=== PATIENT | female | born 1935 | race Caucasian/White ===

== ENCOUNTER 2016-10-23 17:34 | Inpatient (IN) | payer MEDICARE, OTHER ==
[~2016-10-23] VITALS: Ht 162.6 cm; Wt 89.0 kg
[2016-10-23] MEDS ORDERED: ALBUTEROL 0.5% (NEB) 2.5 MG/0.5 ML AMP HHN STA (18:12)
[2016-10-23] MEDS ORDERED: IPRATROPIUM (NEB) 0.5 MG/2.5 ML AMP HHN ONE (18:30)
[2016-10-23 18:46] LABS: EOSINOPHILS % 0.1 % (0.0-7.0); HEMOGLOBIN 10.4 g/dl (12.0-16.0); LYMPHOCYTES # 0.8 10^3/ul (0.8-2.9); LYMPHOCYTES % 6.9 % (15.0-51.0); MEAN CORPUSCULAR HEMOGLOBIN 28.9 pg (29.0-33.0); MEAN CORPUSCULAR HGB CONC 33.4 g/dl (32.0-37.0); MEAN CORPUSCULAR VOLUME 86.7 fl (82.0-101.0); MEAN PLATELET VOLUME 6.4 fl (7.4-10.4); MONOCYTE # 0.8 10^3/ul (0.3-0.9); MONOCYTES % 7.2 % (0.0-11.0); NEUTROPHIL # 9.4 10^3/ul (1.6-7.5); NEUTROPHILS % 85.8 % (39.0-77.0); PLATELET COUNT 284 10^3/UL (140-440); RED BLOOD COUNT 3.58 10^6/ul (4.20-5.40); RED CELL DISTRIBUTION WIDTH 15.8 % (11.5-14.5); UNCORRECTED WBC 10.9 10^3/ul (4.8-10.8); WHITE BLOOD COUNT 10.9 10^3/ul (4.8-10.8)
[2016-10-23 18:50] LABS: ALBUMIN 3.4 g/dl (3.3-4.9)
[2016-10-23 18:51] LABS: POTASSIUM 3.8 mmol/L (3.5-5.1)
[2016-10-23 18:52] LABS: CONDITION 1; LH ANALYZER COMMENTS 1
[2016-10-23 18:53] LABS: ALBUMIN/GLOBULIN RATIO 0.85; BILIRUBIN,INDIRECT 0.2 mg/dl (0-1.1); BILIRUBIN,TOTAL 0.2 mg/dl (0.2-1.3); CREATININE 1.72 mg/dl (0.44-1.00); TOTAL PROTEIN 7.4 g/dl (6.1-8.1)
[2016-10-23 18:54] LABS: CALCIUM 10.3 mg/dl (8.4-10.2)
--- NOTE | 2016-10-23 19:00 | RADRPT ---
PROCEDURE: XR Chest. CLINICAL INDICATION: Abdominal pain. TECHNIQUE: Single frontal view of the chest was obtained COMPARISON: None FINDINGS: Right central venous double-lumen right central venous dialysis catheter in place with tip at superi or vena cava right atrial junction. Degree of cardiomegaly and atherosclerotic calcifications in the thoracic aorta. The lungs demonstrate likely is centrolobular emphysema and are otherwise clear. There is no pleural effusion or pneumothorax. IMPRESSION: 1. Double-lumen dialysis catheter in place. 2. Cardiomegaly with atherosclerotic calcifications in the thoracic aorta. 3. Otherwise, no evident acute cardiopulmonary disease. RPTAT: [facility] Physician Susan Date Time Electronically viewed and signed by Physician Susan on 10/23/2016 19:00 RS/
[2016-10-23 19:08] LABS: TROPONIN-I 0.136 ng/ml (0.00-0.12)
[2016-10-23] MEDS ORDERED: CEFEPIME 2GM/50 ML (PMX) 50 ML IVPB STA (19:58)
[2016-10-23] MEDS ORDERED: SODIUM CHLORIDE 0.9% 1L BAG IV* STA (19:58)
[2016-10-23 20:29] VITALS: TEMP 99.6
[2016-10-23] MEDS ORDERED: ASPIRIN 81 MG TAB PO ONE (20:30)
--- NOTE | 2016-10-23 20:53 | ERA ---
ER Documentation Chief Complaint Date/Time DATE: 10/23/16 TIME: 20:42 Chief Complaint fatigue started yesterday after dialysis HPI This 81-year-old female came in for feeling very tired since dialysis yesterday. She feels like she is getting sick. She denies chest pain. She admits to shortness of breath when he does mention that she looks like she is breathing hard. States that she has had chills but denies fevers. Denies pain. ROS All systems reviewed and are negative except as per history of present illness. Medications Home Meds No Active Prescriptions or Reported Meds Allergies Allergies: Coded Allergies: Opioids - Morphine Analogues (Unverified Allergy, Unknown, 10/24/16) codeine (Unverified Allergy, Unknown, 10/24/16) PMhx/Soc History of Surgery: Yes (AV-Fistula) Anesthesia Reaction: No Hx Neurological Disorder: No Hx Respiratory Disorders: Yes (asthma) Hx Cardiac Disorders: No Hx Psychiatric Problems: No Hx Miscellaneous Medical Probl: Yes (ESRD-HD-HTN, Lymphedema.) Hx Alcohol Use: No Hx Substance Use: No Hx Tobacco Use: No Smoking Status: Never smoker Physical Exam Vitals Vital Signs Date Time Temp Pulse Resp B/P Pulse Ox O2 Delivery O2 Flow Rate FiO2 10/23/16 20:29 99.6 114 22 186/88 98 Room Air 2.0 10/23/16 18:22 105 28 93 Nasal Cannula 2.0 28 10/23/16 17:45 99.3 99 23 197/106 90 Physical Exam Const: [] Mild distress, tachypneic, speaking in 4-5 word sentences Head: Atraumatic Eyes: Normal Conjunctiva, EOMI, PERRLA ENT: Normal External Ears, Nose and Mouth. Neck: Full range of motion..~ No meningismus. Resp: Bilateral expiratory wheezes, good air movement, tachypnea Cardio: Very mild regular tachycardia, no murmurs Abd: Soft, non tender, non distended. Normal bowel sounds Skin: No petechiae or rashes Back: No midline or flank tenderness Ext: No cyanosis, or edema Neur: Awake and alert and oriented 3, cranial nerves II through XII intact, no focal deficits Psych: Normal Mood and Affect Result Diagram: 10/23/16 1800 10/23/16 1800 Results 24 hrs Laboratory Tests Test 10/23/16 18:00 1/27/17 19:45 Alanine Aminotransferase (ALT/SGPT) 31IU/L Albumin 3.4g/dl Albumin/Globulin Ratio 0.85 Alkaline Phosphatase 150IU/L Anion Gap 15 Aspartate Amino Transf (AST/SGOT) 52IU/L Basophils # 0.010^3/ul Basophils % 0.0% Blood Morphology Comment Blood Urea Nitrogen 21mg/dl Calcium Level 10.3mg/dl Carbon Dioxide Level 32mmol/L Chloride Level 92mmol/L Creatinine 1.72mg/dl Direct Bilirubin 0.00mg/dl Eosinophils # 0.010^3/ul Eosinophils % 0.1% Globulin 4.00g/dl Glucose Level 144mg/dl Hematocrit 31.0% Hemoglobin 10.4g/dl Indirect Bilirubin 0.2mg/dl Lipase 42U/L Lymphocytes # 0.810^3/ul Lymphocytes % 6.9% Mean Corpuscular Hemoglobin 28.9pg Mean Corpuscular Hemoglobin Concent 33.4g/dl Mean Corpuscular Volume 86.7fl Mean Platelet Volume 6.4fl Monocytes # 0.810^3/ul Monocytes % 7.2% Neutrophils # 9.410^3/ul Neutrophils % 85.8% Nucleated Red Blood Cells # 0.010^3/ul Nucleated Red Blood Cells % 0.0/100WBC Platelet Count 74001^3/UL Potassium Level 3.8mmol/L Red Blood Count 3.5810^6/ul Red Cell Distribution Width 15.8% Sodium Level 135mmol/L Total Bilirubin 0.2mg/dl Total Protein 7.4g/dl Troponin I 0.136ng/ml White Blood Count 10.910^3/ul Lactic Acid Level 3.0mmol/L Current Medications Medications (Trade) Dose Ordered Sig/Uday Route PRN Reason Start Time Stop Time Status Last Admin Dose Admin Albuterol (Proventil 0.5% (Neb)) 10 mg ONCE STAT [facility] 10/23/16 18:12 10/23/16 18:14 DC 10/23/16 18:20 Ipratropium [place] (Atrovent 0.02% (Neb)) 1 mg ONCE ONCE N 10/23/16 18:30 10/23/16 18:31 DC 10/23/16 18:21 Sodium Chloride 2480 ml 2,480 ml BOLUS OVER 2 HOURS STAT IV* 10/23/16 19:58 10/23/16 20:00 DC 10/23/16 20:03 Cefepime HCl (Maxipime 2gm/50 ml (Pmx)) 50 ml @ 100 mls/hr ONCE STAT IVPB 10/23/16 19:58 10/23/16 20:27 DC 10/23/16 20:02 Aspirin (Aspirin) 324 mg ONCE ONCE PO 10/23/16 20:30 10/23/16 20:39 DC 10/23/16 21:20 Procedures/MDM 81-year-old female with shortness of breath and meet sepsis criteria for mildly elevated white count, tachycardia and tachypnea. Diagnosis of sepsis was not made until 1843 labs reviewed and the patient became tachycardic as she was not initially tachycardic and has no apparent source of infection. She was given sepsis dose IV fluids at 30 cc/kg as well as cefepime for empiric coverage of bacterial infection. He was given albuterol and Atrovent breathing treatment of 10 and 1 which completely resolved her wheezing and shortness of breath. She still remained mildly tachypneic. She also has a troponin elevation which may be secondary to sepsis or renal insufficiency. She was given aspirin 324 mg. She has no signs of acute ischemia on EKG currently. Serial troponins and cardiac enzymes should be trended and patient will be admitted to telemetry for this. Currently feeling better in the emergency room mother does have tachycardia. She initially refused straight catheterization could not urinate although she does make urine more than once a day. Finally talked her into a straight catheterization we obtain some urine which is pending. Dr. Willis is admitting. EKG interpretation: NSR rate of 99, normal axis, low voltage may be obscuring T wave flattening, no ST elevations or derpressions concerning for acute ischemia network support specialist interpretation: sinus tachycardia without arrhythmia CXR interpretation: I see no infiltrates, no pulmonary edema, no widenened mediastinum, no pneumothorax, no fractures. Critical Care Time 35 minutes: This includes management of sepsis with respiratory distress, careful fluid administration to a dialysis patient, early antibiotics, multiple visits to the bedside to assess cardiopulmonary status, discussion with patient and admitting doctor, chart review. No billable procedures. Departure Diagnosis: Primary Impression: Sepsis Additional Impressions: COPD exacerbation Troponin level elevated Lactic acidosis Condition: Serious DOLORES RAGSDALE DO Oct 23, 2016 20:53
[2016-10-23] MEDS ORDERED: ACETAMINOPHEN 325 MG TAB PO PRN (21:30)
[2016-10-23] MEDS ORDERED: ONDANSETRON 4 MG INJ IV PRN (21:30)
[2016-10-23 23:30] VITALS: Ht 162.6 cm; Wt 89.0 kg
[2016-10-24] VITALS (13 sets, daily range): BP systolic 114–165; BP diastolic 57–77; PULSE 86–105; RESP 15–18
[2016-10-24] MEDS ORDERED: LEVOFLOXACIN 500MG/D5W (PMX) 100 ML IVPB ONE
[2016-10-24] MEDS: GUAIFENESIN/DM 5ML CUP PO PRN (00:29)
[2016-10-24 00:53] LABS: CREATINE KINASE 47 IU/L (23-200)
[2016-10-24 01:07] LABS: CK-MB < 0.22 ng/ml (0.0-2.4); TROPONIN-I 0.167 ng/ml (0.00-0.12)
--- NOTE | 2016-10-24 06:43 | HP ---
DATE OF ADMISSION: 10/23/2016 TIME SEEN: 2300 hours. CHIEF COMPLAINT: Fatigue and shortness of breath. HISTORY OF PRESENT ILLNESS: The patient is a 81-year-old female with a history of asthma/COPD, hyper tension, end-stage renal disease on dialysis on Wednesday, and Wednesday, who presented to the emergency department with the above stated chief complaints. Since dialysis yesterday, the patient has been feeling very tired/fatigued. He denied any chest pain, but admitted to shortness of breat h, wheezing and productive cough. Denies fever, chills, nausea or vomiting. When the patient presented to the ER, blood pressure was elevated at 197/106, heart rate 99, respira tory rate 23, temperature 99.3, oxygen saturation 90% on room air. Laboratory value shows a WBC was 11,000, hemoglobin 10.4, bicarbonate 32, BUN 21, creatinine 1.72. Alkaline phosphatase 150, AST 52 and lactic acid 3. Initial troponin of 0.136. A chest x-ray shows cardiomegaly with atherosclerotic calcification of the thoracic aorta, otherwise no evidence of acute cardiopulmonary disease. The patient was given breathing treatment with albut corrine and Atrovent and was started on cefepime and also given aspirin as well as weight-based IV flui ds. X-ray of the left frontal brain was performed, negative except as mentioned in HPI. PAST MEDICAL HISTORY: As per HPI. PAST SURGICAL HISTORY: 1. AV fistula. 2. Right chest Perm-A-Cath. REVIEW OF SYSTEMS: A review of systems was performed and negative except as mentioned in the HPI. _ ___. SOCIAL HISTORY: Denied a history of tobacco, alcohol or illicit drug use. ALLERGIES: 1. MORPHINE. 2. CODEINE. HOME MEDICATIONS: None listed. PHYSICAL EXAMINATION: VITAL SIGNS: Blood pressure earlier was 186/88, heart rate 114, respiratory rate 22, temperature 99 .6, oxygen saturation 99% on 2 liters. GENERAL: No acute distress, sleepy, but arousable. HEENT: No obvious head deformity. Pupils are reactive to light. Extraocular muscles intact. CARDIOVASCULAR: Tachycardic with regular rhythm. LUNGS: Clear. ABDOMEN: Soft, obese, nontender, nondistended. Positive bowel sounds. EXTREMITIES: Trace pitting edema. LABORATORY DATA: Pertinent positives as mentioned in the HPI. IMAGING: Chest x-ray with results as mentioned in the HPI. IMPRESSION: 1. Generalized weakness/fatigue. 2. Chronic obstructive pulmonary disease/asthma exacerbation. 3. Sepsis, as evidenced by tachycardia and tachypnea, as well as lactic acidosis, likely secondary to upper respiratory infection versus early developing pneumonia. 4. Positive troponin, likely demand ischemia from above 5. End-stage renal disease on dialysis. 6. Normocytic anemia, most likely secondary to chronic kidney disease stage. 7. Hypertensive urgency. PLAN: 1. We ill place on oxygen, antibiotics and as needed bronchodilators and steroid for chronic obstru ctive pulmonary disease exacerbation, with possible underlying upper respiratory infection versus ev en a possible early developing pneumonia. 2. Elevated troponin in the setting of end-stage renal disease, also most likely from demand ischem ia. The patient without any chest pain and EKG with no ST-T wave abnormalities. We will trend the troponin and we will obtain a 2D echo. We will adjust antihypertensives as needed for better blood pressure control. We will also obtain a 2D echo. The patient will have physical therapy prior to d ischarge. Further workup and management per clinical course. Dictated By: LINDA LEOS/RUTH Conf#: [id number] DID#: [id number]
[2016-10-24 08:02] LABS: CK-MB 0.45 ng/ml (0.0-2.4)
[2016-10-24 08:12] LABS: TROPONIN-I 0.154 ng/ml (0.00-0.12)
--- NOTE | 2016-10-24 11:32 | CONS ---
DATE OF ADMISSION: 10/23/2016 DATE OF CONSULTATION: 10/24/2016 TYPE OF CONSULTATION: Nephrology. REASON FOR CONSULTATION: End-stage renal disease. PHYSICIAN REQUESTING CONSULT: Dr. Cooley HISTORY OF PRESENT ILLNESS: This is a 81-year-old female with a past medical history of end-stage r enal disease on Wednesday, , Wednesday with access of a Perm-A-Cath. The patient's primary nep hrologist is ____. The patient also has a history of lymphedema, history of asthma, COPD, hyper tension who presents to [facility] [place] with fatigue and shortness of breath. The patie nt is not aware of when her last hemodialysis was. She states she thinks it was . The tylor ent states that over the last couple days, she has been feeling sick with worsening respiratory dist ress as stated above. As a result, she came into the emergency room. Upon arrival to the emergency room, the patient had a chest x-ray which showed no acute cardiopulmonary disease. The patient in the emergency room had laboratory data drawn, which showed a white count 10.9, hemoglobin 10.4. Marion floyd was diagnosed with COPD exacerbation and possible sepsis and started on broad spectrum antibiot ics, given nebulizer therapy, admitted to telemetry. Overnight, the patient is complaining of gener al body pain, back pain and continues to complain of some wheezing, shortness of breath. PAST MEDICAL HISTORY: As stated above, history of end-stage renal disease, history of hypertension, history of anemia, history of asthma, history of lymphedema. PAST SURGICAL HISTORY: The patient had a Perm-A-Cath placement, AV fistula placement. MEDICATIONS: Patient medications reviewed. ALLERGIES: PATIENT IS ALLERGIC TO: 1. MORPHINE. 2. CODEINE. SOCIAL HISTORY: Does not smoke, drink or do drugs. REVIEW OF SYSTEMS: A 14-point review of systems was conducted. Pertinent positives in HPI, otherwi se negative. PHYSICAL EXAMINATION: VITAL SIGNS: Blood pressure is currently 187/75, heart rate is 110, respiration 18, temperature 98. 6. HEENT: Head is normocephalic. Pupils are reactive to light. NECK: Supple. HEART: Regular rate. LUNGS: Show diminished breath sounds at the base. Positive rhonchi, positive wheezing. ABDOMEN: Soft, nontender to palpation. EXTREMITIES: Negative for clubbing, cyanosis. Positive edema noted. ____ erythema bilateral lower extremities. DERMATOLOGIC: No petechial rashes. NEUROLOGIC: No obvious focal deficits. MUSCULOSKELETAL: No joint effusions. LABORATORY DATA: Patient's laboratory data shows a sodium 137, potassium 3.8, BUN 21, creatinine 1. 72, calcium 10.3. White count 10.9, hemoglobin 10.4, hematocrit 31.0, platelet count 284. IMAGING STUDIES: As stated in HPI. ASSESSMENT AND PLAN: This is a 81-year-old female who presents with: 1. End-stage renal disease. The patient is on dialysis Wednesday, , Wednesday, access Perm-A- Cath. Plan for hemodialysis today for 3 hours, 3 K bath, calcium 2.5, will ultrafiltrate as tolerat ed. 2. Anemia of end-stage renal disease. Hemoglobin levels are stable. Continue Epogen. 3. Metabolic disorder. The patient is hypercalcemic with calcium of 10.3. Will repeat if calcium levels remain elevated. The patient will be dialyzed n a low calcium bath. We will follow up with phosphorus level. Defer phosphate binders at this time. 4. Hypertension. The plan is for ultrafiltration dialysis. Consider blood pressure medication. 5. Acute asthma, COPD exacerbation. Continue medical management. Continue nebulizers. Consider s teroids. Continue antibiotic therapy. 6. History of lymphedema. Continue local care, compression stockings. 7. Elevated troponin. Etiology may be demand ischemia, non-STEMI type 2. Continue to check serial troponins. No active chest pain at this time. 8. Possible sepsis secondary to evolving pneumonia. Continue broad spectrum antibiotics stated abo ve. Follow up cultures. We will monitor closely. Thank you, Dr. Cooley, for this interesting consult. It will be a pleasure to follow patient with you throughout the hospital course. Dictated By: DERECK LANGLEY DO NR/NTS Conf#: [id number] DID#: [id number] CC: RAMANDEEP COOLEY MD;*EndCC*
--- NOTE | 2016-10-24 11:39 | PN ---
Date/Time of Note Date/Time of Note DATE: 10/24/16 TIME: 11:37 Assessment/Plan VTE Prophylaxis VTE Prophylaxis Intervention: other Lines/Catheters [facility] Saline Lock Urinary Cath still in place: No Assessment/Plan Problems: (1) End stage renal disease on dialysis Status: Chronic Comment: She will be seen in consultation by Dr. Paredes. Dialysis will be as per appropriate timeframes and schedules. Please note that her regular environmental field office manager is Dr. Keyur Nguyen (2) COPD exacerbation Status: Chronic Comment: Patient talked around the subject extensively. I will get her back on to her medications and under treatment. Assessment/Plan Regarding possibility sepsis she is on broad-spectrum antibiotics will observe Subjective 24 Hr Interval Summary Free Text/Dictation Older female sitting up in a chair with oxygen on. She reports that she had weakness. Her ability to stay focused for the question is somewhat limited Respiratory: no complaints Cardiovascular: no complaints Exam/Review of Systems Vital Signs Vitals Vital Signs Date Time Temp Pulse Resp B/P Pulse Ox O2 Delivery O2 Flow Rate FiO2 10/24/16 10:00 Nasal Cannula 2.0 10/24/16 08:09 98.1 92 18 137/67 92 10/23/16 18:22 28 Exam Constitutional: alert, oriented Respiratory: crackles/rales, diminished breath sounds, wheezing Cardiovascular: nl pulses, regular rate and rhythm Results Result Diagram: 10/23/16 1800 10/23/16 1800 Results 24 hrs Laboratory Tests Test 10/23/16 18:00 10/23/16 19:45 10/23/16 22:00 10/24/16 00:30 Alanine Aminotransferase (ALT/SGPT) 31 Albumin 3.4 Albumin/Globulin Ratio 0.85 Alkaline Phosphatase 150 H Anion Gap 15 Aspartate Amino Transf (AST/SGOT) 52 H Basophils # 0.0 Basophils % 0.0 Blood Morphology Comment Blood Urea Nitrogen 21 H Calcium Level 10.3 H Carbon Dioxide Level 32 H Chloride Level 92 L Creatinine 1.72 H Direct Bilirubin 0.00 Eosinophils # 0.0 Eosinophils % 0.1 Globulin 4.00 H Glucose Level 144 Hematocrit 31.0 L Hemoglobin 10.4 L Indirect Bilirubin 0.2 Lipase 42 Lymphocytes # 0.8 Lymphocytes % 6.9 L Mean Corpuscular Hemoglobin 28.9 L Mean Corpuscular Hemoglobin Concent 33.4 Mean Corpuscular Volume 86.7 Mean Platelet Volume 6.4 L Monocytes # 0.8 Monocytes % 7.2 Neutrophils # 9.4 H Neutrophils % 85.8 H Nucleated Red Blood Cells # 0.0 Nucleated Red Blood Cells % 0.0 Platelet Count 284 Potassium Level 3.8 Red Blood Count 3.58 L Red Cell Distribution Width 15.8 H Sodium Level 135 Total Bilirubin 0.2 Total Protein 7.4 Troponin I 0.136 *H 0.167 *H White Blood Count 10.9 H Lactic Acid Level 3.0 H 2.3 H 2.4 H Creatine Kinase 47 Creatine Kinase Index 0.5 Creatinine Kinase MB (Mass) < 0.22 Test 10/24/16 07:20 Creatine Kinase 43 Creatine Kinase Index 1.0 Creatinine Kinase MB (Mass) 0.45 Troponin I 0.154 *H Medications Medications Current Medications Guaifenesin/ Dextromethorphan 10 ml 10 ml Q6H PRN PO COUGH Last administered on 10/24/16t 00:29; Admin Dose 10 ML; Start 10/24/16 at 00:00 Levofloxacin/ Dextrose 50 ml @ 50 mls/hr Q24H IVPB ; Start 10/25/16 at 00:00 Piperacillin Sod/ Tazobactam Sod (Zosyn 2.25gm/ 50ml (Pmx)) 50 ml @ 100 mls/hr Q6 IVPB ; Start 10/24/16 at 12:00 DOLORES ELLIS MD Oct 24, 2016 11:39
[2016-10-24] MEDS ORDERED: PIPER-TAZO 2.25 GM (PMX) 50 ML IVPB SCH (12:00)
[2016-10-24] MEDS ORDERED: MONTELUKAST 10 MG TAB PO ONE (12:00)
[2016-10-24] MEDS: PIPER-TAZO 2.25 GM (PMX) 50 ML IVPB SCH ×3 (12:26→23:57)
--- NOTE | 2016-10-24 14:12 | CONS ---
Date/Time of Note Date/Time of Note DATE: 10/24/16 TIME: 14:05 Assessment/Plan Assessment/Plan Chief Complaint/Hosp Course Assessment: NSTEMI - likely type 2 Accelerated hypertension Sepsis and bacteremia - blood cultures growing gram positive cocci End-stage renal disease - on hemodialysis Asthma Recommendations: -telemetry monitoring -transthoracic echocardiogram -continue aspirin 81mg daily -carvedilol 6.25mg BID, up titrate as tolerated/needed -check lipid panel Problems: Consultation Date/Type/Reason Admit Date/Time Oct 23, 2016 at 21:05 Type of Consultation: Cardiology Reason for Consultation elevated troponin Referring Provider: RAMANDEEP COOLEY of Present Illness The patient is a 81 year-old female who presented with fatigue and shortness of breath. She is a poor historian. She has been found to have sepsis and bacteremia. Her troponin is mildly elevated up to 0.167. She denies chest pain. 14 point review of systems negative other than per HPI. Past Medical History Hypertension End-stage renal disease - on hemodialysis Asthma Past Surgical History AV fistula Right chest Perm-A-Cath Nasal surgery Family History Significant Family History: other (noncontributory given advanced age) Social History Alcohol Use: none Smoking Status: Never smoker Drug Use: none Exam/Review of Systems Vital Signs Vitals Vital Signs Date Time Temp Pulse Resp B/P Pulse Ox O2 Delivery O2 Flow Rate FiO2 10/24/16 12:20 87 10/24/16 11:55 98.1 17 150/71 95 10/24/16 10:00 Nasal Cannula 2.0 10/23/16 18:22 28 Exam Constitutional: alert, obese Psych: no complaints Head: atraumatic, normocephalic Eyes: nl conjunctiva, nl lids ENMT: nl external ears & nose, nl nasal mucosa & septum Neck: non-tender, supple Respiratory: clear to auscultation, normal air movement Cardiovascular: regular rate and rhythm Gastrointestinal: non-tender, soft Musculoskeletal: swelling Extremities: edema Results Result Diagram: 10/23/16 1800 10/23/16 1800 Results 24 hrs Laboratory Tests Test 10/23/16 18:00 10/23/16 19:45 10/23/16 22:00 10/24/16 00:30 Alanine Aminotransferase (ALT/SGPT) 31 Albumin 3.4 Albumin/Globulin Ratio 0.85 Alkaline Phosphatase 150 H Anion Gap 15 Aspartate Amino Transf (AST/SGOT) 52 H Basophils # 0.0 Basophils % 0.0 Blood Morphology Comment Blood Urea Nitrogen 21 H Calcium Level 10.3 H Carbon Dioxide Level 32 H Chloride Level 92 L Creatinine 1.72 H Direct Bilirubin 0.00 Eosinophils # 0.0 Eosinophils % 0.1 Globulin 4.00 H Glucose Level 144 Hematocrit 31.0 L Hemoglobin 10.4 L Indirect Bilirubin 0.2 Lipase 42 Lymphocytes # 0.8 Lymphocytes % 6.9 L Mean Corpuscular Hemoglobin 28.9 L Mean Corpuscular Hemoglobin Concent 33.4 Mean Corpuscular Volume 86.7 Mean Platelet Volume 6.4 L Monocytes # 0.8 Monocytes % 7.2 Neutrophils # 9.4 H Neutrophils % 85.8 H Nucleated Red Blood Cells # 0.0 Nucleated Red Blood Cells % 0.0 Platelet Count 284 Potassium Level 3.8 Red Blood Count 3.58 L Red Cell Distribution Width 15.8 H Sodium Level 135 Total Bilirubin 0.2 Total Protein 7.4 Troponin I 0.136 *H 0.167 *H White Blood Count 10.9 H Lactic Acid Level 3.0 H 2.3 H 2.4 H Creatine Kinase 47 Creatine Kinase Index 0.5 Creatinine Kinase MB (Mass) < 0.22 Test 10/24/16 07:20 Creatine Kinase 43 Creatine Kinase Index 1.0 Creatinine Kinase MB (Mass) 0.45 Troponin I 0.154 *H Medications Medications Current Medications Guaifenesin/ Dextromethorphan 10 ml 10 ml Q6H PRN PO COUGH Last administered on 10/24/16 00:29; Admin Dose 10 ML; Start 10/24/16 at 00:00 Levofloxacin/ Dextrose 50 ml @ 50 mls/hr Q24H IVPB ; Start 10/25/16 at 00:00 Piperacillin Sod/ Tazobactam Sod (Zosyn 2.25gm/ 50ml (Pmx)) 50 ml @ 100 mls/hr Q6 IVPB Last administered on 10/24/16 12:26; Admin Dose 100 MLS/HR; Start at 12:00 Montelukast Sodium (Singulair) 10 mg HS PO ; Start 10/24/16 at 21:00 Salmeterol Xinafoate/ Fluticasone (Advair 250/50 Diskus) 1 inh BID INH ; Start 10/24/16 at 21:00 ALLIE QUINTEROS MD Oct 24, 2016 14:12
[2016-10-24] MEDS: MONTELUKAST 10 MG TAB PO SCH (21:00)
[2016-10-24] MEDS: SALMETEROL/FLUTICASONE 250/50 INHA INH SCH (21:03)
[2016-10-24] MEDS: LEVOFLOXACIN 250MG/D5W (PMX) 50 ML IVPB SCH (23:57)
[2016-10-25] VITALS (21 sets, daily range): BP systolic 83–210; BP diastolic 72–106; PULSE 72–120; RESP 18–20
[2016-10-25] MEDS: PIPER-TAZO 2.25 GM (PMX) 50 ML IVPB SCH ×3 (05:46→17:08)
[2016-10-25 07:47] LABS: POTASSIUM 4.9 mmol/L (3.5-5.1)
[2016-10-25 07:50] LABS: CREATININE 1.72 mg/dl (0.44-1.00)
[2016-10-25 07:51] LABS: CALCIUM 10.6 mg/dl (8.4-10.2); MAGNESIUM 1.9 mg/dl (1.7-2.5); PHOSPHORUS 3.6 mg/dl (2.5-4.9)
[2016-10-25 07:52] LABS: CHOL/HDL RATIO 7.2 RATIO
[2016-10-25 08:24] LABS: EOSINOPHILS # 0.1 10^3/ul (0.0-0.5); EOSINOPHILS % 1.1 % (0.0-7.0); HEMATOCRIT 30.5 % (37.0-47.0); HEMOGLOBIN 10.3 g/dl (12.0-16.0); LYMPHOCYTES # 0.6 10^3/ul (0.8-2.9); LYMPHOCYTES % 6.6 % (15.0-51.0); MEAN CORPUSCULAR HGB CONC 33.8 g/dl (32.0-37.0); MEAN CORPUSCULAR VOLUME 85.8 fl (82.0-101.0); MEAN PLATELET VOLUME 6.8 fl (7.4-10.4); MONOCYTE # 0.9 10^3/ul (0.3-0.9); MONOCYTES % 10.6 % (0.0-11.0); NEUTROPHIL # 7.2 10^3/ul (1.6-7.5); NEUTROPHILS % 81.7 % (39.0-77.0); PLATELET COUNT 269 10^3/UL (140-440); RED BLOOD COUNT 3.55 10^6/ul (4.20-5.40); RED CELL DISTRIBUTION WIDTH 15.7 % (11.5-14.5); UNCORRECTED WBC 8.9 10^3/ul (4.8-10.8); WHITE BLOOD COUNT 8.9 10^3/ul (4.8-10.8)
[2016-10-25 08:58] LABS: CONDITION 1; LH ANALYZER COMMENTS 1
[2016-10-25] MEDS: ASPIRIN 81 MG TAB PO SCH (09:58)
[2016-10-25] MEDS: SALMETEROL/FLUTICASONE 250/50 INHA INH SCH ×2 (09:58→22:38)
--- NOTE | 2016-10-25 11:13 | PN ---
Date/Time of Note Date/Time of Note DATE: 10/25/16 TIME: 11:10 Assessment/Plan VTE Prophylaxis VTE Prophylaxis Intervention: LMWH Lines/Catheters IV Catheter Type (from [facility]): Saline Lock Urinary Cath still in place: No Assessment/Plan Problems: (1) End stage renal disease on dialysis Status: Chronic Comment: For HD today which patient claims she was not offered last night, see notes (2) COPD exacerbation Status: Chronic Comment: Poos control. Add medicines and avoid non cardioselective BB, Assessment/Plan Hypertension, add a2rb as already on HD Subjective 24 Hr Interval Summary Free Text/Dictation Patient sitting in chair asking for dialysis. Does not answer questions directly Respiratory: no complaints Cardiovascular: no complaints Gastrointestinal: no complaints Exam/Review of Systems Vital Signs Vitals Vital Signs Date Time Temp Pulse Resp B/P Pulse Ox O2 Delivery O2 Flow Rate FiO2 10/25/16 08:06 97.8 114 20 183/83 95 10/24/16 21:28 21 10/24/16 10:00 Nasal Cannula 2.0 Intake and Output 10/24/16 10/24/16 10/25/16 15:00 23:00 07:00 Intake Total 100 ml 700 ml 300 ml Balance 100 ml 700 ml 300 ml Exam Constitutional: alert, oriented Respiratory: diminished breath sounds, wheezing Cardiovascular: nl pulses, regular rate and rhythm Results Result Diagram: 10/25/16 0645 10/25/16 0645 Results 24 hrs Laboratory Tests Test 10/25/16 06:45 Anion Gap 19 H Basophils # 0.0 Basophils % 0.0 Blood Morphology Comment Blood Urea Nitrogen 27 H Calcium Level 10.6 H Carbon Dioxide Level 25 Chloride Level 97 Cholesterol Level 204 H Cholesterol/HDL Ratio 7.2 Creatinine 1.72 H Eosinophils # 0.1 Eosinophils % 1.1 Glucose Level 94 # HDL Cholesterol 28 L Hematocrit 30.5 L Hemoglobin 10.3 L LDL Cholesterol, Calculated 140 Lymphocytes # 0.6 L Lymphocytes % 6.6 L Magnesium Level 1.9 Mean Corpuscular Hemoglobin 29.0 Mean Corpuscular Hemoglobin Concent 33.8 Mean Corpuscular Volume 85.8 Mean Platelet Volume 6.8 L Monocytes # 0.9 Monocytes % 10.6 Neutrophils # 7.2 Neutrophils % 81.7 H Nucleated Red Blood Cells # 0.0 Nucleated Red Blood Cells % 0.0 Phosphorus Level 3.6 Platelet Count 269 Potassium Level 4.9 Red Blood Count 3.55 L Red Cell Distribution Width 15.7 H Sodium Level 136 Triglycerides Level 182 H White Blood Count 8.9 Medications Medications Current Medications Guaifenesin/ Dextromethorphan 10 ml 10 ml Q6H PRN PO COUGH Last administered on 10/24/16 00:29; Admin Dose 10 ML; Start 10/24/16 at 00:00 Levofloxacin/ Dextrose 50 ml @ 50 mls/hr Q24H IVPB ; Start 10/25/16 at 00:00 Piperacillin Sod/ Tazobactam Sod (Zosyn 2.25gm/ 50ml (Pmx)) 50 ml @ 100 mls/hr Q6 IVPB Last administered on 10/24/16 17:08; Admin Dose 100 MLS/HR; Start at 12:00 Montelukast Sodium (Singulair) 10 mg HS PO ; Start 10/24/16 at 21:00 Salmeterol Xinafoate/ Fluticasone (Advair 250/50 Diskus) 1 inh BID INH Last administered on 10/25/16 09:58; Admin Dose 1 INH; Start 10/24/16 at 21:00 Aspirin (Aspirin) 81 mg DAILY PO Last administered on 10/25/16 09:58; Admin Dose 81 MG; Start 10/25/16 at 09:00 Carvedilol (Coreg) 6.25 mg BID PO Last administered on 10/25/16 09:58; Admin Dose 6.25 MG; Start 10/24/16 at 21:00 Hydralazine HCl (Apresoline) 10 mg Q4H PRN IV SBP>160; Start 10/24/16 at 14:00 DOLORES ELLIS MD Oct 25, 2016 11:13
[2016-10-25] MEDS ORDERED: TIOTROPIUM 18 MCG CAPSULE INHA DEV INH ONE (11:30)
[2016-10-25] MEDS: LOSARTAN 50 MG TAB PO SCH (13:03)
--- NOTE | 2016-10-25 15:37 | PN ---
DATE: 10/25/2016 SUBJECTIVE: The patient is stable, no acute events overnight. No fevers, chills, nausea, vomiting. OBJECTIVE: VITAL SIGNS: Blood pressure 180/83, respiratory rate 20, pulse is 114, temperature 97.8. HEENT: Head is normocephalic. NECK: Supple. HEART: Regular rate. LUNGS: Show diminished breath sounds at base. ABDOMEN: Soft, nontender to palpation. No rebound or guarding. EXTREMITIES: Negative for clubbing, cyanosis. Trace edema. DERMATOLOGIC: No rashes. MUSCULOSKELETAL: No joint effusions. NEUROLOGIC: No change in exam. MEDICATIONS: Reviewed. LABORATORY DATA: Shows sodium 136, potassium 4.9, chloride 97, BUN 27, creatinine 1.72, calcium 10. 6, white count 10.9, hemoglobin 10.4, hematocrit 31.0, platelet count is 284. Laboratory data was r hilarywed. ASSESSMENT AND PLAN: 1. End-stage renal disease. The patient is on dialysis Wednesday, , Wednesday with access of Perm-A-Cath. The patient refused dialysis yesterday. Will plan for dialysis today for 3 hours on 3 K bath, calcium 2.5. Of note, the patient's renal function creatinine remained stable around 1.7 m g/dL, which gives an estimated EGFR of 28 mL per minute. It is possible that the patient has shown renal recovery. Will continue to monitor closely. 2. Anemia of end-stage renal disease, chronic kidney disease. Hemoglobin levels are stable. Libby nue Epogen. 3. Mineral bone disorder. The patient remains hypercalcemic with a calcium of 10.5. Will follow u p a PTH level. Dialysis will be performed on a low calcium bath. 4. Hypertension. Continue ultrafiltration dialysis. Continue current blood pressure regimen. 5. Acute asthma, COPD exacerbation. Continue medical management. 6. History of dyslipidemia. Continue local care . 7. Elevated troponin, possible non-ST myocardial infarction type 2. Continue to monitor. 8. General debility. Continue physical therapy. Dictated By: DERECK KENNEDY/RUTH Conf#: [id number] DID#: [id number]
--- NOTE | 2016-10-25 16:58 | CONS ---
Date/Time of Note Date/Time of Note DATE: 10/25/16 TIME: 16:55 Assessment/Plan Assessment/Plan Chief Complaint/Hosp Course Assessment: NSTEMI - likely type 2 Accelerated hypertension Dyslipidemia Sepsis and possible bacteremia - preliminary blood culture gram stain shows gram positive cocci End-stage renal disease - on hemodialysis Asthma Recommendations: -follow up transthoracic echocardiogram -continue aspirin 81mg daily -continue metoprolol succinate and losartan, up titrate as needed -start atorvastatin 40mg daily Problems: Consultation Date/Type/Reason Admit Date/Time Oct 23, 2016 at 21:05 Initial Consult Date Type of Consultation: Cardiology 24 HR Interval Summary Free Text/Dictation No acute events. No chest pain. Detailed Summary Additional Comments 14 point review of systems without changes. Exam/Review of Systems Vital Signs Vitals Vital Signs Date Time Temp Pulse Resp B/P Pulse Ox O2 Delivery O2 Flow Rate FiO2 10/25/16 16:20 79 10/25/16 15:43 97.8 18 163/82 94 10/24/16 21:28 21 10/24/16 10:00 Nasal Cannula 2.0 Intake and Output 10/24/16 10/24/16 10/25/16 15:00 23:00 07:00 Intake Total 100 ml 700 ml 300 ml Balance 100 ml 700 ml 300 ml Exam Constitutional: alert, obese Psych: no complaints Head: atraumatic, normocephalic Eyes: nl conjunctiva, nl lids ENMT: nl external ears & nose, nl nasal mucosa & septum Neck: non-tender, supple Respiratory: clear to auscultation, normal air movement Cardiovascular: regular rate and rhythm Gastrointestinal: non-tender, soft Musculoskeletal: swelling Extremities: edema Results Result Diagram: 10/25/16 0645 10/25/16 0645 Results 24 hrs Laboratory Tests Test 10/25/16 06:45 Anion Gap 19 H Basophils # 0.0 Basophils % 0.0 Blood Morphology Comment Blood Urea Nitrogen 27 H Calcium Level 10.6 H Carbon Dioxide Level 25 Chloride Level 97 Cholesterol Level 204 H Cholesterol/HDL Ratio 7.2 Creatinine 1.72 H Eosinophils # 0.1 Eosinophils % 1.1 Glucose Level 94 # HDL Cholesterol 28 L Hematocrit 30.5 L Hemoglobin 10.3 L LDL Cholesterol, Calculated 140 Lymphocytes # 0.6 L Lymphocytes % 6.6 L Magnesium Level 1.9 Mean Corpuscular Hemoglobin 29.0 Mean Corpuscular Hemoglobin Concent 33.8 Mean Corpuscular Volume 85.8 Mean Platelet Volume 6.8 L Monocytes # 0.9 Monocytes % 10.6 Neutrophils # 7.2 Neutrophils % 81.7 H Nucleated Red Blood Cells # 0.0 Nucleated Red Blood Cells % 0.0 Phosphorus Level 3.6 Platelet Count 269 Potassium Level 4.9 Red Blood Count 3.55 L Red Cell Distribution Width 15.7 H Sodium Level 136 Triglycerides Level 182 H White Blood Count 8.9 Medications Medications Current Medications Guaifenesin/ Dextromethorphan 10 ml 10 ml Q6H PRN PO COUGH Last administered on 10/24/16 00:29; Admin Dose 10 ML; Start 10/24/16 at 00:00 Levofloxacin/ Dextrose 50 ml @ 50 mls/hr Q24H IVPB ; Start 10/25/16 at 00:00 Piperacillin Sod/ Tazobactam Sod (Zosyn 2.25gm/ 50ml (Pmx)) 50 ml @ 100 mls/hr Q6 IVPB Last administered on 10/25/16 13:03; Admin Dose 100 MLS/HR; Start at 12:00 Montelukast Sodium (Singulair) 10 mg HS PO ; Start 10/24/16 at 21:00 Salmeterol Xinafoate/ Fluticasone (Advair 250/50 Diskus) 1 inh BID INH Last administered on 10/25/16 09:58; Admin Dose 1 INH; Start 10/24/16 at 21:00 Aspirin (Aspirin) 81 mg DAILY PO Last administered on 10/25/16 09:58; Admin Dose 81 MG; Start 10/25/16 at 09:00 Hydralazine HCl (Apresoline) 10 mg Q4H PRN IV SBP>160; Start 10/24/16 at 14:00 Metoprolol Succinate (Toprol Xl) 25 mg BID PO ; Start 10/25/16 at 21:00 Losartan Potassium (Cozaar) 50 mg DAILY PO Last administered on 10/25/16 13:03 ; Admin Dose 50 MG; Start 10/25/16 at 11:30 Tiotropium [place] (Spiriva) 1 inh DAILY INH ; Start 10/26/16 at 09:00 ALLIE QUINTEROS MD Oct 25, 2016 16:58
[2016-10-25] MEDS: ATORVASTATIN 40 MG TAB PO SCH (21:00)
[2016-10-25] MEDS: METOPROLOL (XL) 25 MG TAB PO SCH (21:00)
[2016-10-25] MEDS: MONTELUKAST 10 MG TAB PO SCH (21:00)
[2016-10-25] MEDS: hydrALAzine 20 MG INJ IV PRN (22:53)
[2016-10-25] MEDS: EPOETIN 4000 UNITS/1 ML INJ (ESRD) SC SCH (23:22)
[2016-10-25] MEDS: ALBUTEROL/IPRATROPIUM (NEB) 3 ML AMP HHN PRN (23:47)
[2016-10-26] VITALS (11 sets, daily range): BP systolic 122–160; BP diastolic 71–82; PULSE 84–115; RESP 18–22
[2016-10-26] MEDS: ALBUTEROL/IPRATROPIUM (NEB) 3 ML AMP HHN PRN ×2 (03:57→23:06)
[2016-10-26] MEDS: GUAIFENESIN/DM 5ML CUP PO PRN (04:01)
[2016-10-26] MEDS: PIPER-TAZO 2.25 GM (PMX) 50 ML IVPB SCH ×4 (07:12→17:15)
[2016-10-26] MEDS: SALMETEROL/FLUTICASONE 250/50 INHA INH SCH ×2 (08:38→21:58)
[2016-10-26] MEDS: ASPIRIN 81 MG TAB PO SCH (08:41)
[2016-10-26] MEDS: TIOTROPIUM 18 MCG CAPSULE INHA DEV INH SCH (08:42)
[2016-10-26] MEDS: METOPROLOL (XL) 25 MG TAB PO SCH ×2 (08:42→22:00)
[2016-10-26] MEDS: LOSARTAN 50 MG TAB PO SCH (08:42)
[2016-10-26 10:14] LABS: BASOPHILS % 0.1 % (0.0-2.0); EOSINOPHILS % 0.1 % (0.0-7.0); HEMATOCRIT 30.2 % (37.0-47.0); HEMOGLOBIN 10.1 g/dl (12.0-16.0); LYMPHOCYTES # 0.7 10^3/ul (0.8-2.9); LYMPHOCYTES % 10.4 % (15.0-51.0); MEAN CORPUSCULAR HEMOGLOBIN 28.6 pg (29.0-33.0); MEAN CORPUSCULAR HGB CONC 33.6 g/dl (32.0-37.0); MEAN CORPUSCULAR VOLUME 85.1 fl (82.0-101.0); MEAN PLATELET VOLUME 6.5 fl (7.4-10.4); MONOCYTE # 0.8 10^3/ul (0.3-0.9); MONOCYTES % 11.6 % (0.0-11.0); NEUTROPHIL # 5.6 10^3/ul (1.6-7.5); NEUTROPHILS % 77.8 % (39.0-77.0); PLATELET COUNT 271 10^3/UL (140-440); RED BLOOD COUNT 3.55 10^6/ul (4.20-5.40); RED CELL DISTRIBUTION WIDTH 15.9 % (11.5-14.5); UNCORRECTED WBC 7.2 10^3/ul (4.8-10.8); WHITE BLOOD COUNT 7.2 10^3/ul (4.8-10.8)
[2016-10-26 10:15] LABS: CONDITION 1; LH ANALYZER COMMENTS 1
[2016-10-26 10:30] LABS: POTASSIUM 4.6 mmol/L (3.5-5.1)
[2016-10-26 10:33] LABS: CREATININE 1.69 mg/dl (0.44-1.00); PHOSPHORUS 3.1 mg/dl (2.5-4.9)
[2016-10-26 10:34] LABS: CALCIUM 10.1 mg/dl (8.4-10.2); MAGNESIUM 1.9 mg/dl (1.7-2.5)
--- NOTE | 2016-10-26 10:47 | PN ---
DATE: 10/26/2016 SUBJECTIVE: The patient is stable, no acute events overnight. OBJECTIVE: VITAL SIGNS: Blood pressure is 126/71, respiration 18, pulse 71, temperature 97.9. HEENT: Head is normocephalic. NECK: Supple. HEART: Regular rate. LUNGS: Show diminished breath sounds at base. ABDOMEN: Soft, nontender to palpation without rebound or guarding. EXTREMITIES: Negative for clubbing. No cyanosis. Positive edema, positive venous insufficiency ch anges. DERMATOLOGIC: No rashes. MUSCULOSKELETAL: No joint effusions. NEUROLOGIC: No focal deficits. MEDICATIONS: Have been reviewed. LABORATORY DATA: Have been reviewed. No new labs. ASSESSMENT AND PLAN: 1. End-stage renal disease. The patient had dialysis on Wednesday, , Wednesday with access Pe rm-A-Cath. 2. Hemodialysis will be tomorrow. Will dialyze for 3 hours 2K bath, calcium 2.5. Of note, the pat ient's renal function appears to have improved. The patient's creatinine was stable for 48 hour per iod, around 1.7 mg/dL. Will continue to monitor closely. If there is evidence of recovery, the pat ient may possibly be taken off hemodialysis. 3. Anemia of end-stage renal disease. Continue to monitor hemoglobin and hematocrit levels. Libby Harrington. 4. Mineral bone disorder. The patient's calcium levels have been elevated at 10.5. Will follow up PTH level. Continue dialysis on a low potassium bath. 5. Hypertension. Continue current blood pressure regimen. Continue ultrafiltration dialysis. 6. Acute asthma/chronic obstructive pulmonary disease exacerbation. Continue current medical manag ement. 7. Non-ST elevation myocardial infarction type 2. Continue medical management. 8. General debility. Continue physical therapy. Dictated By: DERECK KENNEDY/RUTH Conf#: [id number] DID#: [id number]
--- NOTE | 2016-10-26 14:05 | PN ---
Date/Time of Note Date/Time of Note DATE: 10/26/16 TIME: 14:01 Assessment/Plan VTE Prophylaxis VTE Prophylaxis Intervention: heparin Lines/Catheters IV Catheter Type (from [facility]): Saline Lock Urinary Cath still in place: No Assessment/Plan Chief Complaint/Hosp Course 1. ESRD -cont HD per Renal, plan is for tomorrow 2. COPD exacerbation -cont Abx 3. Debility -cont PT, does want to be placed in a SNF 4. HTN -cont Rx PPx- Heparin Problems: Subjective 24 Hr Interval Summary Constitutional: other (weak) Exam/Review of Systems Vital Signs Vitals Vital Signs Date Time Temp Pulse Resp B/P Pulse Ox O2 Delivery O2 Flow Rate FiO2 10/26/16 12:02 98 10/26/16 12:00 98.4 135/76 96 Nasal Cannula 3.0 10/26/16 08:23 18 10/24/16 21:28 21 Intake and Output 10/25/16 10/25/16 10/26/16 15:00 23:00 07:00 Intake Total 1300 ml 220 ml Output Total 2300 ml Balance -1000 ml 220 ml Exam Constitutional: alert, oriented Respiratory: clear to auscultation Cardiovascular: regular rate and rhythm Gastrointestinal: soft, No distended Musculoskeletal: nl extremities to inspection Results Result Diagram: 10/26/16 0950 10/26/16 0950 Results 24 hrs Laboratory Tests Test 10/26/16 09:50 Anion Gap 18 H Basophils # 0.0 Basophils % 0.1 Blood Morphology Comment Blood Urea Nitrogen 23 H Calcium Level 10.1 Carbon Dioxide Level 28 Chloride Level 94 L Creatinine 1.69 H Eosinophils # 0.0 Eosinophils % 0.1 Glucose Level 131 Hematocrit 30.2 L Hemoglobin 10.1 L Lymphocytes # 0.7 L Lymphocytes % 10.4 L Magnesium Level 1.9 Mean Corpuscular Hemoglobin 28.6 L Mean Corpuscular Hemoglobin Concent 33.6 Mean Corpuscular Volume 85.1 Mean Platelet Volume 6.5 L Monocytes # 0.8 Monocytes % 11.6 H Neutrophils # 5.6 Neutrophils % 77.8 H Nucleated Red Blood Cells # 0.0 Nucleated Red Blood Cells % 0.0 Phosphorus Level 3.1 Platelet Count 271 Potassium Level 4.6 Red Blood Count 3.55 L Red Cell Distribution Width 15.9 H Sodium Level 135 White Blood Count 7.2 Medications Medications Current Medications Guaifenesin/ Dextromethorphan 10 ml 10 ml Q6H PRN PO COUGH Last administered on 10/26/16 04:01; Admin Dose 10 ML; Start 10/24/16 at 00:00 Levofloxacin/ Dextrose 50 ml @ 50 mls/hr Q24H IVPB ; Start 10/25/16 at 00:00 Piperacillin Sod/ Tazobactam Sod (Zosyn 2.25gm/ 50ml (Pmx)) 50 ml @ 100 mls/hr Q6 IVPB Last administered on 10/26/16 11:37; Admin Dose 100 MLS/HR; Start at 12:00 Montelukast Sodium (Singulair) 10 mg HS PO ; Start 10/24/16 at 21:00 Salmeterol Xinafoate/ Fluticasone (Advair 250/50 Diskus) 1 inh BID INH Last administered on 10/26/16 08:38; Admin Dose 1 INH; Start 10/24/16 at 21:00 Aspirin (Aspirin) 81 mg DAILY PO Last administered on 10/26/16 08:41; Admin Dose 81 MG; Start 10/25/16 at 09:00 Hydralazine HCl (Apresoline) 10 mg Q4H PRN IV SBP>160 Last administered on 10/25 22:53; Admin Dose 10 MG; Start 10/24/16 at 14:00 Metoprolol Succinate (Toprol Xl) 25 mg BID PO Last administered on 10/26/16 08 :42; Admin Dose 25 MG; Start 10/25/16 at 21:00 Losartan Potassium (Cozaar) 50 mg DAILY PO Last administered on 10/26/16 08:42 ; Admin Dose 50 MG; Start 10/25/16 at 11:30 Tiotropium [place] (Spiriva) 1 inh DAILY INH Last administered on 10/26/16 08: 42; Admin Dose 1 INH; Start 10/26/16 at 09:00 Atorvastatin Calcium (Lipitor) 40 mg HS PO ; Start 10/25/16 at 21:00 ROXANE LY Oct 26, 2016 14:05
[2016-10-26] MEDS: HEPARIN 5,000 UNIT/0.5 ML SYG SC SCH (21:00)
[2016-10-26] MEDS: ATORVASTATIN 40 MG TAB PO SCH (21:58)
[2016-10-26] MEDS: MONTELUKAST 10 MG TAB PO SCH (22:01)
--- NOTE | 2016-10-26 22:43 | RADRPT ---
Echocardiogram Report Patient Name: CORDELL CAIN Gender: Female Date: 1935 Study Date: 26-Oct-2016 Youth Minister: Gail Ojeda [facility] Location: [id number] Ref. Physician: ALLIE QUINTEROS Quality: Good Procedures: Transthoracic echocardiogram with complete 2D, M-Mode, and doppler examination. Indications: Elevated Troponin. 2D/M Mode Doppler Measurement Value Normal Ranges Measurement Value Normal Ranges LVIDd 2D 5.2 3.5 - 5.6 cm AV Peak Issac 1.5 m/sec LVIDs 2D 3.0 2.1 - 4.1 cm AV Peak PG 8.0 mmHg FS 2D 43.2 % LVOT Peak Issac 1.3 m/sec LVPWd 2D 0.8 0.6 - 1.1 cm LVOT Peak PG 7.0 mmHg IVSd 2D 0.8 0.6 - 1.1 cm MV E Peak Issac 0.8 m/sec IVS/LVPW 2D 1.0 MV A Peak Issac 1.3 m/sec AoR Diam 2D 3.2 2.0 - 3.7 cm MV E/A 0.6 LA/Ao 2D 1 0 - 1 MV Decel Time 232 msec EDV 2D 140.0 cm3 MV E/A 0.6 ESV 2D 25.7 cm3 LA Dimen 2D 4.4 2.3 - 4.0 cm Findings Left Ventricle: Normal left ventricular systolic function. Normal left ventricular cavity size. Normal left ventricular wall thickness. Ejection fraction is visually estimated at 6065 %. Tissue Doppler/Mitral Doppler indices are consistent with impaired relaxation (Stage I diastolic dysfunction). Right Ventricle: Normal right ventricular size. Normal right ventricular systolic function. Left Atrium: There is mild enlargement of left atrium. Right Atrium: The right atrium is normal in size. Mitral Valve: Mild mitral leaflet calcification. Moderate mitral annular calcification. Mild mitral valve regurgitation. Aortic Valve: No significant aortic stenosis or insufficiency. Aortic cusps appear mildly calcified. Tricuspid Valve: Normal appearance of the tricuspid valve. Unable to obtain RVSP due to minimal presence of tricuspid regurgitation. Pulmonic Valve: Normal pulmonic valve appearance. There is trace pulmonic regurgitation. Pericardium: Trivial pericardial effusion. Aorta: Normal aortic root. IVC: Dilated IVC with respiratory collapse consistent with elevated right atrial pressure. Conclusions 1.The left ventricle is normal in size and systolic function. 2.Estimated left ventricular ejection fraction of 60-65%. 3.Mild left ventricular diastolic dysfunction. 4.Mild left atrial enlargement. Electronically Signed By: Allie Quinteros 26-Oct-2016 22:42:21 -0800 Patient Name: CORDELL CAIN Study Date: 26-Oct-2016 [id number]
--- NOTE | 2016-10-26 23:04 | CONS ---
Date/Time of Note Date/Time of Note DATE: 10/26/16 TIME: 23:03 Assessment/Plan Assessment/Plan Chief Complaint/Hosp Course Assessment: NSTEMI - likely type 2 Accelerated hypertension - blood pressures improved Dyslipidemia Sepsis and possible bacteremia - preliminary blood culture gram stain shows gram positive cocci End-stage renal disease - on hemodialysis Asthma Recommendations: -echocardiogram showed LVEF 60-65%, mild diastolic dysfunction -continue aspirin 81mg daily -continue metoprolol succinate and losartan, up titrate as needed -continue atorvastatin 40mg daily Problems: Consultation Date/Type/Reason Admit Date/Time Oct 23, 2016 at 21:05 Type of Consultation: Cardiology 24 HR Interval Summary Free Text/Dictation No acute events. Detailed Summary Additional Comments 14 point review of systems without changes. Exam/Review of Systems Vital Signs Vitals Vital Signs Date Time Temp Pulse Resp B/P Pulse Ox O2 Delivery O2 Flow Rate FiO2 10/26/16 20:43 97.9 85 22 160/77 95 10/26/16 17:51 3.0 10/26/16 12:00 Nasal Cannula 10/24/16 21:28 21 Intake and Output 10/25/16 10/25/16 10/26/16 15:00 23:00 07:00 Intake Total 1300 ml 220 ml Output Total 2300 ml Balance -1000 ml 220 ml Exam Constitutional: alert, obese Psych: no complaints Head: atraumatic, normocephalic Eyes: nl conjunctiva, nl lids ENMT: nl external ears & nose, nl nasal mucosa & septum Neck: non-tender, supple Respiratory: clear to auscultation, normal air movement Cardiovascular: regular rate and rhythm Gastrointestinal: non-tender, soft Musculoskeletal: swelling Extremities: edema Results Result Diagram: 10/26/16 0950 10/26/16 0950 Results 24 hrs Laboratory Tests Test 10/26/16 09:50 Anion Gap 18 H Basophils # 0.0 Basophils % 0.1 Blood Morphology Comment Blood Urea Nitrogen 23 H Calcium Level 10.1 Carbon Dioxide Level 28 Chloride Level 94 L Creatinine 1.69 H Eosinophils # 0.0 Eosinophils % 0.1 Glucose Level 131 Hematocrit 30.2 L Hemoglobin 10.1 L Lymphocytes # 0.7 L Lymphocytes % 10.4 L Magnesium Level 1.9 Mean Corpuscular Hemoglobin 28.6 L Mean Corpuscular Hemoglobin Concent 33.6 Mean Corpuscular Volume 85.1 Mean Platelet Volume 6.5 L Monocytes # 0.8 Monocytes % 11.6 H Neutrophils # 5.6 Neutrophils % 77.8 H Nucleated Red Blood Cells # 0.0 Nucleated Red Blood Cells % 0.0 Phosphorus Level 3.1 Platelet Count 271 Potassium Level 4.6 Red Blood Count 3.55 L Red Cell Distribution Width 15.9 H Sodium Level 135 White Blood Count 7.2 Medications Medications Current Medications Guaifenesin/ Dextromethorphan 10 ml 10 ml Q6H PRN PO COUGH Last administered on 10/26/16 04:01; Admin Dose 10 ML; Start 10/24/16 at 00:00 Levofloxacin/ Dextrose 50 ml @ 50 mls/hr Q24H IVPB ; Start 10/25/16 at 00:00 Piperacillin Sod/ Tazobactam Sod (Zosyn 2.25gm/ 50ml (Pmx)) 50 ml @ 100 mls/hr Q6 IVPB Last administered on 10/26/16 17:15; Admin Dose 100 MLS/HR; Start at 12:00 Montelukast Sodium (Singulair) 10 mg HS PO Last administered on 10/26/16 22:01 ; Admin Dose 10 MG; Start 10/24/16 at 21:00 Salmeterol Xinafoate/ Fluticasone (Advair 250/50 Diskus) 1 inh BID INH Last administered on 10/26/16 21:58; Admin Dose 1 INH; Start 10/24/16 at 21:00 Aspirin (Aspirin) 81 mg DAILY PO Last administered on 10/26/16 08:41; Admin Dose 81 MG; Start 10/25/16 at 09:00 Hydralazine HCl (Apresoline) 10 mg Q4H PRN IV SBP>160 Last administered on 10/25 22:53; Admin Dose 10 MG; Start 10/24/16 at 14:00 Metoprolol Succinate (Toprol Xl) 25 mg BID PO Last administered on 10/26/16 22 :00; Admin Dose 25 MG; Start 10/25/16 at 21:00 Losartan Potassium (Cozaar) 50 mg DAILY PO Last administered on 10/26/16 08:42 ; Admin Dose 50 MG; Start 10/25/16 at 11:30 Tiotropium [place] (Spiriva) 1 inh DAILY INH Last administered on 10/26/16 08: 42; Admin Dose 1 INH; Start 10/26/16 at 09:00 Atorvastatin Calcium (Lipitor) 40 mg HS PO Last administered on 10/26/16 21:58 ; Admin Dose 40 MG; Start 10/25/16 at 21:00 Heparin Sodium (Porcine) (Heparin (5000 Units/0.5 ml)) 5,000 unit BID SC ; Start 10/26/16 at 21:00 ALLIE QUINTEROS MD Oct 26, 2016 23:04
[2016-10-26] MEDS: LEVOFLOXACIN 250MG/D5W (PMX) 50 ML IVPB SCH ×2 (23:53)
[2016-10-27] VITALS (15 sets, daily range): BP systolic 116–175; BP diastolic 56–80; PULSE 75–98; RESP 18–22
[2016-10-27] MEDS: PIPER-TAZO 2.25 GM (PMX) 50 ML IVPB SCH ×4 (00:01→18:02)
[2016-10-27] MEDS: GUAIFENESIN/DM 5ML CUP PO PRN ×2 (03:16→21:18)
[2016-10-27] MEDS: ALBUTEROL/IPRATROPIUM (NEB) 3 ML AMP HHN PRN ×4 (04:20→20:48)
[2016-10-27 06:54] LABS: EOSINOPHILS # 0.1 10^3/ul (0.0-0.5); EOSINOPHILS % 0.6 % (0.0-7.0); HEMATOCRIT 28.4 % (37.0-47.0); HEMOGLOBIN 9.4 g/dl (12.0-16.0); LYMPHOCYTES # 0.8 10^3/ul (0.8-2.9); LYMPHOCYTES % 8.6 % (15.0-51.0); MEAN CORPUSCULAR HEMOGLOBIN 29.2 pg (29.0-33.0); MEAN CORPUSCULAR HGB CONC 33.2 g/dl (32.0-37.0); MEAN PLATELET VOLUME 6.9 fl (7.4-10.4); MONOCYTE # 0.6 10^3/ul (0.3-0.9); MONOCYTES % 6.6 % (0.0-11.0); NEUTROPHIL # 7.8 10^3/ul (1.6-7.5); NEUTROPHILS % 84.2 % (39.0-77.0); PLATELET COUNT 263 10^3/UL (140-440); RED BLOOD COUNT 3.22 10^6/ul (4.20-5.40); RED CELL DISTRIBUTION WIDTH 15.7 % (11.5-14.5); UNCORRECTED WBC 9.3 10^3/ul (4.8-10.8); WHITE BLOOD COUNT 9.3 10^3/ul (4.8-10.8)
[2016-10-27 07:08] LABS: CONDITION 1; LH ANALYZER COMMENTS 1
[2016-10-27 07:26] LABS: POTASSIUM 3.8 mmol/L (3.5-5.1)
[2016-10-27 07:28] LABS: CREATININE 1.74 mg/dl (0.44-1.00)
[2016-10-27 07:29] LABS: CALCIUM 9.5 mg/dl (8.4-10.2)
[2016-10-27] MEDS: METOPROLOL (XL) 25 MG TAB PO SCH ×3 (09:00→21:18)
[2016-10-27] MEDS: ASPIRIN 81 MG TAB PO SCH ×2 (09:00→09:17)
[2016-10-27] MEDS: LOSARTAN 50 MG TAB PO SCH ×2 (09:00→09:18)
[2016-10-27] MEDS: HEPARIN 5,000 UNIT/0.5 ML SYG SC SCH ×2 (09:17→21:00)
[2016-10-27] MEDS: TIOTROPIUM 18 MCG CAPSULE INHA DEV INH SCH (09:18)
[2016-10-27] MEDS: SALMETEROL/FLUTICASONE 250/50 INHA INH SCH ×2 (09:18→21:16)
--- NOTE | 2016-10-27 11:45 | PN ---
DATE: 10/27/2016 SUBJECTIVE: The patient is stable, no acute events overnight. The patient is complaining of some g eneralized body pain. No other events noted. OBJECTIVE: VITAL SIGNS: Blood pressure is ____/70, respirations 22, pulse____, temperature ____.9. HEENT: Head is normocephalic. NECK: Supple. HEART: Regular rate. LUNGS: Show diminished breath sounds at base. ABDOMEN: Soft, nontender to palpation. No rebound or guarding. EXTREMITIES: Negative for clubbing, cyanosis, positive edema, DERMATOLOGIC: Noted erythema of lower extremity with positive venous changes. NEUROLOGIC: No focal exam. LABORATORY DATA: Shows sodium 131, potassium 3.8, chloride 92, BUN 27, creatinine 1.74. White coun t 9.3, hemoglobin 9.4, hematocrit 28.4, platelet count is 263. ASSESSMENT AND PLAN: 1. End-stage renal disease. The patient appears to have shown signs of recovery. Creatinine appea rs to be stabilizing around 2 g/dL, which gives an estimated GFR of around 30 mL per minute. The melquiades sanabria may be taken off hemodialysis by her primary rubber mill operator. At this point, the patient still s hows evidence of volume overload. We will dialyze the patient for ultrafiltration, and will dialyze 3 hours 2K bath and a calcium 2.5. 2. Hyponatremia. Etiology is multifactorial secondary to renal failure conjunction, with excessive hypotonic fluid intake. The patient was advised to minimize free water intake. We will dialyze th e patient with ____ sodium bath. 3. Anemia of chronic kidney disease/end-stage renal disease. Continue to monitor hemoglobin and he matocrit levels. Continue Epogen. 4. Metabolic disorder. Continue to monitor calcium and phosphorus levels. 5. Hypertension. Continue current blood pressure regimen. 6. Acute asthma/chronic obstructive pulmonary disease exacerbation. Continue medical management. 7. Non-STEMI. Continue current treatment plan. 7. General debility. Continue physical therapy. Dictated By: DERECK KENNEDY/RUTH Conf#: [id number] DID#: [id number]
[2016-10-27] MEDS: EPOETIN 4000 UNITS/1 ML INJ (ESRD) SC SCH (14:31)
--- NOTE | 2016-10-27 14:53 | PN ---
Date/Time of Note Date/Time of Note DATE: 10/27/16 TIME: 14:52 Assessment/Plan VTE Prophylaxis VTE Prophylaxis Intervention: heparin Lines/Catheters IV Catheter Type (from [facility]): Saline Lock Urinary Cath still in place: No Assessment/Plan Chief Complaint/Hosp Course 1. ESRD -cont HD per Renal 2. COPD exacerbation -cont Abx 3. Debility -cont PT, does want to be placed in a SNF, Rehab consult 4. HTN -cont Rx PPx- Heparin Problems: Subjective 24 Hr Interval Summary Constitutional: no complaints Exam/Review of Systems Vital Signs Vitals Vital Signs Date Time Temp Pulse Resp B/P Pulse Ox O2 Delivery O2 Flow Rate FiO2 10/27/16 13:15 78 18 10/27/16 11:54 168/79 10/27/16 10:50 3.0 10/27/16 08:59 97.7 98 10/27/16 07:50 Nasal Cannula 10/24/16 21:28 21 Intake and Output 10/26/16 10/26/16 10/27/16 15:00 23:00 07:00 Intake Total 50 ml 970 ml 100 ml Balance 50 ml 970 ml 100 ml Exam Constitutional: alert Respiratory: clear to auscultation Cardiovascular: regular rate and rhythm Gastrointestinal: soft, No distended Extremities: edema Results Result Diagram: 10/27/16 0601 10/27/16 0601 Results 24 hrs Laboratory Tests Test 10/27/16 06:01 Anion Gap 15 Basophils # 0.0 Basophils % 0.0 Blood Morphology Comment Blood Urea Nitrogen 27 H Calcium Level 9.5 Carbon Dioxide Level 27 Chloride Level 93 L Creatinine 1.74 H Eosinophils # 0.1 Eosinophils % 0.6 Glucose Level 107 Hematocrit 28.4 L Hemoglobin 9.4 L Lymphocytes # 0.8 Lymphocytes % 8.6 L Mean Corpuscular Hemoglobin 29.2 Mean Corpuscular Hemoglobin Concent 33.2 Mean Corpuscular Volume 88.0 Mean Platelet Volume 6.9 L Monocytes # 0.6 Monocytes % 6.6 Neutrophils # 7.8 H Neutrophils % 84.2 H Nucleated Red Blood Cells # 0.0 Nucleated Red Blood Cells % 0.0 Parathyroid Hormone (Intact) Platelet Count 263 Potassium Level 3.8 Red Blood Count 3.22 L Red Cell Distribution Width 15.7 H Sodium Level 131 L White Blood Count 9.3 # Medications Medications Current Medications Guaifenesin/ Dextromethorphan 10 ml 10 ml Q6H PRN PO COUGH Last administered on 10/27/16 03:16; Admin Dose 10 ML; Start 10/24/16 at 00:00 Levofloxacin/ Dextrose 50 ml @ 50 mls/hr Q24H IVPB Last administered on 23:53; Admin Dose 50 MLS/HR; Start 10/25/16 at 00:00 Piperacillin Sod/ Tazobactam Sod (Zosyn 2.25gm/ 50ml (Pmx)) 50 ml @ 100 mls/hr Q6 IVPB Last administered on 10/27/16 13:39; Admin Dose 100 MLS/HR; Start at 12:00 Montelukast Sodium (Singulair) 10 mg HS PO Last administered on 10/26/16 22:01 ; Admin Dose 10 MG; Start 10/24/16 at 21:00 Salmeterol Xinafoate/ Fluticasone (Advair 250/50 Diskus) 1 inh BID INH Last administered on 10/27/16 09:18; Admin Dose 1 INH; Start 10/24/16 at 21:00 Aspirin (Aspirin) 81 mg DAILY PO Last administered on 10/26/16 08:41; Admin Dose 81 MG; Start 10/25/16 at 09:00 Hydralazine HCl (Apresoline) 10 mg Q4H PRN IV SBP>160 Last administered on 10/25 22:53; Admin Dose 10 MG; Start 10/24/16 at 14:00 Metoprolol Succinate (Toprol Xl) 25 mg BID PO Last administered on 10/26/16 22 :00; Admin Dose 25 MG; Start 10/25/16 at 21:00 Losartan Potassium (Cozaar) 50 mg DAILY PO Last administered on 10/26/16 08:42 ; Admin Dose 50 MG; Start 10/25/16 at 11:30 Tiotropium [place] (Spiriva) 1 inh DAILY INH Last administered on 10/27/16 09: 18; Admin Dose 1 INH; Start 10/26/16 at 09:00 Atorvastatin Calcium (Lipitor) 40 mg HS PO Last administered on 10/26/16 21:58 ; Admin Dose 40 MG; Start 10/25/16 at 21:00 Heparin Sodium (Porcine) (Heparin (5000 Units/0.5 ml)) 5,000 unit BID SC Last administered on 10/27/16t 09:17; Admin Dose 5,000 UNIT; Start 10/26/16 at 21:00 ROXANE YL Oct 27, 2016 14:53
[2016-10-27] MEDS: ATORVASTATIN 40 MG TAB PO SCH (21:17)
[2016-10-27] MEDS: MONTELUKAST 10 MG TAB PO SCH (21:17)
[2016-10-28] MEDS: PIPER-TAZO 2.25 GM (PMX) 50 ML IVPB SCH ×3 (00:14→12:24)
[2016-10-28] MEDS: LEVOFLOXACIN 250MG/D5W (PMX) 50 ML IVPB SCH (01:04)
[2016-10-28] MEDS: ALBUTEROL/IPRATROPIUM (NEB) 3 ML AMP HHN PRN ×3 (02:02→15:42)
[2016-10-28 06:49] LABS: POTASSIUM 3.3 mmol/L (3.5-5.1)
[2016-10-28 06:51] LABS: CREATININE 1.26 mg/dl (0.44-1.00)
[2016-10-28 06:52] LABS: PHOSPHORUS 2.4 mg/dl (2.5-4.9)
[2016-10-28 06:53] LABS: CALCIUM 9.3 mg/dl (8.4-10.2); MAGNESIUM 1.9 mg/dl (1.7-2.5)
[2016-10-28 07:27] VITALS: BP 166/76; RESP 18
[2016-10-28] MEDS: SALMETEROL/FLUTICASONE 250/50 INHA INH SCH ×2 (08:53→22:05)
[2016-10-28] MEDS: ASPIRIN 81 MG TAB PO SCH (08:54)
[2016-10-28] MEDS: TIOTROPIUM 18 MCG CAPSULE INHA DEV INH SCH (08:54)
[2016-10-28] MEDS: LOSARTAN 50 MG TAB PO SCH (09:00)
[2016-10-28] MEDS: METOPROLOL (XL) 25 MG TAB PO SCH ×2 (09:00→20:22)
[2016-10-28] MEDS: HEPARIN 5,000 UNIT/0.5 ML SYG SC SCH ×2 (09:04→20:19)
[2016-10-28] MEDS ORDERED: POTASSIUM CHLORIDE (SR) 20 MEQ TAB PO STA (09:29)
--- NOTE | 2016-10-28 13:18 | PN ---
DATE: 10/28/2016 SUBJECTIVE: The patient had hemodialysis yesterday, tolerated well with 3.6 liters removed. No oth er acute events noted. No hemoptysis, hematemesis or hematochezia. OBJECTIVE: VITAL SIGNS: Blood pressure is 166/76, respiration 18, pulse 88, temperature 98.2. HEENT: Head is normocephalic. NECK: Supple. HEART: Regular rate. LUNGS: Show diminished breath sounds at base. ABDOMEN: Soft, nontender to palpation without rebound or guarding. EXTREMITIES: Negative for clubbing, cyanosis. Positive edema. DERMATOLOGIC: No rashes. MUSCULOSKELETAL: No joint effusions. NEUROLOGIC: No change in exam. MEDICATIONS: Reviewed. LABORATORY DATA: Sodium 135, potassium 3.2, chloride 96, BUN 14, creatinine 1.26, phosphorus 2.4. ASSESSMENT AND PLAN: 1. End-stage renal disease. The patient appears to have shown signs of recovery as renal function has stabilized and creatinine 2 mg/dL. with estimated GFR of 30 mL per minute. The patient may be taken off hemodialysis by her outpatient primary medical csr. At this point, the patient remains v olume overloaded and continued to ultrafiltrate with dialysis. Will anticipate next dialysis tomorr ow for 3 hours on 2 K bath, calcium 2.5. 3. Hyponatremia, etiology is multifactorial. The patient's sodium levels improved. Continue to li rick free water intake. Continue to dialyze in 140 sodium bath. 4. Anemia of chronic disease. Continue to monitor hemoglobin and hematocrit levels. Continue Epog en. 5. Mineral bone disorder. Continue to monitor calcium and phosphorus levels. 6. Hypertension. Blood pressure controlled. 6. Acute asthma, COPD exacerbation. Continue medical management. 7. Non-STEMI. Continue current treatment plan. 8. General debility. Continue physical therapy. 9. Hypokalemia. Will replete potassium chloride 20 mEq p.o. x1. Dictated By: DERECK KENNEDY/RUTH Conf#: [id number] DID#: [id number]
--- NOTE | 2016-10-28 13:43 | PN ---
Date/Time of Note Date/Time of Note DATE: 10/28/16 TIME: 13:42 Assessment/Plan VTE Prophylaxis VTE Prophylaxis Intervention: heparin Lines/Catheters IV C[facility]ter Type (from [facility]): Saline Lock Urinary Cath still in place: No Assessment/Plan Chief Complaint/Hosp Course 1. ESRD -cont HD per Renal 2. COPD exacerbation -cont Abx 3. Debility -cont PT, does want to be placed in a SNF, Rehab consult 4. HTN -cont Rx PPx- Heparin Problems: Subjective 24 Hr Interval Summary Constitutional: no complaints Exam/Review of Systems Vital Signs Vitals Vital Signs Date Time Temp Pulse Resp B/P Pulse Ox O2 Delivery O2 Flow Rate FiO2 10/28/16 11:52 85 20 92 21 10/28/16 08:00 Nasal Cannula 2.0 10/28/16 07:27 98.2 166/76 Intake and Output 10/27/16 10/27/16 10/28/16 15:00 23:00 07:00 Intake Total 2170 ml 620 ml 390 ml Output Total 3621 ml Balance -1451 ml 620 ml 390 ml Exam Constitutional: alert Respiratory: clear to auscultation Cardiovascular: regular rate and rhythm Gastrointestinal: soft, No distended Extremities: edema Results Result Diagram: 10/27/16 0601 10/28/16 0520 Results 24 hrs Laboratory Tests Test 10/28/16 05:20 Anion Gap 14 Blood Urea Nitrogen 14 # Calcium Level 9.3 Carbon Dioxide Level 28 Chloride Level 96 L Creatinine 1.26 H Glucose Level 100 Magnesium Level 1.9 Phosphorus Level 2.4 L Potassium Level 3.3 L Sodium Level 135 Medications Medications Current Medications Guaifenesin/ Dextromethorphan 10 ml 10 ml Q6H PRN PO COUGH Last administered on 10/27/16 21:18; Admin Dose 10 ML; Start 10/24/16 at 00:00 Levofloxacin/ Dextrose 50 ml @ 50 mls/hr Q24H IVPB Last administered on 01:04; Admin Dose 50 MLS/HR; Start 10/25/16 at 00:00 Piperacillin Sod/ Tazobactam Sod (Zosyn 2.25gm/ 50ml (Pmx)) 50 ml @ 100 mls/hr Q6 IVPB Last administered on 10/28/16 12:24; Admin Dose 100 MLS/HR; Start 10/24 at 12:00 Montelukast Sodium (Singulair) 10 mg HS PO Last administered on 10/27/16 21:17 ; Admin Dose 10 MG; Start 10/24/16 at 21:00 Salmeterol Xinafoate/ Fluticasone (Advair 250/50 Diskus) 1 inh BID INH Last administered on 10/28/16 08:53; Admin Dose 1 INH; Start 10/24/16 at 21:00 Aspirin (Aspirin) 81 mg DAILY PO Last administered on 10/28/16 08:54; Admin Dose 81 MG; Start 10/25/16 at 09:00 Hydralazine HCl (Apresoline) 10 mg Q4H PRN IV SBP>160 Last administered on 10/25 22:53; Admin Dose 10 MG; Start 10/24/16 at 14:00 Metoprolol Succinate (Toprol Xl) 25 mg BID PO Last administered on 10/27/16 21 :18; Admin Dose 25 MG; Start 10/25/16 at 21:00 Losartan Potassium (Cozaar) 50 mg DAILY PO Last administered on 10/26/16 08:42 ; Admin Dose 50 MG; Start 10/25/16 at 11:30 Tiotropium [place] (Spiriva) 1 inh DAILY INH Last administered on 10/28/16 08: 54; Admin Dose 1 INH; Start 10/26/16 at 09:00 Atorvastatin Calcium (Lipitor) 40 mg HS PO Last administered on 10/27/16 21:17 ; Admin Dose 40 MG; Start 10/25/16 at 21:00 Heparin Sodium (Porcine) (Heparin (5000 Units/0.5 ml)) 5,000 unit BID SC Last administered on 10/28/16 09:04; Admin Dose 5,000 UNIT; Start 10/26/16 at 21:00 ROXANE LY Oct 28, 2016 13:43
--- NOTE | 2016-10-28 16:34 | CONS ---
Date/Time of Note Date/Time of Note DATE: 10/28/16 TIME: 16:33 Assessment/Plan Assessment/Plan Chief Complaint/Hosp Course Assessment: NSTEMI - likely type 2 Accelerated hypertension - blood pressures improved Dyslipidemia Sepsis and possible bacteremia - preliminary blood culture gram stain shows gram positive cocci End-stage renal disease - on hemodialysis Asthma Recommendations: -echocardiogram showed LVEF 60-65%, mild diastolic dysfunction -continue aspirin 81mg daily -continue metoprolol succinate and losartan, up titrate as needed -continue atorvastatin 40mg daily Problems: Consultation Date/Type/Reason Admit Date/Time Oct 23, 2016 at 21:05 Type of Consultation: Cardiology 24 HR Interval Summary Free Text/Dictation No acute events. Off telemetry. Detailed Summary Additional Comments 14 point review of systems without changes. Exam/Review of Systems Vital Signs Vitals Vital Signs Date Time Temp Pulse Resp B/P Pulse Ox O2 Delivery O2 Flow Rate FiO2 10/28/16 15:42 82 18 93 21 10/28/16 08:00 Nasal Cannula 2.0 10/28/16 07:27 98.2 166/76 Intake and Output 10/27/16 10/27/16 10/28/16 15:00 23:00 07:00 Intake Total 2170 ml 620 ml 390 ml Output Total 3621 ml Balance -1451 ml 620 ml 390 ml Exam Constitutional: alert, obese Psych: no complaints Head: atraumatic, normocephalic Eyes: nl conjunctiva, nl lids ENMT: nl external ears & nose, nl nasal mucosa & septum Neck: non-tender, supple Respiratory: clear to auscultation, normal air movement Cardiovascular: regular rate and rhythm Gastrointestinal: non-tender, soft Musculoskeletal: swelling Extremities: edema Results Result Diagram: 10/27/16 0601 10/28/16 0520 Results 24 hrs Laboratory Tests Test 10/28/16 05:20 Anion Gap 14 Blood Urea Nitrogen 14 # Calcium Level 9.3 Carbon Dioxide Level 28 Chloride Level 96 L Creatinine 1.26 H Glucose Level 100 Magnesium Level 1.9 Phosphorus Level 2.4 L Potassium Level 3.3 L Sodium Level 135 Medications Medications Current Medications Guaifenesin/ Dextromethorphan (Robitussin Dm Liquid Cup) 10 ml Q6H PRN PO COUGH Last administered on 10/27/16t 21:18; Admin Dose 10 ML; Start 10/24/16 at 00:00 Montelukast Sodium (Singulair) 10 mg HS PO Last administered on 10/27/16 21:17 ; Admin Dose 10 MG; Start 10/24/16 at 21:00 Salmeterol Xinafoate/ Fluticasone (Advair 250/50 Diskus) 1 inh BID INH Last administered on 10/28/16 08:53; Admin Dose 1 INH; Start 10/24/16 at 21:00 Aspirin (Aspirin) 81 mg DAILY PO Last administered on 10/28/16 08:54; Admin Dose 81 MG; Start 10/25/16 at 09:00 Hydralazine HCl (Apresoline) 10 mg Q4H PRN IV SBP>160 Last administered on 10/25 22:53; Admin Dose 10 MG; Start 10/24/16 at 14:00 Metoprolol Succinate (Toprol Xl) 25 mg BID PO Last administered on 10/27/16 21 :18; Admin Dose 25 MG; Start 10/25/16 at 21:00 Losartan Potassium (Cozaar) 50 mg DAILY PO Last administered on 10/26/16 08:42 ; Admin Dose 50 MG; Start 10/25/16 at 11:30 Tiotropium [place] (Spiriva) 1 inh DAILY INH Last administered on 10/28/16 08: 54; Admin Dose 1 INH; Start 10/26/16 at 09:00 Atorvastatin Calcium (Lipitor) 40 mg HS PO Last administered on 10/27/16 21:17 ; Admin Dose 40 MG; Start 10/25/16 at 21:00 Heparin Sodium (Porcine) (Heparin (5000 Units/0.5 ml)) 5,000 unit BID SC Last administered on 10/28/16 09:04; Admin Dose 5,000 UNIT; Start 10/26/16 at 21:00 ALLIE QUINTEROS MD Oct 28, 2016 16:34
[2016-10-28 20:20] VITALS: BP 139/69; RESP 18
[2016-10-28] MEDS: MONTELUKAST 10 MG TAB PO SCH (20:22)
[2016-10-28] MEDS: ATORVASTATIN 40 MG TAB PO SCH (20:22)
[2016-10-28] MEDS: GUAIFENESIN/DM 5ML CUP PO PRN (23:26)
[2016-10-29] MEDS: GUAIFENESIN/DM 5ML CUP PO PRN (05:33)
[2016-10-29] MEDS: ALBUTEROL/IPRATROPIUM (NEB) 3 ML AMP HHN PRN ×3 (06:17→20:12)
[2016-10-29 06:24] LABS: CREATININE 1.49 mg/dl (0.44-1.00)
[2016-10-29 06:25] LABS: CALCIUM 9.9 mg/dl (8.4-10.2); PHOSPHORUS 2.6 mg/dl (2.5-4.9)
[2016-10-29 07:19] VITALS: BP 157/74; RESP 18
[2016-10-29] MEDS: LOSARTAN 50 MG TAB PO SCH (09:00)
[2016-10-29] MEDS: METOPROLOL (XL) 25 MG TAB PO SCH ×2 (09:00→20:41)
[2016-10-29] MEDS: HEPARIN 5,000 UNIT/0.5 ML SYG SC SCH ×2 (09:00→20:51)
[2016-10-29] MEDS: TIOTROPIUM 18 MCG CAPSULE INHA DEV INH SCH (10:02)
[2016-10-29] MEDS: SALMETEROL/FLUTICASONE 250/50 INHA INH SCH ×2 (10:02→20:41)
[2016-10-29] MEDS: ASPIRIN 81 MG TAB PO SCH (10:03)
--- NOTE | 2016-10-29 13:07 | PN ---
DATE: SUBJECTIVE: The patient is stable, no acute events overnight. No fevers, chills, nausea, vomiting. OBJECTIVE: VITAL SIGNS: Blood pressure is 157/74, respirations 18, pulse 74, temperature 98.6. I'S AND O'S: The patient had 1300 in, multiple voids. HEENT: Head is normocephalic. NECK: Supple. HEART: Regular rate. LUNGS: Show diminished breath sounds at the base. ABDOMEN: Soft, nontender to palpation. No rebound or guarding. EXTREMITIES: Negative for clubbing, cyanosis. Positive lymphedema. DERMATOLOGIC: No rashes. MUSCULOSKELETAL: No joint effusions. NEUROLOGIC: No change in exam. MEDICATIONS: The patient's medications have been reviewed. LABORATORY DATA: Shows sodium 138, potassium 4.0, chloride 100, BUN 14, creatinine 1.49. ASSESSMENT AND PLAN: 1. Chronic kidney disease. The patient appears to have shown renal recovery as her creatinine cont inues to improve. At this point, will hold hemodialysis and monitor renal function off dialysis. 2. Hypernatremia, improved. Continue to limit free water intake. 3. Anemia of chronic disease. Continue to monitor H and H levels. Continue Epogen. 4. Mineral bone disorder. Continue to monitor calcium and phosphorus levels. 5. Hypertension. Continue current blood pressure regimen. 6. Acute asthma, chronic obstructive pulmonary disease exacerbation. Continue medical management. 7. [id number] myocardial infarction. Continue current treatment plan. 8. Hypokalemia, resolved. Dictated By: DERECK BARGER Conf#: [id number] DID#: [id number]
--- NOTE | 2016-10-29 15:28 | PN ---
Date/Time of Note Date/Time of Note DATE: 10/29/16 TIME: 15:22 Assessment/Plan VTE Prophylaxis VTE Prophylaxis Intervention: heparin Lines/Catheters IV Catheter Type (from [facility]): Saline Lock Urinary Cath still in place: No Assessment/Plan Chief Complaint/Hosp Course 1. ESRD -Renal following, pt is not requiring HD at this time and will monitor another day off HD and if not needing by tomorrow will DC HD 2. COPD exacerbation -s/p Abx 3. Debility 10/29 Obesity -cont PT, CM consult for SNF placement 4. HTN -cont Rx PPx- Heparin Problems: Subjective 24 Hr Interval Summary Constitutional: no complaints Exam/Review of Systems Vital Signs Vitals Vital Signs Date Time Temp Pulse Resp B/P Pulse Ox O2 Delivery O2 Flow Rate FiO2 10/29/16 10:09 Nasal Cannula 2.0 10/29/16 08:46 83 18 93 21 10/29/16 07:19 98.6 157/74 Intake and Output 10/28/16 10/28/16 10/29/16 15:00 23:00 07:00 Intake Total 50 ml 1080 ml 240 ml Balance 50 ml 1080 ml 240 ml Exam Constitutional: alert Respiratory: clear to auscultation Cardiovascular: regular rate and rhythm Gastrointestinal: soft, No distended Extremities: edema Results Result Diagram: 10/27/16 0601 10/29/16 0525 Results 24 hrs Laboratory Tests Test 10/29/16 05:25 10/29/16 08:41 Anion Gap 14 Blood Urea Nitrogen 14 Calcium Level 9.9 Carbon Dioxide Level 28 Chloride Level 100 Creatinine 1.49 H Glucose Level 98 Magnesium Level 2.0 Phosphorus Level 2.6 Potassium Level 4.0 Sodium Level 138 Lab Scanned Report REFERENCE LAB Medications Medications Current Medications Guaifenesin/ Dextromethorphan (Robitussin Dm Liquid Cup) 10 ml Q6H PRN PO COUGH Last administered on 10/29/16 05:33; Admin Dose 10 ML; Start 10/24/16 at 00:00 Montelukast Sodium (Singulair) 10 mg HS PO Last administered on 10/28/16 20:22 ; Admin Dose 10 MG; Start 10/24/16 at 21:00 Salmeterol Xinafoate/ Fluticasone (Advair 250/50 Diskus) 1 inh BID INH Last administered on 10/29/16 10:02; Admin Dose 1 INH; Start 10/24/16 at 21:00 Aspirin (Aspirin) 81 mg DAILY PO Last administered on 10/29/16 10:03; Admin Dose 81 MG; Start 10/25/16 at 09:00 Hydralazine HCl (Apresoline) 10 mg Q4H PRN IV SBP>160 Last administered on 10/25 22:53; Admin Dose 10 MG; Start 10/24/16 at 14:00 Metoprolol Succinate (Toprol Xl) 25 mg BID PO Last administered on 10/28/16 20: 22; Admin Dose 25 MG; Start 10/25/16 at 21:00 Losartan Potassium (Cozaar) 50 mg DAILY PO Last administered on 10/26/16 08:42 ; Admin Dose 50 MG; Start 10/25/16 at 11:30 Tiotropium [place] (Spiriva) 1 inh DAILY INH Last administered on 10/29/16 10: 02; Admin Dose 1 INH; Start 10/26/16 at 09:00 Atorvastatin Calcium (Lipitor) 40 mg HS PO Last administered on 10/28/16 20:22 ; Admin Dose 40 MG; Start 10/25/16 at 21:00 Heparin Sodium (Porcine) (Heparin (5000 Units/0.5 ml)) 5,000 unit BID SC Last administered on 10/28/16 09:04; Admin Dose 5,000 UNIT; Start 10/26/16 at 21:00 ROXANE LY Oct 29, 2016 15:28
[2016-10-29 19:29] VITALS: BP 178/81; RESP 16
[2016-10-29 20:00] VITALS: BP 160/77; PULSE 88
[2016-10-29] MEDS: MONTELUKAST 10 MG TAB PO SCH (20:41)
[2016-10-29] MEDS: ATORVASTATIN 40 MG TAB PO SCH (20:41)
[2016-10-29] MEDS: hydrALAzine 20 MG INJ IV PRN (21:39)
[2016-10-29 21:40] VITALS: BP 162/76; PULSE 84
[2016-10-29 22:06] VITALS: BP 147/74; PULSE 96
[2016-10-30] MEDS: ALBUTEROL/IPRATROPIUM (NEB) 3 ML AMP HHN PRN ×2 (00:43→05:28)
[2016-10-30 05:38] LABS: POTASSIUM 3.5 mmol/L (3.5-5.1)
[2016-10-30 05:41] LABS: CREATININE 1.37 mg/dl (0.44-1.00)
[2016-10-30 05:42] LABS: CALCIUM 9.7 mg/dl (8.4-10.2); MAGNESIUM 1.8 mg/dl (1.7-2.5); PHOSPHORUS 2.6 mg/dl (2.5-4.9)
[2016-10-30 07:55] VITALS: BP 139/65; RESP 16
[2016-10-30 07:57] VITALS: BP 164/79; RESP 20
[2016-10-30] MEDS: HEPARIN 5,000 UNIT/0.5 ML SYG SC SCH ×2 (09:00→21:56)
[2016-10-30] MEDS: LOSARTAN 50 MG TAB PO SCH (09:00)
[2016-10-30] MEDS: METOPROLOL (XL) 25 MG TAB PO SCH ×2 (09:00→21:51)
[2016-10-30] MEDS: SALMETEROL/FLUTICASONE 250/50 INHA INH SCH ×2 (09:26→21:50)
[2016-10-30] MEDS: TIOTROPIUM 18 MCG CAPSULE INHA DEV INH SCH (09:26)
[2016-10-30] MEDS: ASPIRIN 81 MG TAB PO SCH (09:27)
[2016-10-30 11:37] VITALS: BP 158/78; PULSE 88
--- NOTE | 2016-10-30 11:56 | PN ---
Date/Time of Note Date/Time of Note DATE: 10/30/16 TIME: 11:54 Assessment/Plan VTE Prophylaxis VTE Prophylaxis Intervention: heparin Lines/Catheters IV Catheter Type (from [facility]rs): Saline Lock Urinary Cath still in place: No Assessment/Plan Chief Complaint/Hosp Course 1. ESRD -Renal following, pt is not requiring HD at this time and will monitor another day off HD and if not needing by tomorrow will DC HD 2. COPD exacerbation -s/p Abx 3. Debility 2/2 Obesity -cont PT, CM aware of need for SNF placement 4. HTN -cont Rx 5. LE swelling 2/2 Lymphedema with likely Fungal infection -start Nystatin cream PPx- Heparin Problems: Subjective 24 Hr Interval Summary Constitutional: no complaints Exam/Review of Systems Vital Signs Vitals Vital Signs Date Time Temp Pulse Resp B/P Pulse Ox O2 Delivery O2 Flow Rate FiO2 10/30/16 11:37 88 158/78 10/30/16 08:30 Nasal Cannula 2.0 10/30/16 07:57 98.3 20 94 10/30/16 05:28 21 Intake and Output 10/29/16 10/29/16 10/30/16 15:00 23:00 07:00 Intake Total 1440 ml 580 ml Balance 1440 ml 580 ml Exam Constitutional: alert Respiratory: clear to auscultation Cardiovascular: regular rate and rhythm Gastrointestinal: soft, No distended Musculoskeletal: No nl extremities to inspection Results Result Diagram: 10/27/16 0601 10/30/16 0450 Results 24 hrs Laboratory Tests Test 10/30/16 04:50 Anion Gap 14 Blood Urea Nitrogen 13 Calcium Level 9.7 Carbon Dioxide Level 26 Chloride Level 100 Creatinine 1.37 H Glucose Level 106 Magnesium Level 1.8 Phosphorus Level 2.6 Potassium Level 3.5 Sodium Level 136 Medications Medications Current Medications Guaifenesin/ Dextromethorphan (Robitussin Dm Liquid Cup) 10 ml Q6H PRN PO COUGH Last administered on 10/29/16 05:33; Admin Dose 10 ML; Start 10/24/16 at 00:00 Montelukast Sodium (Singulair) 10 mg HS PO Last administered on 10/29/16 20:41 ; Admin Dose 10 MG; Start 10/24/16 at 21:00 Salmeterol Xinafoate/ Fluticasone (Advair 250/50 Diskus) 1 inh BID INH Last administered on 10/30/16 09:26; Admin Dose 1 INH; Start 10/24/16 at 21:00 Aspirin (Aspirin) 81 mg DAILY PO Last administered on 10/30/16 09:27; Admin Dose 81 MG; Start 10/25/16 at 09:00 Hydralazine HCl (Apresoline) 10 mg Q4H PRN IV SBP>160 Last administered on 21:39; Admin Dose 10 MG; Start 10/24/16 at 14:00 Metoprolol Succinate (Toprol Xl) 25 mg BID PO Last administered on 10/29/16 20: 41; Admin Dose 25 MG; Start 10/25/16 at 21:00 Losartan Potassium (Cozaar) 50 mg DAILY PO Last administered on 10/26/16 08:42 ; Admin Dose 50 MG; Start 10/25/16 at 11:30 Tiotropium [place] (Spiriva) 1 inh DAILY INH Last administered on 10/30/16 09: 26; Admin Dose 1 INH; Start 10/26/16 at 09:00 Atorvastatin Calcium (Lipitor) 40 mg HS PO Last administered on 10/29/16 20:41 ; Admin Dose 40 MG; Start 10/25/16 at 21:00 Heparin Sodium (Porcine) (Heparin (5000 Units/0.5 ml)) 5,000 unit BID SC Last administered on 10/28/16 09:04; Admin Dose 5,000 UNIT; Start 10/26/16 at 21:00 ROXANE LY Oct 30, 2016 11:56
--- NOTE | 2016-10-30 14:07 | PN ---
DATE: 10/30/2016 SUBJECTIVE: The patient is stable, no acute events overnight. The patient's hemodialysis has been held as she has shown evidence of renal recovery. No other events noted. OBJECTIVE: VITAL SIGNS: Blood pressure is 164/79, respiratory rate 20, pulse 96, temperature 98.3. HEENT: Head is normocephalic. NECK: Supple. HEART: Regular rate. LUNGS: Show diminished breath sounds at base. ABDOMEN: Soft, nontender to palpation without rebound or guarding. EXTREMITIES: Negative for clubbing, cyanosis. Positive lymphedema. DERMATOLOGIC: No rashes. MUSCULOSKELETAL: No joint effusions. NEUROLOGIC: No change in exam. MEDICATIONS: The patient's medications are reviewed. LABORATORY DATA: Shows sodium 136, potassium 3.5, BUN 13, creatinine 1.37. ASSESSMENT AND PLAN: 1. Chronic kidney disease stage III. The patient has shown renal recovery. At this point, will co ntinue to hold hemodialysis. We will continue to monitor renal function off dialysis. Patient quynh nues to have a Perm-A-Cath; however, will defer to the patient's primary fingerprint expert to remove unde rlying Perm-A-Cath. 2. Hyponatremia, improved. Continue to limit free water intake. 3. Anemia. Continue to monitor hemoglobin and hematocrit levels. 4. Mineral bone disorder. Continue to monitor calcium and phosphorus councils levels. 5. Hypertension. Continue current blood pressure regimen. 6. Acute asthma, chronic obstructive pulmonary disease exacerbation. Continue to monitor. 7. Nonstemi coronary artery disease. Continue current treatment plan. 8. Hyperkalemia, resolved. Dictated By: DERECK KENNEDY/RUTH Conf#: [id number] DID#: [id number]
[2016-10-30] MEDS: NYSTATIN 30 GM POWDER BTL TOP SCH ×2 (15:00→21:58)
[2016-10-30 20:09] VITALS: BP 183/78; RESP 16
--- NOTE | 2016-10-30 20:22 | CONS ---
Date/Time of Note Date/Time of Note DATE: 10/30/16 TIME: 20:21 Assessment/Plan Assessment/Plan Chief Complaint/Hosp Course Assessment: NSTEMI - likely type 2 Accelerated hypertension - blood pressures improved Dyslipidemia Sepsis and possible bacteremia - preliminary blood culture gram stain shows gram positive cocci End-stage renal disease - on hemodialysis Asthma Recommendations: -echocardiogram showed LVEF 60-65%, mild diastolic dysfunction -continue aspirin 81mg daily -continue metoprolol succinate and losartan, up titrate as needed -continue atorvastatin 40mg daily -will follow up as needed Problems: Consultation Date/Type/Reason Admit Date/Time Oct 23, 2016 at 21:05 Type of Consultation: Cardiology 24 HR Interval Summary Free Text/Dictation No acute events. Detailed Summary Additional Comments 14 point review of systems without changes. Exam/Review of Systems Vital Signs Vitals Vital Signs Date Time Temp Pulse Resp B/P Pulse Ox O2 Delivery O2 Flow Rate FiO2 10/30/16 20:09 98.9 86 16 183/78 93 10/30/16 08:30 Nasal Cannula 2.0 10/30/16 05:28 21 Intake and Output 10/29/16 10/29/16 10/30/16 15:00 23:00 07:00 Intake Total 1440 ml 580 ml Balance 1440 ml 580 ml Exam Constitutional: alert, obese Psych: no complaints Head: atraumatic, normocephalic Eyes: nl conjunctiva, nl lids ENMT: nl external ears & nose, nl nasal mucosa & septum Neck: non-tender, supple Respiratory: clear to auscultation, normal air movement Cardiovascular: regular rate and rhythm Gastrointestinal: non-tender, soft Musculoskeletal: swelling Extremities: edema Results Result Diagram: 10/27/16 0601 10/30/16 0450 Results 24 hrs Laboratory Tests Test 10/30/16 04:50 Anion Gap 14 Blood Urea Nitrogen 13 Calcium Level 9.7 Carbon Dioxide Level 26 Chloride Level 100 Creatinine 1.37 H Glucose Level 106 Magnesium Level 1.8 Phosphorus Level 2.6 Potassium Level 3.5 Sodium Level 136 Medications Medications Current Medications Guaifenesin/ Dextromethorphan (Robitussin Dm Liquid Cup) 10 ml Q6H PRN PO COUGH Last administered on 10/29/16t 05:33; Admin Dose 10 ML; Start 10/24/16 at 00:00 Montelukast Sodium (Singulair) 10 mg HS PO Last administered on 10/29/16 20:41 ; Admin Dose 10 MG; Start 10/24/16 at 21:00 Salmeterol Xinafoate/ Fluticasone (Advair 250/50 Diskus) 1 inh BID INH Last administered on 10/30/16 09:26; Admin Dose 1 INH; Start 10/24/16 at 21:00 Aspirin (Aspirin) 81 mg DAILY PO Last administered on 10/30/16 09:27; Admin Dose 81 MG; Start 10/25/16 at 09:00 Hydralazine HCl (Apresoline) 10 mg Q4H PRN IV SBP>160 Last administered on 21:39; Admin Dose 10 MG; Start 10/24/16 at 14:00 Metoprolol Succinate (Toprol Xl) 25 mg BID PO Last administered on 10/29/16 20: 41; Admin Dose 25 MG; Start 10/25/16 at 21:00 Losartan Potassium (Cozaar) 50 mg DAILY PO Last administered on 10/26/16 08:42 ; Admin Dose 50 MG; Start 10/25/16 at 11:30 Tiotropium [place] (Spiriva) 1 inh DAILY INH Last administered on 10/30/16 09: 26; Admin Dose 1 INH; Start 10/26/16 at 09:00 Atorvastatin Calcium (Lipitor) 40 mg HS PO Last administered on 10/29/16 20:41 ; Admin Dose 40 MG; Start 10/25/16 at 21:00 Heparin Sodium (Porcine) (Heparin (5000 Units/0.5 ml)) 5,000 unit BID SC Last administered on 10/28/16 09:04; Admin Dose 5,000 UNIT; Start 10/26/16 at 21:00 Nystatin (Nystatin Powder) 1 applic BID TOP ; Start 10/30/16 at 15:00 ALLIE QUINTEROS MD Oct 30, 2016 20:21
[2016-10-30 21:30] VITALS: BP 178/78
[2016-10-30] MEDS: ATORVASTATIN 40 MG TAB PO SCH (21:51)
[2016-10-30] MEDS: MONTELUKAST 10 MG TAB PO SCH (21:51)
[2016-10-30 22:00] VITALS: BP 159/77
[2016-10-31] MEDS: ALBUTEROL/IPRATROPIUM (NEB) 3 ML AMP HHN PRN ×3 (06:14→22:17)
[2016-10-31 07:01] LABS: POTASSIUM 3.7 mmol/L (3.5-5.1)
[2016-10-31 07:03] LABS: CREATININE 1.31 mg/dl (0.44-1.00)
[2016-10-31 07:04] LABS: CALCIUM 9.6 mg/dl (8.4-10.2)
[2016-10-31 07:47] VITALS: BP 151/73; RESP 18
[2016-10-31] MEDS: LOSARTAN 50 MG TAB PO SCH (08:43)
[2016-10-31] MEDS: SALMETEROL/FLUTICASONE 250/50 INHA INH SCH ×2 (08:43→20:46)
[2016-10-31] MEDS: METOPROLOL (XL) 25 MG TAB PO SCH ×2 (08:43→20:46)
[2016-10-31] MEDS: TIOTROPIUM 18 MCG CAPSULE INHA DEV INH SCH (08:43)
[2016-10-31] MEDS: HEPARIN 5,000 UNIT/0.5 ML SYG SC SCH ×2 (08:43→20:46)
[2016-10-31] MEDS: ASPIRIN 81 MG TAB PO SCH (08:43)
[2016-10-31] MEDS: NYSTATIN 30 GM POWDER BTL TOP SCH ×2 (08:44→20:47)
--- NOTE | 2016-10-31 08:47 | CONS ---
Date/Time of Note Date/Time of Note DATE: 10/31/16 TIME: 08:46 Consult Date/Type/Reason Admit Date/Time Oct 23, 2016 at 21:05 Initial Consult Date Type of Consultation: nephrology Subjective Pt seen and examined. good uop. off HD, creat stable. Objective Vital Signs Date Time Temp Pulse Resp B/P Pulse Ox O2 Delivery O2 Flow Rate FiO2 10/31/16 07:47 98.4 95 18 151/73 91 10/31/16 06:14 21 10/30/16 08:30 Nasal Cannula 2.0 Intake and Output 10/30/16 10/30/16 10/31/16 15:00 23:00 07:00 Intake Total 690 ml 400 ml Balance 690 ml 400 ml Results/Medications Result Diagram: 10/27/16 0601 10/31/16 0548 Results 24 hrs Laboratory Tests Test 10/31/16 05:48 Anion Gap 13 Blood Urea Nitrogen 15 Calcium Level 9.6 Carbon Dioxide Level 25 Chloride Level 103 Creatinine 1.31 H Glucose Level 104 Potassium Level 3.7 Sodium Level 137 Medications Current Medications Guaifenesin/ Dextromethorphan (Robitussin Dm Liquid Cup) 10 ml Q6H PRN PO COUGH Last administered on 10/29/16 05:33; Admin Dose 10 ML; Start 10/24/16 at 00:00 Montelukast Sodium (Singulair) 10 mg HS PO Last administered on 10/30/16 21:51 ; Admin Dose 10 MG; Start 10/24/16 at 21:00 Salmeterol Xinafoate/ Fluticasone (Advair 250/50 Diskus) 1 inh BID INH Last administered on 10/31/16 08:43; Admin Dose 1 INH; Start 10/24/16 at 21:00 Aspirin (Aspirin) 81 mg DAILY PO Last administered on 10/30/16 09:27; Admin Dose 81 MG; Start 10/25/16 at 09:00 Hydralazine HCl (Apresoline) 10 mg Q4H PRN IV SBP>160 Last administered on 21:39; Admin Dose 10 MG; Start 10/24/16 at 14:00 Metoprolol Succinate (Toprol Xl) 25 mg BID PO Last administered on 10/30/16 21: 51; Admin Dose 25 MG; Start 10/25/16 at 21:00 Losartan Potassium (Cozaar) 50 mg DAILY PO Last administered on 10/26/16 08:42 ; Admin Dose 50 MG; Start 10/25/16 at 11:30 Tiotropium [place] (Spiriva) 1 inh DAILY INH Last administered on 10/31/16 08: 43; Admin Dose 1 INH; Start 10/26/16 at 09:00 Atorvastatin Calcium (Lipitor) 40 mg HS PO Last administered on 10/30/16 21:51 ; Admin Dose 40 MG; Start 10/25/16 at 21:00 Heparin Sodium (Porcine) (Heparin (5000 Units/0.5 ml)) 5,000 unit BID SC Last administered on 10/30/16 21:56; Admin Dose 5,000 UNIT; Start 10/26/16 at 21:00 Nystatin (Nystatin Powder) 1 applic BID TOP Last administered on 10/30/16 21:58 ; Admin Dose 1 APPLIC; Start 10/30/16 at 15:00 Assessment/Plan Chief Complaint/Hosp Course 1. Chronic kidney disease stage III. The patient has shown renal recovery. At this point, will continue to hold hemodialysis. We will continue to monitor renal function off dialysis. Patient continues to have a Perm-A-Cath; however, will defer to the patient's primary screen vent binder to remove underlying Perm-A- Cath. 2. Hyponatremia, improved. Continue to limit free water intake. 3. Anemia. Continue to monitor hemoglobin and hematocrit levels. 4. Mineral bone disorder. Continue to monitor calcium and phosphorus councils levels. 5. Hypertension. Continue current blood pressure regimen. 6. Acute asthma, chronic obstructive pulmonary disease exacerbation. Continue to monitor. 7. Nonstemi coronary artery disease. Continue current treatment plan. 8. Hyperkalemia, resolved. Problems: ROSA GOMES MD Oct 31, 2016 08:47
--- NOTE | 2016-10-31 11:51 | PN ---
Date/Time of Note Date/Time of Note DATE: 10/31/16 TIME: 11:46 Assessment/Plan VTE Prophylaxis VTE Prophylaxis Intervention: heparin Lines/Catheters IV [facility] Saline Lock Urinary Cath still in place: No Assessment/Plan Assessment/Plan PROBLEMS: CKD stage 3 COPD exacerbation: improved Chronic Debility 2/2 Obesity HTN: controlled LE swelling 2/2 Lymphedema with likely Fungal infection : improved on Nystatin cream PLAN: Continue to hold hemodialysis / monitor renal function off dialysis. Patient continues to have a Perm-A-Cath / defer to the patient's primary insulation installer to remove underlying Perm-A-Cath. Continue in-house supportive care and PT Placement Pending PPx- Heparin Subjective 24 Hr Interval Summary Free Text/Dictation Patient seen and examined. remains stable Exam/Review of Systems Vital Signs Vitals Vital Signs Date Time Temp Pulse Resp B/P Pulse Ox O2 Delivery O2 Flow Rate FiO2 10/31/16 07:47 98.4 95 18 151/73 91 10/31/16 06:14 21 10/30/16 08:30 Nasal Cannula 2.0 Intake and Output 10/30/16 10/30/16 10/31/16 15:00 23:00 07:00 Intake Total 690 ml 400 ml Balance 690 ml 400 ml Exam Constitutional: alert Respiratory: clear to auscultation Cardiovascular: regular rate and rhythm Gastrointestinal: soft, No distended Musculoskeletal: No nl extremities to inspection Results Result Diagram: 10/27/16 0601 10/31/16 0548 Results 24 hrs Laboratory Tests Test 10/31/16 05:48 Anion Gap 13 Blood Urea Nitrogen 15 Calcium Level 9.6 Carbon Dioxide Level 25 Chloride Level 103 Creatinine 1.31 H Glucose Level 104 Potassium Level 3.7 Sodium Level 137 Medications Medications Current Medications Guaifenesin/ Dextromethorphan (Robitussin Dm Liquid Cup) 10 ml Q6H PRN PO COUGH Last administered on 10/29/16 05:33; Admin Dose 10 ML; Start 10/24/16 at 00:00 Montelukast Sodium (Singulair) 10 mg HS PO Last administered on 10/30/16 21:51 ; Admin Dose 10 MG; Start 10/24/16 at 21:00 Salmeterol Xinafoate/ Fluticasone (Advair 250/50 Diskus) 1 inh BID INH Last administered on 10/31/16 08:43; Admin Dose 1 INH; Start 10/24/16 at 21:00 Aspirin (Aspirin) 81 mg DAILY PO Last administered on 10/30/16 09:27; Admin Dose 81 MG; Start 10/25/16 at 09:00 Hydralazine HCl (Apresoline) 10 mg Q4H PRN IV SBP>160 Last administered on 21:39; Admin Dose 10 MG; Start 10/24/16 at 14:00 Metoprolol Succinate (Toprol Xl) 25 mg BID PO Last administered on 10/30/16 21: 51; Admin Dose 25 MG; Start 10/25/16 at 21:00 Losartan Potassium (Cozaar) 50 mg DAILY PO Last administered on 10/26/16 08:42 ; Admin Dose 50 MG; Start 10/25/16 at 11:30 Tiotropium [place] (Spiriva) 1 inh DAILY INH Last administered on 10/31/16 08: 43; Admin Dose 1 INH; Start 10/26/16 at 09:00 Atorvastatin Calcium (Lipitor) 40 mg HS PO Last administered on 10/30/16 21:51 ; Admin Dose 40 MG; Start 10/25/16 at 21:00 Heparin Sodium (Porcine) (Heparin (5000 Units/0.5 ml)) 5,000 unit BID SC Last administered on 10/30/16 21:56; Admin Dose 5,000 UNIT; Start 10/26/16 at 21:00 Nystatin (Nystatin Powder) 1 applic BID TOP Last administered on 10/30/16 21:58 ; Admin Dose 1 APPLIC; Start 10/30/16 at 15:00 RAMANDEEP COOLEY Oct 31, 2016 11:51
[2016-10-31 19:59] VITALS: BP 166/75; RESP 18
[2016-10-31] MEDS: ATORVASTATIN 40 MG TAB PO SCH (20:46)
[2016-10-31] MEDS: MONTELUKAST 10 MG TAB PO SCH (20:46)
[2016-11-01 00:39] VITALS: BP 145/67
[2016-11-01] MEDS: ALBUTEROL/IPRATROPIUM (NEB) 3 ML AMP HHN PRN ×4 (00:56→20:55)
[2016-11-01 07:55] VITALS: BP 167/77; RESP 18
[2016-11-01] MEDS: ASPIRIN 81 MG TAB PO SCH (08:38)
[2016-11-01] MEDS: TIOTROPIUM 18 MCG CAPSULE INHA DEV INH SCH (08:38)
[2016-11-01] MEDS: LOSARTAN 50 MG TAB PO SCH (08:38)
[2016-11-01] MEDS: SALMETEROL/FLUTICASONE 250/50 INHA INH SCH ×2 (08:38→21:05)
[2016-11-01] MEDS: NYSTATIN 30 GM POWDER BTL TOP SCH ×2 (08:39→21:06)
[2016-11-01] MEDS: HEPARIN 5,000 UNIT/0.5 ML SYG SC SCH ×2 (08:39→21:00)
[2016-11-01] MEDS: METOPROLOL (XL) 25 MG TAB PO SCH ×2 (09:00→21:05)
--- NOTE | 2016-11-01 10:28 | CONS ---
Date/Time of Note Date/Time of Note DATE: 11/01/16 TIME: 10:28 Consult Date/Type/Reason Admit Date/Time Oct 23, 2016 at 21:05 Type of Consultation: nephrology Subjective no new c/o. good uop. Objective Vital Signs Date Time Temp Pulse Resp B/P Pulse Ox O2 Delivery O2 Flow Rate FiO2 11/01/16 07:55 97.9 102 18 167/77 92 11/01/16 00:59 2.0 11/01/16 00:59 Nasal Cannula 10/31/16 22:17 21 Intake and Output 10/31/16 10/31/16 11/01/16 15:00 23:00 07:00 Intake Total 840 ml 100 ml Balance 840 ml 100 ml Respiratory: clear to auscultation Cardiovascular: regular rate and rhythm Gastrointestinal: soft, No distended Musculoskeletal: No nl extremities to inspection Results/Medications Result Diagram: 10/31/16 0548 Medications Current Medications Guaifenesin/ Dextromethorphan (Robitussin Dm Liquid Cup) 10 ml Q6H PRN PO COUGH Last administered on 10/29/16 05:33; Admin Dose 10 ML; Start 10/24/16 at 00:00 Montelukast Sodium (Singulair) 10 mg HS PO Last administered on 10/30/16 21:51 ; Admin Dose 10 MG; Start 10/24/16 at 21:00 Salmeterol Xinafoate/ Fluticasone (Advair 250/50 Diskus) 1 inh BID INH Last administered on 10/31/16 08:43; Admin Dose 1 INH; Start 10/24/16 at 21:00 Aspirin (Aspirin) 81 mg DAILY PO Last administered on 10/30/16 09:27; Admin Dose 81 MG; Start 10/25/16 at 09:00 Hydralazine HCl (Apresoline) 10 mg Q4H PRN IV SBP>160 Last administered on 21:39; Admin Dose 10 MG; Start 10/24/16 at 14:00 Metoprolol Succinate (Toprol Xl) 25 mg BID PO Last administered on 10/30/16 21: 51; Admin Dose 25 MG; Start 10/25/16 at 21:00 Losartan Potassium (Cozaar) 50 mg DAILY PO Last administered on 10/26/16 08:42 ; Admin Dose 50 MG; Start 10/25/16 at 11:30 Tiotropium [place] (Spiriva) 1 inh DAILY INH Last administered on 10/31/16 08: 43; Admin Dose 1 INH; Start 10/26/16 at 09:00 Atorvastatin Calcium (Lipitor) 40 mg HS PO Last administered on 10/30/16 21:51 ; Admin Dose 40 MG; Start 10/25/16 at 21:00 Heparin Sodium (Porcine) (Heparin (5000 Units/0.5 ml)) 5,000 unit BID SC Last administered on 10/30/16 21:56; Admin Dose 5,000 UNIT; Start 10/26/16 at 21:00 Nystatin (Nystatin Powder) 1 applic BID TOP Last administered on 10/30/16 21:58 ; Admin Dose 1 APPLIC; Start 10/30/16 at 15:00 Assessment/Plan Chief Complaint/Hosp Course 1. Chronic kidney disease stage III. The patient has shown renal recovery. At this point, will continue to hold hemodialysis. We will continue to monitor renal function off dialysis. Patient continues to have a Perm-A-Cath; however, will defer to the patient's primary facilities maintenance worker to remove underlying Perm-A- Cath. 2. Hyponatremia, improved. Continue to limit free water intake. 3. Anemia. Continue to monitor hemoglobin and hematocrit levels. 4. Mineral bone disorder. Continue to monitor calcium and phosphorus councils levels. 5. Hypertension. Continue current blood pressure regimen. 6. Acute asthma, chronic obstructive pulmonary disease exacerbation. Continue to monitor. 7. Nonstemi coronary artery disease. Continue current treatment plan. 8. Hyperkalemia, resolved. Problems: ROSA GOMES MD Nov 01, 2016 10:28
[2016-11-01 12:00] VITALS: BP 153/77
--- NOTE | 2016-11-01 16:46 | PN ---
Date/Time of Note Date/Time of Note DATE: 11/01/16 TIME: 16:46 Assessment/Plan Lines/Catheters IV [facility] Saline Lock Urinary Cath still in place: No Assessment/Plan Assessment/Plan PROBLEMS: CKD stage 3 COPD exacerbation: improved Chronic Debility 2/2 Obesity HTN: controlled LE swelling 2/2 Lymphedema with likely Fungal infection : improved on Nystatin cream PLAN: Continue to hold hemodialysis / monitor renal function off dialysis. Patient continues to have a Perm-A-Cath / defer to the patient's primary cash register servicer to remove underlying Perm-A-Cath. Continue in-house supportive care and PT Placement Pending PPx- Heparin Exam/Review of Systems Vital Signs Vitals Vital Signs Date Time Temp Pulse Resp B/P Pulse Ox O2 Delivery O2 Flow Rate FiO2 11/01/16 14:21 82 18 92 21 11/01/16 12:26 2.0 11/01/16 12:00 153/77 Room Air 11/01/16 07:55 97.9 Intake and Output 10/31/16 10/31/16 11/01/16 15:00 23:00 07:00 Intake Total 840 ml 100 ml Balance 840 ml 100 ml Results Result Diagram: 10/31/16 0548 Medications Medications Current Medications Guaifenesin/ Dextromethorphan (Robitussin Dm Liquid Cup) 10 ml Q6H PRN PO COUGH Last administered on 10/29/16 05:33; Admin Dose 10 ML; Start 10/24/16 at 00:00 Montelukast Sodium (Singulair) 10 mg HS PO Last administered on 10/30/16 21:51 ; Admin Dose 10 MG; Start 10/24/16 at 21:00 Salmeterol Xinafoate/ Fluticasone (Advair 250/50 Diskus) 1 inh BID INH Last administered on 10/31/16 08:43; Admin Dose 1 INH; Start 10/24/16 at 21:00 Aspirin (Aspirin) 81 mg DAILY PO Last administered on 10/30/16 09:27; Admin Dose 81 MG; Start 10/25/16 at 09:00 Hydralazine HCl (Apresoline) 10 mg Q4H PRN IV SBP>160 Last administered on 21:39; Admin Dose 10 MG; Start 10/24/16 at 14:00 Metoprolol Succinate (Toprol Xl) 25 mg BID PO Last administered on 10/30/16 21: 51; Admin Dose 25 MG; Start 10/25/16 at 21:00 Losartan Potassium (Cozaar) 50 mg DAILY PO Last administered on 10/26/16 08:42 ; Admin Dose 50 MG; Start 10/25/16 at 11:30 Tiotropium [place] (Spiriva) 1 inh DAILY INH Last administered on 10/31/16 08: 43; Admin Dose 1 INH; Start 10/26/16 at 09:00 Atorvastatin Calcium (Lipitor) 40 mg HS PO Last administered on 10/30/16 21:51 ; Admin Dose 40 MG; Start 10/25/16 at 21:00 Heparin Sodium (Porcine) (Heparin (5000 Units/0.5 ml)) 5,000 unit BID SC Last administered on 10/30/16 21:56; Admin Dose 5,000 UNIT; Start 10/26/16 at 21:00 Nystatin (Nystatin Powder) 1 applic BID TOP Last administered on 10/30/16 21:58 ; Admin Dose 1 APPLIC; Start 10/30/16 at 15:00 RAMANDEEP COOLEY Nov 01, 2016 16:46
--- NOTE | 2016-11-01 16:48 | PN ---
Date/Time of Note Date/Time of Note DATE: 11/01/16 TIME: 16:47 Assessment/Plan VTE Prophylaxis VTE Prophylaxis Intervention: heparin Lines/Catheters IV C[facility]ter Type (from [facility]): Saline Lock Urinary Cath still in place: No Assessment/Plan Assessment/Plan PROBLEMS: CKD stage 3 COPD exacerbation: improved Chronic Debility 2/2 Obesity HTN: controlled LE swelling 2/2 Lymphedema with likely Fungal infection : improved on Nystatin cream PLAN: Continue to hold hemodialysis / monitor renal function off dialysis. Patient continues to have a Perm-A-Cath / defer to the patient's primary compression molding machine tender to remove underlying Perm-A-Cath. Continue in-house supportive care and PT Placement Pending PPx- Heparin Subjective 24 Hr Interval Summary Free Text/Dictation Patient seen and examined. no new complaints Exam/Review of Systems Vital Signs Vitals Vital Signs Date Time Temp Pulse Resp B/P Pulse Ox O2 Delivery O2 Flow Rate FiO2 11/01/16 14:21 82 18 92 21 11/01/16 12:26 2.0 11/01/16 12:00 153/77 Room Air 11/01/16 07:55 97.9 Intake and Output 10/31/16 10/31/16 11/01/16 15:00 23:00 07:00 Intake Total 840 ml 100 ml Balance 840 ml 100 ml Exam Constitutional: alert Respiratory: clear to auscultation Cardiovascular: regular rate and rhythm Gastrointestinal: soft, No distended Musculoskeletal: No nl extremities to inspection Results Result Diagram: 10/31/16 0548 Medications Medications Current Medications Guaifenesin/ Dextromethorphan (Robitussin Dm Liquid Cup) 10 ml Q6H PRN PO COUGH Last administered on 10/29/16 05:33; Admin Dose 10 ML; Start 10/24/16 at 00:00 Montelukast Sodium (Singulair) 10 mg HS PO Last administered on 10/30/16 21:51 ; Admin Dose 10 MG; Start 10/24/16 at 21:00 Salmeterol Xinafoate/ Fluticasone (Advair 250/50 Diskus) 1 inh BID INH Last administered on 10/31/16 08:43; Admin Dose 1 INH; Start 10/24/16 at 21:00 Aspirin (Aspirin) 81 mg DAILY PO Last administered on 10/30/16 09:27; Admin Dose 81 MG; Start 10/25/16 at 09:00 Hydralazine HCl (Apresoline) 10 mg Q4H PRN IV SBP>160 Last administered on 21:39; Admin Dose 10 MG; Start 10/24/16 at 14:00 Metoprolol Succinate (Toprol Xl) 25 mg BID PO Last administered on 10/30/16 21: 51; Admin Dose 25 MG; Start 10/25/16 at 21:00 Losartan Potassium (Cozaar) 50 mg DAILY PO Last administered on 10/26/16 08:42 ; Admin Dose 50 MG; Start 10/25/16 at 11:30 Tiotropium [place] (Spiriva) 1 inh DAILY INH Last administered on 10/31/16 08: 43; Admin Dose 1 INH; Start 10/26/16 at 09:00 Atorvastatin Calcium (Lipitor) 40 mg HS PO Last administered on 10/30/16 21:51 ; Admin Dose 40 MG; Start 10/25/16 at 21:00 Heparin Sodium (Porcine) (Heparin (5000 Units/0.5 ml)) 5,000 unit BID SC Last administered on 10/30/16 21:56; Admin Dose 5,000 UNIT; Start 10/26/16 at 21:00 Nystatin (Nystatin Powder) 1 applic BID TOP Last administered on 10/30/16 21:58 ; Admin Dose 1 APPLIC; Start 10/30/16 at 15:00 RAMANDEEP COOLEY Nov 01, 2016 16:48
[2016-11-01 20:15] VITALS: BP 160/73; RESP 20
[2016-11-01] MEDS: MONTELUKAST 10 MG TAB PO SCH (21:05)
[2016-11-01] MEDS: ATORVASTATIN 40 MG TAB PO SCH (21:05)
[2016-11-02] VITALS (7 sets, daily range): BP systolic 148–170; BP diastolic 75–83; PULSE 80–90; RESP 16
[2016-11-02] MEDS: TIOTROPIUM 18 MCG CAPSULE INHA DEV INH SCH (09:00)
[2016-11-02] MEDS: LOSARTAN 50 MG TAB PO SCH ×2 (09:00→20:50)
[2016-11-02] MEDS: METOPROLOL (XL) 25 MG TAB PO SCH ×2 (09:00→20:50)
[2016-11-02] MEDS: HEPARIN 5,000 UNIT/0.5 ML SYG SC SCH ×2 (09:00→20:51)
[2016-11-02] MEDS: ALBUTEROL/IPRATROPIUM (NEB) 3 ML AMP HHN PRN ×2 (09:04→17:02)
[2016-11-02] MEDS: ASPIRIN 81 MG TAB PO SCH (09:25)
[2016-11-02] MEDS: SALMETEROL/FLUTICASONE 250/50 INHA INH SCH ×2 (09:25→20:58)
[2016-11-02] MEDS: NYSTATIN 30 GM POWDER BTL TOP SCH ×2 (09:27→20:58)
--- NOTE | 2016-11-02 11:41 | PN ---
DATE: SUBJECTIVE: The patient is stable, no acute events overnight. No fevers, chills, nausea, no shortn ess of breath. OBJECTIVE: VITAL SIGNS: Blood pressure is 158/77, respirations 16, pulse 85, temperature 98.3. HEENT: Head is normocephalic. NECK: Supple. HEART: Regular rate. LUNGS: Show diminished breath sounds at the base. ABDOMEN: Soft, nontender to palpation without rebound or guarding. EXTREMITIES: Negative for clubbing, cyanosis. Positive edema. DERMATOLOGIC: No rashes. MUSCULOSKELETAL: No joint effusions. NEUROLOGIC: No change in exam. MEDICATIONS: The patient's medications have been reviewed. LABORATORY DATA: From October 31 was reviewed. ASSESSMENT AND PLAN: 1. Chronic kidney disease, stage IIIB. The patient has shown excellent renal recovery. At this po int, we will hold hemodialysis. We will continue to monitor renal function off dialysis. The patie nt continues to have Perm-A-Cath; however, will defer to the patient's primary insulation nozzleman to remov e underlying Perm-A-Cath. Will otherwise continue to monitor renal function closely. 2. Hyponatremia, improved. Continue to limit free water intake. 3. Anemia. Continue to monitor hemoglobin and hematocrit levels. 4. Mineral bone disorder. Continue to monitor calcium and phosphorus levels. 5. Hypertension. Continue current blood pressure regimen. 6. Acute asthma, chronic obstructive pulmonary disease. Continue current medical management. 7. Non-ST elevation myocardial infarction/coronary artery disease. Continue current treatment plan . 8. Hyperkalemia, resolved. 9. Lower extremity swelling secondary to lymphedema. Continue to monitor. Continue medical manage ment. Dictated By: DERECK KENNEDY/RUTH Conf#: [id number] DID#: [id number]
[2016-11-02 14:36] LABS: BASOPHILS % 0.4 % (0.0-2.0); EOSINOPHILS # 0.2 10^3/ul (0.0-0.5); EOSINOPHILS % 2.1 % (0.0-7.0); HEMOGLOBIN 9.2 g/dl (12.0-16.0); LYMPHOCYTES % 12.5 % (15.0-51.0); MEAN CORPUSCULAR HEMOGLOBIN 28.2 pg (29.0-33.0); MEAN CORPUSCULAR HGB CONC 32.7 g/dl (32.0-37.0); MEAN CORPUSCULAR VOLUME 86.3 fl (82.0-101.0); MEAN PLATELET VOLUME 6.9 fl (7.4-10.4); MONOCYTE # 0.5 10^3/ul (0.3-0.9); MONOCYTES % 6.9 % (0.0-11.0); NEUTROPHILS % 78.1 % (39.0-77.0); PLATELET COUNT 270 10^3/UL (140-440); RED BLOOD COUNT 3.25 10^6/ul (4.20-5.40); UNCORRECTED WBC 7.7 10^3/ul (4.8-10.8); WHITE BLOOD COUNT 7.7 10^3/ul (4.8-10.8)
[2016-11-02 14:43] LABS: POTASSIUM 3.9 mmol/L (3.5-5.1)
[2016-11-02 14:45] LABS: CREATININE 1.2 mg/dl (0.44-1.00)
[2016-11-02 14:46] LABS: CALCIUM 9.6 mg/dl (8.4-10.2); CONDITION 1; LH ANALYZER COMMENTS 1; MAGNESIUM 1.7 mg/dl (1.7-2.5); PHOSPHORUS 2.9 mg/dl (2.5-4.9)
--- NOTE | 2016-11-02 14:50 | PN ---
DATE: 11/02/2016 TIME OF EVALUATION: 2:15 p.m. SUBJECTIVE DATA: Denies any chest pain. Denies any dyspnea. The patient has been refusing certain medications and lab draw. OBJECTIVE DATA: VITAL SIGNS: Temperature 98.3, pulse rate 88, respiratory rate 22, blood pressure 148/76, oxygen saturation 96% on room air. GENERAL: This is an obese female patient lying in bed in no apparent distress. HEENT: Head normocephalic and atraumatic. Eyes: Anicteric sclerae. Conjunctivae clear. ENT: Nasal septum is midline. Oral mucosa is dry. NECK: Supple. No JVD noticed. RESPIRATORY: Bilaterally clear to auscultation. No adventitious breath sounds. No use of accessory muscles of respiration. CARDIAC: Regular rate and rhythm. No obvious murmurs heard. ABDOMEN: Soft, nontender and nondistended. Bowel sounds positive in all 4 quadrants. GENITOURINARY: Deferred. EXTREMITIES: No cyanosis, no clubbing. Bilateral lower extremity lymphedema. Peripheral pulses are diminished. NEUROLOGIC: The patient is awake, alert and oriented. Cranial nerves are grossly intact. LABORATORY AND DIAGNOSTIC DATA: None available for today. ASSESSMENT AND PLAN: 1. Chronic kidney disease stage III. The patient currently has a right-sided dialysis access in place. The patient currently off hemodialysis. Monitor renal function closely. The patient being followed by nephrology. 2. Chronic obstructive pulmonary disease with no evidence of exacerbation. Continue maintenance inhalers. However, the patient was noticed to be refusing some of her inhalers. 3. Essential hypertension. Continue antihypertensives. 4. Bilateral lower extremity lymphedema with possible underlying fungal infection. Continue nystatin cream. 5. Obesity. BMI of 33.7 kilograms per meter squared. 6. Debility. Physical therapy following. 7. Normocytic normochromic anemia, most probably anemia of chronic kidney disease. We will monitor the H and H closely. 8. Fluid, electrolytes and nutrition. Low cholesterol diet. 9. DVT prophylaxis. Subcutaneous heparin. 10. Gastrointestinal prophylaxis. Not indicated. PLAN: Continue physical therapy. Continue to monitor the renal function closely. Case discussed with Dr. Malik. FABY MALIK MD, AM/RUTH Conf#: [id number] DID#: [id number] [facility]
[2016-11-02] MEDS: ATORVASTATIN 40 MG TAB PO SCH (20:49)
[2016-11-02] MEDS: MONTELUKAST 10 MG TAB PO SCH (20:58)
[2016-11-03] MEDS: SALMETEROL/FLUTICASONE 250/50 INHA INH SCH ×3 (01:12→20:01)
[2016-11-03] MEDS: MONTELUKAST 10 MG TAB PO SCH ×2 (01:12→20:01)
[2016-11-03 08:00] VITALS: BP 173/81; PULSE 85; RESP 16
[2016-11-03 08:36] VITALS: BP 188/88; RESP 19
[2016-11-03] MEDS: ALBUTEROL/IPRATROPIUM (NEB) 3 ML AMP HHN PRN ×3 (08:41→22:30)
[2016-11-03] MEDS: ASPIRIN 81 MG TAB PO SCH (08:42)
[2016-11-03] MEDS: TIOTROPIUM 18 MCG CAPSULE INHA DEV INH SCH (08:42)
[2016-11-03] MEDS: NYSTATIN 30 GM POWDER BTL TOP SCH ×2 (08:43→20:14)
[2016-11-03] MEDS: HEPARIN 5,000 UNIT/0.5 ML SYG SC SCH ×2 (08:44→20:14)
[2016-11-03] MEDS: METOPROLOL (XL) 25 MG TAB PO SCH ×2 (09:00→20:00)
[2016-11-03 09:37] VITALS: BP 165/81; PULSE 83
[2016-11-03 10:14] VITALS: BP 152/82; PULSE 79
--- NOTE | 2016-11-03 11:55 | PN ---
Date/Time of Note Date/Time of Note DATE: 11/03/16 TIME: 11:55 Assessment/Plan VTE Prophylaxis VTE Prophylaxis Intervention: heparin Lines/Catheters IV Catheter Type (from [facility]): Saline Lock Urinary Cath still in place: No Assessment/Plan Chief Complaint/Hosp Course 1. Chronic kidney disease stage III. The patient currently has a right-sided dialysis access in place. The patient currently off hemodialysis. Monitor renal function closely. The patient being followed by nephrology. 2. Chronic obstructive pulmonary disease with no evidence of exacerbation. Continue maintenance inhalers. However, the patient was noticed to be refusing some of her inhalers. 3. Essential hypertension. Continue antihypertensives. 4. Bilateral lower extremity lymphedema with possible underlying fungal infection. Continue nystatin cream. 5. Obesity. BMI of 33.7 kilograms per meter squared. 6. Debility. Physical therapy following. 7. Normocytic normochromic anemia, most probably anemia of chronic kidney disease. Will monitor the H and H closely. 8. Fluid, electrolytes and nutrition. Low cholesterol diet. 9. DVT prophylaxis. Subcutaneous heparin. 10. Gastrointestinal prophylaxis. Not indicated. PLAN: Continue physical therapy. Continue to monitor the renal function closely. Await placement. The patient is medically stable to be discharged. Case discussed with Dr. Malik. Problems: Subjective 24 Hr Interval Summary Free Text/Dictation No dyspnea. No chest pain. Exam/Review of Systems Vital Signs Vitals Vital Signs Date Time Temp Pulse Resp B/P Pulse Ox O2 Delivery O2 Flow Rate FiO2 11/03/16 10:14 79 152/82 92 Nasal Cannula 2.0 11/03/16 08:43 20 21 11/03/16 08:36 98.1 Intake and Output 11/02/16 11/02/16 11/03/16 15:00 23:00 07:00 Intake Total 960 ml 480 ml Balance 960 ml 480 ml Exam GENERAL: This is an obese female patient lying in bed in no apparent distress. HEENT: Head normocephalic and atraumatic. Eyes: Anicteric sclerae. Conjunctivae clear. ENT: Nasal septum is midline. Oral mucosa is dry. NECK: Supple. No JVD noticed. RESPIRATORY: Bilaterally clear to auscultation. No adventitious breath sounds. No use of accessory muscles of respiration. CARDIAC: Regular rate and rhythm. No obvious murmurs heard. ABDOMEN: Soft, nontender and nondistended. Bowel sounds positive in all 4 quadrants. GENITOURINARY: Deferred. EXTREMITIES: No cyanosis, no clubbing. Bilateral lower extremity lymphedema. Peripheral pulses are diminished. NEUROLOGIC: The patient is awake, alert and oriented. Cranial nerves are grossly intact. Results Result Diagram: 11/02/16 1359 11/02/16 1359 Results 24 hrs Laboratory Tests Test 11/02/16 12:00 11/02/16 13:59 Stool Occult Blood NEGATIVE Anion Gap 13 Basophils # 0.0 Basophils % 0.4 Blood Morphology Comment Blood Urea Nitrogen 16 Calcium Level 9.6 Carbon Dioxide Level 24 Chloride Level 105 Creatinine 1.20 H Eosinophils # 0.2 Eosinophils % 2.1 Glucose Level 94 Hematocrit 28.0 L Hemoglobin 9.2 L Lymphocytes # 1.0 Lymphocytes % 12.5 L Magnesium Level 1.7 Mean Corpuscular Hemoglobin 28.2 L Mean Corpuscular Hemoglobin Concent 32.7 Mean Corpuscular Volume 86.3 Mean Platelet Volume 6.9 L Monocytes # 0.5 Monocytes % 6.9 Neutrophils # 6.0 Neutrophils % 78.1 H Nucleated Red Blood Cells # 0.0 Nucleated Red Blood Cells % 0.0 Phosphorus Level 2.9 Platelet Count 270 Potassium Level 3.9 Red Blood Count 3.25 L Red Cell Distribution Width 17.0 H Sodium Level 138 White Blood Count 7.7 Medications Medications Current Medications Guaifenesin/ Dextromethorphan (Robitussin Dm Liquid Cup) 10 ml Q6H PRN PO COUGH Last administered on 10/29/16 05:33; Admin Dose 10 ML; Start 10/24/16 at 00:00 Montelukast Sodium (Singulair) 10 mg HS PO Last administered on 11/03/16 01:12 ; Admin Dose 10 MG; Start 10/24/16 at 21:00 Salmeterol Xinafoate/ Fluticasone (Advair 250/50 Diskus) 1 inh BID INH Last administered on 11/03/16 08:42; Admin Dose 1 INH; Start 10/24/16 at 21:00 Aspirin (Aspirin) 81 mg DAILY PO Last administered on 11/03/16 08:42; Admin Dose 81 MG; Start 10/25/16 at 09:00 Hydralazine HCl (Apresoline) 10 mg Q4H PRN IV SBP>160 Last administered on 21:39; Admin Dose 10 MG; Start 10/24/16 at 14:00 Metoprolol Succinate (Toprol Xl) 25 mg BID PO Last administered on 11/02/16 20: 50; Admin Dose 25 MG; Start 10/25/16 at 21:00 Tiotropium [place] (Spiriva) 1 inh DAILY INH Last administered on 11/03/16 08: 42; Admin Dose 1 INH; Start 10/26/16 at 09:00 Atorvastatin Calcium (Lipitor) 40 mg HS PO Last administered on 11/02/16 20:49 ; Admin Dose 40 MG; Start 10/25/16 at 21:00 Heparin Sodium (Porcine) (Heparin (5000 Units/0.5 ml)) 5,000 unit BID SC Last administered on 10/30/16 21:56; Admin Dose 5,000 UNIT; Start 10/26/16 at 21:00 Nystatin (Nystatin Powder) 1 applic BID TOP Last administered on 11/03/16 08:43 ; Admin Dose 1 APPLIC; Start 10/30/16 at 15:00 Losartan Potassium (Cozaar) 50 mg HS PO Last administered on 11/02/16 20:50; Admin Dose 50 MG; Start 11/02/16 at 21:00 FABY TANNER NP Nov 03, 2016 11:55
--- NOTE | 2016-11-03 13:01 | PN ---
DATE: 11/03/2016 SUBJECTIVE: The patient is stable, no acute events were noted. No fevers, chills, nausea, vomiting . OBJECTIVE: VITAL SIGNS: Blood pressure 165/81, respiration is 20, pulse 88, temperature 98.1. HEENT: Head is normocephalic. NECK: Supple. HEART: Regular rate. LUNGS: Show diminished breath sounds at the base. ABDOMEN: Soft, nontender to palpation. No rebound or guarding. EXTREMITIES: Negative for clubbing, cyanosis. Positive lymphedema. DERMATOLOGIC: No rashes. MUSCULOSKELETAL: No joint effusions. NEUROLOGIC: No change in exam. MEDICATIONS: Reviewed. LABORATORY DATA: Have been reviewed. No new labs. ASSESSMENT AND PLAN: 1. Chronic kidney disease, stage IIIB. The patient has shown excellent renal recovery. The patien t has been off hemodialysis for approximately 1 week. We will continue to monitor off dialysis. Th e patient continues to have Perm-A-Cath. Will, however, defer to the patient's primary costume design teacher to remove underlying Perm-A-Cath. Will continue to monitor closely. 2. Hypernatremia, improved. Continue to limit free water intake. 3. Anemia. Continue to monitor hemoglobin and hematocrit levels. 4. Mineral bone disorder. Continue to monitor calcium and phosphorus levels. 5. Hypertension. Continue current blood pressure regimen, adjust medications. 6. Acute asthma, COPD exacerbation. Continue current treatment plan. 7. Cdo-PO-wxephudxw myocardial infarction. Continue current treatment plan. 8. Lymphedema. Continue to monitor. Continue current medical management. Dictated By: DERECK KENNEDY/RUTH Conf#: [id number] DID#: [id number]
[2016-11-03 15:21] LABS: BASOPHILS % 0.4 % (0.0-2.0); EOSINOPHILS # 0.2 10^3/ul (0.0-0.5); EOSINOPHILS % 2.6 % (0.0-7.0); HEMATOCRIT 27.9 % (37.0-47.0); HEMOGLOBIN 9.1 g/dl (12.0-16.0); LYMPHOCYTES # 1.1 10^3/ul (0.8-2.9); LYMPHOCYTES % 14.4 % (15.0-51.0); MEAN CORPUSCULAR HEMOGLOBIN 28.2 pg (29.0-33.0); MEAN CORPUSCULAR HGB CONC 32.4 g/dl (32.0-37.0); MEAN CORPUSCULAR VOLUME 86.9 fl (82.0-101.0); MEAN PLATELET VOLUME 6.4 fl (7.4-10.4); MONOCYTE # 0.5 10^3/ul (0.3-0.9); MONOCYTES % 7.2 % (0.0-11.0); NEUTROPHIL # 5.5 10^3/ul (1.6-7.5); NEUTROPHILS % 75.4 % (39.0-77.0); PLATELET COUNT 286 10^3/UL (140-440); RED BLOOD COUNT 3.22 10^6/ul (4.20-5.40); RED CELL DISTRIBUTION WIDTH 16.5 % (11.5-14.5); UNCORRECTED WBC 7.4 10^3/ul (4.8-10.8); WHITE BLOOD COUNT 7.4 10^3/ul (4.8-10.8)
[2016-11-03 15:32] LABS: CONDITION 1; LH ANALYZER COMMENTS 1
[2016-11-03 15:39] LABS: POTASSIUM 4.1 mmol/L (3.5-5.1)
[2016-11-03 15:41] LABS: CREATININE 1.22 mg/dl (0.44-1.00)
[2016-11-03 15:42] LABS: CALCIUM 9.9 mg/dl (8.4-10.2); MAGNESIUM 1.8 mg/dl (1.7-2.5)
[2016-11-03 19:46] VITALS: BP 181/86; RESP 18
[2016-11-03] MEDS: LOSARTAN 50 MG TAB PO SCH (20:01)
[2016-11-03] MEDS: ATORVASTATIN 40 MG TAB PO SCH (20:01)
[2016-11-04 02:22] VITALS: BP 172/84; PULSE 83
[2016-11-04] MEDS: hydrALAzine 20 MG INJ IV PRN (02:27)
[2016-11-04 07:59] VITALS: BP 157/74; RESP 18
[2016-11-04] MEDS: ALBUTEROL/IPRATROPIUM (NEB) 3 ML AMP HHN PRN ×2 (07:59→13:06)
[2016-11-04] MEDS: HEPARIN 5,000 UNIT/0.5 ML SYG SC SCH (09:00)
[2016-11-04] MEDS: METOPROLOL (XL) 25 MG TAB PO SCH ×2 (09:00→09:22)
[2016-11-04] MEDS: TIOTROPIUM 18 MCG CAPSULE INHA DEV INH SCH (09:21)
[2016-11-04] MEDS: ASPIRIN 81 MG TAB PO SCH (09:22)
[2016-11-04] MEDS: SALMETEROL/FLUTICASONE 250/50 INHA INH SCH (09:22)
[2016-11-04] MEDS: NYSTATIN 30 GM POWDER BTL TOP SCH (09:22)
--- NOTE | 2016-11-04 09:57 | PN ---
Date/Time of Note Date/Time of Note DATE: 11/04/16 TIME: 09:56 Assessment/Plan VTE Prophylaxis VTE Prophylaxis Intervention: heparin Lines/Catheters IV Catheter Type (from [facility]): Saline Lock Urinary Cath still in place: No Assessment/Plan Chief Complaint/Hosp Course 1. Chronic kidney disease stage III. The patient currently has a right-sided dialysis access in place. The patient currently off hemodialysis. Monitor renal function closely. The patient being followed by nephrology. 2. Chronic obstructive pulmonary disease with no evidence of exacerbation. Continue maintenance inhalers. However, the patient was noticed to be refusing some of her inhalers. 3. Essential hypertension. Continue antihypertensives. 4. Bilateral lower extremity lymphedema with possible underlying fungal infection. Continue nystatin cream. 5. Obesity. BMI of 33.7 kilograms per meter squared. 6. Debility. Physical therapy following. 7. Normocytic normochromic anemia, most probably anemia of chronic kidney disease. Will monitor the H and H closely. 8. Fluid, electrolytes and nutrition. Low cholesterol diet. 9. DVT prophylaxis. Subcutaneous heparin. 10. Gastrointestinal prophylaxis. Not indicated. PLAN: Continue physical therapy. Continue to monitor the renal function closely. Await placement. The patient is medically stable to be discharged. Case discussed with Dr. Malik. Problems: Subjective 24 Hr Interval Summary Free Text/Dictation The patient refused morning antihypertensives. Exam/Review of Systems Vital Signs Vitals Vital Signs Date Time Temp Pulse Resp B/P Pulse Ox O2 Delivery O2 Flow Rate FiO2 11/04/16 08:00 88 18 93 21 11/04/16 07:59 98.0 157/74 11/03/16 17:03 2.0 11/03/16 10:14 Nasal Cannula Intake and Output 11/03/16 11/03/16 11/04/16 15:00 23:00 07:00 Intake Total 970 ml 520 ml Balance 970 ml 520 ml Exam GENERAL: This is an obese female patient lying in bed in no apparent distress. HEENT: Head normocephalic and atraumatic. Eyes: Anicteric sclerae. Conjunctivae clear. ENT: Nasal septum is midline. Oral mucosa is dry. NECK: Supple. No JVD noticed. RESPIRATORY: Bilaterally clear to auscultation. No adventitious breath sounds. No use of accessory muscles of respiration. CARDIAC: Regular rate and rhythm. No obvious murmurs heard. ABDOMEN: Soft, nontender and nondistended. Bowel sounds positive in all 4 quadrants. GENITOURINARY: Deferred. EXTREMITIES: No cyanosis, no clubbing. Bilateral lower extremity lymphedema. Peripheral pulses are diminished. NEUROLOGIC: The patient is awake, alert and oriented. Cranial nerves are grossly intact. Results Result Diagram: 11/03/16 1450 11/03/16 1450 Results 24 hrs Laboratory Tests Test 11/03/16 14:50 Anion Gap 13 Basophils # 0.0 Basophils % 0.4 Blood Morphology Comment Blood Urea Nitrogen 15 Calcium Level 9.9 Carbon Dioxide Level 24 Chloride Level 106 Creatinine 1.22 H Eosinophils # 0.2 Eosinophils % 2.6 Glucose Level 132 Hematocrit 27.9 L Hemoglobin 9.1 L Lymphocytes # 1.1 Lymphocytes % 14.4 L Magnesium Level 1.8 Mean Corpuscular Hemoglobin 28.2 L Mean Corpuscular Hemoglobin Concent 32.4 Mean Corpuscular Volume 86.9 Mean Platelet Volume 6.4 L Monocytes # 0.5 Monocytes % 7.2 Neutrophils # 5.5 Neutrophils % 75.4 Nucleated Red Blood Cells # 0.0 Nucleated Red Blood Cells % 0.0 Phosphorus Level 3.0 Platelet Count 286 Potassium Level 4.1 Red Blood Count 3.22 L Red Cell Distribution Width 16.5 H Sodium Level 139 White Blood Count 7.4 Medications Medications Current Medications Guaifenesin/ Dextromethorphan (Robitussin Dm Liquid Cup) 10 ml Q6H PRN PO COUGH Last administered on 10/29/16 05:33; Admin Dose 10 ML; Start 10/24/16 at 00:00 Montelukast Sodium (Singulair) 10 mg HS PO Last administered on 11/03/16 20:01 ; Admin Dose 10 MG; Start 10/24/16 at 21:00 Salmeterol Xinafoate/ Fluticasone (Advair 250/50 Diskus) 1 inh BID INH Last administered on 11/04/16 09:22; Admin Dose 1 INH; Start 10/24/16 at 21:00 Aspirin (Aspirin) 81 mg DAILY PO Last administered on 11/04/16 09:22; Admin Dose 81 MG; Start 10/25/16 at 09:00 Hydralazine HCl (Apresoline) 10 mg Q4H PRN IV SBP>160 Last administered on 02:27; Admin Dose 10 MG; Start 10/24/16 at 14:00 Metoprolol Succinate (Toprol Xl) 25 mg BID PO Last administered on 11/03/16 20: 00; Admin Dose 25 MG; Start 10/25/16 at 21:00 Tiotropium [place] (Spiriva) 1 inh DAILY INH Last administered on 11/04/16 09: 21; Admin Dose 1 INH; Start 10/26/16 at 09:00 Atorvastatin Calcium (Lipitor) 40 mg HS PO Last administered on 11/03/16 20:01 ; Admin Dose 40 MG; Start 10/25/16 at 21:00 Heparin Sodium (Porcine) (Heparin (5000 Units/0.5 ml)) 5,000 unit BID SC Last administered on 10/30/16 21:56; Admin Dose 5,000 UNIT; Start 10/26/16 at 21:00 Nystatin (Nystatin Powder) 1 applic BID TOP Last administered on 11/04/16 09:22 ; Admin Dose 1 APPLIC; Start 10/30/16 at 15:00 Losartan Potassium (Cozaar) 50 mg HS PO Last administered on 11/03/16 20:01; Admin Dose 50 MG; Start 11/02/16 at 21:00 Clonidine (Catapres) 0.1 mg Q6H PRN PO ELEVATED SYSTOLIC BP Last administered on 11/04/16 02:40; Admin Dose 0.1 MG; Start 11/04/16 at 03:00 FABY TANNER NP Nov 04, 2016 09:57
--- NOTE | 2016-11-04 12:01 | PN ---
DATE: 11/04/2016 SUBJECTIVE: The patient is stable, no acute events overnight. No fevers, chills, nausea, vomiting. No shortness of breath. OBJECTIVE: VITAL SIGNS: Blood pressure is 157/74, respiration 18, pulse 85, temperature 98.0. HEENT: Head is normocephalic. NECK: Supple. HEART: Regular rate. LUNGS: Show diminished breath sounds at the base. ABDOMEN: Soft, nontender to palpation. No rebound or guarding. EXTREMITIES: Negative for clubbing, cyanosis, or edema. DERMATOLOGIC: No rashes. MUSCULOSKELETAL: No joint effusions. NEUROLOGIC: No change in exam. MEDICATIONS: The patient's medications have been reviewed. LABORATORY DATA: Shows sodium 139, potassium 4.1, BUN 15, creatinine 1.22. White count 7.4, hemogl obin 9.1, hematocrit 27.9, platelet count is 286. ASSESSMENT AND PLAN: 1. Chronic kidney disease, stage IIIB. The patient was previously on hemodialysis. Currently, the patient has shown excellent renal recovery. He has been off hemodialysis for approximately 9 days. The patient continues to have Perm-A-Cath; however, will defer to the patient's primary nephrologis t to remove Perm-A-Cath as the patient previously had to be reintroduced to hemodialysis due to acut e kidney injury. Otherwise, continue supportive care, renally dose all meds, avoid nephrotoxins. 2. Hypernatremia, resolved. 3. Anemia. Continue to monitor hemoglobin and hematocrit levels. 4. Mineral bone disorder. Continue to monitor calcium and phosphorus level. 5. Hypertension. Continue current blood pressure regimen. 6. Acute asthma, COPD exacerbation. Continue current treatment plan. 7. Non-ST elevation myocardial infarction. Continue medical management. 8. Dyslipidemia. Continue to monitor. Dictated By: DERECK KENNEDY/RUTH Conf#: [id number] DID#: [id number]
--- NOTE | 2016-11-04 18:14 | PDOCDIS ---
Discharge Instructions DIAGNOSIS Discharge Diagnosis: CKD, COPD CONDITION Patient Condition: Stable HOME CARE INSTRUCTIONS: Special Diet: LOW FAT LOW CHOLES OTHER ORDERS: Other Orders: 1. Low cholesterol, low sodium diet. 2. Medications as per medication list. 3. Activities with assist. 4. Follow-up with your website programmer in 2 weeks. FABY TANNER NP Nov 04, 2016 18:14
--- NOTE | 2016-11-05 10:37 | DS ---
DATE OF ADMISSION: 10/23/2016 DATE OF DISCHARGE: 11/04/2016 FINAL DIAGNOSES: 1. Acute on chronic kidney disease. 2. Chronic obstructive pulmonary disease with no evidence of exacerbation. 3. Essential hypertension. 4. Bilateral lower extremity lymphedema with possible underlying fungal infection. 5. Obesity. 6. Debility. 7. Normocytic normochromic anemia. 8. Dyslipidemia. 9. NSTEMI (type 2) CONSULTATIONS: 1. Dr. Nicolas Jeter, nephrology. 2. Dr. Tex Montaño, cardiology. HOSPITAL COURSE: This is a 81-year-old female with history of COPD, essential hypertension and end-stage renal disease on hemodialysis, who presented to the emergency department with complaints of fatigue and shortness of breath. The patient denied any chest pain. However, she was complaining of dyspnea, wheezing and productive cough. The patient denied any fevers, chills, nausea or vomiting. The patient was noticed to have an initial troponin of 0.136. The chest x-ray showed cardiomegaly with atherosclerotic calcification of the thoracic aorta with no evidence of acute cardiopulmonary disease. Provided the patient's history of present illness and the diagnostic findings, a clinical decision was made to admit the patient to inpatient setting to have her further evaluated. The patient was admitted to inpatient telemetry floor. Cardiology and nephrology consults were called on this patient. The patient was ruled out for any acute coronary syndrome. The patient's elevation in troponins were concluded to be secondary to a type 2 event (demand ischemia). The patient underwent a 2D echocardiogram that showed ejection fraction of 60% to 65% with mild left ventricular diastolic dysfunction. As mentioned earlier, the patient was on hemodialysis previously. However, the patient's creatinine improved dramatically and the patient had no evidence of any uremia or significant electrolyte imbalances that necessitated hemodialysis. Hence, a clinical decision was made to take the patient off hemodialysis. However, the patient's dialysis access was kept in place as per nephrology. The patient has history of COPD. The patient had no evidence of any exacerbation. She has underlying essential hypertension. She was maintained on antihypertensives. Of note, the patient was refusing some of her antihypertensives and scheduled inhaled bronchodilators. The patient has underlying bilateral lower extremity lymphedema. It was suspected that the patient probably has underlying fungal infection. The patient was maintained on nystatin cream for the same. The patient was also noticed to have normocytic , normochromic anemia. The patient's H and H remained stable. The patient was also noticed to be debilitated. Hence, physical therapy evaluation was ordered for her. Physical therapy recommended jail facility placement. Initially, the patient refused to go to a jail facility. This caused a delay in the patient's discharge. Later, the patient was agreeable to go to a jail facility for further rehabilitation before the patient can return back home. Today (11/04/2016), the patient will be discharged to [facility]. The patient is medically stable to be discharged. DISPOSITION/PLAN: The patient will be discharged to [facility]. The patient will follow a low-cholesterol, low-sodium diet. Medications will be as per medication list. Activities will be with assist. The patient was instructed to follow up with her own trencher driver in 2 weeks to make a decision regarding whether she needs further hemodialysis and to make sure if the patient still needs the dialysis access. The patient verbalized understanding of her discharge instructions. CONDITION AT DISCHARGE: Stable. DISCHARGE MEDICATIONS: 1. Clonidine 0.1 mg p.o. q.6h. p.r.n. SBP greater than 160. 2. Cozaar 50 mg p.o. at bedtime. 3. Nystatin powder topical application to bilateral lower extremities b.i.d. 4. Heparin 5000 units subcutaneously b.i.d. 5. Spiriva 1 inhalation daily. 6. Toprol-XL 25 mg p.o. b.i.d. 7. Lipitor 40 mg p.o. at bedtime. 8. Aspirin 81 mg p.o. daily. 9. Singulair 10 mg p.o. at bedtime. 10. Advair Diskus 250/50 one inhalation b.i.d. 11. DuoNeb inhalation q.4h. p.r.n. shortness of breath. PERTINENT LABORATORY AND DIAGNOSTICS AND PROCEDURES: 1. 2D echocardiogram. The left ventricle is normal in size and systolic function. Estimated left ventricular ejection fraction of 60% to 65%. Mild left ventricular diastolic dysfunction. Mild left atrial enlargement. 2. Chest x-ray on . Double lumen dialysis catheter in place. Cardiomegaly with atherosclerotic calcifications of thoracic aorta. 3. Latest CBC: WBC 7.4, hemoglobin 9.1, hematocrit 27.9, platelet count 286. 4. Latest BMP: Sodium 139, potassium 4.1, chloride 106, carbon dioxide 25, anion gap 13, BUN 15, creatinine 1.2, glucose 132, calcium 9.1, phosphorus 3.0, magnesium 1.8. 5. Stool for OB x4 negative. 6. Fasting lipid panel: Triglycerides 180, total cholesterol 204, LDL 140, HDL 28. At this time, I would like to thank all the consultants for seeing the patient and providing clinical recommendations. The case and management of this patient was fully discussed with Dr. Malik. Approximately 40 minutes was spent on coordinating the discharge on this patient. FABY MALIK MD, AM/RUTH Conf#: [id number] DID#: [id number] MTDD
== END 2016-11-04 21:15 | DRG 871 ==
LOC: E/R 17:34 → MS4 21:05 → PP2 10-27 22:08
PROVIDERS: ADMIT Internal Medicine; ATTEND Internal Medicine
PROC: 5A1D60Z (ICD-10-PCS; principal; 2016-10-25)
DX: A41.9 Sepsis, unspecified organism (principal); I21.4 Non-ST elevation (NSTEMI) myocardial infarction; N17.9 Acute kidney failure, unspecified; E87.0 Hyperosmolality and hypernatremia; J44.1 Chronic obstructive pulmonary disease with (acute) exacerbation; J45.901 Unspecified asthma with (acute) exacerbation; E83.52 Hypercalcemia; N18.6 End stage renal disease; B48.8 Other specified mycoses; I13.11 Hypertensive heart and chronic kidney disease without heart failure, with stage 5 chronic kidney disease, or end stage renal disease; I16.0 Hypertensive urgency; Z99.2 Dependence on renal dialysis; D63.1 Anemia in chronic kidney disease; E78.5 Hyperlipidemia, unspecified; E83.89 Other disorders of mineral metabolism; E66.9 Obesity, unspecified; Z68.33 Body mass index [BMI] 33.0-33.9, adult; I70.0 Atherosclerosis of aorta; E87.6 Hypokalemia
CPT/HCPCS: 36415; 71010; 80048; 80053; 80061; 82270; 82550; 82553; 83605; 83690; 83735; 83970; 84100; 84484; 85025; 87040; 87081; 90935; 93005; 93306; 94640; 94664; 96374; 97110; 97116; 97162; 97530; J0360; J0886; J1956; J2543; J7030

== ENCOUNTER 2016-11-17 11:45 | Inpatient (IN) | payer MEDICARE, OTHER ==
[~2016-11-17] VITALS: Ht 170.2 cm; Wt 77.3 kg
[2016-11-17 12:21] VITALS: Ht 170.2 cm; Wt 77.3 kg
--- NOTE | 2016-11-17 12:53 | RADRPT ---
PROCEDURE: XR Chest. CLINICAL INDICATION: Chest pain TECHNIQUE: Chest AP portable. COMPARISON: 10/23/2016 FINDINGS: Right internal jugular tunnel dialysis catheter. The mediastinal structures are unremarkable. There is calcification of the thoracic aorta (consiste nt with atherosclerosis). The heart is normal in size and configuration. The pulmonary vascularity is normal. There are RUL, RLL and LLL retrocardiac interstitial and alveolar densities. The pleur al spaces are unremarkable. There are senescent changes of the axial skeleton. IMPRESSION: Calcification of the thoracic aorta (consistent with atherosclerosis) RUL, RLL and LLL retrocardiac interstitial and alveolar densities (edema/pneumonia) RPTAT: [facility] Case discussed with .Hoang Griffith MD, MD Date Time Electronically viewed and signed by .Hoang Griffith MD, on 11/17/2016 12:52 .B/
[2016-11-17 13:38] LABS: BASOPHILS % 0.4 % (0.0-2.0); EOSINOPHILS # 0.2 10^3/ul (0.0-0.5); EOSINOPHILS % 2.2 % (0.0-7.0); HEMATOCRIT 31.3 % (37.0-47.0); HEMOGLOBIN 10.3 g/dl (12.0-16.0); LYMPHOCYTES # 0.8 10^3/ul (0.8-2.9); LYMPHOCYTES % 10.1 % (15.0-51.0); MEAN CORPUSCULAR HEMOGLOBIN 27.5 pg (29.0-33.0); MEAN CORPUSCULAR HGB CONC 32.8 g/dl (32.0-37.0); MEAN CORPUSCULAR VOLUME 83.8 fl (82.0-101.0); MEAN PLATELET VOLUME 6.4 fl (7.4-10.4); MONOCYTE # 0.6 10^3/ul (0.3-0.9); MONOCYTES % 7.5 % (0.0-11.0); NEUTROPHIL # 6.1 10^3/ul (1.6-7.5); NEUTROPHILS % 79.8 % (39.0-77.0); PLATELET COUNT 299 10^3/UL (140-440); RED BLOOD COUNT 3.74 10^6/ul (4.20-5.40); RED CELL DISTRIBUTION WIDTH 16.6 % (11.5-14.5); UNCORRECTED WBC 7.7 10^3/ul (4.8-10.8); WHITE BLOOD COUNT 7.7 10^3/ul (4.8-10.8)
[2016-11-17 13:42] LABS: CONDITION 1; LH ANALYZER COMMENTS 1; POTASSIUM 4.4 mmol/L (3.5-5.1)
[2016-11-17 13:44] LABS: INR 1.11; PROTIME 14.3 Sec (12.2-14.2); PT RATIO 1.1
[2016-11-17 13:45] LABS: CREATININE 1.13 mg/dl (0.44-1.00); PARTIAL THROMBOPLASTIN TIME 26.1 Sec (25.0-35.0)
[2016-11-17 13:46] LABS: CALCIUM 11.4 mg/dl (8.4-10.2)
[2016-11-17 13:58] LABS: TROPONIN-I 0.086 ng/ml (0.00-0.12)
[2016-11-17] MEDS ORDERED: ACETAMINOPHEN 325 MG TAB PO PRN (14:00)
[2016-11-17] MEDS ORDERED: ONDANSETRON 4 MG INJ IV PRN (14:00)
[2016-11-17] MEDS ORDERED: CIPROFLOXACIN 400MG/D5W 200 ML IVPB STA (14:04)
[2016-11-17] MEDS ORDERED: CEFEPIME 1GM/50 ML (PMX) 50 ML IVPB STA (14:04)
--- NOTE | 2016-11-17 14:04 | ERA ---
ER Documentation Chief Complaint Date/Time DATE: 11/17/16 TIME: 14:01 Chief Complaint BROUGHT IN VIA PRIVATE AMBULANCE FOR WEAKNESS FROM SNF HPI This is a 81-year-old female who presents to the emergency room after being brought in by private ambulance from weakness from her long-term facility. According to [facility] notes this patient has been mildly short of breath and weak. This patient does go to dialysis Wednesday, and Wednesday however she has not had dialysis today or las Wednesday. This patient is unable to give a detailed history secondary to her dementia. This patient was brought in for further evaluation ROS All systems reviewed and are negative except as per history of present illness. Medications Home Meds No Active Prescriptions or Reported Meds Allergies Allergies: Coded Allergies: Opioids - Morphine Analogues (Unverified Allergy, Unknown, 11/17/16) codeine (Unverified Allergy, Unknown, 11/17/16) PMhx/Soc History of Surgery: Yes (PLACEMENT AND REMOVAL AV FISTULA;RIGHT CHEST PERM-A- CATH PLACEMENT;) Anesthesia Reaction: No Hx Neurological Disorder: No Hx Respiratory Disorders: Yes (ASTHMA;COPD;) Hx Cardiac Disorders: Yes (HTN;) Hx Psychiatric Problems: No Hx Miscellaneous Medical Probl: Yes (see notes) Hx Alcohol Use: No Hx Substance Use: No Hx Tobacco Use: No Smoking Status: Never smoker Physical Exam Vitals Vital Signs Date Time Temp Pulse Resp B/P Pulse Ox O2 Delivery O2 Flow Rate FiO2 11/17/16 12:21 97.9 77 16 167/77 97 Physical Exam INITIAL VITAL SIGNS: Reviewed by me GENERAL: The patient is well developed and appropriate for usual state of health in no apparent distress HEENT: Pupils equal, round, and reactive to light. EOMI. There is no scleral icterus. NECK: C-spine is soft and supple, there is no meningismus. There is no cervical lymphadenopathy. LUNGS: Coarse breath sounds bilaterally with rhonchi auscultated in the bilateral lobes HEART: Regular rate and rhythm, no murmurs, clicks, rubs or gallops. ABDOMEN: Soft, non-tender, non-distended. There are bowel sounds in all four quadrants. No rebound or guarding. EXTREMITIES: There is no peripheral cyanosis or edema. No focal swelling or erythema. NEUROLOGICAL: The patient moves all four extremities with 5/5 strength. Cranial nerves II - XII are intact. Normal gait. Alert and oriented SKIN: There is no apparent rash or petechiae. HEME/LYMPHATIC: There is no evidence of excessive bruising or lymphedema. PSYCHIATRIC: The patient does not appear anxious or depressed. Result Diagram: 11/17/16 1310 11/17/16 1310 Results 24 hrs Laboratory Tests Test 11/17/16 13:10 Activated Partial Thromboplast Time 26.1Sec Anion Gap 15 Basophils # 0.010^3/ul Basophils % 0.4% Blood Morphology Comment Blood Urea Nitrogen 20mg/dl Calcium Level 11.4mg/dl Carbon Dioxide Level 27mmol/L Chloride Level 106mmol/L Creatinine 1.13mg/dl Eosinophils # 0.210^3/ul Eosinophils % 2.2% Glucose Level 103mg/dl Hematocrit 31.3% Hemoglobin 10.3g/dl INR International Normalized Ratio 1.11 Lymphocytes # 0.810^3/ul Lymphocytes % 10.1% Mean Corpuscular Hemoglobin 27.5pg Mean Corpuscular Hemoglobin Concent 32.8g/dl Mean Corpuscular Volume 83.8fl Mean Platelet Volume 6.4fl Monocytes # 0.610^3/ul Monocytes % 7.5% Neutrophils # 6.110^3/ul Neutrophils % 79.8% Nucleated Red Blood Cells # 0.010^3/ul Nucleated Red Blood Cells % 0.0/100WBC Platelet Count 82689^3/UL Potassium Level 4.4mmol/L Prothrombin Time 14.3Sec Prothrombin Time Ratio 1.1 Red Blood Count 3.7410^6/ul Red Cell Distribution Width 16.6% Sodium Level 144mmol/L Troponin I Pending White Blood Count 7.710^3/ul Procedures/MDM EKG: Rate/Rhythm: [Normal Sinus Rhythm] QRS, ST, T-waves: [No changes consistent w/ acute ischemia] Impression: [No evidence of ischemia or arrhythmia] EKG: Rate/Rhythm: [Normal Sinus Rhythm] QRS, ST, T-waves: [No changes consistent w/ acute ischemia] Impression: [Age-indeterminate anterior infarct] Chest X-ray 1V Interpreted by me: Soft Tissue: Right upper lobe right middle lobe and right lower lobe pneumonia, edema Bones: No acute abnormalities Mediastinum/Cardiac Silhouette/Lungs: [No acute abnormalities] This 81-year-old female presents to the ER for evaluation of weakness and shortness of breath. She is dialysis patient was missed her past 2 dialysis appointments. The patient did have crackles on my examination. Lab work was obtained including an x-ray which shows multifocal pneumonia versus edema. This patient will be placed in for admission at this time. She is afebrile, no leukocytosis, and no hypoxia. Patient was started on cefepime and ciprofloxacin here in the emergency room for hospital acquired pneumonia. The patient will be seen by nephrology as an inpatient for possible dialysis, and will be admitted to the [facility] floor under the care of our panel physician Dr. Kelly Departure Diagnosis: Primary Impression: Multifocal pneumonia Additional Impression: Normocytic anemia Condition: Stable DANIEL CALDERON DO Nov 17, 2016 14:04
[2016-11-17 16:23] VITALS: TEMP 97.9
[2016-11-17] MEDS ORDERED: hydrALAzine 20 MG INJ ONE (16:35)
[2016-11-17] MEDS ORDERED: hydrALAzine 20 MG INJ IV ONE (17:00)
[2016-11-17] MEDS ORDERED: VANCOMYCIN IV PER PHARMACY XX SCH (17:30)
[2016-11-17] MEDS ORDERED: morphine 2 MG INJ IV PRN (17:30)
[2016-11-17] MEDS ORDERED: FUROSEMIDE 40 MG INJ IV ONE (17:30)
[2016-11-17] MEDS ORDERED: ONDANSETRON 4 MG TAB PO PRN (17:30)
[2016-11-17] MEDS ORDERED: NACL 0.9% 3 ML SYG IV SCH (17:30)
[2016-11-17] MEDS ORDERED: BISACODYL (EC) 5 MG TAB PO PRN (17:30)
[2016-11-17] MEDS ORDERED: NITROGLYCERIN (SL) 0.4 MG TAB SL PRN (17:30)
[2016-11-17] MEDS ORDERED: DOCUSATE SODIUM 100 MG CAP PO PRN (17:30)
[2016-11-17] MEDS ORDERED: ACETAMINOPHEN 650 MG SUPP PR PRN (17:30)
[2016-11-17] MEDS: LORAZEPAM 0.5 MG TAB PO PRN (18:01)
[2016-11-17] MEDS ORDERED: VANCOMYCIN 1.5 GM in SOD CHLORIDE 0.9% 250 ML IVPB SCH (18:30)
--- NOTE | 2016-11-17 18:30 | HP ---
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 2. Nephrology. CHIEF COMPLAINT: Generalized weakness, shortness of breath. HISTORY OF PRESENT ILLNESS: This is a 81-year-old female with past medical history of chronic renal failure, end-stage renal disease on hemodialysis, COPD, hypertension, bilateral lower extremity lym phedema, obesity, debility, anemia, dyslipidemia, history of diabetes mellitus type 2, history of my ocardial infarction, who was recently admitted to [facility] and was discharged on 11/04/2016 to [facility] for rehabilitation and physical therapy. Th e patient was found to have shortness of breath and generalized weakness for the past several days a nd was brought into the emergency room of [facility] where her WBC was found to be 7.7. Chest x-ray showed calcification of the thoracic aorta consistent with atherosclerosis, right upper, right lower, left lower retrocardiac interstitial and alveolar density pneumonia. The patie nt was found to have a temperature of 97.9, pulse 100, respirations 17, blood pressure of 221/100, o xygen 95% on 3 liters via nasal cannula. Patient complains of having some cough and congestion. De nies any chest pain, abdominal pain, nausea, vomiting, diarrhea. No hematochezia. No dysuria, dick turia, urgency. Positive for incontinence which is chronic. The patient also has debility and has been bedbound and has been having difficulty with ambulation. PAST MEDICAL AND SURGICAL HISTORY: As above per HPI. MEDICATIONS: 1. DuoNeb. 2. Aspirin. 3. Lipitor. 4. Clonidine. 5. Famotidine. 6. Advair. 7. Lasix. 8. Hydralazine. 9. Losartan 10. Singulair. 11. Spiriva. ALLERGIES: OPIATES, MORPHINE AND CODEINE. SOCIAL HISTORY: Never smoked. Negative for alcohol or illicit drugs. FAMILY HISTORY: Noncontributory secondary to advanced age. REVIEW OF SYSTEMS: As above per HPI, otherwise 12 review of systems has been found to be negative. PHYSICAL EXAMINATION: VITAL SIGNS: Temperature 97.9, pulse 100, respiration rate 16, blood pressure 177/87, oxygen 95% on 3 liters via nasal cannula. GENERAL APPEARANCE: The patient is lying in bed comfortably without any distress. She is awake, al ert, oriented. Body habitus morbidly obese. EYES AND ENT: Conjunctivae and lids are normal. Pupils are normal. Extraocular normal. Hearing g rossly normal. Lips and gums are normal. Oral mucosa mildly dry. NECK: Supple. Trachea is midline. No lymphadenopathy. RESPIRATORY: Effort is normal. Clear to auscultation bilaterally. CARDIOVASCULAR: Normal S1, S2. Regular rhythm and rate. No murmur, no bruits, no edema. Peripher al pulses, radial pulses palpable. Cap refill is normal. CHEST: Normal expansion of thorax during inspiration. Effort is normal. Decreased breath sounds b ilateral lower lung field is likely secondary to body habitus. No crackles, rales or rhonchi. CARDIOVASCULAR: Normal S1, S2. Regular rhythm and rate. Positive murmur 2/6 at the apex. Normal expansion of thorax during inspiration. GASTROINTESTINAL: Abdomen is soft, nontender, not distended. Bowel sounds present. No guarding, n o rebound. GENITOURINARY: Deferred. MUSCULOSKELETAL: Upper and lower extremities within normal limits. ABDOMEN: Soft, nontender, not distended. Bowel sounds present. No guarding, rebound. GENITOURINARY: Deferred. MUSCULOSKELETAL: Upper extremities within normal limits. Lower extremities positive for lymphedema , bilateral lower extremity decreased range of motion and generalized weakness, bilateral lower extr emities with evidence of stasis dermatitis. NEUROLOGIC: Cranial nerves II through XII are grossly intact. PSYCHIATRIC: She is awake, alert. LABORATORY WORK AND IMAGING: WBC 7.7, hemoglobin 10.2, hematocrit 31.3, platelets 299. Sodium 144, potassium 4.4, chloride 106, bicarbonate 27, BUN 20, creatinine 1.13, glucose 103, calcium was 11.4 . Troponin 0.086. Chest x-ray as above per HPI. ASSESSMENT AND PLAN: 1. Left-sided pneumonia. The patient has been started on broad spectrum IV antibiotic. Pulmonolog y has been consulted, cefepime and vancomycin. 2. End-stage renal disease on hemodialysis. Nephrology has been consulted. 3. Essential hypertension, moderately uncontrolled. Will restart patient's home medication. 4. Chronic obstructive pulmonary disease. Continue breathing treatment, Advair and Spiriva and Sin gular. 6. Gastroesophageal reflux disease. Continue Pepcid 7. We will continue to monitor patient closely. Further recommendations, management and treatment as per clinical course. 8. Deep venous thrombosis prophylaxis. The patient has been placed on heparin. Dictated By: NAVA HARMON/RUTH Conf#: [id number] DID#: [id number]
[2016-11-17 19:20] VITALS: BP 191/97; RESP 18
[2016-11-17] MEDS ORDERED: ENALAPRILAT 1.25 MG INJ IV ONE (20:30)
[2016-11-17 20:42] LABS: CK-MB 1.32 ng/ml (0.0-2.4)
[2016-11-17 20:46] LABS: TROPONIN-I 0.115 ng/ml (0.00-0.12)
[2016-11-17] MEDS ORDERED: CEFEPIME 1GM/50 ML (PMX) 50 ML IVPB SCH (21:00)
[2016-11-17] MEDS: ATORVASTATIN 40 MG TAB PO SCH (21:00)
[2016-11-17] MEDS: LOSARTAN 50 MG TAB PO SCH (21:00)
[2016-11-17] MEDS ORDERED: HEPARIN 5,000 UNIT/0.5 ML SYG SC SCH (21:00)
[2016-11-17] MEDS: MONTELUKAST 10 MG TAB PO SCH (21:00)
[2016-11-17] MEDS: FAMOTIDINE 20 MG TAB PO SCH (21:00)
[2016-11-17] MEDS: SALMETEROL/FLUTICASONE 250/50 INHA INH SCH (21:00)
[2016-11-17 21:22] VITALS: BP 175/81; PULSE 112
[2016-11-18] VITALS (9 sets, daily range): BP systolic 143–196; BP diastolic 67–93; PULSE 91–113; RESP 16–20
[2016-11-18 00:48] LABS: CK-MB 1.15 ng/ml (0.0-2.4)
[2016-11-18 01:05] LABS: TROPONIN-I 0.163 ng/ml (0.00-0.12)
[2016-11-18] MEDS: CEFEPIME 1GM/50 ML (PMX) 50 ML IVPB SCH ×2 (01:51→09:30)
[2016-11-18] MEDS: hydrALAzine 20 MG INJ IV PRN ×2 (01:54→13:04)
[2016-11-18] MEDS ORDERED: METOPROLOL 5 MG INJ ONE (07:00)
[2016-11-18] MEDS: ASPIRIN 81 MG TAB PO SCH (08:41)
[2016-11-18] MEDS: FAMOTIDINE 20 MG TAB PO SCH ×2 (08:41→21:00)
[2016-11-18] MEDS: LOSARTAN 50 MG TAB PO SCH ×2 (08:41→21:00)
[2016-11-18] MEDS: TIOTROPIUM 18 MCG CAPSULE INHA DEV INH SCH (09:00)
[2016-11-18] MEDS: SALMETEROL/FLUTICASONE 250/50 INHA INH SCH ×2 (09:00→21:00)
[2016-11-18] MEDS ORDERED: HEPARIN 1000 UNITS/ML 10 ML INJ IV ONE ×2 (09:00→09:30)
[2016-11-18] MEDS ORDERED: HEPARIN 25000 UNITS/250 ML 250 ML IV SCH ×2 (09:00→09:30)
[2016-11-18] MEDS ORDERED: METOPROLOL 5 MG INJ IV ONE (09:00)
[2016-11-18] MEDS ORDERED: ASPIRIN 81 MG TAB PO SCH (09:00)
[2016-11-18] MEDS ORDERED: ASPIRIN 325 MG TAB PO ONE (09:00)
[2016-11-18] MEDS ORDERED: HEPARIN 1000 UNITS/ML 10 ML INJ IV PRN ×2 (09:00→09:30)
[2016-11-18] MEDS ORDERED: DEXTROSE 5%-0.45% NACL 1,000 ML IV SCH (09:30)
[2016-11-18 10:11] LABS: BASOPHILS % 0.1 % (0.0-2.0); EOSINOPHILS # 0.2 10^3/ul (0.0-0.5); EOSINOPHILS % 2.3 % (0.0-7.0); HEMATOCRIT 30.6 % (37.0-47.0); HEMOGLOBIN 9.9 g/dl (12.0-16.0); LYMPHOCYTES # 0.8 10^3/ul (0.8-2.9); LYMPHOCYTES % 9.5 % (15.0-51.0); MEAN CORPUSCULAR HEMOGLOBIN 27.4 pg (29.0-33.0); MEAN CORPUSCULAR HGB CONC 32.5 g/dl (32.0-37.0); MEAN CORPUSCULAR VOLUME 84.3 fl (82.0-101.0); MEAN PLATELET VOLUME 6.4 fl (7.4-10.4); MONOCYTE # 0.6 10^3/ul (0.3-0.9); NEUTROPHIL # 7.1 10^3/ul (1.6-7.5); NEUTROPHILS % 81.1 % (39.0-77.0); PLATELET COUNT 300 10^3/UL (140-440); RED BLOOD COUNT 3.63 10^6/ul (4.20-5.40); RED CELL DISTRIBUTION WIDTH 17.3 % (11.5-14.5); UNCORRECTED WBC 8.8 10^3/ul (4.8-10.8); WHITE BLOOD COUNT 8.8 10^3/ul (4.8-10.8)
[2016-11-18 10:16] LABS: CONDITION 1; LH ANALYZER COMMENTS 1
[2016-11-18 10:21] LABS: POTASSIUM 4.2 mmol/L (3.5-5.1)
[2016-11-18 10:22] LABS: INR 1.28; PROTIME 16.1 Sec (12.2-14.2); PT RATIO 1.3
[2016-11-18 10:23] LABS: CREATININE 1.33 mg/dl (0.44-1.00)
[2016-11-18 10:24] LABS: CALCIUM 11.3 mg/dl (8.4-10.2); MAGNESIUM 1.5 mg/dl (1.7-2.5)
--- NOTE | 2016-11-18 10:50 | CONS ---
Date/Time of Note Date/Time of Note DATE: 11/18/16 TIME: 10:43 Assessment/Plan Assessment/Plan Additional Assessment/Plan X-ray was reviewed from today which is showing infiltrative changes involving the right lung. Mild pulmonary edema cannot be excluded. Echocardiogram is not showing any D compensated CHF. Assessment and recommendations; 1. Patient admitted with shortness of breath which is combination of possibly pneumonia with superimposed pulmonary edema. 2. Severe hypertension. Causing diastolic dysfunction and contributing to pulmonary edema in conjunction with end-stage renal disease. 3. Patient did have a run of tachycardia but has been in sinus rhythm Pass an NG tube. Start the patient on beta-rohith.. She will be dialyzed today. Continue cefepime for now. Consultation Date/Type/Reason Admit Date/Time Nov 17, 2016 at 14:00 Date of Consultation: Nov 18, 2016 Type of Consultation: Pulmonary Reason for Consultation Pulmonary consultation obtained for evaluation of shortness of breath. Patient is a 81-year-old white lady who was transferred to [facility] from snf with complaints of hypoxemia. Patient is a poor historian history was obtained from medical records. Next History of presenting illness; patient transferred to [facility] from snf with shortness of breath. In the emergency room patient had a chest x-ray was done which is showing infiltrative changes in the right lung which however could be from mild fluid overload. Patient also been quite hypertensive with a systolic readings above 180. Patient denies any chest pain. Most of any vomiting. Any fever. Past medical history; 1. History of end-stage renal disease on hemodialysis 2. History of hypertension. 3. History of hyperlipidemia. 4. No known history of coronary artery disease. Medications were reviewed. Allergies; opioids. Social history; never smoked. No history of alcohol or drug abuse. Family history; currently not available. Occupational history; not available. Review of systems; limited review of systems could be obtained. Patient does complain of shortness of breath. Denies any chest pain. Social History Smoking Status: Never smoker Exam/Review of Systems Vital Signs Vitals Vital Signs Date Time Temp Pulse Resp B/P Pulse Ox O2 Delivery O2 Flow Rate FiO2 11/18/16 09:45 91 16 183/93 96 Nasal Cannula 11/18/16 08:55 98.4 11/17/16 22:15 2.0 Intake and Output 11/17/16 11/17/1611/18/17 15:00 23:00 07:00 Intake Total 300 ml Balance 300 ml Exam H EENT examination; supple neck, no JVD. Patient has thick crusting of mucus in the mouth. Coating her tongue and teeth. Pupils are small bilaterally. No neck masses. No thyromegaly. Chest examination; upper lobes are clear to auscultation with minimal crackles in lower lobes bilaterally. S1-S2 audible, regular rhythm. Abdomen examination; soft, nondistended. Bowel sounds audible. Nontender. Extremity examination; trace lower extremity edema bilaterally. 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; no obvious focal motor deficit Results Result Diagram: 11/18/16 1000 11/18/16 1000 Results 24 hrs Laboratory Tests Test 11/17/16 13:10 11/17/16 18:30 11/17/16 20:10 11/17/16 22:07 Activated Partial Thromboplast Time 26.1 Anion Gap 15 Basophils # 0.0 Basophils % 0.4 Blood Morphology Comment Blood Urea Nitrogen 20 Calcium Level 11.4 H Carbon Dioxide Level 27 Chloride Level 106 Creatinine 1.13 H Eosinophils # 0.2 Eosinophils % 2.2 Glucose Level 103 Hematocrit 31.3 L Hemoglobin 10.3 L INR International Normalized Ratio 1.11 Lymphocytes # 0.8 Lymphocytes % 10.1 L Mean Corpuscular Hemoglobin 27.5 L Mean Corpuscular Hemoglobin Concent 32.8 Mean Corpuscular Volume 83.8 Mean Platelet Volume 6.4 L Monocytes # 0.6 Monocytes % 7.5 Neutrophils # 6.1 Neutrophils % 79.8 H Nucleated Red Blood Cells # 0.0 Nucleated Red Blood Cells % 0.0 Platelet Count 299 Potassium Level 4.4 Prothrombin Time 14.3 H Prothrombin Time Ratio 1.1 Red Blood Count 3.74 L Red Cell Distribution Width 16.6 H Sodium Level 144 Troponin I 0.086 0.115 White Blood Count 7.7 Lactic Acid Level 2.3 H 1.1 1.2 Creatine Kinase 90 Creatine Kinase Index 1.5 Creatinine Kinase MB (Mass) 1.32 Test 11/17/16 23:54 11/18/16 08:58 11/18/16 10:00 Creatine Kinase 41 Creatine Kinase Index 2.8 Creatinine Kinase MB (Mass) 1.15 Troponin I 0.163 *H Bedside Glucose 99 Activated Partial Thromboplast Time Pending Anion Gap 16 Basophils # 0.0 Basophils % 0.1 Blood Morphology Comment Blood Urea Nitrogen 22 H Calcium Level 11.3 H Carbon Dioxide Level 24 Chloride Level 106 Creatinine 1.33 H Eosinophils # 0.2 Eosinophils % 2.3 Glucose Level 105 Hematocrit 30.6 L Hemoglobin 9.9 L INR International Normalized Ratio 1.28 Lymphocytes # 0.8 Lymphocytes % 9.5 L Magnesium Level 1.5 L Mean Corpuscular Hemoglobin 27.4 L Mean Corpuscular Hemoglobin Concent 32.5 Mean Corpuscular Volume 84.3 Mean Platelet Volume 6.4 L Monocytes # 0.6 Monocytes % 7.0 Neutrophils # 7.1 Neutrophils % 81.1 H Nucleated Red Blood Cells # 0.0 Nucleated Red Blood Cells % 0.0 Platelet Count 300 Potassium Level 4.2 Prothrombin Time 16.1 H Prothrombin Time Ratio 1.3 Red Blood Count 3.63 L Red Cell Distribution Width 17.3 H Sodium Level 142 Thyroid Stimulating Hormone (TSH) Pending White Blood Count 8.8 Medications Medications Current Medications Hydralazine HCl (Apresoline) 10 mg Q6H PRN IV ELEVATED BLOOD PRESSURE Last administered on 11/18/16 01:54; Admin Dose 10 MG; Start 11/17/16 at 17:30 Lorazepam (Ativan) 0.5 mg Q8H PRN PO ANXIETY Last administered on 11/17/16 18: 01; Admin Dose 0.5 MG; Start 11/17/16 at 17:30 Ondansetron HCl (Zofran Tab) 4 mg Q6H PRN PO NAUSEA AND/OR VOMITING; Start at 17:30 Nitroglycerin (Nitroglycerin (Sl Tab) 0.4 Mg) 1 tab Q5M PRN SL CHEST PAIN; Start 11/17/16 at 17:30 Acetaminophen (Tylenol Tab) 650 mg Q6H PRN PO PAIN LEVEL 1-3 OR FEVER; Start at 17:30 Acetaminophen (Tylenol Supp) 650 mg Q6H PRN [place] PAIN LEVEL 1-3 OR FEVER; Start 11/17/16 at 17:30 Morphine Sulfate (morphine) 2 mg Q4H PRN IV PAIN LEVEL 7-10; Start 11/17/16 at 17:30 Docusate Sodium (Colace) 100 mg Q12H PRN PO CONSTIPATION; Start 11/17/16 at 17: 30 Bisacodyl (Dulcolax) 5 mg DAILY PRN PO CONSTIPATION; Start 11/17/16 at 17:30 Famotidine (Pepcid) 20 mg Q12 PO ; Start 11/17/16 at 21:00 Clonidine (Catapres) 0.1 mg Q6H PRN PO ELEVATED BLOOD PRESSURE; Start 11/17/16 at 17:30 Losartan Potassium (Cozaar) 50 mg BID PO ; Start 11/17/16 at 21:00 Tiotropium [place] (Spiriva) 1 inh DAILY INH ; Start 11/18/16 at 09:00 Atorvastatin Calcium (Lipitor) 40 mg HS PO ; Start 11/17/16 at 21:00 Aspirin (Aspirin) 81 mg DAILY PO ; Start 11/18/16 at 09:00 Montelukast Sodium (Singulair) 10 mg HS PO ; Start 11/17/16 at 21:00 Salmeterol Xinafoate/ Fluticasone 1 inh 1 inh BID INH ; Start 11/17/16 at 21:00 Cefepime HCl 50 ml @ 100 mls/hr Q12 IVPB Last administered on 11/18/16 09:30 ; Admin Dose 100 MLS/HR; Start 11/18/16 at 01:00; Stop 11/18/16 at 12:00 Dextrose/Sodium Chloride 1,000 ml @ 50 mls/hr Q20H IV Last administered on 09:37; Admin Dose 50 MLS/HR; Start 11/18/16 at 09:30 Cefepime HCl (Maxipime 1gm/50 ml (Pmx)) 50 ml @ 100 mls/hr Q24H IVPB ; Start at 09:00 Miscellaneous Information (*Rx Drug Level Order Reminder*) RANDOM VANCOMYCIN LEVEL 2... ONCE ONCE XX ; Start 11/19/16 at 05:00; Stop 11/19/16 at 05:01 FRACISCO MCKENZIE Nov 18, 2016 10:50
[2016-11-18 10:54] LABS: THYROID STIMULATING HORMONE 1.3 MIU/L (0.465-4.680)
--- NOTE | 2016-11-18 10:59 | CONS ---
Date/Time of Note Date/Time of Note DATE: 11/18/16 TIME: 10:49 Assessment/Plan Assessment/Plan Chief Complaint/Hosp Course SOB: ?combination of PNA +/- mild CHF. Accelerated HTN: BP elevated NSTEMI: type II in setting of above. Treat medically. EF preserved. CKD: was previously on HD, now off DM COPD -ASA, statin -d/c heparin -hold IVF -will not diurese yet -continue cozaar -add metoprolol 25mg BID -add amlodipine 5mg -antibiotics per primary team -check cultures as had bacteremia last admission Problems: Consultation Date/Type/Reason Admit Date/Time Nov 17, 2016 at 14:00 Date of Consultation: Nov 18, 2016 Type of Consultation: Cardiology Reason for Consultation NSTEMI Referring Provider: NAVA GOMEZ MD Hx of Present Illness 81 yo F with a h/o CKD (was ESRD on HD but most recent admission 09/2016 had recovery of renal function), DM, HTN, COPD, who presented with SOB from her SNF. The pt was recently hospitalized and treated for sepsis/PNA with group A strep bacteremia. She was discharged to a SNF but presents again with SOB. She is unable to provide much history but denies CP. This am a rapid response was called for sinus tachycardia to 130 and BP 180 only because IV metoprolol could not be pushed on the med surg floor. unable to obtain Social History Smoking Status: Never smoker Exam/Review of Systems Vital Signs Vitals Vital Signs Date Time Temp Pulse Resp B/P Pulse Ox O2 Delivery O2 Flow Rate FiO2 11/18/16 09:45 91 16 183/93 96 Nasal Cannula 11/18/16 08:55 98.4 11/17/16 22:15 2.0 Intake and Output 11/17/16 11/17/16 11/18/16 15:00 23:00 07:00 Intake Total 300 ml Balance 300 ml Exam Constitutional: alert Head: atraumatic, normocephalic Neck: jvd (7cm) Respiratory: crackles/rales, diminished breath sounds, No clear to auscultation Cardiovascular: edema (trace), regular rate and rhythm, systolic murmur (2/6) Gastrointestinal: non-tender, soft Musculoskeletal: nl extremities to inspection Skin: No rash or lesions Results Result Diagram: 11/18/16 1000 11/18/16 1000 Results 24 hrs Laboratory Tests Test 11/17/16 13:10 11/17/16 18:30 11/17/16 20:10 11/17/16 22:07 Activated Partial Thromboplast Time 26.1 Anion Gap 15 Basophils # 0.0 Basophils % 0.4 Blood Morphology Comment Blood Urea Nitrogen 20 Calcium Level 11.4 H Carbon Dioxide Level 27 Chloride Level 106 Creatinine 1.13 H Eosinophils # 0.2 Eosinophils % 2.2 Glucose Level 103 Hematocrit 31.3 L Hemoglobin 10.3 L INR International Normalized Ratio 1.11 Lymphocytes # 0.8 Lymphocytes % 10.1 L Mean Corpuscular Hemoglobin 27.5 L Mean Corpuscular Hemoglobin Concent 32.8 Mean Corpuscular Volume 83.8 Mean Platelet Volume 6.4 L Monocytes # 0.6 Monocytes % 7.5 Neutrophils # 6.1 Neutrophils % 79.8 H Nucleated Red Blood Cells # 0.0 Nucleated Red Blood Cells % 0.0 Platelet Count 299 Potassium Level 4.4 Prothrombin Time 14.3 H Prothrombin Time Ratio 1.1 Red Blood Count 3.74 L Red Cell Distribution Width 16.6 H Sodium Level 144 Troponin I 0.086 0.115 White Blood Count 7.7 Lactic Acid Level 2.3 H 1.1 1.2 Creatine Kinase 90 Creatine Kinase Index 1.5 Creatinine Kinase MB (Mass) 1.32 Test 11/17/16 23:54 11/18/16 08:58 11/18/16 10:00 Creatine Kinase 41 Creatine Kinase Index 2.8 Creatinine Kinase MB (Mass) 1.15 Troponin I 0.163 *H Bedside Glucose 99 Activated Partial Thromboplast Time Pending Anion Gap 16 Basophils # 0.0 Basophils % 0.1 Blood Morphology Comment Blood Urea Nitrogen 22 H Calcium Level 11.3 H Carbon Dioxide Level 24 Chloride Level 106 Creatinine 1.33 H Eosinophils # 0.2 Eosinophils % 2.3 Glucose Level 105 Hematocrit 30.6 L Hemoglobin 9.9 L INR International Normalized Ratio 1.28 Lymphocytes # 0.8 Lymphocytes % 9.5 L Magnesium Level 1.5 L Mean Corpuscular Hemoglobin 27.4 L Mean Corpuscular Hemoglobin Concent 32.5 Mean Corpuscular Volume 84.3 Mean Platelet Volume 6.4 L Monocytes # 0.6 Monocytes % 7.0 Neutrophils # 7.1 Neutrophils % 81.1 H Nucleated Red Blood Cells # 0.0 Nucleated Red Blood Cells % 0.0 Platelet Count 300 Potassium Level 4.2 Prothrombin Time 16.1 H Prothrombin Time Ratio 1.3 Red Blood Count 3.63 L Red Cell Distribution Width 17.3 H Sodium Level 142 Thyroid Stimulating Hormone (TSH) Pending White Blood Count 8.8 Medications Medications Current Medications Hydralazine HCl (Apresoline) 10 mg Q6H PRN IV ELEVATED BLOOD PRESSURE Last administered on 11/18/16 01:54; Admin Dose 10 MG; Start 11/17/16 at 17:30 Lorazepam (Ativan) 0.5 mg Q8H PRN PO ANXIETY Last administered on 11/17/16 18: 01; Admin Dose 0.5 MG; Start 11/17/16 at 17:30 Ondansetron HCl (Zofran Tab) 4 mg Q6H PRN PO NAUSEA AND/OR VOMITING; Start at 17:30 Nitroglycerin (Nitroglycerin (Sl Tab) 0.4 Mg) 1 tab Q5M PRN SL CHEST PAIN; Start 11/17/16 at 17:30 Acetaminophen (Tylenol Tab) 650 mg Q6H PRN PO PAIN LEVEL 1-3 OR FEVER; Start at 17:30 Acetaminophen (Tylenol Supp) 650 mg Q6H PRN [place] PAIN LEVEL 1-3 OR FEVER; Start 11/17/16 at 17:30 Morphine Sulfate (morphine) 2 mg Q4H PRN IV PAIN LEVEL 7-10; Start 11/17/16 at 17:30 Docusate Sodium (Colace) 100 mg Q12H PRN PO CONSTIPATION; Start 11/17/16 at 17: 30 Bisacodyl (Dulcolax) 5 mg DAILY PRN PO CONSTIPATION; Start 11/17/16 at 17:30 Famotidine (Pepcid) 20 mg Q12 PO ; Start 11/17/16 at 21:00 Clonidine (Catapres) 0.1 mg Q6H PRN PO ELEVATED BLOOD PRESSURE; Start 11/17/16 at 17:30 Losartan Potassium (Cozaar) 50 mg BID PO ; Start 11/17/16 at 21:00 Tiotropium [place] (Spiriva) 1 inh DAILY INH ; Start 11/18/16 at 09:00 Atorvastatin Calcium (Lipitor) 40 mg HS PO ; Start 11/17/16 at 21:00 Aspirin (Aspirin) 81 mg DAILY PO ; Start 11/18/16 at 09:00 Montelukast Sodium (Singulair) 10 mg HS PO ; Start 11/17/16 at 21:00 Salmeterol Xinafoate/ Fluticasone 1 inh 1 inh BID INH ; Start 11/17/16 at 21:00 Cefepime HCl 50 ml @ 100 mls/hr Q12 IVPB Last administered on 11/18/16 09:30 ; Admin Dose 100 MLS/HR; Start 11/18/16 at 01:00; Stop 11/18/16 at 12:00 Dextrose/Sodium Chloride 1,000 ml @ 50 mls/hr Q20H IV Last administered on 09:37; Admin Dose 50 MLS/HR; Start 11/18/16 at 09:30 Cefepime HCl (Maxipime 1gm/50 ml (Pmx)) 50 ml @ 100 mls/hr Q24H IVPB ; Start at 09:00 Miscellaneous Information (*Rx Drug Level Order Reminder*) RANDOM VANCOMYCIN LEVEL 2... ONCE ONCE XX ; Start 11/19/16 at 05:00; Stop 11/19/16 at 05:01 LUIS F XAVIER Nov 18, 2016 10:59
--- NOTE | 2016-11-18 11:00 | CONS ---
DATE OF ADMISSION: 11/17/2016 DATE OF CONSULTATION: 11/17/2016 REASON FOR CONSULTATION: History of CKD, previous history of end-stage renal disease. HISTORY OF PRESENT ILLNESS: This is a 81-year-old female with a past medical history of chronic kid arthur disease, a history of dialysis dependence, most recently stopped approximately 3 weeks ago, hist ory of asthma, COPD, history of hypertension, who presents to [facility] for weakn ess and altered mental status. Patient was recently admitted to [facility] in september. At that time the patient was on hemodialysis, but successfully taken off dialysis as she had shown significant renal recovery. The patient was subsequently discharged back [facility]. Patient now presents back to [facility] with worsening mental status , confusion, and some intermittent episodes of shortness of breath. The patient's chest x-ray in emergency room showed right upper/ lower lobe and retrocardiac interstitial alveolar densities, po ssible edema versus pneumonia. The patient in the emergency room was noted to be hypertensive with systolic pressures in the 180s. She was given IV antibiotics, Lasix, and diuretics. In terms of the patient's renal history, as previously stated the patient was on hemodialysis, but s he showed significant recovery. Dialysis was subsequently held. The patient on admission here was noted to have a creatinine of 1.13 mg/dL. There have been no reports of hemoptysis, hematemesis, or hematochezia. PAST MEDICAL HISTORY: As stated above, history of hypertension, anemia, asthma, history of lymphede ma. PAST SURGICAL HISTORY: Status post Perm-A-Cath placement, status post AV fistula placement. MEDICATIONS: The patient's medications have been reviewed. ALLERGIES: PATIENT IS ALLERGIC TO: 1. MORPHINE. 2. CODEINE. SOCIAL HISTORY: Does not drink, smoke, or do drugs. REVIEW OF SYSTEMS: A 14-point review of systems was conducted. Pertinent positives in HPI, otherwi se negative. PHYSICAL EXAMINATION: VITAL SIGNS: Blood pressure is currently 175/81, respirations 18, pulse 114, temperature 97.6. HEENT: Head is normocephalic. Pupils are reactive to light. NECK: Supple. HEART: Irregularly irregular. LUNGS: Show diminished breath sounds at base. ABDOMEN: Soft, nontender to palpation without rebound or guarding. EXTREMITIES: Negative for clubbing, cyanosis, no edema. DERMATOLOGIC: No rashes. MUSCULOSKELETAL: No joint effusions. NEUROLOGIC: No change in exam. MEDICATIONS: The patient's medications have been reviewed. LABORATORY DATA: Shows a sodium 144, potassium 4.4, chloride 106, BUN is 20, creatinine 1.3, calciu m 11.4. White count 7.7, hemoglobin 10.3, hematocrit 31.3, platelet count is 299,000. ASSESSMENT AND PLAN: 1. Chronic kidney disease stage III. The patient was previously on hemodialysis, but has shown exc ellent renal recovery. The patient's creatinine is currently 1.13 mg/dL. At this point would defer hemodialysis. We will continue to monitor renal function closely. We will check a urinalysis with microanalysis. Would consider removing Perm-A-Cath. 2. Anemia. We will continue to monitor hemoglobin and hematocrit levels. 3. Mineral bone disorder. The patient is hypocalcemic, etiology is unclear, may be secondary to im mobilization. However, we will check a PTH level. We will check vitamin D25 and 125 level. 4. Hypertension. We will continue current blood pressure regimen. 5. Pneumonia. We will continue current antibiotic regimen. Cultures have been sent. 6. Acute encephalopathy. Underlying etiology unclear, possibly toxic metabolic. We will continue to monitor. Consider CT scan of the brain. 7. History of chronic obstructive pulmonary disease. Continue current medical management. Thank you, Dr. Kelly, for this interesting consultation. It will be a pleasure to follow arcadio randle with you throughout the hospital course. Dictated By: DERECK KENNEDY/RUTH Conf#: [id number] DID#: [id number]
[2016-11-18 11:26] LABS: PARTIAL THROMBOPLASTIN TIME > 180.0 Sec (25.0-35.0)
--- NOTE | 2016-11-18 11:44 | RADRPT ---
Echocardiogram Report Patient Name: CORDELL CAIN Gender: Female Date: 1935 Study Date: 18-Nov-2016 Swing Grinder: Andrew Phillips [facility] Location: [address] Ref. Physician: NAVA GOMEZ Quality: Technically Difficult Study Procedures: Transthoracic echocardiogram with complete 2D, M-Mode, and doppler examination. Indications: Rapid response. 2D/M Mode Doppler Measurement Value Normal Ranges Measurement Value Normal Ranges AV Peak Issac 1.1 m/sec AV Peak PG 4.7 mmHg LVOT Peak Issac 0.7 m/sec Findings Left Ventricle: Normal left ventricular systolic function. Normal left ventricular cavity size. Normal left ventricular wall thickness. Ejection fraction is visually estimated at 65 %. Tissue Doppler/Mitral Doppler indices are consistent with impaired relaxation (Stage I diastolic dysfunction). Right Ventricle: Normal right ventricular size. Normal right ventricular systolic function. Left Atrium: There is moderate enlargement of left atrium. Right Atrium: The right atrium is normal in size. Mitral Valve: Mild mitral leaflet calcification. Severe mitral annular calcification. Mild to moderate mitral valve regurgitation. Aortic Valve: No significant aortic stenosis or insufficiency. Aortic sclerosis without stenosis. Aortic cusps appear mildly calcified. Tricuspid Valve: Normal appearance of the tricuspid valve. Unable to obtain RVSP due to minimal presence of tricuspid regurgitation. Pulmonic Valve: There is trace pulmonic regurgitation. Pericardium: Small pericardial effusion. Aorta: Normal aortic root. IVC: Normal size and no respiratory collapse consistent with elevated right atrial pressure. Conclusions 1.Normal left ventricular systolic function. Normal left ventricular cavity size. Normal left ventricular wall thickness. Ejection fraction is visually estimated at 65 %. 2.Severe mitral annular calcification. Mild to moderate mitral valve regurgitation. 3.Unable to obtain RVSP due to minimal presence of tricuspid regurgitation. RA pressure is \R\8 mmHg. Electronically Signed By: Kareem Rincon 18-Nov-2016 11:42:52 -0800 Patient Name: CORDELL CAIN Study Date: 18-Nov-2016 [id number]
[2016-11-18] MEDS: AMLODIPINE 5 MG TAB PO SCH (12:25)
[2016-11-18] MEDS: METOPROLOL 25 MG TAB PO SCH ×2 (12:25→21:00)
[2016-11-18] MEDS ORDERED: MAGNESIUM SULFATE 2 GM/50 ML 50 ML IVPB ONE (12:30)
--- NOTE | 2016-11-18 12:35 | PN ---
DATE: 11/18/2016 SUBJECTIVE: The patient this morning was noted to have a rapid response, was noted to be in atrial fibrillation with rapid rate. The patient was placed on diltiazem drip. The patient continues to r emain confused with minimal improvement in mental status. No other acute events noted. No hemoptys is, hematemesis or hematochezia. OBJECTIVE: VITAL SIGNS: Blood pressure is 193/92, respiration 16, pulse 91, temperature 98.4. HEENT: Head is normocephalic. NECK: Supple. HEART: Regular rate. LUNGS: Show diminished breath sounds at the base. ABDOMEN: Soft, nontender to palpation. No rebound or guarding. EXTREMITIES: Negative for clubbing, cyanosis, no edema. DERMATOLOGIC: No rashes. MUSCULOSKELETAL: No joint effusions. NEUROLOGIC: Limited exam due to lack of patient cooperation. LABORATORY DATA: Shows a sodium 142, potassium 4.2, chloride 106, BUN 22, creatinine 1.133, calcium 11.3, magnesium is 1.5. White count 8.8, hemoglobin 9.9, hematocrit 30.6, platelet count 300. ASSESSMENT AND PLAN: 1. Chronic kidney disease stage III. The patient was previously on hemodialysis and showed excelle nt recovery. The patient has been off the hemodialysis for the last 3 weeks. Renal function has de clined in the last 24 hours, likely due to hemodynamics. At this point, will continue supportive ca re, renally dose meds, avoid nephrotoxins. No need for renal replacement therapy at this time. Wou ld consider removing Perm-A-Cath. 2. Hypomagnesemia. Will treat with magnesium sulfate 2 grams IV x1. 3. Anemia. Continue to monitor hemoglobin and hematocrit levels. 4. Hypercalcemia, etiology is unclear. Workup is ongoing. The patient's PTH, vitamin D25, and 12 5 levels are pending. 5. Hypertension. Continue current blood pressure regimen. Medications were adjusted by Cardiology . 6. Atrial fibrillation with rapid rate. The patient was on heparin drip, since discontinued. Cont inue metoprolol. Will monitor closely. 7. Non-ST elevation myocardial infarction type 2. Continue medical management and follow up with c ardiology. 8. Shortness of breath. Etiology may be secondary to pneumonia, questionable edema and pulmonary edema. The patient is currently on antibiotic therapy, was seen by bottom saw operator. The patient is s tatus post Lasix. We will continue to observe closely. 9. Acute encephalopathy. Etiology is unclear, possibly toxic metabolic. At this point, would chec k a CT scan of the brain. We will check blood cultures. There is low suspicion for uremia at this time, given the patient's improved renal function. We will monitor closely. 10. Chronic obstructive pulmonary disease. Continue medical management. 11. Access. The patient has a Perm-A-Cath. If renal function remains stable during this hospital course would consider discontinuing. Dictated By: DERECK LANGLEY DO NR/RUTH Conf#: [id number] DID#: [id number]
--- NOTE | 2016-11-18 15:47 | RADRPT ---
Vent Rate: 130 bpm RR Interval: 0 msec ND Interval: 148 msec QRS Duration: 68 msec QT Interval: 298 msec QTC Interval: 438 msec P-R-T Queen: 71 - 39 - 63 degrees Undetermined rhythm Electronically Signed By: Ashu Forrest [id number]
--- NOTE | 2016-11-18 15:48 | PN ---
Date/Time of Note Date/Time of Note DATE: 11/18/16 TIME: 15:42 Assessment/Plan VTE Prophylaxis VTE Prophylaxis Intervention: heparin Lines/Catheters IV C[facility]ter [facility] (from [facility] Peripheral IV Urinary Cath still in place: No Assessment/Plan Chief Complaint/Hosp Course ASSESSMENT AND PLAN: 1. Left-sided pneumonia. The patient has been started on broad spectrum IV antibiotic. Pulmonology has been consulted, cefepime and vancomycin. 2. End-stage renal disease on hemodialysis. Nephrology has been consulted. 3. Essential hypertension, continue medical management 4. Chronic obstructive pulmonary disease. Continue breathing treatment, Advair and Spiriva and Singular. 5. NSTEMI, cardiology has been consulted, continue aspirin statin beta rohith. Patient has been started on heparin drip 6. Gastroesophageal reflux disease. Continue Pepcid 7. Deep venous thrombosis prophylaxis. The patient has been placed on heparin. We will continue to monitor patient closely. Further recommendations, management and treatment as per clinical course. Problems: Subjective 24 Hr Interval Summary Free Text/Dictation Patient was found to have shortness of breath and chest discomfort this morning Rapid response was announced and patient was transferred to telemetry floor secondary to shortness of breath Exam/Review of Systems Vital Signs Vitals Vital Signs Date Time Temp Pulse Resp B/P Pulse Ox O2 Delivery O2 Flow Rate FiO2 11/18/16 13:33 99 11/18/16 12:24 98.1 19 196/91 98 11/18/16 10:53 Nasal Cannula 3.0 Intake and Output 11/17/16 11/17/16 11/18/16 14:59 22:59 06:59 Intake Total 300 ml Balance 300 ml Exam General: The patient is morbidly obese, Not in acute distress. HEENT: Atraumatic, normocephalic. The pupils are equal and round . Cord and patient Neck: Supple with full range of motion. Chest: Normal expansion of the thorax during inspiration Lungs: Decreased breath sounds bilaterally Heart: Normal S1-S2, Regular rhythm and rate. Abdomen: Soft , nontender, nondistended , bowel sounds are present. Extremities: Status dermatitis, nonpitting edema no cyanosis Neurologic: ,The patient is awake, alert Results Result Diagram: 11/18/16 1000 11/18/16 1000 Results 24 hrs Laboratory Tests Test 11/17/16 18:30 11/17/16 20:10 11/17/16 22:07 11/17/16 23:54 Lactic Acid Level 2.3 H 1.1 1.2 Creatine Kinase 90 41 Creatine Kinase Index 1.5 2.8 Creatinine Kinase MB (Mass) 1.32 1.15 Troponin I 0.115 0.163 *H Vitamin D 1,25-Dihydroxy 39.0 Test 11/18/16 08:58 11/18/16 10:00 11/18/16 14:23 Bedside Glucose 99 Activated Partial Thromboplast Time > 180.0 *H 32.7 Anion Gap 16 Basophils # 0.0 Basophils % 0.1 Blood Morphology Comment Blood Urea Nitrogen 22 H Calcium Level 11.3 H Carbon Dioxide Level 24 Chloride Level 106 Creatinine 1.33 H Eosinophils # 0.2 Eosinophils % 2.3 Glucose Level 105 Hematocrit 30.6 L Hemoglobin 9.9 L INR International Normalized Ratio 1.28 Lactic Acid Level 1.3 Lymphocytes # 0.8 Lymphocytes % 9.5 L Magnesium Level 1.5 L Mean Corpuscular Hemoglobin 27.4 L Mean Corpuscular Hemoglobin Concent 32.5 Mean Corpuscular Volume 84.3 Mean Platelet Volume 6.4 L Monocytes # 0.6 Monocytes % 7.0 Neutrophils # 7.1 Neutrophils % 81.1 H Nucleated Red Blood Cells # 0.0 Nucleated Red Blood Cells % 0.0 Parathyroid Hormone (Intact) Platelet Count 300 Potassium Level 4.2 Prothrombin Time 16.1 H Prothrombin Time Ratio 1.3 Red Blood Count 3.63 L Red Cell Distribution Width 17.3 H Sodium Level 142 Thyroid Stimulating Hormone (TSH) 1.300 White Blood Count 8.8 Medications Medications Current Medications Hydralazine HCl (Apresoline) 10 mg Q6H PRN IV ELEVATED BLOOD PRESSURE Last administered on 11/18/16 13:04; Admin Dose 10 MG; Start 11/17/16 at 17:30 Lorazepam (Ativan) 0.5 mg Q8H PRN PO ANXIETY Last administered on 11/17/16 18: 01; Admin Dose 0.5 MG; Start 11/17/16 at 17:30 Ondansetron HCl (Zofran Tab) 4 mg Q6H PRN PO NAUSEA AND/OR VOMITING; Start at 17:30 Nitroglycerin (Nitroglycerin (Sl Tab) 0.4 Mg) 1 tab Q5M PRN SL CHEST PAIN; Start 11/17/16 at 17:30 Acetaminophen (Tylenol Tab) 650 mg Q6H PRN PO PAIN LEVEL 1-3 OR FEVER; Start at 17:30 Acetaminophen (Tylenol Supp) 650 mg Q6H PRN AR PAIN LEVEL 1-3 OR FEVER; Start 11/17/16 at 17:30 Morphine Sulfate (morphine) 2 mg Q4H PRN IV PAIN LEVEL 7-10; Start 11/17/16 at 17:30 Docusate Sodium (Colace) 100 mg Q12H PRN PO CONSTIPATION; Start 11/17/16 at 17: 30 Bisacodyl (Dulcolax) 5 mg DAILY PRN PO CONSTIPATION; Start 11/17/16 at 17:30 Famotidine (Pepcid) 20 mg Q12 PO ; Start 11/17/16 at 21:00 Clonidine (Catapres) 0.1 mg Q6H PRN PO ELEVATED BLOOD PRESSURE; Start 11/17/16 at 17:30 Losartan Potassium (Cozaar) 50 mg BID PO ; Start 11/17/16 at 21:00 Tiotropium [place] (Spiriva) 1 inh DAILY INH ; Start 11/18/16 at 09:00 Atorvastatin Calcium (Lipitor) 40 mg HS PO ; Start 11/17/16 at 21:00 Aspirin (Aspirin) 81 mg DAILY PO ; Start 11/18/16 at 09:00 Montelukast Sodium (Singulair) 10 mg HS PO ; Start 11/17/16 at 21:00 Salmeterol Xinafoate/ Fluticasone 1 inh 1 inh BID INH ; Start 11/17/16 at 21:00 Cefepime HCl (Maxipime 1gm/50 ml (Pmx)) 50 ml @ 100 mls/hr Q24H IVPB ; Start at 09:00 Miscellaneous Information (*Rx Drug Level Order Reminder*) RANDOM VANCOMYCIN LEVEL 2... ONCE ONCE XX ; Start 11/19/16 at 05:00; Stop 11/19/16 at 05:01 Metoprolol Tartrate (Lopressor) 25 mg BID PO ; Start 11/18/16 at 11:00 Amlodipine Besylate (Norvasc) 5 mg DAILY PO ; Start 11/18/16 at 11:00 NAVA GOMEZ MD Nov 18, 2016 15:48
[2016-11-18] MEDS: ATORVASTATIN 40 MG TAB PO SCH (21:00)
[2016-11-18] MEDS: MONTELUKAST 10 MG TAB PO SCH (21:00)
[2016-11-19] VITALS (12 sets, daily range): BP systolic 115–167; BP diastolic 65–88; PULSE 100–110; RESP 20–22
[2016-11-19 07:06] LABS: BASOPHIL # 0.1 10^3/ul (0.0-0.1); EOSINOPHILS # 0.2 10^3/ul (0.0-0.5); HEMATOCRIT 31.8 % (37.0-47.0); HEMOGLOBIN 9.6 g/dl (12.0-16.0); LYMPHOCYTES # 1.6 10^3/ul (0.8-2.9); LYMPHOCYTES % 17.7 % (15.0-51.0); MEAN CORPUSCULAR HEMOGLOBIN 26.4 pg (29.0-33.0); MEAN CORPUSCULAR HGB CONC 30.2 g/dl (32.0-37.0); MEAN CORPUSCULAR VOLUME 87.6 fl (82.0-101.0); MEAN PLATELET VOLUME 9.1 fl (7.4-10.4); MONOCYTE # 0.8 10^3/ul (0.3-0.9); MONOCYTES % 8.8 % (0.0-11.0); NEUTROPHIL # 6.4 10^3/ul (1.6-7.5); NEUTROPHILS % 69.4 % (39.0-77.0); PLATELET COUNT 311 10^3/UL (140-440); POTASSIUM 4.5 mmol/L (3.5-5.1); RED BLOOD COUNT 3.63 10^6/ul (4.20-5.40); RED CELL DISTRIBUTION WIDTH 16.3 % (11.5-14.5); WHITE BLOOD COUNT 9.2 10^3/ul (4.8-10.8)
[2016-11-19 07:09] LABS: CALCIUM 11.9 mg/dl (8.4-10.2); CREATININE 1.46 mg/dl (0.44-1.00)
[2016-11-19 07:10] LABS: MAGNESIUM 2.1 mg/dl (1.7-2.5)
[2016-11-19] MEDS: hydrALAzine 20 MG INJ IV PRN (08:13)
[2016-11-19] MEDS: ASPIRIN 81 MG TAB PO SCH (09:00)
[2016-11-19] MEDS: CEFEPIME 1GM/50 ML (PMX) 50 ML IVPB SCH ×3 (09:00→13:02)
[2016-11-19] MEDS: LOSARTAN 50 MG TAB PO SCH ×2 (09:00→21:00)
[2016-11-19] MEDS: METOPROLOL 25 MG TAB PO SCH ×2 (09:00→21:00)
[2016-11-19] MEDS: TIOTROPIUM 18 MCG CAPSULE INHA DEV INH SCH (09:00)
[2016-11-19] MEDS: AMLODIPINE 5 MG TAB PO SCH (09:00)
[2016-11-19] MEDS: SALMETEROL/FLUTICASONE 250/50 INHA INH SCH ×2 (09:00→21:00)
[2016-11-19] MEDS: FAMOTIDINE 20 MG TAB PO SCH (09:00)
[2016-11-19] MEDS: ALBUTEROL/IPRATROPIUM (NEB) 3 ML AMP HHN PRN ×2 (09:20→14:00)
[2016-11-19] MEDS ORDERED: DEXTROSE 5% 1,000 ML IV SCH (10:30)
[2016-11-19] MEDS ORDERED: LABETALOL HCL 20MG INJ IV PRN (10:30)
--- NOTE | 2016-11-19 10:51 | CONS ---
Date/Time of Note Date/Time of Note DATE: 11/19/16 TIME: 10:48 Assessment/Plan Assessment/Plan Chief Complaint/Hosp Course SOB: ?combination of PNA +/- mild CHF. Accelerated HTN: BP elevated. Cant tolerate PO as did not pass swallow eval NSTEMI: type II in setting of above. Treat medically. EF preserved. CKD: was previously on HD, now off DM COPD -when can tolerate PO, should be on ASA, statin, cozaar, MTP -in the meantime, PRN hydralazine and labetolol -f/u cultures as had bacteremia last admission Problems: Consultation Date/Type/Reason Admit Date/Time Nov 17, 2016 at 14:00 Initial Consult Date 11/18/16 Type of Consultation: Cardiology Referring Provider: NAVA GOMEZ MD 24 HR Interval Summary Free Text/Dictation Sinus tachycardia up to the 130s. BP elevated to the 160s. When not agitated, HR is low 100s-110s. Exam/Review of Systems Vital Signs Vitals Vital Signs Date Time Temp Pulse Resp B/P Pulse Ox O2 Delivery O2 Flow Rate FiO2 11/19/16 09:24 130 30 Nasal Cannula 2.0 11/19/16 07:20 98.0 167/78 94 Intake and Output 11/18/16 11/18/16 11/19/16 15:00 23:00 07:00 Intake Total 150 ml 50 ml Balance 150 ml 50 ml Exam Constitutional: alert, No oriented Head: atraumatic, normocephalic Neck: No jvd Respiratory: crackles/rales, No clear to auscultation Cardiovascular: edema (1+), No regular rate and rhythm (tachy, regular) Gastrointestinal: soft Neurological: No nl mental status Results Result Diagram: 11/19/16 0540 11/19/16 0540 Results 24 hrs Laboratory Tests Test 11/18/16 14:23 11/19/16 05:40 Activated Partial Thromboplast Time 32.7 Anion Gap 18 H Basophils # 0.1 Basophils % 1.0 Blood Urea Nitrogen 29 H Calcium Level 11.9 H Carbon Dioxide Level 24 Chloride Level 108 Creatinine 1.46 H Eosinophils # 0.2 Eosinophils % 2.0 Glucose Level 109 Hematocrit 31.8 L Hemoglobin 9.6 L Lymphocytes # 1.6 Lymphocytes % 17.7 Magnesium Level 2.1 Mean Corpuscular Hemoglobin 26.4 L Mean Corpuscular Hemoglobin Concent 30.2 L Mean Corpuscular Volume 87.6 Mean Platelet Volume 9.1 # Monocytes # 0.8 Monocytes % 8.8 Neutrophils # 6.4 Neutrophils % 69.4 Nucleated Red Blood Cells # 0.0 Nucleated Red Blood Cells % 0.0 Phosphorus Level 3.8 Platelet Count 311 Potassium Level 4.5 Random Vancomycin Level 12.4 Red Blood Count 3.63 L Red Cell Distribution Width 16.3 H Sodium Level 145 H White Blood Count 9.2 Medications Medications Current Medications Hydralazine HCl (Apresoline) 10 mg Q6H PRN IV ELEVATED BLOOD PRESSURE Last administered on 11/19/16 08:13; Admin Dose 10 MG; Start 11/17/16 at 17:30 Lorazepam (Ativan) 0.5 mg Q8H PRN PO ANXIETY Last administered on 11/17/16 18: 01; Admin Dose 0.5 MG; Start 11/17/16 at 17:30 Ondansetron HCl (Zofran Tab) 4 mg Q6H PRN PO NAUSEA AND/OR VOMITING; Start at 17:30 Nitroglycerin (Nitroglycerin (Sl Tab) 0.4 Mg) 1 tab Q5M PRN SL CHEST PAIN; Start 11/17/16 at 17:30 Acetaminophen (Tylenol Tab) 650 mg Q6H PRN PO PAIN LEVEL 1-3 OR FEVER; Start at 17:30 Acetaminophen (Tylenol Supp) 650 mg Q6H PRN OR PAIN LEVEL 1-3 OR FEVER; Start 11/17/16 at 17:30 Morphine Sulfate (morphine) 2 mg Q4H PRN IV PAIN LEVEL 7-10; Start 11/17/16 at 17:30 Docusate Sodium (Colace) 100 mg Q12H PRN PO CONSTIPATION; Start 11/17/16 at 17: 30 Bisacodyl (Dulcolax) 5 mg DAILY PRN PO CONSTIPATION; Start 11/17/16 at 17:30 Famotidine (Pepcid) 20 mg Q12 PO ; Start 11/17/16 at 21:00 Clonidine (Catapres) 0.1 mg Q6H PRN PO ELEVATED BLOOD PRESSURE; Start 11/17/16 at 17:30 Losartan Potassium (Cozaar) 50 mg BID PO ; Start 11/17/16 at 21:00 Tiotropium [place] (Spiriva) 1 inh DAILY INH ; Start 11/18/16 at 09:00 Atorvastatin Calcium (Lipitor) 40 mg HS PO ; Start 11/17/16 at 21:00 Aspirin (Aspirin) 81 mg DAILY PO ; Start 11/18/16 at 09:00 Montelukast Sodium (Singulair) 10 mg HS PO ; Start 11/17/16 at 21:00 Salmeterol Xinafoate/ Fluticasone 1 inh 1 inh BID INH ; Start 11/17/16 at 21:00 Cefepime HCl (Maxipime 1gm/50 ml (Pmx)) 50 ml @ 100 mls/hr Q24H IVPB ; Start at 09:00 Metoprolol Tartrate (Lopressor) 25 mg BID PO ; Start 11/18/16 at 11:00 Amlodipine Besylate 5 mg 5 mg DAILY PO ; Start 11/18/16 at 11:00 Dextrose (D5W) 1,000 ml @ 40 mls/hr Q24H IV ; Start 11/19/16 at 10:30 Labetalol HCl (Labetalol) 10 mg Q4 PRN IV SBP >160; Start 11/19/16 at 10:30 LUIS F XAVIER Nov 19, 2016 10:51
--- NOTE | 2016-11-19 10:58 | PN ---
DATE: 11/19/2016 SUBJECTIVE: The patient remains confused, alert and oriented x0. The patient failed her swallow ev aluation. The patient remains tachycardic. No other events noted. OBJECTIVE: VITAL SIGNS: Blood pressure is 167/78, respirations 21, pulse 106, temperature 98.0. HEENT: Head is normocephalic. NECK: Supple. HEART: Tachycardic. LUNGS: Showed diminished breath sounds at the base. ABDOMEN: Nontender to palpation. No rebound or guarding. EXTREMITIES: Negative for clubbing or cyanosis. Positive edema. Positive chronic venous insuffici ency changes. DERMATOLOGIC: No rashes. MUSCULOSKELETAL: Have no joint effusion. NEUROLOGIC: No change in exam. MEDICATIONS: The patient's medications have been reviewed. LABORATORY DATA: Shows sodium 145, potassium 4.5, chloride 108, BUN 29, creatinine 1.46, calcium 11 .9. White count 9.2, hemoglobin 9.6, hematocrit of 31.8, platelet count is 211. ASSESSMENT AND PLAN: 1. Chronic kidney disease stage III. The patient was previously on hemodialysis and showed excelle nt recovery. At this point will continue to monitor renal function closely. There have been fluctu ations of creatinine, likely due to hemodynamics. Continue supportive care, renally dose all meds, avoid nephrotoxins. 2. Hypernatremia. The patient has a free water deficit of approximately 1.5 liters. Will start th e patient on D5W at 40 mL an hour and monitor. 3. Hypomagnesemia. Improved. 4. Anemia. Continue to monitor hemoglobin and hematocrit levels. 5. Hypercalcemia. Etiology is unclear. Workup is ongoing. PTH, vitamin level are pending. 6. Hypertension. Continue the current blood pressure regimen. 7. Tachyarrhythmia. Will continue to monitor. Follow up with cardiology. 8. Non-ST elevation myocardial infarction type 2. Continue the current medical management. 9. Pneumonia, possible sepsis. Continue the current antibiotic regimen. Will repeat blood culture s. 10. Acute encephalopathy. Etiology may be toxic metabolic. Will order a CT scan of the brain to r ule out acute CVA 11. chronic obstructive pulmonary disease. Continue the current medical management. 12. Access. The patient has a Perm-A-Cath. If renal function remains stable, will consider discont inuing. Dictated By: DERECK KENNEDY/RUTH Conf#: [id number] DID#: [id number]
[2016-11-19] MEDS ORDERED: VANCOMYCIN 1.25 GM in SOD CHLORIDE 0.9% 250 ML IVPB SCH (12:30)
--- NOTE | 2016-11-19 13:30 | RADRPT ---
PROCEDURE: CT brain without contrast CLINICAL INDICATION: Altered mental status TECHNIQUE: CT of the brain without contrast performed on a multidetector CT scanner, with multiplan ar reformats. One or more of the following dose reduction techniques were used: Automated exposure control, adjustment in mA and / or kV according to patient size, use of iterative reconstructive terri hnique. CTDIvol = 50 mGy; DLP = 818 mGy-cm. COMPARISON: None available FINDINGS: No acute intracranial hemorrhage is identified. No extra-axial fluid collection is seen. There is no mass effect. No midline shift is identified. Ventricles and sulci are mild to moderately enlarged compatible with a volume loss. There are moderate to severe areas of hypodensity in the periventricular - deep white matter which a re nonspecific but suggestive of chronic small vessel ischemic changes. Mcleod-white differentiation is preserved. Atherosclerotic calcifications of the proximal intracranial arteries are noted. Osseous structures are unremarkable. Partial posterior ethmoid air cell opacification and partial b ilateral sphenoid sinus desiccation with levels are noted. IMPRESSION: 1. No evidence of acute intracranial pathology. 2. Mild to moderate volume loss, with with moderate to severe chronic small vessel ischemic change s. RPTAT: VV .Good Fernando MD, Date Time Electronically viewed and signed by .Good Fernando MD, MD on 11/19/2016 13:30 .O/
--- NOTE | 2016-11-19 14:52 | CONS ---
Date/Time of Note Date/Time of Note DATE: 11/19/16 TIME: 14:49 Assessment/Plan Assessment/Plan Additional Assessment/Plan CT scan of head was done today without contrast which is negative for any acute pathology. Assessment and recommendations; 1. Patient admitted for shortness of breath due to pulmonary edema. 2. History of severe hypertension. Patient was quite hypertensive yesterday as well. 3. History of end-stage renal disease on intermittent hemodialysis. 4. Altered mental status. Etiology is unclear at this point. Continue current supportive care for now, obtain a blood gas. Patient has been given intravenous Lasix. Consultation Date/Type/Reason Admit Date/Time Nov 17, 2016 at 14:00 Initial Consult Date 11/18/16 Type of Consultation: Pulmonary Referring Provider: NAVA GOMEZ MD 24 HR Interval Summary Free Text/Dictation Patient condition is tenuous at best. Is having waxing and waning mental status. Patient also been complaining of shortness of breath but denies any chest pain. General examination; elderly woman, awake. Exam/Review of Systems Vital Signs Vitals Vital Signs Date Time Temp Pulse Resp B/P Pulse Ox O2 Delivery O2 Flow Rate FiO2 11/19/16 14:02 2.0 11/19/16 14:01 113 26 96 Nasal Cannula 28 11/19/16 11:30 98.0 115/88 Intake and Output 11/18/16 11/18/16 11/19/16 15:00 23:00 07:00 Intake Total 150 ml 50 ml Balance 150 ml 50 ml Exam H EENT examination; supple neck, positive JVD no lymphadenopathy. No thyromegaly. No neck masses. Small pupils bilaterally. Chest examination; upper lobes are clear to auscultation with diminished breath sounds in lower lobes bilaterally. S1-S2 audible. No murmurs. Regular rhythm. There is a hemodialysis catheter in the right subclavian area. Abdomen examination; soft, protuberant. Nontender. Bowel sounds audible. Extremity examination; no peripheral edema. ESTIMATOR examination; patient does have waxing and waning mental status able to move all 4 extremities. Results Result Diagram: 11/19/16 0540 11/19/16 0540 Results 24 hrs Laboratory Tests Test 11/19/16 05:40 Anion Gap 18 H Basophils # 0.1 Basophils % 1.0 Blood Urea Nitrogen 29 H Calcium Level 11.9 H Carbon Dioxide Level 24 Chloride Level 108 Creatinine 1.46 H Eosinophils # 0.2 Eosinophils % 2.0 Glucose Level 109 Hematocrit 31.8 L Hemoglobin 9.6 L Lymphocytes # 1.6 Lymphocytes % 17.7 Magnesium Level 2.1 Mean Corpuscular Hemoglobin 26.4 L Mean Corpuscular Hemoglobin Concent 30.2 L Mean Corpuscular Volume 87.6 Mean Platelet Volume 9.1 # Monocytes # 0.8 Monocytes % 8.8 Neutrophils # 6.4 Neutrophils % 69.4 Nucleated Red Blood Cells # 0.0 Nucleated Red Blood Cells % 0.0 Phosphorus Level 3.8 Platelet Count 311 Potassium Level 4.5 Random Vancomycin Level 12.4 Red Blood Count 3.63 L Red Cell Distribution Width 16.3 H Sodium Level 145 H White Blood Count 9.2 Medications Medications Current Medications Hydralazine HCl (Apresoline) 10 mg Q6H PRN IV ELEVATED BLOOD PRESSURE Last administered on 11/19/16 08:13; Admin Dose 10 MG; Start 11/17/16 at 17:30 Lorazepam (Ativan) 0.5 mg Q8H PRN PO ANXIETY Last administered on 11/17/16 18: 01; Admin Dose 0.5 MG; Start 11/17/16 at 17:30 Ondansetron HCl (Zofran Tab) 4 mg Q6H PRN PO NAUSEA AND/OR VOMITING; Start at 17:30 Nitroglycerin (Nitroglycerin (Sl Tab) 0.4 Mg) 1 tab Q5M PRN SL CHEST PAIN; Start 11/17/16 at 17:30 Acetaminophen (Tylenol Tab) 650 mg Q6H PRN PO PAIN LEVEL 1-3 OR FEVER; Start at 17:30 Acetaminophen (Tylenol Supp) 650 mg Q6H PRN [place] PAIN LEVEL 1-3 OR FEVER; Start 11/17/16 at 17:30 Morphine Sulfate (morphine) 2 mg Q4H PRN IV PAIN LEVEL 7-10; Start 11/17/16 at 17:30 Docusate Sodium (Colace) 100 mg Q12H PRN PO CONSTIPATION; Start 11/17/16 at 17: 30 Bisacodyl (Dulcolax) 5 mg DAILY PRN PO CONSTIPATION; Start 11/17/16 at 17:30 Famotidine (Pepcid) 20 mg Q12 PO ; Start 11/17/16 at 21:00 Clonidine (Catapres) 0.1 mg Q6H PRN PO ELEVATED BLOOD PRESSURE; Start 11/17/16 at 17:30 Losartan Potassium (Cozaar) 50 mg BID PO ; Start 11/17/16 at 21:00 Tiotropium [place] (Spiriva) 1 inh DAILY INH ; Start 11/18/16 at 09:00 Atorvastatin Calcium (Lipitor) 40 mg HS PO ; Start 11/17/16 at 21:00 Aspirin (Aspirin) 81 mg DAILY PO ; Start 11/18/16 at 09:00 Montelukast Sodium (Singulair) 10 mg HS PO ; Start 11/17/16 at 21:00 Salmeterol Xinafoate/ Fluticasone 1 inh 1 inh BID INH ; Start 11/17/16 at 21:00 Cefepime HCl (Maxipime 1gm/50 ml (Pmx)) 50 ml @ 100 mls/hr Q24H IVPB Last administered on 11/19/16 13:02; Admin Dose 100 MLS/HR; Start 11/19/16 at 09:00 Metoprolol Tartrate (Lopressor) 25 mg BID PO ; Start 11/18/16 at 11:00 Amlodipine Besylate 5 mg 5 mg DAILY PO ; Start 11/18/16 at 11:00 Dextrose (D5W) 1,000 ml @ 40 mls/hr Q24H IV Last administered on 11/19/16 12: 07; Admin Dose 40 MLS/HR; Start 11/19/16 at 10:30 Labetalol HCl 10 mg 10 mg Q4 PRN IV SBP >160; Start 11/19/16 at 10:30 Vancomycin HCl/ Sodium Chloride (Vancocin/NS) 250 ml @ 83.333 mls/ hr ONCE IVPB Last administered on 11/19/16 14:46; Admin Dose 83.333 MLS/HR; Start at 12:30; Stop 11/19/16 at 18:00 FRACISCO MCKENZIE Nov 19, 2016 14:52
--- NOTE | 2016-11-19 15:31 | PN ---
Date/Time of Note Date/Time of Note DATE: 11/19/16 TIME: 15:29 Assessment/Plan VTE Prophylaxis VTE Prophylaxis Intervention: heparin Lines/Catheters IV [facility] Sal[facility] Urinary Cath still in place: No Assessment/Plan Chief Complaint/Hosp Course ASSESSMENT AND PLAN: 1. Left-sided pneumonia. The patient has been started on broad spectrum IV antibiotic. Pulmonology has been consulted, cefepime and vancomycin. 2. Chronic kidney failure. Nephrology has been consulted. Avoid nephrotoxic medication 3. Essential hypertension, continue medical management 4. Chronic obstructive pulmonary disease. Continue breathing treatment, Advair and Spiriva and Singular. 5. NSTEMI, cardiology has been consulted, continue aspirin statin beta rohith. Patient has been started on heparin drip 6. Altered mental status, no evidence of acute CVA on CT of the brain, possibly metabolic 6. Gastroesophageal reflux disease. Continue Pepcid 7. Deep venous thrombosis prophylaxis. The patient has been placed on heparin. We will continue to monitor patient closely. Further recommendations, management and treatment as per clinical course. Problems: Subjective 24 Hr Interval Summary Free Text/Dictation Patient found to have respiratory distress this morning despite of breathing treatment Continues to be mildly altered although follow simple commands Exam/Review of Systems Vital Signs Vitals Vital Signs Date Time Temp Pulse Resp B/P Pulse Ox O2 Delivery O2 Flow Rate FiO2 11/19/16 14:02 2.0 11/19/16 14:01 113 26 96 Nasal Cannula 28 11/19/16 11:30 98.0 115/88 Intake and Output 11/18/16 11/18/16 11/19/16 15:00 23:00 07:00 Intake Total 150 ml 50 ml Balance 150 ml 50 ml Exam General: The patient is morbidly obese HEENT: Atraumatic, normocephalic. The pupils are equal and round . Neck: Supple with full range of motion. Chest: Normal expansion of the thorax during inspiration Lungs: Decreased breath sounds bilateral lower lung field with mild rales Heart: Normal S1-S2, Regular rhythm and rate. Abdomen: Soft , nontender, nondistended , bowel sounds are present. Extremities: Normal to inspection, +2 edema no cyanosis Neurologic:The patient is awake, Results Result Diagram: 11/19/16 0540 11/19/16 0540 Results 24 hrs Laboratory Tests Test 11/19/16 05:40 Anion Gap 18 H Basophils # 0.1 Basophils % 1.0 Blood Urea Nitrogen 29 H Calcium Level 11.9 H Carbon Dioxide Level 24 Chloride Level 108 Creatinine 1.46 H Eosinophils # 0.2 Eosinophils % 2.0 Glucose Level 109 Hematocrit 31.8 L Hemoglobin 9.6 L Lymphocytes # 1.6 Lymphocytes % 17.7 Magnesium Level 2.1 Mean Corpuscular Hemoglobin 26.4 L Mean Corpuscular Hemoglobin Concent 30.2 L Mean Corpuscular Volume 87.6 Mean Platelet Volume 9.1 # Monocytes # 0.8 Monocytes % 8.8 Neutrophils # 6.4 Neutrophils % 69.4 Nucleated Red Blood Cells # 0.0 Nucleated Red Blood Cells % 0.0 Phosphorus Level 3.8 Platelet Count 311 Potassium Level 4.5 Random Vancomycin Level 12.4 Red Blood Count 3.63 L Red Cell Distribution Width 16.3 H Sodium Level 145 H White Blood Count 9.2 Medications Medications Current Medications Hydralazine HCl (Apresoline) 10 mg Q6H PRN IV ELEVATED BLOOD PRESSURE Last administered on 11/19/16 08:13; Admin Dose 10 MG; Start 11/17/16 at 17:30 Lorazepam (Ativan) 0.5 mg Q8H PRN PO ANXIETY Last administered on 11/17/16 18: 01; Admin Dose 0.5 MG; Start 11/17/16 at 17:30 Ondansetron HCl (Zofran Tab) 4 mg Q6H PRN PO NAUSEA AND/OR VOMITING; Start at 17:30 Nitroglycerin (Nitroglycerin (Sl Tab) 0.4 Mg) 1 tab Q5M PRN SL CHEST PAIN; Start 11/17/16 at 17:30 Acetaminophen (Tylenol Tab) 650 mg Q6H PRN PO PAIN LEVEL 1-3 OR FEVER; Start at 17:30 Acetaminophen (Tylenol Supp) 650 mg Q6H PRN [place] PAIN LEVEL 1-3 OR FEVER; Start 11/17/16 at 17:30 Morphine Sulfate (morphine) 2 mg Q4H PRN IV PAIN LEVEL 7-10; Start 11/17/16 at 17:30 Docusate Sodium (Colace) 100 mg Q12H PRN PO CONSTIPATION; Start 11/17/16 at 17: 30 Bisacodyl (Dulcolax) 5 mg DAILY PRN PO CONSTIPATION; Start 11/17/16 at 17:30 Famotidine (Pepcid) 20 mg Q12 PO ; Start 11/17/16 at 21:00 Clonidine (Catapres) 0.1 mg Q6H PRN PO ELEVATED BLOOD PRESSURE; Start 11/17/16 at 17:30 Losartan Potassium (Cozaar) 50 mg BID PO ; Start 11/17/16 at 21:00 Tiotropium [place] (Spiriva) 1 inh DAILY INH ; Start 11/18/16 at 09:00 Atorvastatin Calcium (Lipitor) 40 mg HS PO ; Start 11/17/16 at 21:00 Aspirin (Aspirin) 81 mg DAILY PO ; Start 11/18/16 at 09:00 Montelukast Sodium (Singulair) 10 mg HS PO ; Start 11/17/16 at 21:00 Salmeterol Xinafoate/ Fluticasone 1 inh 1 inh BID INH ; Start 11/17/16 at 21:00 Cefepime HCl (Maxipime 1gm/50 ml (Pmx)) 50 ml @ 100 mls/hr Q24H IVPB Last administered on 11/19/16 13:02; Admin Dose 100 MLS/HR; Start 11/19/16 at 09:00 Metoprolol Tartrate (Lopressor) 25 mg BID PO ; Start 11/18/16 at 11:00 Amlodipine Besylate 5 mg 5 mg DAILY PO ; Start 11/18/16 at 11:00 Dextrose (D5W) 1,000 ml @ 40 mls/hr Q24H IV Last administered on 11/19/16 12: 07; Admin Dose 40 MLS/HR; Start 11/19/16 at 10:30 Labetalol HCl 10 mg 10 mg Q4 PRN IV SBP >160; Start 11/19/16 at 10:30 Vancomycin HCl/ Sodium Chloride (Vancocin/NS) 250 ml @ 83.333 mls/ hr ONCE IVPB Last administered on 11/19/16 14:46; Admin Dose 83.333 MLS/HR; Start at 12:30; Stop 11/19/16 at 18:00 Furosemide (Lasix) 20 mg ONCE ONCE IV ; Start 11/19/16 at 15:30; Stop 11/19/16 at 15:31; Status UNV Furosemide (Lasix) 20 mg DAILY IV ; Start 11/20/16 at 09:00; Status UNV NAVA GOMEZ MD Nov 19, 2016 15:31
[2016-11-19] MEDS ORDERED: FUROSEMIDE 20 MG INJ IV ONE (15:45)
[2016-11-19 16:38] LABS: AADO2 Arterial 67.5 mmHg (7.0-24.0); Allen Test ACCEPTAB; Arterial Base Excess -0.5 mmol/L (-3.0-3); Arterial COHb 0.3 % (0.0-3.0); Arterial Fraction of Oxyhgb 94.4 % (93.0-99.0); Arterial HCO3 24.4 mmol/L (22.0-26.0); Arterial MetHb 0.3 % (0.0-1.5); Arterial Total Hemglobin 9.6 g/dl (12.0-18.0); MODE NASAL CANNULA
[2016-11-19] MEDS: ATORVASTATIN 40 MG TAB PO SCH (21:00)
[2016-11-19] MEDS: MONTELUKAST 10 MG TAB PO SCH (21:00)
[2016-11-20] VITALS (13 sets, daily range): BP systolic 139–195; BP diastolic 70–93; PULSE 83–132; RESP 18–84
[2016-11-20] MEDS: TIOTROPIUM 18 MCG CAPSULE INHA DEV INH SCH (09:00)
[2016-11-20] MEDS: FAMOTIDINE 20 MG TAB PO SCH (09:00)
[2016-11-20] MEDS: SALMETEROL/FLUTICASONE 250/50 INHA INH SCH ×2 (09:00→20:42)
[2016-11-20 09:45] LABS: ADD SCAN DIFF NO
[2016-11-20 09:51] LABS: BASOPHIL # 0.1 10^3/ul (0.0-0.1); BASOPHILS % 0.8 % (0.0-2.0); EOSINOPHILS # 0.2 10^3/ul (0.0-0.5); EOSINOPHILS % 3.2 % (0.0-7.0); HEMOGLOBIN 9.1 g/dl (12.0-16.0); LYMPHOCYTES # 0.9 10^3/ul (0.8-2.9); LYMPHOCYTES % 12.5 % (15.0-51.0); MEAN CORPUSCULAR HEMOGLOBIN 26.9 pg (29.0-33.0); MEAN CORPUSCULAR HGB CONC 30.3 g/dl (32.0-37.0); MEAN CORPUSCULAR VOLUME 88.8 fl (82.0-101.0); MONOCYTE # 0.6 10^3/ul (0.3-0.9); MONOCYTES % 8.2 % (0.0-11.0); NEUTROPHIL # 5.3 10^3/ul (1.6-7.5); NEUTROPHILS % 74.6 % (39.0-77.0); PLATELET COUNT 247 10^3/UL (140-415); RED BLOOD COUNT 3.38 10^6/ul (4.20-5.40); RED CELL DISTRIBUTION WIDTH 16.9 % (11.5-14.5); WHITE BLOOD COUNT 7.1 10^3/ul (4.8-10.8)
[2016-11-20 10:03] LABS: CREATININE 1.6 mg/dl (0.44-1.00)
--- NOTE | 2016-11-20 10:31 | CONS ---
Date/Time of Note Date/Time of Note DATE: 11/20/16 TIME: 10:27 Assessment/Plan Assessment/Plan Chief Complaint/Hosp Course SOB: ?combination of PNA +/- mild CHF. ?Paroxysmal atrial tachycardia: Tachycardia to 130 but this am with sudden change from ~130 to ~105. The p wave morphology looks identical in all leads but the question of atrial tachycardia arises. Accelerated HTN: BP elevated. Cant tolerate PO as did not pass swallow eval NSTEMI: type II in setting of above. Treat medically. EF preserved. CKD: was previously on HD, now off DM COPD -will start metoprolol 2.5mg IV q6h scheduled dosing for possible AT as cant tolerate PO meds -agree with lasix 20mg IV daily -d/c fluids -d/c all PO cardiac meds -PRN hydralazine and labetolol -f/u cultures as had bacteremia last admission Problems: Consultation Date/Type/Reason Admit Date/Time Nov 17, 2016 at 14:00 Initial Consult Date 11/18/16 Type of Consultation: Cardiology Referring Provider: NAVA GOMEZ MD 24 HR Interval Summary Free Text/Dictation No o/n events. On tele pt had a relatively sudden change in heart rate this am from ~130 to ~ 105. The p wave morphology looks identical in all leads but the question of atrial tachycardia arises. Exam/Review of Systems Vital Signs Vitals Vital Signs Date Time Temp Pulse Resp B/P Pulse Ox O2 Delivery O2 Flow Rate FiO2 11/20/16 08:17 83 11/20/16 04:47 2.0 11/20/16 04:19 98.6 20 162/77 96 11/19/16 19:45 Nasal Cannula 11/19/16 14:01 28 Intake and Output 11/19/16 11/19/16 11/20/16 15:00 23:00 07:00 Intake Total 50 ml 410 ml Balance 50 ml 410 ml Exam Constitutional: No alert Head: atraumatic, normocephalic Neck: jvd (8cm) Respiratory: diminished breath sounds, No clear to auscultation Cardiovascular: edema (1+ sacral ), systolic murmur (2/6 CATHY), No regular rate and rhythm (tachycardic) Neurological: No nl mental status, No nl speech Results Result Diagram: 11/20/16 0911 11/20/16 0911 Results 24 hrs Laboratory Tests Test 11/19/16 14:48 11/20/16 09:11 Arterial Blood HCO3 24.4 Arterial Blood Base Excess -0.5 Arterial Blood Oxygen Saturation 95.0 Celestine Test ACCEPTAB Arterial Blood Gas Puncture Site Left Radial Arterial Blood Carboxyhemoglobin 0.3 Arterial Blood Date Drawn 11/19/2016 4:21:53 PM Arterial Blood Methemoglobin 0.3 Arterial Blood pCO2 (Temp correct) 40.6 Arterial Blood pH (Temp corrected) 7.396 Arterial Blood pO2 (Temp corrected) 77.0 L Blood Gas A-a O2 Differential 67.5 H Blood Gas Modality NASAL CANNULA Blood Gas Notified Time 11/19/2016 4:37:45 PM Blood Gas Notified Whom AT Blood Gas Specimen Source Blood arterial Blood Gas Temperature 37.0 FiO2 27.0 Oxyhemoglobin Percent 94.4 Total Hemoglobin 9.6 L Anion Gap 11 # Basophils # 0.1 Basophils % 0.8 Blood Urea Nitrogen 32 H Calcium Level 12.0 H Carbon Dioxide Level 30 Chloride Level 107 Creatinine 1.60 H Eosinophils # 0.2 Eosinophils % 3.2 Glucose Level 128 Hematocrit 30.0 L Hemoglobin 9.1 L Lymphocytes # 0.9 Lymphocytes % 12.5 L Magnesium Level 2.0 Mean Corpuscular Hemoglobin 26.9 L Mean Corpuscular Hemoglobin Concent 30.3 L Mean Corpuscular Volume 88.8 Mean Platelet Volume 9.0 Monocytes # 0.6 Monocytes % 8.2 Neutrophils # 5.3 Neutrophils % 74.6 Nucleated Red Blood Cells # 0.0 Nucleated Red Blood Cells % 0.0 Platelet Count 247 Potassium Level 4.0 Red Blood Count 3.38 L Red Cell Distribution Width 16.9 H Sodium Level 144 White Blood Count 7.1 # Medications Medications Current Medications Hydralazine HCl (Apresoline) 10 mg Q6H PRN IV ELEVATED BLOOD PRESSURE Last administered on 11/19/16 08:13; Admin Dose 10 MG; Start 11/17/16 at 17:30 Lorazepam (Ativan) 0.5 mg Q8H PRN PO ANXIETY Last administered on 11/17/16 18: 01; Admin Dose 0.5 MG; Start 11/17/16 at 17:30 Ondansetron HCl (Zofran Tab) 4 mg Q6H PRN PO NAUSEA AND/OR VOMITING; Start at 17:30 Nitroglycerin (Nitroglycerin (Sl Tab) 0.4 Mg) 1 tab Q5M PRN SL CHEST PAIN; Start 11/17/16 at 17:30 Acetaminophen (Tylenol Tab) 650 mg Q6H PRN PO PAIN LEVEL 1-3 OR FEVER; Start at 17:30 Acetaminophen (Tylenol Supp) 650 mg Q6H PRN [place] PAIN LEVEL 1-3 OR FEVER; Start 11/17/16 at 17:30 Morphine Sulfate (morphine) 2 mg Q4H PRN IV PAIN LEVEL 7-10 Last administered on 11/20/16 04:00; Admin Dose 2 MG; Start 11/17/16 at 17:30 Docusate Sodium (Colace) 100 mg Q12H PRN PO CONSTIPATION; Start 11/17/16 at 17: 30 Bisacodyl (Dulcolax) 5 mg DAILY PRN PO CONSTIPATION; Start 11/17/16 at 17:30 Clonidine (Catapres) 0.1 mg Q6H PRN PO ELEVATED BLOOD PRESSURE; Start 11/17/16 at 17:30 Losartan Potassium (Cozaar) 50 mg BID PO ; Start 11/17/16 at 21:00 Tiotropium [place] (Spiriva) 1 inh DAILY INH ; Start 11/18/16 at 09:00 Atorvastatin Calcium (Lipitor) 40 mg HS PO ; Start 11/17/16 at 21:00 Aspirin (Aspirin) 81 mg DAILY PO ; Start 11/18/16 at 09:00 Montelukast Sodium (Singulair) 10 mg HS PO ; Start 11/17/16 at 21:00 Salmeterol Xinafoate/ Fluticasone 1 inh 1 inh BID INH ; Start 11/17/16 at 21:00 Cefepime HCl (Maxipime 1gm/50 ml (Pmx)) 50 ml @ 100 mls/hr Q24H IVPB Last administered on 11/19/16 13:02; Admin Dose 100 MLS/HR; Start 11/19/16 at 09:00 Metoprolol Tartrate (Lopressor) 25 mg BID PO ; Start 11/18/16 at 11:00 Amlodipine Besylate (Norvasc) 5 mg DAILY PO ; Start 11/18/16 at 11:00 Labetalol HCl (Labetalol) 10 mg Q4 PRN IV SBP >160; Start 11/19/16 at 10:30 Furosemide (Lasix) 20 mg DAILY IV ; Start 11/20/16 at 09:00 Famotidine (Pepcid) 20 mg DAILY PO ; Start 11/20/16 at 09:00 LUIS F XAVIER Nov 20, 2016 10:31
--- NOTE | 2016-11-20 10:38 | PN ---
DATE: 11/20/2016 SUBJECTIVE: The patient remains altered and confused. The patient had CT scan of the brain, no ac [place] findings, no other events noted. OBJECTIVE: VITAL SIGNS: Blood pressure is 162/77, respirations 20, pulse 126, temperature 98.6. HEENT: Head is normocephalic. NECK: Supple. HEART: Tachycardic. LUNGS: Show diminished breath sounds at the base. ABDOMEN: Soft, nontender to palpation. No rebound or guarding. EXTREMITIES: Negative for clubbing, cyanosis. Trace edema noted. DERMATOLOGIC: No rashes. MUSCULOSKELETAL: No joint effusions. NEUROLOGIC: Limited exam due to lack of patient cooperation. LABORATORY DATA: Shows sodium 145, potassium 4.5, chloride 108, BUN 29, creatinine 1.46, calcium 11 .9. White count 9.2, hemoglobin 9.6, hematocrit 31.8. CT scan brain showed no acute findings. ASSESSMENT AND PLAN: 1. Nonoliguric acute kidney injury on top of chronic kidney disease stage III. The patient was prev iously on hemodialysis; however, has shown excellent recovery. Etiology of SWATHI was likely due to he modynamics during the hospital course due to blood pressure fluctuations, diuretic use. The patient 's renal function, however, is still adequate as creatinine is 1.46 mg/dL. At this point, continue current treatment plan, supportive care, renally dose all medications, avoid nephrotoxins. 2. Hypernatremia, patient has a free water deficit of approximately 2 liters. Will increase D5W to 75 mL an hour, monitor. 3. Hypercalcemia, etiology is unclear. Workup is ongoing. The patient's PTH level is pending and vitamin D 125 levels within normal limits. If calcium levels should worsen, would consider calcitoni n. We will defer IV fluids as the patient may have had pulmonary edema on admission, monitor closel y. 4. Hypertension. Continue current blood pressure regimen. 5. Anemia. Continue to monitor hemoglobin and hematocrit levels. 6. Tachyarrhythmia. Continue to monitor. 7. Non-ST elevation myocardial infarction type 2. Continue current medical management. 8. Pneumonia, sepsis. Continue current antibiotic regimen. Repeat blood cultures are pending. 9. Acute encephalopathy, etiology unclear, possibly toxic metabolic. Patient's CT scan of brain wa s negative for acute CVA. There is low suspicion for uremia as patient's estimated EGFR on admissio n was 50 mL per minute. At this point, will continue current treatment plan and monitor. May consi robbin neurologic evaluation. 10. Chronic obstructive pulmonary disease, currently stable. Continue medical management. Dictated By: DERECK KENNEDY/RUTH Conf#: [id number] DID#: [id number]
[2016-11-20] MEDS: FUROSEMIDE 20 MG INJ IV SCH (11:24)
--- NOTE | 2016-11-20 11:42 | CONS ---
Date/Time of Note Date/Time of Note DATE: 11/20/16 TIME: 11:40 Assessment/Plan Assessment/Plan Additional Assessment/Plan Assessment and recommendations; 1. Patient admitted with congestive heart failure exacerbation with significant clinical improvement. 2. Altered mental status with interval improvement as well. 3. History of severe hypertension. 4. History of renal failure. On intermittent hemodialysis. 5. Possibly superimposed pneumonia. Continue current treatment. Patient responding well. Consultation Date/Type/Reason Admit Date/Time Nov 17, 2016 at 14:00 Initial Consult Date 11/18/16 Type of Consultation: Pulmonary Referring Provider: NAVA GOMEZ MD 24 HR Interval Summary Free Text/Dictation Patient condition is stable compared to yesterday. Patient is much more awake and alert. Next General examination; elderly lady, currently in no distress. Awake and alert. Exam/Review of Systems Vital Signs Vitals Vital Signs Date Time Temp Pulse Resp B/P Pulse Ox O2 Delivery O2 Flow Rate FiO2 11/20/16 08:45 Nasal Cannula 2.0 11/20/16 08:17 83 11/20/16 04:19 98.6 20 162/77 96 11/19/16 14:01 28 Intake and Output 11/19/16 11/19/16 11/20/16 15:00 23:00 07:00 Intake Total 50 ml 410 ml Balance 50 ml 410 ml Exam HEENT examination; supple neck, no JVD. No lymphadenopathy. Pupils are midsize and reactive to light. No neck masses. No thyromegaly. Chest examination; clear to auscultation bilaterally. S1-S2 audible, no murmurs. Regular rhythm. Abdomen examination; soft, nondistended. No organomegaly. Bowel sounds audible. Nontender. Extremity examination; no peripheral edema. STOCK TURNER examination; patient follows simple commands moves all 4 extremities. Results Result Diagram: 11/20/16 0911 11/20/16 0911 Results 24 hrs Laboratory Tests Test 11/19/16 14:48 11/20/16 09:11 Arterial Blood HCO3 24.4 Arterial Blood Base Excess -0.5 Arterial Blood Oxygen Saturation 95.0 Celestine Test ACCEPTAB Arterial Blood Gas Puncture Site Left Radial Arterial Blood Carboxyhemoglobin 0.3 Arterial Blood Date Drawn 11/19/2016 4:21:53 PM Arterial Blood Methemoglobin 0.3 Arterial Blood pCO2 (Temp correct) 40.6 Arterial Blood pH (Temp corrected) 7.396 Arterial Blood pO2 (Temp corrected) 77.0 L Blood Gas A-a O2 Differential 67.5 H Blood Gas Modality NASAL CANNULA Blood Gas Notified Time 11/19/2016 4:37:45 PM Blood Gas Notified Whom AT Blood Gas Specimen Source Blood arterial Blood Gas Temperature 37.0 FiO2 27.0 Oxyhemoglobin Percent 94.4 Total Hemoglobin 9.6 L Anion Gap 11 # Basophils # 0.1 Basophils % 0.8 Blood Urea Nitrogen 32 H Calcium Level 12.0 H Carbon Dioxide Level 30 Chloride Level 107 Creatinine 1.60 H Eosinophils # 0.2 Eosinophils % 3.2 Glucose Level 128 Hematocrit 30.0 L Hemoglobin 9.1 L Lymphocytes # 0.9 Lymphocytes % 12.5 L Magnesium Level 2.0 Mean Corpuscular Hemoglobin 26.9 L Mean Corpuscular Hemoglobin Concent 30.3 L Mean Corpuscular Volume 88.8 Mean Platelet Volume 9.0 Monocytes # 0.6 Monocytes % 8.2 Neutrophils # 5.3 Neutrophils % 74.6 Nucleated Red Blood Cells # 0.0 Nucleated Red Blood Cells % 0.0 Platelet Count 247 Potassium Level 4.0 Red Blood Count 3.38 L Red Cell Distribution Width 16.9 H Sodium Level 144 White Blood Count 7.1 # Medications Medications Current Medications Hydralazine HCl (Apresoline) 10 mg Q6H PRN IV ELEVATED BLOOD PRESSURE Last administered on 11/19/16 08:13; Admin Dose 10 MG; Start 11/17/16 at 17:30 Lorazepam (Ativan) 0.5 mg Q8H PRN PO ANXIETY Last administered on 11/17/16 18: 01; Admin Dose 0.5 MG; Start 11/17/16 at 17:30 Ondansetron HCl (Zofran Tab) 4 mg Q6H PRN PO NAUSEA AND/OR VOMITING; Start at 17:30 Nitroglycerin (Nitroglycerin (Sl Tab) 0.4 Mg) 1 tab Q5M PRN SL CHEST PAIN; Start 11/17/16 at 17:30 Acetaminophen (Tylenol Tab) 650 mg Q6H PRN PO PAIN LEVEL 1-3 OR FEVER; Start at 17:30 Acetaminophen (Tylenol Supp) 650 mg Q6H PRN [place] PAIN LEVEL 1-3 OR FEVER; Start 11/17/16 at 17:30 Morphine Sulfate (morphine) 2 mg Q4H PRN [place] PAIN LEVEL 7-10 Last administered on 11/20/16 04:00; Admin Dose 2 MG; Start 11/17/16 at 17:30 Docusate Sodium (Colace) 100 mg Q12H PRN PO CONSTIPATION; Start 11/17/16 at 17: 30 Bisacodyl (Dulcolax) 5 mg DAILY PRN PO CONSTIPATION; Start 11/17/16 at 17:30 Clonidine (Catapres) 0.1 mg Q6H PRN PO ELEVATED BLOOD PRESSURE; Start 11/17/16 at 17:30 Tiotropium [place] (Spiriva) 1 inh DAILY INH ; Start 11/18/16 at 09:00 Montelukast Sodium (Singulair) 10 mg HS PO ; Start 11/17/16 at 21:00 Salmeterol Xinafoate/ Fluticasone 1 inh 1 inh BID INH ; Start 11/17/16 at 21:00 Cefepime HCl (Maxipime 1gm/50 ml (Pmx)) 50 ml @ 100 mls/hr Q24H IVPB Last administered on 11/19/16 13:02; Admin Dose 100 MLS/HR; Start 11/19/16 at 09:00 Labetalol HCl (Labetalol) 10 mg Q4 PRN IV SBP >160; Start 11/19/16 at 10:30 Furosemide (Lasix) 20 mg DAILY IV Last administered on 11/20/16 11:24; Admin Dose 20 MG; Start 11/20/16 at 09:00 Famotidine (Pepcid) 20 mg DAILY PO ; Start 11/20/16 at 09:00 Metoprolol Tartrate (Lopressor) 2.5 mg Q6 IV ; Start 11/20/16 at 12:00 FRACISCO MCKENZIE Nov 20, 2016 11:42
[2016-11-20] MEDS: CEFEPIME 1GM/50 ML (PMX) 50 ML IVPB SCH (11:52)
[2016-11-20] MEDS: METOPROLOL 5 MG INJ IV SCH ×3 (11:59→23:24)
[2016-11-20] MEDS: hydrALAzine 20 MG INJ IV PRN (13:16)
--- NOTE | 2016-11-20 15:40 | PN ---
Date/Time of Note Date/Time of Note DATE: 11/20/16 TIME: 15:38 Assessment/Plan VTE Prophylaxis VTE Prophylaxis Intervention: SCD's Lines/Catheters IV [facility]from [facility]): Peripheral IV Urinary Cath still in place: No Assessment/Plan Chief Complaint/Hosp Course ASSESSMENT AND PLAN: 1. Left-sided pneumonia. The patient has been started on broad spectrum IV antibiotic. Pulmonology has been consulted, cefepime and vancomycin. 2. Chronic kidney failure. Nephrology has been consulted. Avoid nephrotoxic medication 3. Essential hypertension, continue medical management 4. Chronic obstructive pulmonary disease. Continue breathing treatment, Advair and Spiriva and Singular. 5. NSTEMI, cardiology has been consulted, continue aspirin statin beta rohith. Patient has been started on heparin drip 6. Altered mental status, with questionable sundowning/hospital-acquired delirium , no evidence of acute CVA on CT of the brain, possibly metabolic, consider neurology consultation if no improvement by tomorrow 6. Gastroesophageal reflux disease. Continue Pepcid 7. Deep venous thrombosis prophylaxis. The patient has been placed on heparin. We will continue to monitor patient closely. Further recommendations, management and treatment as per clinical course. Problems: Subjective 24 Hr Interval Summary Free Text/Dictation The patient remains altered and confused. The patient had CT scan of the brain , no acute findings, no other events noted. Patient was seen about a by speech therapy and has been placed the high risk for aspiration at this time Exam/Review of Systems Vital Signs Vitals Vital Signs Date Time Temp Pulse Resp B/P Pulse Ox O2 Delivery O2 Flow Rate FiO2 11/20/16 12:30 98.0 100 18 176/86 98 Nasal Cannula 2.0 11/19/16 14:01 28 Intake and Output 11/19/16 11/19/16 11/20/16 15:00 23:00 07:00 Intake Total 50 ml 410 ml Balance 50 ml 410 ml Exam General: The patient is morbidly obese not in acute distress. HEENT: Atraumatic, normocephalic. The pupils are equal and round . Neck: Supple with full range of motion. Chest: Normal expansion of the thorax during inspiration Lungs: Clear to auscultation bilaterally Heart: Normal S1-S2, Regular rhythm and rate. Abdomen: Soft , nontender, nondistended , bowel sounds are present. Extremities: Normal to inspection, no edema no cyanosis Neurologic: ,The patient is awake, altered Results Result Diagram: 11/20/16 0911 11/20/16 0911 Results 24 hrs Laboratory Tests Test 11/20/16 09:11 Anion Gap 11 # Basophils # 0.1 Basophils % 0.8 Blood Urea Nitrogen 32 H Calcium Level 12.0 H Carbon Dioxide Level 30 Chloride Level 107 Creatinine 1.60 H Eosinophils # 0.2 Eosinophils % 3.2 Glucose Level 128 Hematocrit 30.0 L Hemoglobin 9.1 L Lymphocytes # 0.9 Lymphocytes % 12.5 L Magnesium Level 2.0 Mean Corpuscular Hemoglobin 26.9 L Mean Corpuscular Hemoglobin Concent 30.3 L Mean Corpuscular Volume 88.8 Mean Platelet Volume 9.0 Monocytes # 0.6 Monocytes % 8.2 Neutrophils # 5.3 Neutrophils % 74.6 Nucleated Red Blood Cells # 0.0 Nucleated Red Blood Cells % 0.0 Platelet Count 247 Potassium Level 4.0 Red Blood Count 3.38 L Red Cell Distribution Width 16.9 H Sodium Level 144 White Blood Count 7.1 # Medications Medications Current Medications Hydralazine HCl (Apresoline) 10 mg Q6H PRN IV ELEVATED BLOOD PRESSURE Last administered on 11/20/16 13:16; Admin Dose 10 MG; Start 11/17/16 at 17:30 Lorazepam (Ativan) 0.5 mg Q8H PRN PO ANXIETY Last administered on 11/17/16 18: 01; Admin Dose 0.5 MG; Start 11/17/16 at 17:30 Ondansetron HCl (Zofran Tab) 4 mg Q6H PRN PO NAUSEA AND/OR VOMITING; Start at 17:30 Nitroglycerin (Nitroglycerin (Sl Tab) 0.4 Mg) 1 tab Q5M PRN SL CHEST PAIN; Start 11/17/16 at 17:30 Acetaminophen (Tylenol Tab) 650 mg Q6H PRN PO PAIN LEVEL 1-3 OR FEVER; Start at 17:30 Acetaminophen (Tylenol Supp) 650 mg Q6H PRN [place] PAIN LEVEL 1-3 OR FEVER; Start 11/17/16 at 17:30 Morphine Sulfate (morphine) 2 mg Q4H PRN IV PAIN LEVEL 7-10 Last administered on 11/20/16 04:00; Admin Dose 2 MG; Start 11/17/16 at 17:30 Docusate Sodium (Colace) 100 mg Q12H PRN PO CONSTIPATION; Start 11/17/16 at 17: 30 Bisacodyl (Dulcolax) 5 mg DAILY PRN PO CONSTIPATION; Start 11/17/16 at 17:30 Clonidine (Catapres) 0.1 mg Q6H PRN PO ELEVATED BLOOD PRESSURE; Start 11/17/16 at 17:30 Tiotropium [place] (Spiriva) 1 inh DAILY INH ; Start 11/18/16 at 09:00 Montelukast Sodium (Singulair) 10 mg HS PO ; Start 11/17/16 at 21:00 Salmeterol Xinafoate/ Fluticasone 1 inh 1 inh BID INH ; Start 11/17/16 at 21:00 Cefepime HCl (Maxipime 1gm/50 ml (Pmx)) 50 ml @ 100 mls/hr Q24H IVPB Last administered on 11/20/16 11:52; Admin Dose 100 MLS/HR; Start 11/19/16 at 09:00 Labetalol HCl (Labetalol) 10 mg Q4 PRN IV SBP >160; Start 11/19/16 at 10:30 Furosemide (Lasix) 20 mg DAILY IV Last administered on 11/20/16 11:24; Admin Dose 20 MG; Start 11/20/16 at 09:00 Famotidine (Pepcid) 20 mg DAILY PO ; Start 11/20/16 at 09:00 Metoprolol Tartrate (Lopressor) 2.5 mg Q6 IV Last administered on 11/20/16 11: 59; Admin Dose 2.5 MG; Start 11/20/16 at 12:00 Mupirocin 1 applic 1 applic TID TOP ; Start 11/20/16 at 15:00; Stop 11/23/16 at 09:01 Dextrose (D5W) 1,000 ml @ 75 mls/hr [id number] IV ; Start 11/20/16 at 15:00 NAVA GOMEZ MD Nov 20, 2016 15:40
[2016-11-20] MEDS: MUPIROCIN 2% 22 GM OINT TOP SCH ×2 (16:56→20:44)
[2016-11-20] MEDS: DEXTROSE 5% 1,000 ML IV SCH (16:58)
[2016-11-20] MEDS: MONTELUKAST 10 MG TAB PO SCH (20:42)
[2016-11-21] VITALS (11 sets, daily range): BP systolic 155–188; BP diastolic 73–93; PULSE 80–93; RESP 19–22
[2016-11-21] MEDS: DEXTROSE 5% 1,000 ML IV SCH ×4 (04:20→21:09)
[2016-11-21] MEDS: METOPROLOL 5 MG INJ IV SCH ×3 (06:19→17:46)
[2016-11-21 07:48] LABS: ADD SCAN DIFF NO
[2016-11-21 08:14] LABS: POTASSIUM 3.9 mmol/L (3.5-5.1)
[2016-11-21 08:16] LABS: CREATININE 1.58 mg/dl (0.44-1.00)
[2016-11-21 08:17] LABS: CALCIUM 12.1 mg/dl (8.4-10.2); MAGNESIUM 1.9 mg/dl (1.7-2.5); PHOSPHORUS 2.4 mg/dl (2.5-4.9)
[2016-11-21] MEDS: TIOTROPIUM 18 MCG CAPSULE INHA DEV INH SCH (09:00)
[2016-11-21] MEDS: SALMETEROL/FLUTICASONE 250/50 INHA INH SCH ×2 (09:00→21:09)
[2016-11-21] MEDS: FAMOTIDINE 20 MG TAB PO SCH (09:00)
[2016-11-21] MEDS: CEFEPIME 1GM/50 ML (PMX) 50 ML IVPB SCH (09:09)
[2016-11-21] MEDS: FUROSEMIDE 20 MG INJ IV SCH (09:09)
[2016-11-21] MEDS: MUPIROCIN 2% 22 GM OINT TOP SCH ×3 (09:12→21:25)
[2016-11-21 09:13] LABS: BASOPHIL # 0.1 10^3/ul (0.0-0.1); EOSINOPHILS # 0.4 10^3/ul (0.0-0.5); EOSINOPHILS % 6.1 % (0.0-7.0); HEMATOCRIT 30.1 % (37.0-47.0); HEMOGLOBIN 9.1 g/dl (12.0-16.0); LYMPHOCYTES # 1.2 10^3/ul (0.8-2.9); LYMPHOCYTES % 16.3 % (15.0-51.0); MEAN CORPUSCULAR HEMOGLOBIN 26.7 pg (29.0-33.0); MEAN CORPUSCULAR HGB CONC 30.2 g/dl (32.0-37.0); MEAN CORPUSCULAR VOLUME 88.3 fl (82.0-101.0); MONOCYTE # 0.7 10^3/ul (0.3-0.9); MONOCYTES % 10.3 % (0.0-11.0); NEUTROPHIL # 4.7 10^3/ul (1.6-7.5); NEUTROPHILS % 65.5 % (39.0-77.0); PLATELET COUNT 254 10^3/UL (140-415); RED BLOOD COUNT 3.41 10^6/ul (4.20-5.40); RED CELL DISTRIBUTION WIDTH 16.9 % (11.5-14.5); WHITE BLOOD COUNT 7.2 10^3/ul (4.8-10.8)
--- NOTE | 2016-11-21 09:59 | PN ---
DATE: 11/21/2016 SUBJECTIVE: The patient remains confused and altered. No significant change. OBJECTIVE: VITAL SIGNS: Blood pressure is 176/81, respirations 20, pulse 95, temperature 97.7. HEENT: Head is normocephalic. Pupils are reactive pelvis. Mouth shows dry mucous membranes. NECK: Supple. HEART: Regular rate. LUNGS: Showed diminished breath sounds at the base. ABDOMEN: Soft and nontender to palpation. No rebound or guarding. EXTREMITIES: Negative for clubbing or cyanosis. Trace edema. DERMATOLOGIC: No rashes. MUSCULOSKELETAL: Have no joint effusion. NEUROLOGIC: The patient remains confused and altered. LABORATORY DATA: Shows sodium 143, potassium 2.9, chloride 105, BUN 28, creatinine 0.58, calcium 12 .1. White count 7.1, hemoglobin 9.1, hematocrit 30.0, platelet count is 247. ASSESSMENT AND PLAN: 1. Nonoliguric acute kidney injury on top of chronic kidney disease stage 3. Etiology was secondar y to hemodynamics. The patient's renal function appears to have stabilized. Will continue the [facility] ent treatment plan, supportive care, renally dose all medications. The patient was previously on he modialysis, now showing excellent recovery. 2. Hypernatremia, improving. Continue D5W at the current rate 3. Hypercalcemia. Etiology is unclear. Workup is ongoing. The patient's PTH level is pending. V itamin D 125 levels are within normal limits. Will start the patient on calcitonin 4 units per kg q .12h, given the patient's worsening hypercalcemia and continued encephalopathy. Will continue to mo nitor closely. 4. Acute encephalopathy. Etiology may be multifactorial secondary to hypercalcemia and toxic metab olic. The patient's CT scan is negative for any acute findings. Plan is to start the patient on ca lcitonin and treat underlying hypocalcemia. Would consider maybe a neurologic evaluation and monito r. 5. Hypertension. Continue the current blood pressure regimen. 6. Anemia. Continue to monitor hemoglobin and hematocrit levels. 7. Tachyarrhythmia. Continue to monitor. 8. Non-ST elevation myocardial infarction type 2. Continue current medical management. 9. History of chronic obstructive pulmonary disease. Stable. Continue to monitor. Dictated By: DERECK KENNEDY/RUTH Conf#: [id number] [facility]#: [id number]
[2016-11-21] MEDS: CALCITONIN SALMON 400 UNITS INJ SC SCH (10:57)
--- NOTE | 2016-11-21 11:13 | CONS ---
Date/Time of Note Date/Time of Note DATE: 11/21/16 TIME: 11:10 Assessment/Plan Assessment/Plan Additional Assessment/Plan Assessment recommendations; 1. Patient admitted with CHF exacerbation with significant clinical and radiological improvement. 2. History of renal failure, on intermittent hemodialysis. 3. Possibly superimposed pneumonia. However chest x-ray is significantly improved. 4. Hypercalcemia, patient is receiving calcitonin. Also on D5 drip. 5. Very poor poor oral intake. 6. History of severe hypertension. 7. Likely metabolic encephalopathy. Continue current treatment. Possible Dobbhoff tube. And start the patient on feeding via Dobbhoff tube. Overall prognosis remains guarded. Consultation Date/Type/Reason Admit Date/Time Nov 17, 2016 at 14:00 Initial Consult Date 11/18/16 Type of Consultation: Pulmonary Referring Provider: NAVA GOMEZ MD 24 HR Interval Summary Free Text/Dictation Patient's condition is tenuous at best. Mental status is still very poor. However is awake but does not respond appropriately to any commands. Has remained hemodynamically stable. General examination; elderly lady, currently in no distress. Does not respond to any commands. Exam/Review of Systems Vital Signs Vitals Vital Signs Date Time Temp Pulse Resp B/P Pulse Ox O2 Delivery O2 Flow Rate FiO2 11/21/16 08:22 93 11/21/16 08:15 Nasal Cannula 2.0 11/21/16 08:12 97.7 20 176/81 96 11/19/16 14:01 28 Intake and Output 11/20/16 11/20/16 11/21/16 15:00 23:00 07:00 Intake Total 650 ml 750 ml Balance 650 ml 750 ml Exam H EENT examination; supple neck, no JVD. No lymphadenopathy. Midline trachea. No thyromegaly. Pupils are small bilaterally. Chest examination; diminished but clear breath sounds bilaterally. S1-S2 audible, no murmurs. Regular rhythm. Abdomen examination; soft, nontender. No organomegaly. Bowel sounds audible. Extremity examination; no peripheral edema. CLOUD PHYSICIST examination; patient is awake but does not follow any commands. Moves all 4 extremities spontaneously. Results Result Diagram: 11/21/16 0720 11/21/16 0720 Results 24 hrs Laboratory Tests Test 11/21/16 07:20 Anion Gap 13 Basophils # 0.1 Basophils % 1.0 Blood Urea Nitrogen 28 H Calcium Level 12.1 H Carbon Dioxide Level 29 Chloride Level 105 Creatinine 1.58 H Eosinophils # 0.4 Eosinophils % 6.1 Glucose Level 139 Hematocrit 30.1 L Hemoglobin 9.1 L Lymphocytes # 1.2 Lymphocytes % 16.3 Magnesium Level 1.9 Mean Corpuscular Hemoglobin 26.7 L Mean Corpuscular Hemoglobin Concent 30.2 L Mean Corpuscular Volume 88.3 Mean Platelet Volume 9.0 Monocytes # 0.7 Monocytes % 10.3 Neutrophils # 4.7 Neutrophils % 65.5 Nucleated Red Blood Cells # 0.0 Nucleated Red Blood Cells % 0.0 Phosphorus Level 2.4 L Platelet Count 254 Potassium Level 3.9 Red Blood Count 3.41 L Red Cell Distribution Width 16.9 H Sodium Level 143 White Blood Count 7.2 Medications Medications Current Medications Hydralazine HCl (Apresoline) 10 mg Q6H PRN IV ELEVATED BLOOD PRESSURE Last administered on 11/20/16 13:16; Admin Dose 10 MG; Start 11/17/16 at 17:30 Lorazepam (Ativan) 0.5 mg Q8H PRN PO ANXIETY Last administered on 11/17/16 18: 01; Admin Dose 0.5 MG; Start 11/17/16 at 17:30 Ondansetron HCl (Zofran Tab) 4 mg Q6H PRN PO NAUSEA AND/OR VOMITING; Start at 17:30 Nitroglycerin (Nitroglycerin (Sl Tab) 0.4 Mg) 1 tab Q5M PRN SL CHEST PAIN; Start 11/17/16 at 17:30 Acetaminophen (Tylenol Tab) 650 mg Q6H PRN PO PAIN LEVEL 1-3 OR FEVER; Start at 17:30 Acetaminophen (Tylenol Supp) 650 mg Q6H PRN [place] PAIN LEVEL 1-3 OR FEVER; Start 11/17/16 at 17:30 Morphine Sulfate (morphine) 2 mg Q4H PRN IV PAIN LEVEL 7-10 Last administered on 11/20/16 04:00; Admin Dose 2 MG; Start 11/17/16 at 17:30 Docusate Sodium (Colace) 100 mg Q12H PRN PO CONSTIPATION; Start 11/17/16 at 17: 30 Bisacodyl (Dulcolax) 5 mg DAILY PRN PO CONSTIPATION; Start 11/17/16 at 17:30 Clonidine (Catapres) 0.1 mg Q6H PRN PO ELEVATED BLOOD PRESSURE; Start 11/17/16 at 17:30 Tiotropium [place] (Spiriva) 1 inh DAILY INH ; Start 11/18/16 at 09:00 Montelukast Sodium (Singulair) 10 mg HS PO ; Start 11/17/16 at 21:00 Salmeterol Xinafoate/ Fluticasone 1 inh 1 inh BID INH ; Start 11/17/16 at 21:00 Cefepime HCl (Maxipime 1gm/50 ml (Pmx)) 50 ml @ 100 mls/hr Q24H IVPB Last administered on 11/21/16 09:09; Admin Dose 100 MLS/HR; Start 11/19/16 at 09:00 Labetalol HCl (Labetalol) 10 mg Q4 PRN IV SBP >160; Start 11/19/16 at 10:30 Furosemide (Lasix) 20 mg DAILY IV Last administered on 11/21/16 09:09; Admin Dose 20 MG; Start 11/20/16 at 09:00 Famotidine (Pepcid) 20 mg DAILY PO ; Start 11/20/16 at 09:00 Metoprolol Tartrate (Lopressor) 2.5 mg Q6 IV Last administered on 11/21/16 06: 19; Admin Dose 2.5 MG; Start 11/20/16 at 12:00 Mupirocin 1 applic 1 applic TID TOP Last administered on 11/21/16 09:12; Admin Dose 1 APPLIC; Start 11/20/16 at 15:00; Stop 11/23/16 at 09:01 Dextrose (D5W) 1,000 ml @ 75 mls/hr [id number] IV Last administered on 11/21/16 06:53; Admin Dose 75 MLS/HR; Start 11/20/16 at 15:00 Calcitonin [place] (Miacalcin Inj) 308 units BID SC Last administered on 10:57; Admin Dose 308 UNITS; Start 11/21/16 at 10:30 FRACISCO MCKENZIE Nov 21, 2016 11:13
--- NOTE | 2016-11-21 11:25 | PN ---
Date/Time of Note Date/Time of Note DATE: 11/21/16 TIME: 11:21 Assessment/Plan VTE Prophylaxis VTE Prophylaxis Intervention: other Lines/Catheters IV Catheter Type (from Nrs): Saline Lock Urinary Cath still in place: No Assessment/Plan Assessment/Plan SOB: ?combination of PNA +/- mild CHF. ?Paroxysmal atrial tachycardia: HRs improved over past 24 hours Accelerated HTN: BP remains elevated. Cant tolerate PO as did not pass swallow eval NSTEMI: type II in setting of above. Treat medically. EF preserved. CKD: was previously on HD, now off DM COPD -Increase Metoprolol 5mg IV q6h scheduled dosing, will consider transition to enteral route tomorrow (post NGT placement) -Continue Lasix 20mg IV daily -PRN hydralazine and labetolol -Abx per primary team, f/u cultures -Consider DVT prophylaxis per primary team Subjective 24 Hr Interval Summary Free Text/Dictation No major events overnight. BP remains elevated, HR generally controlled ( occasional tachycardia) Exam/Review of Systems Vital Signs Vitals Vital Signs Date Time Temp Pulse Resp B/P Pulse Ox O2 Delivery O2 Flow Rate FiO2 11/21/16 08:22 93 11/21/16 08:15 Nasal Cannula 2.0 11/21/16 08:12 97.7 20 176/81 96 11/19/16 14:01 28 Intake and Output 11/20/16 11/20/16 11/21/16 15:00 23:00 07:00 Intake Total 650 ml 750 ml Balance 650 ml 750 ml Tele: sinus, brief episodes of tachycardia (110s) Exam Constitutional: Agitated (NGT currently being inserted) Head: atraumatic, normocephalic Neck: jvd (8cm). right subclavian perm-a-cath in place Respiratory: diminished breath sounds, No clear to auscultation Cardiovascular: edema (1+ sacral ), tachycardic, systolic murmur (2/6 CATHY), Neurological: No nl mental status, No nl speech Results Result Diagram: 11/21/16 0720 11/21/16 07 Results 24 hrs Laboratory Tests Test 11/21/16 07:20 Anion Gap 13 Basophils # 0.1 Basophils % 1.0 Blood Urea Nitrogen 28 H Calcium Level 12.1 H Carbon Dioxide Level 29 Chloride Level 105 Creatinine 1.58 H Eosinophils # 0.4 Eosinophils % 6.1 Glucose Level 139 Hematocrit 30.1 L Hemoglobin 9.1 L Lymphocytes # 1.2 Lymphocytes % 16.3 Magnesium Level 1.9 Mean Corpuscular Hemoglobin 26.7 L Mean Corpuscular Hemoglobin Concent 30.2 L Mean Corpuscular Volume 88.3 Mean Platelet Volume 9.0 Monocytes # 0.7 Monocytes % 10.3 Neutrophils # 4.7 Neutrophils % 65.5 Nucleated Red Blood Cells # 0.0 Nucleated Red Blood Cells % 0.0 Phosphorus Level 2.4 L Platelet Count 254 Potassium Level 3.9 Red Blood Count 3.41 L Red Cell Distribution Width 16.9 H Sodium Level 143 White Blood Count 7.2 Medications Medications Current Medications Hydralazine HCl (Apresoline) 10 mg Q6H PRN IV ELEVATED BLOOD PRESSURE Last administered on 11/20/16 13:16; Admin Dose 10 MG; Start 11/17/16 at 17:30 Lorazepam (Ativan) 0.5 mg Q8H PRN PO ANXIETY Last administered on 11/17/16 18: 01; Admin Dose 0.5 MG; Start 11/17/16 at 17:30 Ondansetron HCl (Zofran Tab) 4 mg Q6H PRN PO NAUSEA AND/OR VOMITING; Start at 17:30 Nitroglycerin (Nitroglycerin (Sl Tab) 0.4 Mg) 1 tab Q5M PRN SL CHEST PAIN; Start 11/17/16 at 17:30 Acetaminophen (Tylenol Tab) 650 mg Q6H PRN PO PAIN LEVEL 1-3 OR FEVER; Start at 17:30 Acetaminophen (Tylenol Supp) 650 mg Q6H PRN [place] PAIN LEVEL 1-3 OR FEVER; Start 11/17/16 at 17:30 Morphine Sulfate (morphine) 2 mg Q4H PRN IV PAIN LEVEL 7-10 Last administered on 11/20/16 04:00; Admin Dose 2 MG; Start 11/17/16 at 17:30 Docusate Sodium (Colace) 100 mg Q12H PRN PO CONSTIPATION; Start 11/17/16 at 17: 30 Bisacodyl (Dulcolax) 5 mg DAILY PRN PO CONSTIPATION; Start 11/17/16 at 17:30 Clonidine (Catapres) 0.1 mg Q6H PRN PO ELEVATED BLOOD PRESSURE; Start 11/17/16 at 17:30 Tiotropium [place] (Spiriva) 1 inh DAILY INH ; Start 11/18/16 at 09:00 Montelukast Sodium (Singulair) 10 mg HS PO ; Start 11/17/16 at 21:00 Salmeterol Xinafoate/ Fluticasone 1 inh 1 inh BID INH ; Start 11/17/16 at 21:00 Cefepime HCl (Maxipime 1gm/50 ml (Pmx)) 50 ml @ 100 mls/hr Q24H IVPB Last administered on 11/21/16 09:09; Admin Dose 100 MLS/HR; Start 11/19/16 at 09:00 Labetalol HCl (Labetalol) 10 mg Q4 PRN IV SBP >160; Start 11/19/16 at 10:30 Furosemide (Lasix) 20 mg DAILY IV Last administered on 11/21/16 09:09; Admin Dose 20 MG; Start 11/20/16 at 09:00 Famotidine (Pepcid) 20 mg DAILY PO ; Start 11/20/16 at 09:00 Metoprolol Tartrate (Lopressor) 2.5 mg Q6 IV Last administered on 11/21/16 06: 19; Admin Dose 2.5 MG; Start 11/20/16 at 12:00 Mupirocin 1 applic 1 applic TID TOP Last administered on 11/21/16 09:12; Admin Dose 1 APPLIC; Start 11/20/16 at 15:00; Stop 11/23/16 at 09:01 Dextrose (D5W) 1,000 ml @ 75 mls/hr [id number] IV Last administered on 11/21/16 06:53; Admin Dose 75 MLS/HR; Start 11/20/16 at 15:00 Calcitonin [place] (Miacalcin Inj) 308 units BID SC Last administered on 10:57; Admin Dose 308 UNITS; Start 11/21/16 at 10:30 ALIREZA WILLS MD Nov 21, 2016 11:25
--- NOTE | 2016-11-21 15:09 | PN ---
Date/Time of Note Date/Time of Note DATE: 11/21/16 TIME: 15:06 Assessment/Plan VTE Prophylaxis VTE Prophylaxis Intervention: heparin Lines/Catheters [facility] Saline Lock Urinary Cath still in place: No Assessment/Plan Chief Complaint/Hosp Course ASSESSMENT AND PLAN: 1. Left-sided pneumonia. The patient has been started on broad spectrum IV antibiotic. Pulmonology has been consulted, cefepime and vancomycin. 2. Chronic kidney failure. Nephrology has been consulted. Avoid nephrotoxic medication 3. Essential hypertension, continue medical management 4. Chronic obstructive pulmonary disease. Continue breathing treatment, Advair and Spiriva and Singular. 5. NSTEMI, cardiology has been consulted, continue aspirin statin beta rohith. Patient has been started on heparin drip 6. Altered mental status, with questionable sundowning/hospital-acquired delirium , no evidence of acute CVA on CT of the brain, possibly metabolic, neurology has been consulted 6. Gastroesophageal reflux disease. Continue Pepcid 7. Deep venous thrombosis prophylaxis. The patient has been placed on heparin. We will continue to monitor patient closely. Further recommendations, management and treatment as per clinical course. Problems: Subjective 24 Hr Interval Summary Free Text/Dictation Patient continues to be altered NG tube placement was not successful by more than 3 attempts Patient has not been able to tolerate any p.o. intake secondary to high risk for aspiration Exam/Review of Systems Vital Signs Vitals Vital Signs Date Time Temp Pulse Resp B/P Pulse Ox O2 Delivery O2 Flow Rate FiO2 11/21/16 12:30 92 11/21/16 12:09 97.7 20 155/80 95 11/21/16 08:15 Nasal Cannula 2.0 11/19/16 14:01 28 Intake and Output 11/20/16 11/20/16 11/21/16 15:00 23:00 07:00 Intake Total 650 ml 750 ml Balance 650 ml 750 ml Exam General: The patient is moderately overweight, altered HEENT: Atraumatic, normocephalic. The pupils are equal and round . Poor dentition Neck: Supple with full range of motion. Chest: Normal expansion of the thorax during inspiration Lungs: Clear to auscultation bilaterally Heart: Normal S1-S2, Regular rhythm and rate. Abdomen: Soft , nontender, nondistended , bowel sounds are present. Extremities: Status dermatitis bilateral lower extremity, nonpitting edema no cyanosis Neurologic: ,The patient is awake, altered Results Result Diagram: 11/21/16 0720 11/21/16 0720 Results 24 hrs Laboratory Tests Test 11/21/16 07:20 Anion Gap 13 Basophils # 0.1 Basophils % 1.0 Blood Urea Nitrogen 28 H Calcium Level 12.1 H Carbon Dioxide Level 29 Chloride Level 105 Creatinine 1.58 H Eosinophils # 0.4 Eosinophils % 6.1 Glucose Level 139 Hematocrit 30.1 L Hemoglobin 9.1 L Lymphocytes # 1.2 Lymphocytes % 16.3 Magnesium Level 1.9 Mean Corpuscular Hemoglobin 26.7 L Mean Corpuscular Hemoglobin Concent 30.2 L Mean Corpuscular Volume 88.3 Mean Platelet Volume 9.0 Monocytes # 0.7 Monocytes % 10.3 Neutrophils # 4.7 Neutrophils % 65.5 Nucleated Red Blood Cells # 0.0 Nucleated Red Blood Cells % 0.0 Phosphorus Level 2.4 L Platelet Count 254 Potassium Level 3.9 Red Blood Count 3.41 L Red Cell Distribution Width 16.9 H Sodium Level 143 White Blood Count 7.2 Medications Medications Current Medications Hydralazine HCl (Apresoline) 10 mg Q6H PRN IV ELEVATED BLOOD PRESSURE Last administered on 11/20/16 13:16; Admin Dose 10 MG; Start 11/17/16 at 17:30 Lorazepam (Ativan) 0.5 mg Q8H PRN PO ANXIETY Last administered on 11/17/16 18: 01; Admin Dose 0.5 MG; Start 11/17/16 at 17:30 Ondansetron HCl (Zofran Tab) 4 mg Q6H PRN PO NAUSEA AND/OR VOMITING; Start at 17:30 Nitroglycerin (Nitroglycerin (Sl Tab) 0.4 Mg) 1 tab Q5M PRN SL CHEST PAIN; Start 11/17/16 at 17:30 Acetaminophen (Tylenol Tab) 650 mg Q6H PRN PO PAIN LEVEL 1-3 OR FEVER; Start at 17:30 Acetaminophen (Tylenol Supp) 650 mg Q6H PRN [place] PAIN LEVEL 1-3 OR FEVER; Start 11/17/16 at 17:30 Morphine Sulfate (morphine) 2 mg Q4H PRN IV PAIN LEVEL 7-10 Last administered on 11/20/16 04:00; Admin Dose 2 MG; Start 11/17/16 at 17:30 Docusate Sodium (Colace) 100 mg Q12H PRN PO CONSTIPATION; Start 11/17/16 at 17: 30 Bisacodyl (Dulcolax) 5 mg DAILY PRN PO CONSTIPATION; Start 11/17/16 at 17:30 Clonidine (Catapres) 0.1 mg Q6H PRN PO ELEVATED BLOOD PRESSURE; Start 11/17/16 at 17:30 Tiotropium [place] (Spiriva) 1 inh DAILY INH ; Start 11/18/16 at 09:00 Montelukast Sodium (Singulair) 10 mg HS PO ; Start 11/17/16 at 21:00 Salmeterol Xinafoate/ Fluticasone 1 inh 1 inh BID INH ; Start 11/17/16 at 21:00 Cefepime HCl (Maxipime 1gm/50 ml (Pmx)) 50 ml @ 100 mls/hr Q24H IVPB Last administered on 11/21/16 09:09; Admin Dose 100 MLS/HR; Start 11/19/16 at 09:00 Labetalol HCl (Labetalol) 10 mg Q4 PRN IV SBP >160; Start 11/19/16 at 10:30 Furosemide (Lasix) 20 mg DAILY IV Last administered on 11/21/16 09:09; Admin Dose 20 MG; Start 11/20/16 at 09:00 Famotidine (Pepcid) 20 mg DAILY PO ; Start 11/20/16 at 09:00 Mupirocin 1 applic 1 applic TID TOP Last administered on 11/21/16 13:49; Admin Dose 1 APPLIC; Start 11/20/16 at 15:00; Stop 11/23/16 at 09:01 Dextrose (D5W) 1,000 ml @ 75 mls/hr [id number] IV Last administered on 11/21/16 06:53; Admin Dose 75 MLS/HR; Start 11/20/16 at 15:00 Calcitonin [place] (Miacalcin Inj) 308 units BID SC Last administered on 10:57; Admin Dose 308 UNITS; Start 11/21/16 at 10:30 Metoprolol Tartrate (Lopressor) 5 mg Q6 IV Last administered on 11/21/16 11:58 ; Admin Dose 5 MG; Start 11/21/16 at 12:00 Miscellaneous Information (*Rx Drug Level Order Reminder*) RANDOM VANCOMYCIN LEVEL 2... ONCE ONCE XX ; Start 11/22/16 at 05:00; Stop 11/22/16 at 05:01 NAVA GOMEZ MD Nov 21, 2016 15:09
[2016-11-21 16:05] LABS: ADD UMIC YES; URINE BILIRUBIN (Dip) NEGATIVE (NEGATIVE); URINE BLOOD (Dip) TRACE (NEGATIVE); URINE COLOR LT. YELLOW (YELLOW); URINE GLUCOSE (Dip) NEGATIVE (NEGATIVE); URINE KETONES (Dip) NEGATIVE (NEGATIVE); URINE LEUKOCYTE ESTERASE (Dip) NEGATIVE (NEGATIVE); URINE NITRITE (Dip) NEGATIVE (NEGATIVE); URINE TOTAL PROTEIN (Dip) NEGATIVE (NEGATIVE); URINE UROBILINOGEN (Dip) 0.2 E.U./dL (0.1-1.0)
[2016-11-21 16:42] LABS: BACTERIA,URINE RARE; SQUAMOUS EPITHELIAL CELL,UR FEW; URINE RBCS 0-2 /HPF (0)
[2016-11-21] MEDS: MONTELUKAST 10 MG TAB PO SCH (21:00)
[2016-11-22] VITALS (13 sets, daily range): BP systolic 131–190; BP diastolic 60–91; PULSE 72–85; RESP 18–22
[2016-11-22] MEDS: METOPROLOL 5 MG INJ IV SCH ×4 (00:30→18:34)
[2016-11-22] MEDS: CALCITONIN SALMON 400 UNITS INJ SC SCH ×3 (00:31→21:00)
[2016-11-22 06:17] LABS: ADD SCAN DIFF NO
[2016-11-22 06:23] LABS: BASOPHIL # 0.1 10^3/ul (0.0-0.1); BASOPHILS % 0.7 % (0.0-2.0); EOSINOPHILS # 0.2 10^3/ul (0.0-0.5); EOSINOPHILS % 2.6 % (0.0-7.0); HEMATOCRIT 29.5 % (37.0-47.0); HEMOGLOBIN 9.1 g/dl (12.0-16.0); LYMPHOCYTES # 1.2 10^3/ul (0.8-2.9); LYMPHOCYTES % 16.6 % (15.0-51.0); MEAN CORPUSCULAR HEMOGLOBIN 27.1 pg (29.0-33.0); MEAN CORPUSCULAR HGB CONC 30.8 g/dl (32.0-37.0); MEAN CORPUSCULAR VOLUME 87.8 fl (82.0-101.0); MEAN PLATELET VOLUME 9.1 fl (7.4-10.4); MONOCYTE # 0.6 10^3/ul (0.3-0.9); MONOCYTES % 8.8 % (0.0-11.0); NEUTROPHIL # 5.2 10^3/ul (1.6-7.5); NEUTROPHILS % 70.8 % (39.0-77.0); PLATELET COUNT 232 10^3/UL (140-415); RED BLOOD COUNT 3.36 10^6/ul (4.20-5.40); RED CELL DISTRIBUTION WIDTH 16.5 % (11.5-14.5); WHITE BLOOD COUNT 7.3 10^3/ul (4.8-10.8)
[2016-11-22 06:27] LABS: POTASSIUM 3.7 mmol/L (3.5-5.1)
[2016-11-22 06:30] LABS: CREATININE 1.49 mg/dl (0.44-1.00)
[2016-11-22 06:31] LABS: CALCIUM 11.1 mg/dl (8.4-10.2); MAGNESIUM 1.7 mg/dl (1.7-2.5); PHOSPHORUS 2.6 mg/dl (2.5-4.9)
--- NOTE | 2016-11-22 07:39 | CONS ---
Date/Time of Note Date/Time of Note DATE: 11/22/16 TIME: 07:38 Consult Date/Type/Reason Admit Date/Time Nov 17, 2016 at 14:00 Initial Consult Date 11/18/16 Type of Consultation: Pulmonary Ordering Provider: NAVA GOMEZ MD Subjective BP still elevated, HRs better controlled. NGT unable to be placed/maintained ( patient kept pulling out) Objective Vital Signs Date Time Temp Pulse Resp B/P Pulse Ox O2 Delivery O2 Flow Rate FiO2 11/22/16 06:46 2.0 11/22/16 04:38 97.5 79 22 190/91 96 11/21/16 20:00 Nasal Cannula 11/19/16 14:01 28 Intake and Output 11/21/16 11/21/16 11/22/16 15:00 23:00 07:00 Intake Total 950 ml Balance 950 ml Constitutional: Asleep comfortably Head: atraumatic, normocephalic Neck: jvd (8cm). right subclavian perm-a-cath in place Respiratory: diminished breath sounds, No clear to auscultation Cardiovascular: edema (1+ sacral ), LE lymphedema, RRR, systolic murmur (2/6 CATHY), Neurological: No nl mental status, No nl speech Results/Medications Result Diagram: 11/22/1645 11/22/16 0545 Results 24 hrs Laboratory Tests Test 11/21/16 14:35 11/22/16 05:45 Urine Bacteria RARE Urine Bilirubin NEGATIVE Urine Clarity CLEAR Urine Color LT. YELLOW Urine Glucose NEGATIVE Urine Hemoglobin TRACE Urine Ketones NEGATIVE Urine Leukocyte Esterase NEGATIVE Urine Microscopic RBC 0-2 Urine Microscopic WBC NONE SEEN Urine Nitrite NEGATIVE Urine Random Creatinine 15.77 L Urine Random Sodium 146 H Urine Specific [place] 1.015 Urine Squamous Epithelial Cells FEW Urine Total Protein Urine Urobilinogen 0.2 E.U./dL Urine pH 5.5 Anion Gap 12 Basophils # 0.1 Basophils % 0.7 Blood Urea Nitrogen 24 H Calcium Level 11.1 H Carbon Dioxide Level 30 Chloride Level 100 Creatinine 1.49 H Eosinophils # 0.2 Eosinophils % 2.6 Glucose Level 147 Hematocrit 29.5 L Hemoglobin 9.1 L Lymphocytes # 1.2 Lymphocytes % 16.6 Magnesium Level 1.7 Mean Corpuscular Hemoglobin 27.1 L Mean Corpuscular Hemoglobin Concent 30.8 L Mean Corpuscular Volume 87.8 Mean Platelet Volume 9.1 Monocytes # 0.6 Monocytes % 8.8 Neutrophils # 5.2 Neutrophils % 70.8 Nucleated Red Blood Cells # 0.0 Nucleated Red Blood Cells % 0.0 Phosphorus Level 2.6 Platelet Count 232 Potassium Level 3.7 Random Vancomycin Level 12.2 Red Blood Count 3.36 L Red Cell Distribution Width 16.5 H Sodium Level 138 White Blood Count 7.3 Medications Current Medications Hydralazine HCl (Apresoline) 10 mg Q6H PRN IV ELEVATED BLOOD PRESSURE Last administered on 11/20/16 13:16; Admin Dose 10 MG; Start 11/17/16 at 17:30 Lorazepam (Ativan) 0.5 mg Q8H PRN PO ANXIETY Last administered on 11/17/16 18: 01; Admin Dose 0.5 MG; Start 11/17/16 at 17:30 Ondansetron HCl (Zofran Tab) 4 mg Q6H PRN PO NAUSEA AND/OR VOMITING; Start at 17:30 Nitroglycerin (Nitroglycerin (Sl Tab) 0.4 Mg) 1 tab Q5M PRN SL CHEST PAIN; Start 11/17/16 at 17:30 Acetaminophen (Tylenol Tab) 650 mg Q6H PRN PO PAIN LEVEL 1-3 OR FEVER; Start at 17:30 Acetaminophen (Tylenol Supp) 650 mg Q6H PRN [place] PAIN LEVEL 1-3 OR FEVER; Start 11/17/16 at 17:30 Morphine Sulfate (morphine) 2 mg Q4H PRN IV PAIN LEVEL 7-10 Last administered on 11/20/16 04:00; Admin Dose 2 MG; Start 11/17/16 at 17:30 Docusate Sodium (Colace) 100 mg Q12H PRN PO CONSTIPATION; Start 11/17/16 at 17: 30 Bisacodyl (Dulcolax) 5 mg DAILY PRN PO CONSTIPATION; Start 11/17/16 at 17:30 Clonidine (Catapres) 0.1 mg Q6H PRN PO ELEVATED BLOOD PRESSURE; Start 11/17/16 at 17:30 Tiotropium [place] (Spiriva) 1 inh DAILY INH ; Start 11/18/16 at 09:00 Montelukast Sodium (Singulair) 10 mg HS PO ; Start 11/17/16 at 21:00 Salmeterol Xinafoate/ Fluticasone 1 inh 1 inh BID INH Last administered on 11/21 21:09; Admin Dose 1 INH; Start 11/17/16 at 21:00 Cefepime HCl (Maxipime 1gm/50 ml (Pmx)) 50 ml @ 100 mls/hr Q24H IVPB Last administered on 11/21/16 09:09; Admin Dose 100 MLS/HR; Start 11/19/16 at 09:00 Labetalol HCl (Labetalol) 10 mg Q4 PRN IV SBP >160; Start 11/19/16 at 10:30 Furosemide (Lasix) 20 mg DAILY IV Last administered on 11/21/16 09:09; Admin Dose 20 MG; Start 11/20/16 at 09:00 Famotidine (Pepcid) 20 mg DAILY PO ; Start 11/20/16 at 09:00 Mupirocin 1 applic 1 applic TID TOP Last administered on 11/21/16 21:25; Admin Dose 1 APPLIC; Start 11/20/16 at 15:00; Stop 11/23/16 at 09:01 Dextrose (D5W) 1,000 ml @ 75 mls/hr [id number] IV Last administered on 11/21/16 21:09; Admin Dose 75 MLS/HR; Start 11/20/16 at 15:00 Calcitonin [place] (Miacalcin Inj) 308 units BID SC Last administered on 00:31; Admin Dose 308 UNITS; Start 11/21/16 at 10:30 Metoprolol Tartrate (Lopressor) 5 mg Q6 IV Last administered on 11/22/16 05:56 ; Admin Dose 5 MG; Start 11/21/16 at 12:00 Assessment/Plan Additional Assessment/Plan Assessment/Plan SOB: ?combination of PNA +/- mild CHF. ?Paroxysmal atrial tachycardia: HRs improved over past 24 hours Accelerated HTN: BP remains elevated. Cant tolerate PO as did not pass swallow eval NSTEMI: type II in setting of above. Treat medically. EF preserved. CKD: was previously on HD, now off DM COPD -Increase Metoprolol 5mg IV q6h scheduled dosing, Labetalol and Hydralazine prn , will consider transition to enteral route tomorrow (post NGT/PEG placement or can safely swallow) -Continue Lasix 20mg IV daily -Abx per primary team, f/u cultures ALIREZA WILLS MD Nov 22, 2016 07:39
[2016-11-22] MEDS: SALMETEROL/FLUTICASONE 250/50 INHA INH SCH ×2 (08:09→22:30)
[2016-11-22] MEDS: FUROSEMIDE 20 MG INJ IV SCH (08:09)
[2016-11-22] MEDS: TIOTROPIUM 18 MCG CAPSULE INHA DEV INH SCH (08:09)
[2016-11-22] MEDS: FAMOTIDINE 20 MG TAB PO SCH (08:10)
[2016-11-22] MEDS: MUPIROCIN 2% 22 GM OINT TOP SCH ×3 (08:10→22:30)
[2016-11-22] MEDS: CEFEPIME 1GM/50 ML (PMX) 50 ML IVPB SCH (08:10)
--- NOTE | 2016-11-22 10:29 | PN ---
DATE: 11/22/2016 SUBJECTIVE: The patient remains confused though more alert this morning. No other events noted. OBJECTIVE: VITAL SIGNS: Blood pressure 138/86, respirations 20, pulse 71, temperature 97.0. HEENT: Head is normocephalic. NECK: Supple. HEART: Regular rate. LUNGS: Show diminished breath sounds at the base. ABDOMEN: Soft, nontender to palpation. No rebound or guarding. EXTREMITIES: Negative for clubbing, cyanosis. Trace edema. DERMATOLOGIC: No rashes. MUSCULOSKELETAL: No joint effusions. NEUROLOGIC: No change in exam. MEDICATIONS: The patient's medications have been reviewed. LABORATORY DATA: Shows sodium 138, potassium 3.7, chloride 100, BUN 24, creatinine 1.49. White cou nt 7.3, hemoglobin 9.1, hematocrit 29.5, platelet count 232. ASSESSMENT AND PLAN: 1. Nonoliguric acute kidney injury on top of chronic kidney disease, stage III. Etiology secondary to hemodynamics, possible component of hypercalcemia. The patient's renal function has been improv ing. Continue current treatment plan, supportive care, renally dose all meds, and avoid nephrotoxin s. 2. Hypernatremia, improved. Continue D5W at current rate 3. Hypercalcemia, etiology is unclear. Workup ongoing. PTH level is pending. The patient was sta rted on calcitonin with improvement in calcium levels. We will continue for another 24 hours. 4. Acute encephalopathy. Etiology is multifactorial, possibly due to hypercalcemia, toxic metaboli c. The patient's CT scan of the brain showed no acute findings. Continue current medical managemen t. Continue to treat underlying hypercalcemia. Consider neurologic evaluation. 5. Hypertension. Continue current blood pressure regimen. 6. Anemia. Continue to monitor hemoglobin and hematocrit levels. 7. Tachyarrhythmia. Continue to monitor. 8. Non-ST elevation myocardial infarction, type 2. Continue medical management. 9. History of chronic obstructive pulmonary disease, currently stable. Continue to monitor. Dictated By: DERECK LANGLEY DO NR/RUTH Conf#: [id number] DID#: [id number]
[2016-11-22] MEDS: DEXTROSE 5% 1,000 ML IV SCH (11:53)
[2016-11-22] MEDS ORDERED: VANCOMYCIN 1.25 GM in SOD CHLORIDE 0.9% 250 ML IVPB SCH (12:00)
--- NOTE | 2016-11-22 15:36 | PN ---
Date/Time of Note Date/Time of Note DATE: 11/22/16 TIME: 15:33 Assessment/Plan VTE Prophylaxis VTE Prophylaxis Intervention: SCD's Lines/Catheters IV [facility] Peripheral IV Urinary Cath still in place: No Assessment/Plan Chief Complaint/Hosp Course ASSESSMENT AND PLAN: 1. Left-sided pneumonia. The patient has been started on broad spectrum IV antibiotic. Pulmonology has been consulted, cefepime and vancomycin. 2. Chronic kidney failure. Nephrology has been consulted. Avoid nephrotoxic medication 3. Essential hypertension, continue medical management 4. Chronic obstructive pulmonary disease. Continue breathing treatment, Advair and Spiriva and Singular. 5. NSTEMI, cardiology has been consulted, continue aspirin statin beta rohith. Patient has been started on heparin drip 6. Altered mental status, with questionable sundowning/hospital-acquired delirium , no evidence of acute CVA on CT of the brain, possibly metabolic, neurology has been consulted 6. Gastroesophageal reflux disease. Continue Pepcid 7. Deep venous thrombosis prophylaxis. The patient has been placed on heparin. We will continue to monitor patient closely. Further recommendations, management and treatment as per clinical course. Problems: Subjective 24 Hr Interval Summary Free Text/Dictation Patient is more awake and alert Has not been able to tolerate oral intake secondary to risk of aspiration Denies any chest pain No family at the bedside Exam/Review of Systems Vital Signs Vitals Vital Signs Date Time Temp Pulse Resp B/P Pulse Ox O2 Delivery O2 Flow Rate FiO2 11/22/16 12:39 75 11/22/16 11:56 97.8 18 156/78 95 11/22/16 06:46 2.0 11/21/16 20:00 Nasal Cannula 11/19/16 14:01 28 Intake and Output 11/21/16 11/21/16 11/22/16 15:00 23:00 07:00 Intake Total 950 ml Balance 950 ml Exam General: The patient is morbidly obese, Not in acute distress. HEENT: Atraumatic, normocephalic. The pupils are equal and round . Neck: Supple with full range of motion. Chest: Normal expansion of the thorax during inspiration Lungs: Clear to auscultation bilaterally Heart: Normal S1-S2, Regular rhythm and rate. Abdomen: Soft , nontender, nondistended , bowel sounds are present. Extremities: Normal to inspection, no edema no cyanosis Neurologic: ,The patient is awake, Results Result Diagram: 11/22/16 0545 11/22/16 0545 Results 24 hrs Laboratory Tests Test 11/22/16 05:45 Anion Gap 12 Basophils # 0.1 Basophils % 0.7 Blood Urea Nitrogen 24 H Calcium Level 11.1 H Carbon Dioxide Level 30 Chloride Level 100 Creatinine 1.49 H Eosinophils # 0.2 Eosinophils % 2.6 Glucose Level 147 Hematocrit 29.5 L Hemoglobin 9.1 L Lymphocytes # 1.2 Lymphocytes % 16.6 Magnesium Level 1.7 Mean Corpuscular Hemoglobin 27.1 L Mean Corpuscular Hemoglobin Concent 30.8 L Mean Corpuscular Volume 87.8 Mean Platelet Volume 9.1 Monocytes # 0.6 Monocytes % 8.8 Neutrophils # 5.2 Neutrophils % 70.8 Nucleated Red Blood Cells # 0.0 Nucleated Red Blood Cells % 0.0 Phosphorus Level 2.6 Platelet Count 232 Potassium Level 3.7 Random Vancomycin Level 12.2 Red Blood Count 3.36 L Red Cell Distribution Width 16.5 H Sodium Level 138 White Blood Count 7.3 Medications Medications Current Medications Hydralazine HCl (Apresoline) 10 mg Q6H PRN IV ELEVATED BLOOD PRESSURE Last administered on 11/20/16 13:16; Admin Dose 10 MG; Start 11/17/16 at 17:30 Lorazepam (Ativan) 0.5 mg Q8H PRN PO ANXIETY Last administered on 11/17/16 18: 01; Admin Dose 0.5 MG; Start 11/17/16 at 17:30 Ondansetron HCl (Zofran Tab) 4 mg Q6H PRN PO NAUSEA AND/OR VOMITING; Start at 17:30 Nitroglycerin (Nitroglycerin (Sl Tab) 0.4 Mg) 1 tab Q5M PRN SL CHEST PAIN; Start 11/17/16 at 17:30 Acetaminophen (Tylenol Tab) 650 mg Q6H PRN PO PAIN LEVEL 1-3 OR FEVER; Start at 17:30 Acetaminophen (Tylenol Supp) 650 mg Q6H PRN [place] PAIN LEVEL 1-3 OR FEVER; Start 11/17/16 at 17:30 Morphine Sulfate (morphine) 2 mg Q4H PRN IV PAIN LEVEL 7-10 Last administered on 11/20/16 04:00; Admin Dose 2 MG; Start 11/17/16 at 17:30 Docusate Sodium (Colace) 100 mg Q12H PRN PO CONSTIPATION; Start 11/17/16 at 17: 30 Bisacodyl (Dulcolax) 5 mg DAILY PRN PO CONSTIPATION; Start 11/17/16 at 17:30 Clonidine (Catapres) 0.1 mg Q6H PRN PO ELEVATED BLOOD PRESSURE; Start 11/17/16 at 17:30 Tiotropium [place] (Spiriva) 1 inh DAILY INH ; Start 11/18/16 at 09:00 Montelukast Sodium (Singulair) 10 mg HS PO ; Start 11/17/16 at 21:00 Salmeterol Xinafoate/ Fluticasone 1 inh 1 inh BID INH Last administered on 11/22 08:09; Admin Dose 1 INH; Start 11/17/16 at 21:00 Cefepime HCl (Maxipime 1gm/50 ml (Pmx)) 50 ml @ 100 mls/hr Q24H IVPB Last administered on 11/22/16 08:10; Admin Dose 100 MLS/HR; Start 11/19/16 at 09:00 Labetalol HCl (Labetalol) 10 mg Q4 PRN IV SBP >160; Start 11/19/16 at 10:30 Furosemide (Lasix) 20 mg DAILY IV Last administered on 11/22/16 08:09; Admin Dose 20 MG; Start 11/20/16 at 09:00 Famotidine (Pepcid) 20 mg DAILY PO ; Start 11/20/16 at 09:00 Mupirocin 1 applic 1 applic TID TOP Last administered on 11/22/16 13:20; Admin Dose 1 APPLIC; Start 11/20/16 at 15:00; Stop 11/23/16 at 09:01 Dextrose (D5W) 1,000 ml @ 75 mls/hr [id number] IV Last administered on 11/22/16 11:53; Admin Dose 75 MLS/HR; Start 11/20/16 at 15:00 Calcitonin [place] (Miacalcin Inj) 308 units BID SC Last administered on 13:20; Admin Dose 308 UNITS; Start 11/21/16 at 10:30 Metoprolol Tartrate 5 mg 5 mg Q6 IV Last administered on 11/22/16 05:56; Admin Dose 5 MG; Start 11/21/16 at 12:00 Vancomycin HCl/ Sodium [place]lor[place] (Vancocin/NS) 250 ml @ 83.333 mls/ hr 12 IVPB Last administered on 11/22/16 13:20; Admin Dose 83.333 MLS/HR; Start 11/22/16 at 12:00; Stop 11/22/16 at 23:00 NAVA GOMEZ MD Nov 22, 2016 15:36
--- NOTE | 2016-11-22 16:31 | CONS ---
DATE OF ADMISSION: 11/17/2016 DATE OF CONSULTATION: 11/22/2016 Thank you, Dr. Kelly, for your kind referral for evaluation of encephalopathy. HISTORY OF PRESENT ILLNESS: The patient is a 81-year-old lady with past medical history of chronic renal failure who temporarily was on hemodialysis, also COPD, hypertension, lymphedema of bilateral lower extremities, obesity, debility, anemia, dyslipidemia, diabetes, history of myocardial infarcti on, who was brought with generalized weakness and [facility]ness of breath from [facility], with some cough and congestion. She was diagnosed with left-sided pneumonia. Since admission, mark floyd is somewhat encephalopathic, confused, per family. Current problems include left-sided pneumon ia, chronic kidney failure, hypertension, COPD, non-ST elevation myocardial infarction. ALLERGIES: OPIATES. CURRENT MEDICATIONS: 1. Vancomycin. 2. Lopressor. 3. Calcitonin. 4. Lasix. 5. Labetalol. 6. Cefepime. 7. Spiriva. 8. Singulair. 9. Alprazolam. SOCIAL HISTORY: No alcohol, tobacco, drug use. FAMILY HISTORY: Noncontributory. REVIEW OF SYSTEMS: Unable to obtain secondary to patient's mental status. PHYSICAL EXAMINATION: VITAL SIGNS: Temperature 97.8, pulse 75, respirations 18, 156/78 blood pressure. GENERAL: She is not in acute distress, lying in bed. HEENT: Normocephalic, atraumatic head. NECK: No carotid bruits, no thyromegaly, no meningeal signs. LUNGS: Scattered rhonchi bilaterally. CARDIAC: Normal cardiac rhythm and sounds. ABDOMEN: Soft. EXTREMITIES: Chronic lymphedema of bilateral lower extremities. NEUROLOGIC: She is somewhat lethargic but arousable by voice. Looks bilaterally, tracks visually, oriented x2 with fluent but somewhat slurred speech. Present response to visual threat bilaterally. Pupils reactive from 3 to 2 mm bilaterally. Extraocular movements intact without nystagmus. Symm etrical face. Preserved facial strength and sensation. Corneal reflexes present bilaterally, as we ll as gag. Motor strength examination shows symmetrical movements at least 3/5 spontaneously and to minimal noxious stimulation. Deep tendon reflexes 2+ upper extremities, 1+ lower extremities. Upg oing toes bilaterally. Coordination was not checked. Patient is not fully cooperative with finger- to-finger examination. She does have generalized postural tremor in upper and left lower extremitie s. LABORATORY DATA: Patient's labs show hemoglobin 9.1, hematocrit 29.5, normal WBCs and platelets. C hemistry today BUN 24, creatinine 1.49, calcium 11; the rest of basic metabolic panel within normal limits. Today's PTT 32. Urinalysis within normal limits. Blood gas from 3 days ago pH 7.39, pCO2 of 40, pO2 of 77. IMPRESSION: Encephalopathy, likely toxic metabolic type secondary to pneumonia, respiratory/renal f ailure. Tremor also seemed to be toxic metabolic in etiology. I would obtain EEG for evaluation of encephalopathy. CAT scan of the head did not show any acute abnormality. Probably it is reasonabl e to obtain MRI of the brain for better evaluation, but no lateralizing findings to suspect stroke, though patient does have slurred speech. Continue current treatment. Thank you very much for this interesting consultation. Dictated By: CHAITANYA FORREST/RUTH Conf#: [id number] DID#: [id number]
--- NOTE | 2016-11-22 19:13 | CONS ---
DATE OF ADMISSION: 11/17/2016 DATE OF CONSULTATION: TYPE OF CONSULTATION: Gastroenterology. Dear Dr. Gomez, Thank you for asking me to see Ms. Lundberg in GI consultation. HISTORY OF PRESENT ILLNESS: The patient, as you know, is a 81-year-old white female, is unable to t hugo any feeding by mouth, nasogastric tube could not be put in. The patient is very lethargic. She is not able to take any feeding adequately. Percutaneous endoscopic gastrostomy tube placement has been requested. REVIEW OF SYSTEMS: Positive for pneumonia, chronic kidney failure, essential hypertension, COPD, no n-STEMI, altered mental status. Deep vein thrombosis, prophylaxis is being given. PAST MEDICAL HISTORY: The patient is unable to give me any history. PHYSICAL EXAMINATION: GENERAL: The patient is a 81-year-old white female who at this time is very lethargic. She does no t communicate. CARDIOVASCULAR: Normal heart sounds. RESPIRATORY: Normal breath sounds. ABDOMEN: Unremarkable findings. LABORATORY FINDINGS: INR is 1.3, prothrombin time 16.1. Hemoglobin 9.1, WBC 7.3. Potassium 3.7, p hosphorus 2.6, creatinine 1.49, BUN is 24. CLINICAL IMPRESSION: 1. The patient presenting with history of difficulty in swallowing. 2. She is non-STEMI. 3. She has got hypertension. PLAN: At this time, I agree with you that the patient could benefit from a percutaneous endoscopic gastrostomy tube placement. This can be performed if the family agrees. Once again, doctor, thank you for this consultation. Dictated By: ROSALINO SOUZA/RUTH Conf#: [id number] DID#: [id number] CC: NAVA GOMEZ MD;*EndCC*
[2016-11-22] MEDS: MONTELUKAST 10 MG TAB PO SCH (21:00)
[2016-11-23] VITALS (20 sets, daily range): BP systolic 125–191; BP diastolic 63–88; PULSE 60–89; RESP 15–32
[2016-11-23] MEDS: METOPROLOL 5 MG INJ IV SCH ×4 (00:58→18:20)
[2016-11-23] MEDS: DEXTROSE 5% 1,000 ML IV SCH (06:29)
[2016-11-23 07:40] LABS: ADD SCAN DIFF NO
[2016-11-23 07:58] LABS: BASOPHIL # 0.1 10^3/ul (0.0-0.1); BASOPHILS % 0.6 % (0.0-2.0); EOSINOPHILS # 0.1 10^3/ul (0.0-0.5); EOSINOPHILS % 1.2 % (0.0-7.0); HEMATOCRIT 29.9 % (37.0-47.0); HEMOGLOBIN 9.3 g/dl (12.0-16.0); LYMPHOCYTES # 1.5 10^3/ul (0.8-2.9); LYMPHOCYTES % 18.6 % (15.0-51.0); MEAN CORPUSCULAR HEMOGLOBIN 26.6 pg (29.0-33.0); MEAN CORPUSCULAR HGB CONC 31.1 g/dl (32.0-37.0); MEAN CORPUSCULAR VOLUME 85.7 fl (82.0-101.0); MEAN PLATELET VOLUME 9.1 fl (7.4-10.4); MONOCYTE # 0.7 10^3/ul (0.3-0.9); MONOCYTES % 8.7 % (0.0-11.0); NEUTROPHIL # 5.6 10^3/ul (1.6-7.5); NEUTROPHILS % 70.2 % (39.0-77.0); PLATELET COUNT 254 10^3/UL (140-415); RED BLOOD COUNT 3.49 10^6/ul (4.20-5.40); RED CELL DISTRIBUTION WIDTH 16.4 % (11.5-14.5)
[2016-11-23 08:01] LABS: POTASSIUM 3.7 mmol/L (3.5-5.1)
[2016-11-23 08:02] LABS: INR 1.17; PT RATIO 1.2
[2016-11-23 08:03] LABS: PARTIAL THROMBOPLASTIN TIME 30.3 Sec (25.0-35.0)
[2016-11-23 08:04] LABS: CREATININE 1.42 mg/dl (0.44-1.00)
[2016-11-23 08:05] LABS: CALCIUM 10.7 mg/dl (8.4-10.2); MAGNESIUM 1.5 mg/dl (1.7-2.5); PHOSPHORUS 2.4 mg/dl (2.5-4.9)
[2016-11-23] MEDS: CALCITONIN SALMON 400 UNITS INJ SC SCH ×3 (09:00→21:00)
[2016-11-23] MEDS: TIOTROPIUM 18 MCG CAPSULE INHA DEV INH SCH (09:00)
[2016-11-23] MEDS: SALMETEROL/FLUTICASONE 250/50 INHA INH SCH ×3 (09:00→21:29)
[2016-11-23] MEDS: FAMOTIDINE 20 MG TAB PO SCH (09:00)
[2016-11-23] MEDS ORDERED: MAGNESIUM SULFATE 2 GM/50 ML 50 ML IVPB ONE ×2 (10:00→14:00)
[2016-11-23] MEDS: POTASSIUM PHOSPHATE 20 MEQ in SOD CHLORIDE 0.9% 250 ML IVPB ONE ×2 (10:00→15:18)
[2016-11-23] MEDS: CEFEPIME 1GM/50 ML (PMX) 50 ML IVPB SCH (10:18)
[2016-11-23] MEDS: FUROSEMIDE 20 MG INJ IV SCH (10:18)
[2016-11-23] MEDS: MUPIROCIN 2% 22 GM OINT TOP SCH (10:18)
[2016-11-23] MEDS: POTASSIUM CHLORIDE 30 MEQ in DEXTROSE 5% 1,000 ML IV SCH (10:23)
[2016-11-23] MEDS ORDERED: PROPOFOL 40 ML ONE (10:29)
[2016-11-23] MEDS ORDERED: CEFAZOLIN 1 GM/50 ML (PMX) 50 ML IVPB ONE ×2 (10:36→11:18)
--- NOTE | 2016-11-23 11:04 | PN ---
DATE: 11/23/2016 SUBJECTIVE: The patient remains confused, although mildly improved. No other acute events noted. No hemoptysis, hematemesis or hematochezia. OBJECTIVE: VITAL SIGNS: Blood pressure 146/70, respiration 18, pulse 84, temperature 98.3. HEENT: Head is normocephalic. NECK: Supple. HEART: Regular rate. LUNGS: Show diminished breath sounds at the base. ABDOMEN: Soft, nontender to palpation without rebound or guarding. EXTREMITIES: Negative for clubbing, cyanosis. Trace edema. DERMATOLOGIC: No rashes. MUSCULOSKELETAL: No joint effusions. NEUROLOGIC: No change in exam. MEDICATIONS: The patient's medications have been reviewed. LABORATORY DATA: Shows sodium 136, potassium 3.7, chloride 99, BUN 23, creatinine 1.42, calcium 10. 7, phosphorus 2.4, magnesium 1.5. White count 8.9, hemoglobin 9.3, hematocrit 29.9, platelet count 254. ASSESSMENT AND PLAN: 1. Nonoliguric acute kidney injury on top of chronic kidney disease, stage III. Etiology secondary to hemodynamics with a component of hypocalcemia. The patient's renal function has been improving. Continue current treatment plan, supportive care, renally dose all meds, avoid nephrotoxins. 2. Hyponatremia, improved. Continue D5W. 3. Hypocalcemia. Etiology is unclear. Workup ongoing, PTH levels are pending. Will continue calc itonin for another 24 hours and then discontinue. 4. Acute encephalopathy, etiology is unclear, possibly multifactorial, toxic metabolic, infectious. The patient has been seen by neurology, pending MRI of the brain. Will continue to treat underlyin g hypocalcemia which may have been a contributing factor. 5. Hypertension. Continue current blood pressure regimen. 6. Anemia. Continue to monitor hemoglobin and hematocrit levels. 7. Tachyarrhythmia. Continue to monitor. 8. Non-ST elevation myocardial infarction type 2. Continue medical management. 9. History of chronic obstructive pulmonary disease, currently stable. Continue to monitor. Dictated By: DERECK KENNEDY/RUTH Conf#: [id number] DID#: [id number]
--- NOTE | 2016-11-23 15:13 | PN ---
Date/Time of Note Date/Time of Note DATE: 11/23/16 TIME: 15:11 Assessment/Plan VTE Prophylaxis VTE Prophylaxis Intervention: heparin Lines/Catheters IV C[facility]ter Type (from [facility] Peripheral IV Urinary Cath still in place: No Assessment/Plan Chief Complaint/Hosp Course ASSESSMENT AND PLAN: 1. Left-sided pneumonia. The patient has been started on broad spectrum IV antibiotic. Pulmonology has been consulted, cefepime and vancomycin. 2. Chronic kidney failure. Nephrology has been consulted. Avoid nephrotoxic medication 3. Essential hypertension, continue medical management 4. Chronic obstructive pulmonary disease. Continue breathing treatment, Advair and Spiriva and Singular. 5. NSTEMI, cardiology has been consulted, continue aspirin statin beta rohith. Patient has been started on heparin drip 6. Altered mental status, with questionable sundowning/hospital-acquired delirium , no evidence of acute CVA on CT of the brain, possibly metabolic, neurology has been consulted 7. Dysphagia, status post PEG tube placement 8. Gastroesophageal reflux disease. Continue Pepcid 9. Deep venous thrombosis prophylaxis. The patient has been placed on heparin. We will continue to monitor patient closely. Further recommendations, management and treatment as per clinical course. Problems: Subjective 24 Hr Interval Summary Free Text/Dictation Patient continues to be altered although able to follow simple commands only Status post PEG tube placement According to patient's at the bedside patient mentation has improved since yesterday Exam/Review of Systems Vital Signs Vitals Vital Signs Date Time Temp Pulse Resp B/P Pulse Ox O2 Delivery O2 Flow Rate FiO2 11/23/16 13:30 97.9 84 19 137/80 97 Nasal Cannula 2.0 11/19/16 14:01 28 Intake and Output 11/22/16 11/22/16 11/23/16 15:00 23:00 07:00 Intake Total 0 ml Balance 0 ml Exam General: The patient is morbidly obese, Not in acute distress. HEENT: Atraumatic, normocephalic. The pupils are equal and round . Neck: Supple with full range of motion. Chest: Normal expansion of the thorax during inspiration Lungs: Clear to auscultation bilaterally Heart: Normal S1-S2, Regular rhythm and rate. Abdomen: Soft , nontender, nondistended , bowel sounds are present. Extremities: Status dermatitis bilateral lower extremity, nonpitting edema no cyanosis Neurologic: ,The patient is awake, Results Result Diagram: 2/27/17 0653 11/23/16 0653 Results 24 hrs Laboratory Tests Test 11/23/16 06:53 Activated Partial Thromboplast Time 30.3 Anion Gap 10 Basophils # 0.1 Basophils % 0.6 Blood Urea Nitrogen 23 H Calcium Level 10.7 H Carbon Dioxide Level 31 Chloride Level 99 Creatinine 1.42 H Eosinophils # 0.1 Eosinophils % 1.2 Glucose Level 116 Hematocrit 29.9 L Hemoglobin 9.3 L INR International Normalized Ratio 1.17 Lymphocytes # 1.5 Lymphocytes % 18.6 Magnesium Level 1.5 L Mean Corpuscular Hemoglobin 26.6 L Mean Corpuscular Hemoglobin Concent 31.1 L Mean Corpuscular Volume 85.7 Mean Platelet Volume 9.1 Monocytes # 0.7 Monocytes % 8.7 Neutrophils # 5.6 Neutrophils % 70.2 Nucleated Red Blood Cells # 0.0 Nucleated Red Blood Cells % 0.0 Phosphorus Level 2.4 L Platelet Count 254 Potassium Level 3.7 Prothrombin Time 15.0 H Prothrombin Time Ratio 1.2 Red Blood Count 3.49 L Red Cell Distribution Width 16.4 H Sodium Level 136 White Blood Count 8.0 Medications Medications Current Medications Hydralazine HCl (Apresoline) 10 mg Q6H PRN IV ELEVATED BLOOD PRESSURE Last administered on 11/20/16 13:16; Admin Dose 10 MG; Start 11/17/16 at 17:30 Lorazepam (Ativan) 0.5 mg Q8H PRN PO ANXIETY Last administered on 11/17/16 18: 01; Admin Dose 0.5 MG; Start 11/17/16 at 17:30 Ondansetron HCl (Zofran Tab) 4 mg Q6H PRN PO NAUSEA AND/OR VOMITING; Start at 17:30 Nitroglycerin (Nitroglycerin (Sl Tab) 0.4 Mg) 1 tab Q5M PRN SL CHEST PAIN; Start 11/17/16 at 17:30 Acetaminophen (Tylenol Tab) 650 mg Q6H PRN PO PAIN LEVEL 1-3 OR FEVER; Start at 17:30 Acetaminophen (Tylenol Supp) 650 mg Q6H PRN [place] PAIN LEVEL 1-3 OR FEVER; Start 11/17/16 at 17:30 Morphine Sulfate (morphine) 2 mg Q4H PRN IV PAIN LEVEL 7-10 Last administered on 11/20/16 04:00; Admin Dose 2 MG; Start 11/17/16 at 17:30 Docusate Sodium (Colace) 100 mg Q12H PRN PO CONSTIPATION; Start 11/17/16 at 17: 30 Bisacodyl (Dulcolax) 5 mg DAILY PRN PO CONSTIPATION; Start 11/17/16 at 17:30 Clonidine (Catapres) 0.1 mg Q6H PRN PO ELEVATED BLOOD PRESSURE; Start 11/17/16 at 17:30 Tiotropium [place] (Spiriva) 1 inh DAILY INH ; Start 11/18/16 at 09:00 Montelukast Sodium (Singulair) 10 mg HS PO ; Start 11/17/16 at 21:00 Salmeterol Xinafoate/ Fluticasone 1 inh 1 inh BID INH Last administered on 11/23 10:22; Admin Dose 1 INH; Start 11/17/16 at 21:00 Cefepime HCl (Maxipime 1gm/50 ml (Pmx)) 50 ml @ 100 mls/hr Q24H IVPB Last administered on 11/23/16 10:18; Admin Dose 100 MLS/HR; Start 11/19/16 at 09:00 Labetalol HCl (Labetalol) 10 mg Q4 PRN IV SBP >160; Start 11/19/16 at 10:30 Furosemide (Lasix) 20 mg DAILY IV Last administered on 11/23/16 10:18; Admin Dose 20 MG; Start 11/20/16 at 09:00 Famotidine (Pepcid) 20 mg DAILY PO ; Start 11/20/16 at 09:00 Calcitonin [place] (Miacalcin Inj) 308 units BID SC Last administered on 10:23; Admin Dose 308 UNITS; Start 11/21/16 at 10:30 Metoprolol Tartrate 5 mg 5 mg Q6 IV Last administered on 11/23/16 13:32; Admin Dose 5 MG; Start 11/21/16 at 12:00 Potassium Chloride 30 meq/ Dextrose 1,015 ml @ 40 mls/hr Q24H IV Last administered on 11/23/16 10:23; Admin Dose 40 MLS/HR; Start 11/23/16 at 10:00 Magnesium Sulfate (Magnesium Sulfate 2 Gm/50 ml) 50 ml @ 25 mls/hr ONCE ONCE IVPB Last administered on 11/23/16t 13:41; Admin Dose 25 MLS/HR; Start at 14:00; Stop 11/23/16 at 15:59 NAVA GOMEZ MD Nov 23, 2016 15:13
[2016-11-23 15:26] LABS: MICROALBUMIN 1.2 mg/dL
[2016-11-23] MEDS: MONTELUKAST 10 MG TAB PO SCH (21:29)
--- NOTE | 2016-11-23 22:10 | CONS ---
Date/Time of Note Date/Time of Note DATE: 11/23/16 TIME: 22:06 Assessment/Plan Assessment/Plan Chief Complaint/Hosp Course SOB: ?combination of PNA +/- mild CHF. ?Paroxysmal atrial tachycardia: HRs now improved Accelerated HTN: BP improved NSTEMI: type II in setting of above. Treat medically. EF preserved. CKD: was previously on HD, now off DM COPD -discontinue IV metoprolol, start carvedilol 6.25mg BID, up titrate as needed -continue Lasix 20mg IV daily -abx per primary team, f/u cultures Problems: Consultation Date/Type/Reason Admit Date/Time Nov 17, 2016 at 14:00 Initial Consult Date 11/18/16 Type of Consultation: Cardiology 24 HR Interval Summary Free Text/Dictation More alert, but still confused. Status post PEG placement. Detailed Summary Additional Comments Unable to obtain review of systems due to patient's altered mental status. Exam/Review of Systems Vital Signs Vitals Vital Signs Date Time Temp Pulse Resp B/P Pulse Ox O2 Delivery O2 Flow Rate FiO2 11/23/16 20:00 97.5 82 20 128/63 97 11/23/16 19:49 Nasal Cannula 2.0 11/19/16 14:01 28 Intake and Output 11/22/16 11/22/16 11/23/16 15:00 23:00 07:00 Intake Total 0 ml Balance 0 ml Exam Constitutional: No distress Head: atraumatic, normocephalic Neck: jvd (8cm). right subclavian perm-a-cath in place Respiratory: diminished breath sounds, No clear to auscultation Cardiovascular: edema (1+ sacral ), LE lymphedema, RRR, systolic murmur (2/6 CATHY), Neurological: No nl mental status, No nl speech Results Result Diagram: 11/23/16 0653 11/23/16 0653 Results 24 hrs Laboratory Tests Test 11/23/16 06:53 Activated Partial Thromboplast Time 30.3 Anion Gap 10 Basophils # 0.1 Basophils % 0.6 Blood Urea Nitrogen 23 H Calcium Level 10.7 H Carbon Dioxide Level 31 Chloride Level 99 Creatinine 1.42 H Eosinophils # 0.1 Eosinophils % 1.2 Glucose Level 116 Hematocrit 29.9 L Hemoglobin 9.3 L INR International Normalized Ratio 1.17 Lymphocytes # 1.5 Lymphocytes % 18.6 Magnesium Level 1.5 L Mean Corpuscular Hemoglobin 26.6 L Mean Corpuscular Hemoglobin Concent 31.1 L Mean Corpuscular Volume 85.7 Mean Platelet Volume 9.1 Monocytes # 0.7 Monocytes % 8.7 Neutrophils # 5.6 Neutrophils % 70.2 Nucleated Red Blood Cells # 0.0 Nucleated Red Blood Cells % 0.0 Phosphorus Level 2.4 L Platelet Count 254 Potassium Level 3.7 Prothrombin Time 15.0 H Prothrombin Time Ratio 1.2 Red Blood Count 3.49 L Red Cell Distribution Width 16.4 H Sodium Level 136 White Blood Count 8.0 Medications Medications Current Medications Hydralazine HCl (Apresoline) 10 mg Q6H PRN IV ELEVATED BLOOD PRESSURE Last administered on 11/20/16 13:16; Admin Dose 10 MG; Start 11/17/16 at 17:30 Lorazepam (Ativan) 0.5 mg Q8H PRN PO ANXIETY Last administered on 11/17/16 18: 01; Admin Dose 0.5 MG; Start 11/17/16 at 17:30 Ondansetron HCl (Zofran Tab) 4 mg Q6H PRN PO NAUSEA AND/OR VOMITING; Start at 17:30 Nitroglycerin (Nitroglycerin (Sl Tab) 0.4 Mg) 1 tab Q5M PRN SL CHEST PAIN; Start 11/17/16 at 17:30 Acetaminophen (Tylenol Tab) 650 mg Q6H PRN PO PAIN LEVEL 1-3 OR FEVER; Start at 17:30 Acetaminophen (Tylenol Supp) 650 mg Q6H PRN [place] PAIN LEVEL 1-3 OR FEVER; Start 11/17/16 at 17:30 Morphine Sulfate (morphine) 2 mg Q4H PRN IV PAIN LEVEL 7-10 Last administered on 11/20/16 04:00; Admin Dose 2 MG; Start 11/17/16 at 17:30 Docusate Sodium (Colace) 100 mg Q12H PRN PO CONSTIPATION; Start 11/17/16 at 17: 30 Bisacodyl (Dulcolax) 5 mg DAILY PRN PO CONSTIPATION; Start 11/17/16 at 17:30 Clonidine (Catapres) 0.1 mg Q6H PRN PO ELEVATED BLOOD PRESSURE; Start 11/17/16 at 17:30 Tiotropium [place] (Spiriva) 1 inh DAILY INH ; Start 11/18/16 at 09:00 Montelukast Sodium (Singulair) 10 mg HS PO Last administered on 11/23/16 21:29 ; Admin Dose 10 MG; Start 11/17/16 at 21:00 Salmeterol Xinafoate/ Fluticasone 1 inh 1 inh BID INH Last administered on 11/23 21:29; Admin Dose 1 INH; Start 11/17/16 at 21:00 Cefepime HCl (Maxipime 1gm/50 ml (Pmx)) 50 ml @ 100 mls/hr Q24H IVPB Last administered on 11/23/16 10:18; Admin Dose 100 MLS/HR; Start 11/19/16 at 09:00 Labetalol HCl (Labetalol) 10 mg Q4 PRN IV SBP >160; Start 11/19/16 at 10:30 Furosemide (Lasix) 20 mg DAILY IV Last administered on 11/23/16 10:18; Admin Dose 20 MG; Start 11/20/16 at 09:00 Famotidine (Pepcid) 20 mg DAILY PO ; Start 11/20/16 at 09:00 Calcitonin [place] (Miacalcin Inj) 308 units BID SC Last administered on 10:23; Admin Dose 308 UNITS; Start 11/21/16 at 10:30 Metoprolol Tartrate 5 mg 5 mg Q6 IV Last administered on 11/23/16 18:20; Admin Dose 5 MG; Start 11/21/16 at 12:00 Potassium Chloride/Dextrose (KCl/D5W) 1,015 ml @ 40 mls/hr Q24H IV Last administered on 11/23/16 10:23; Admin Dose 40 MLS/HR; Start 11/23/16 at 10:00 ALLIE QUINTEROS MD Nov 23, 2016 22:10
--- NOTE | 2016-11-23 22:24 | NEURPT ---
DATE: 11/23/2016 INDICATION: A 81-year-old lady with encephalopathy, likely toxic metabolic type secondary to pneumo disha, renal insufficiency, respiratory insufficiency. DESCRIPTION OF PROCEDURE: Routine EEG was recorded digitally. [id number] and qldee-mr-zkz aura ages were recorded and reviewed. All impedances were measured and recorded. Cap electrodes were pl aced in accordance with International 10-20 system of electrode placement. FINDINGS: Symmetrically distributed background activity of low to medium amplitude ranging in frequ ency between 2 to 4 cycles per second was seen most of the recording, at times intermixes with sligh tly faster activity to 8 cycles per second. No definite epileptiform transients were seen. No sign s of ongoing electrographic seizures or lateralized slowing. Photic stimulation produced no definit e driving. There are multiple movement and muscle artifacts secondary to patient's confusion and re stlessness. IMPRESSION: Abnormal study secondary to background slowing which could reflect presence of encephal opathy, likely toxic metabolic type. Please correlate clinically. Dictated By: CHAITANYA FORREST/RUTH Conf#: [id number] DID#: [id number]
[2016-11-24] VITALS (11 sets, daily range): BP systolic 120–164; BP diastolic 56–79; PULSE 69–82; RESP 18–21
--- NOTE | 2016-11-24 00:18 | GILP ---
DATE OF PROCEDURE: PROCEDURE: Esophagogastroduodenoscopy. PREOPERATIVE DIAGNOSIS: The patient presenting with history of difficulty in swallowing, and the pa tient needs long-term nutritional access. Hence percutaneous endoscopic gastrostomy needs to be carole itzel, which will be done now. POSTOPERATIVE DIAGNOSES: The patient presenting with history of difficulty in swallowing, and the p atient needs long-term nutritional access. Hence percutaneous endoscopic gastrostomy needs to be pl aced, which will be done now. DESCRIPTION OF PROCEDURE: After the informed written consent was obtained, the patient was asked to lie in the supine position, and the patient was given intravenous anesthesia by anesthesiologistMaria G ____. When the patient became somnolent, Olympus video upper endoscope was introduced into the o ropharynx, then into the esophagus. Esophagus appeared normal. Stomach appeared normal. Duodenum appeared normal. Scope at this time was withdrawn to level of the gastric cavity. The anterior abd ominal wall was prepared with Betadine and alcohol. Two milliliters of 2% Xylocaine was infiltrated at the endoscopic illuminating site, and a 5 mm incision was made at this site. Through this incis ion, trocar was inserted into the stomach. After removing the stylet, the guidewire was inserted in to the stomach. The guidewire was grabbed with a polypectomy snare, and then it was brought out thr ough the mouth along with the endoscope. To this end of the guidewire, #20 Microvasive G-tube was t ied in a loop fashion, and then it was brought out through the abdominal wall incision. Retention b umper was placed over the G-tube close to the skin. Tapered end of the gastrostomy tube was cut, ad apter was closed, and the procedure was terminated. PLAN: Recommend starting G-tube feeding in a.m. Dictated By: ROSALINO SOUZA/RUTH Conf#: [id number] DID#: [id number] CC: NAVA GOMEZ MD;*EndCC*
[2016-11-24 05:47] LABS: ADD SCAN DIFF NO
[2016-11-24 05:51] LABS: BASOPHIL # 0.1 10^3/ul (0.0-0.1); BASOPHILS % 0.6 % (0.0-2.0); EOSINOPHILS # 0.1 10^3/ul (0.0-0.5); EOSINOPHILS % 0.9 % (0.0-7.0); HEMATOCRIT 30.2 % (37.0-47.0); HEMOGLOBIN 9.4 g/dl (12.0-16.0); LYMPHOCYTES # 1.7 10^3/ul (0.8-2.9); LYMPHOCYTES % 18.7 % (15.0-51.0); MEAN CORPUSCULAR HEMOGLOBIN 26.6 pg (29.0-33.0); MEAN CORPUSCULAR HGB CONC 31.1 g/dl (32.0-37.0); MEAN CORPUSCULAR VOLUME 85.6 fl (82.0-101.0); MEAN PLATELET VOLUME 9.3 fl (7.4-10.4); MONOCYTE # 0.8 10^3/ul (0.3-0.9); MONOCYTES % 8.5 % (0.0-11.0); NEUTROPHIL # 6.2 10^3/ul (1.6-7.5); NEUTROPHILS % 70.6 % (39.0-77.0); PLATELET COUNT 243 10^3/UL (140-415); RED BLOOD COUNT 3.53 10^6/ul (4.20-5.40); RED CELL DISTRIBUTION WIDTH 16.6 % (11.5-14.5); WHITE BLOOD COUNT 8.8 10^3/ul (4.8-10.8)
[2016-11-24 06:16] LABS: POTASSIUM 3.9 mmol/L (3.5-5.1)
[2016-11-24 06:18] LABS: CREATININE 1.41 mg/dl (0.44-1.00)
[2016-11-24 06:19] LABS: CALCIUM 10.4 mg/dl (8.4-10.2); MAGNESIUM 1.9 mg/dl (1.7-2.5); PHOSPHORUS 2.5 mg/dl (2.5-4.9)
[2016-11-24] MEDS: CALCITONIN SALMON 400 UNITS INJ SC SCH ×2 (09:00→21:00)
[2016-11-24] MEDS: TIOTROPIUM 18 MCG CAPSULE INHA DEV INH SCH (09:00)
[2016-11-24] MEDS: FAMOTIDINE 20 MG TAB PO SCH (09:03)
[2016-11-24] MEDS: CEFEPIME 1GM/50 ML (PMX) 50 ML IVPB SCH (09:03)
[2016-11-24] MEDS: FUROSEMIDE 20 MG INJ IV SCH (09:04)
[2016-11-24] MEDS: SALMETEROL/FLUTICASONE 250/50 INHA INH SCH ×2 (09:05→21:00)
[2016-11-24] MEDS: POTASSIUM CHLORIDE 30 MEQ in DEXTROSE 5% 1,000 ML IV SCH (09:40)
--- NOTE | 2016-11-24 11:26 | PN ---
DATE: 11/24/2016 SUBJECTIVE: The patient remains confused but stable. No other acute events noted. No hemoptysis, hematemesis or hematochezia. OBJECTIVE: VITAL SIGNS: Blood pressure 164/66, respiratory rate 20, pulse 84, temperature 97.5. HEENT: Head is normocephalic. NECK: Supple. HEART: Regular rate. LUNGS: Show diminished breath sounds at the base. ABDOMEN: Soft, nontender to palpation. No rebound or guarding. EXTREMITIES: Negative for clubbing, cyanosis, no edema. DERMATOLOGIC: No rashes. MUSCULOSKELETAL: No joint effusions. NEUROLOGIC: No change in exam. MEDICATIONS: The patient's medications have been reviewed. LABORATORY DATA: Shows a sodium of 136, potassium 3.9, chloride 98, BUN 24, creatinine 1.41, calciu m 10.4, hemoglobin 11.4, hematocrit 30.2, platelet count 243. ASSESSMENT AND PLAN: 1. Nonoliguric acute kidney injury on top of chronic kidney disease stage III. Etiology secondary to hemodynamics. The patient's renal function has recovered, renal function has remained stable. C ontinue current treatment plan, supportive care, renally dose all meds. Will likely discontinue the patient's PermCath. 2. Hypernatremia, improved. Will continue free water flushes and D5W. 3. Hypercalcemia. Etiology is unclear. Patient is currently on calcitonin with normalization of ca lcium levels. The patient's PTH level was 37, which is inappropriately elevated for underlying hyper calcemia. The possibility of a primary hyperparathyroidism is now a consideration. Would consider a nuclear scan. We will continue calcitonin for another 24 hours. 5. Acute encephalopathy, etiology is unclear, possibly toxic metabolic. Continue to monitor. Foll ow up with neurology. 6. Hypertension. Continue current blood pressure regimen. 7. Anemia. Continue to monitor hemoglobin and hematocrit levels. 8. Tachyarrhythmia. Continue to monitor. 9. Non-ST elevation myocardial infarction. Continue medical management. 10. History of chronic obstructive pulmonary disease, stable. Continue to observe. Dictated By: DERECK KENNEDY/RUTH Conf#: [id number] DID#: [id number]
--- NOTE | 2016-11-24 12:35 | PN ---
Date/Time of Note Date/Time of Note DATE: 11/24/16 TIME: 12:34 Assessment/Plan VTE Prophylaxis VTE Prophylaxis Intervention: SCD's Lines/Catheters [facility]from [facility] Peripheral IV Urinary Cath still in place: No Assessment/Plan Chief Complaint/Hosp Course ASSESSMENT AND PLAN: 1. Left-sided pneumonia. The patient has been started on broad spectrum IV antibiotic. Pulmonology has been consulted, cefepime and vancomycin. 2. Chronic kidney failure. Nephrology has been consulted. Avoid nephrotoxic medication 3. Essential hypertension, continue medical management 4. Chronic obstructive pulmonary disease. Continue breathing treatment, Advair and Spiriva and Singular. 5. NSTEMI, cardiology has been consulted, continue aspirin statin beta rohith. Patient has been started on heparin drip 6. Altered mental status, with questionable sundowning/hospital-acquired delirium , no evidence of acute CVA on CT of the brain, possibly metabolic, neurology has been consulted 7. Dysphagia, status post PEG tube placement 8. Gastroesophageal reflux disease. Continue Pepcid 9. Deep venous thrombosis prophylaxis. The patient has been placed on heparin. We will continue to monitor patient closely. Further recommendations, management and treatment as per clinical course. Problems: Subjective 24 Hr Interval Summary Free Text/Dictation No acute changes in mentation Patient is tolerating PEG tube feeding Exam/Review of Systems Vital Signs Vitals Vital Signs Date Time Temp Pulse Resp B/P Pulse Ox O2 Delivery O2 Flow Rate FiO2 11/24/16 12:17 98.3 77 20 126/59 92 11/24/16 08:25 Nasal Cannula 2.0 Intake and Output 11/23/16 11/23/16 11/24/16 15:00 23:00 07:00 Intake Total 50 ml 404.5455 ml 660 ml Balance 50 ml 404.5455 ml 660 ml Exam General: The patient is morbidly obese, altered HEENT: Atraumatic, normocephalic. The pupils are equal and round . Neck: Supple with full range of motion. Chest: Normal expansion of the thorax during inspiration Lungs: Clear to auscultation bilaterally Heart: Normal S1-S2, Regular rhythm and rate. Abdomen: Soft , nontender, nondistended , bowel sounds are present. Extremities: Normal to inspection, no edema no cyanosis Neurologic: ,The patient is awake, arousable Results Result Diagram: 11/24/16 0538 11/24/16 0538 Results 24 hrs Laboratory Tests Test 11/24/16 05:38 11/24/16 07:52 Anion Gap 12 Basophils # 0.1 Basophils % 0.6 Blood Urea Nitrogen 24 H Calcium Level 10.4 H Carbon Dioxide Level 30 Chloride Level 98 Creatinine 1.41 H Eosinophils # 0.1 Eosinophils % 0.9 Glucose Level 166 Hematocrit 30.2 L Hemoglobin 9.4 L Lymphocytes # 1.7 Lymphocytes % 18.7 Magnesium Level 1.9 Mean Corpuscular Hemoglobin 26.6 L Mean Corpuscular Hemoglobin Concent 31.1 L Mean Corpuscular Volume 85.6 Mean Platelet Volume 9.3 Monocytes # 0.8 Monocytes % 8.5 Neutrophils # 6.2 Neutrophils % 70.6 Nucleated Red Blood Cells # 0.0 Nucleated Red Blood Cells % 0.0 Phosphorus Level 2.5 Platelet Count 243 Potassium Level 3.9 Red Blood Count 3.53 L Red Cell Distribution Width 16.6 H Sodium Level 136 White Blood Count 8.8 Lab Scanned Report REFERENCE LAB Medications Medications Current Medications Hydralazine HCl (Apresoline) 10 mg Q6H PRN IV ELEVATED BLOOD PRESSURE Last administered on 11/20/16 13:16; Admin Dose 10 MG; Start 11/17/16 at 17:30 Lorazepam (Ativan) 0.5 mg Q8H PRN PO ANXIETY Last administered on 11/17/16 18: 01; Admin Dose 0.5 MG; Start 11/17/16 at 17:30 Ondansetron HCl (Zofran Tab) 4 mg Q6H PRN PO NAUSEA AND/OR VOMITING; Start at 17:30 Nitroglycerin (Nitroglycerin (Sl Tab) 0.4 Mg) 1 tab Q5M PRN SL CHEST PAIN; Start 11/17/16 at 17:30 Acetaminophen (Tylenol Tab) 650 mg Q6H PRN PO PAIN LEVEL 1-3 OR FEVER; Start at 17:30 Acetaminophen (Tylenol Supp) 650 mg Q6H PRN [place] PAIN LEVEL 1-3 OR FEVER; Start 11/17/16 at 17:30 Morphine Sulfate (morphine) 2 mg Q4H PRN IV PAIN LEVEL 7-10 Last administered on 11/20/16 04:00; Admin Dose 2 MG; Start 11/17/16 at 17:30 Docusate Sodium (Colace) 100 mg Q12H PRN PO CONSTIPATION; Start 11/17/16 at 17: 30 Bisacodyl (Dulcolax) 5 mg DAILY PRN PO CONSTIPATION; Start 11/17/16 at 17:30 Clonidine (Catapres) 0.1 mg Q6H PRN PO ELEVATED BLOOD PRESSURE; Start 11/17/16 at 17:30 Tiotropium [place] (Spiriva) 1 inh DAILY INH ; Start 11/18/16 at 09:00 Montelukast Sodium (Singulair) 10 mg HS PO Last administered on 11/23/16 21:29 ; Admin Dose 10 MG; Start 11/17/16 at 21:00 Salmeterol Xinafoate/ Fluticasone 1 inh 1 inh BID INH Last administered on 11/24 09:05; Admin Dose 1 INH; Start 11/17/16 at 21:00 Cefepime HCl (Maxipime 1gm/50 ml (Pmx)) 50 ml @ 100 mls/hr Q24H IVPB Last administered on 11/24/16 09:03; Admin Dose 100 MLS/HR; Start 11/19/16 at 09:00 Labetalol HCl (Labetalol) 10 mg Q4 PRN IV SBP >160; Start 11/19/16 at 10:30 Furosemide (Lasix) 20 mg DAILY IV Last administered on 11/24/16 09:04; Admin Dose 20 MG; Start 11/20/16 at 09:00 Famotidine (Pepcid) 20 mg DAILY PO Last administered on 11/24/16 09:03; Admin Dose 20 MG; Start 11/20/16 at 09:00 Calcitonin [place] 308 units 308 units BID SC Last administered on 11/24/16 09: 00; Admin Dose 308 UNITS; Start 11/21/16 at 10:30 Potassium Chloride/Dextrose (KCl/D5W) 1,015 ml @ 40 mls/hr Q24H IV Last administered on 11/23/16 10:23; Admin Dose 40 MLS/HR; Start 11/23/16 at 10:00 Carvedilol (Coreg) 6.25 mg BID GTB Last administered on 11/24/16 09:04; Admin Dose 6.25 MG; Start 11/24/16 at 09:00 Miscellaneous Information (*Rx Drug Level Order Reminder*) 1 ONCE ONCE XX ; Start 11/25/16 at 05:00; Stop 11/25/16 at 05:01 NAVA GOMEZ MD Nov 24, 2016 12:35
--- NOTE | 2016-11-24 14:50 | CONS ---
Date/Time of Note Date/Time of Note DATE: 11/24/16 TIME: 14:47 Assessment/Plan Assessment/Plan Additional Assessment/Plan Assessment recommendations; 1. Patient admitted with pneumonia and sepsis with significant clinical improvement. 2. Mild CHF, clinically compensated. 3. History of renal failure required hemodialysis in the past on maintaining stable serum creatinine not requiring any further hemodialysis. 4. Metabolic enthesopathy with marked overall interval improvement. 5. Dysphagia, status post G-tube placement. 6. Stable hypertension. 7. Hypercalcemia, currently well controlled on calcitonin. Continue current supportive care. Patient has improved significantly over the last 24-48 hours. Consultation Date/Type/Reason Admit Date/Time Nov 17, 2016 at 14:00 Initial Consult Date 11/18/16 Type of Consultation: Pulmonary 24 HR Interval Summary Free Text/Dictation Patient condition is markedly improved. She underwent G-tube placement yesterday which was uneventful. She denies any shortness of breath, chest pain. General exam; elderly lady, awake and alert. Able to talk. Exam/Review of Systems Vital Signs Vitals Vital Signs Date Time Temp Pulse Resp B/P Pulse Ox O2 Delivery O2 Flow Rate FiO2 11/24/16 12:17 98.3 77 20 126/59 92 11/24/16 08:25 Nasal Cannula 2.0 Intake and Output 11/23/16 11/23/16 11/24/16 15:00 23:00 07:00 Intake Total 50 ml 404.5455 ml 660 ml Balance 50 ml 404.5455 ml 660 ml Exam HEENT examination; supple neck, positive JVD. No lymphadenopathy. Midline trachea. Pharynx is clear. Pupils are small bilaterally. No neck masses. No thyromegaly. Chest examination; diminished but clear breath sounds bilaterally. S1-S2 audible, no murmurs. Regular rhythm. Abdomen examination; soft, protuberant. Nontender. No organomegaly. G-tube in place. Bowel sounds audible. Extremity examination; trace peripheral edema. COURT WORKER examination; patient moves all 4 extremities follows simple commands. Results Result Diagram: 11/24/16 0538 11/24/16 0538 Results 24 hrs Laboratory Tests Test 11/24/16 05:38 11/24/16 07:52 Anion Gap 12 Basophils # 0.1 Basophils % 0.6 Blood Urea Nitrogen 24 H Calcium Level 10.4 H Carbon Dioxide Level 30 Chloride Level 98 Creatinine 1.41 H Eosinophils # 0.1 Eosinophils % 0.9 Glucose Level 166 Hematocrit 30.2 L Hemoglobin 9.4 L Lymphocytes # 1.7 Lymphocytes % 18.7 Magnesium Level 1.9 Mean Corpuscular Hemoglobin 26.6 L Mean Corpuscular Hemoglobin Concent 31.1 L Mean Corpuscular Volume 85.6 Mean Platelet Volume 9.3 Monocytes # 0.8 Monocytes % 8.5 Neutrophils # 6.2 Neutrophils % 70.6 Nucleated Red Blood Cells # 0.0 Nucleated Red Blood Cells % 0.0 Phosphorus Level 2.5 Platelet Count 243 Potassium Level 3.9 Red Blood Count 3.53 L Red Cell Distribution Width 16.6 H Sodium Level 136 White Blood Count 8.8 Lab Scanned Report REFERENCE LAB Medications Medications Current Medications Hydralazine HCl (Apresoline) 10 mg Q6H PRN IV ELEVATED BLOOD PRESSURE Last administered on 11/20/16 13:16; Admin Dose 10 MG; Start 11/17/16 at 17:30 Lorazepam (Ativan) 0.5 mg Q8H PRN PO ANXIETY Last administered on 11/17/16 18: 01; Admin Dose 0.5 MG; Start 11/17/16 at 17:30 Ondansetron HCl (Zofran Tab) 4 mg Q6H PRN PO NAUSEA AND/OR VOMITING; Start at 17:30 Nitroglycerin (Nitroglycerin (Sl Tab) 0.4 Mg) 1 tab Q5M PRN SL CHEST PAIN; Start 11/17/16 at 17:30 Acetaminophen (Tylenol Tab) 650 mg Q6H PRN PO PAIN LEVEL 1-3 OR FEVER; Start at 17:30 Acetaminophen (Tylenol Supp) 650 mg Q6H PRN NM PAIN LEVEL 1-3 OR FEVER; Start 11/17/16 at 17:30 Morphine Sulfate (morphine) 2 mg Q4H PRN IV PAIN LEVEL 7-10 Last administered on 11/20/16 04:00; Admin Dose 2 MG; Start 11/17/16 at 17:30 Docusate Sodium (Colace) 100 mg Q12H PRN PO CONSTIPATION; Start 11/17/16 at 17: 30 Bisacodyl (Dulcolax) 5 mg DAILY PRN PO CONSTIPATION; Start 11/17/16 at 17:30 Clonidine (Catapres) 0.1 mg Q6H PRN PO ELEVATED BLOOD PRESSURE; Start 11/17/16 at 17:30 Tiotropium [place] (Spiriva) 1 inh DAILY INH ; Start 11/18/16 at 09:00 Montelukast Sodium (Singulair) 10 mg HS PO Last administered on 11/23/16 21:29 ; Admin Dose 10 MG; Start 11/17/16 at 21:00 Salmeterol Xinafoate/ Fluticasone 1 inh 1 inh BID INH Last administered on 11/24 09:05; Admin Dose 1 INH; Start 11/17/16 at 21:00 Cefepime HCl (Maxipime 1gm/50 ml (Pmx)) 50 ml @ 100 mls/hr Q24H IVPB Last administered on 11/24/16 09:03; Admin Dose 100 MLS/HR; Start 11/19/16 at 09:00 Labetalol HCl (Labetalol) 10 mg Q4 PRN IV SBP >160; Start 11/19/16 at 10:30 Furosemide (Lasix) 20 mg DAILY IV Last administered on 11/24/16 09:04; Admin Dose 20 MG; Start 11/20/16 at 09:00 Famotidine (Pepcid) 20 mg DAILY PO Last administered on 11/24/16 09:03; Admin Dose 20 MG; Start 11/20/16 at 09:00 Calcitonin [place] 308 units 308 units BID SC Last administered on 11/24/16 09: 00; Admin Dose 308 UNITS; Start 11/21/16 at 10:30 Potassium Chloride/Dextrose (KCl/D5W) 1,015 ml @ 40 mls/hr Q24H IV Last administered on 11/23/16 10:23; Admin Dose 40 MLS/HR; Start 11/23/16 at 10:00 Carvedilol (Coreg) 6.25 mg BID GTB Last administered on 11/24/16 09:04; Admin Dose 6.25 MG; Start 11/24/16 at 09:00 Miscellaneous Information (*Rx Drug Level Order Reminder*) 1 ONCE ONCE XX ; Start 11/25/16 at 05:00; Stop 11/25/16 at 05:01 FRACISCO MCKENZIE Nov 24, 2016 14:50
--- NOTE | 2016-11-24 17:37 | RADRPT ---
Vent Rate: 136 bpm RR Interval: 0 msec MI Interval: 146 msec QRS Duration: 70 msec QT Interval: 288 msec QTC Interval: 433 msec P-R-T [place]: 43 - 15 - 51 degrees Sinus tachycardia Possible Inferior infarct , age undetermined Abnormal ECG Electronically Signed By: Ashu oFrrest [id number]
[2016-11-24] MEDS: MONTELUKAST 10 MG TAB PO SCH (22:42)
[2016-11-25] VITALS (9 sets, daily range): BP systolic 113–138; BP diastolic 61–67; PULSE 75–86; RESP 18–20
[2016-11-25] MEDS: SALMETEROL/FLUTICASONE 250/50 INHA INH SCH ×2 (08:51→20:56)
[2016-11-25] MEDS: FAMOTIDINE 20 MG TAB PO SCH (08:51)
[2016-11-25] MEDS: FUROSEMIDE 20 MG INJ IV SCH (08:51)
[2016-11-25] MEDS: TIOTROPIUM 18 MCG CAPSULE INHA DEV INH SCH (08:52)
[2016-11-25] MEDS: CEFEPIME 1GM/50 ML (PMX) 50 ML IVPB SCH (08:52)
[2016-11-25] MEDS ORDERED: VANCOMYCIN 1.25 GM in SOD CHLORIDE 0.9% 250 ML IVPB ONE (09:00)
--- NOTE | 2016-11-25 10:18 | PN ---
DATE: 11/25/2016 SUBJECTIVE: The patient remains confused, but arousable. No other events noted. OBJECTIVE: VITAL SIGNS: Blood pressure 128/67, respirations 20, pulse 81, temperature 98.8. HEENT: Head is normocephalic. NECK: Supple. HEART: Regular rate. LUNGS: Show diminished breath sounds at the bases. ABDOMEN: Soft, nontender to palpation. No rebound or guarding. EXTREMITIES: Negative for clubbing, cyanosis. No edema. DERMATOLOGIC: No rashes. MUSCULOSKELETAL: No joint effusions. NEUROLOGIC: No change in exam. MEDICATIONS: The patient's medications have been reviewed. LABORATORY DATA: Currently pending. ASSESSMENT AND PLAN: 1. Nonoliguric acute kidney injury on top of chronic kidney disease stage III. Etiology is seconda ry to hemodynamics. Renal function has recovered, currently stable. Continue current treatment carole n, supportive care, renally dose meds, avoid nephrotoxins. 2. Hyponatremia, improved. Continue free water flushes, D5W. 3. Hypercalcemia, etiology is concerning for possible hyperparathyroidism. The patient's PTH level s were within normal limits which have been appropriately elevated. The patient's calcium levels miller ve improved with calcitonin. Would consider ordering a parathyroid nuclear scan once the patient is clinically stable. We will also check a parathyroid hormone-related peptide and monitor. 4. Acute encephalopathy. Etiology is unclear, possibly toxic metabolic. Continue to monitor. Fol low up with neurology. 5. Hypertension. Continue current blood pressure regimen. 6. Anemia. Continue to monitor hemoglobin and hematocrit levels. 7. Tachycardia arrhythmia. Continue to monitor. 8. Non-ST elevation myocardial infarction. Continue medical management. 9. History of chronic obstructive pulmonary disease. Continue current treatment plan. Dictated By: DERECK KENNEDY/RUTH Conf#: [id number] DID#: [id number]
--- NOTE | 2016-11-25 11:48 | PN ---
Date/Time of Note Date/Time of Note DATE: 11/25/16 TIME: 11:46 Assessment/Plan VTE Prophylaxis VTE Prophylaxis Intervention: heparin Lines/Catheters IV [facility] Type [facility] Peripheral IV Urinary Cath still in place: No Assessment/Plan Assessment/Plan 1. Left-sided pneumonia. on IV abx cefepime, vancomycin 2. SWATHI on CKD III due to Hemodynamics - Cr stable 3. Essential hypertension, continue medical management 4. Chronic obstructive pulmonary disease. Continue breathing treatment, Advair and Spiriva and Singular. 5. NSTEMI, cardiology has been consulted, continue aspirin statin beta rohith. Patient has been started on heparin drip 6. Altered mental status, with questionable sundowning/hospital-acquired delirium , no evidence of acute CVA on CT of the brain, possibly metabolic, neurology has been consulted 7. Dysphagia, status post PEG tube placement 8. Gastroesophageal reflux disease. Continue Pepcid 9. Deep venous thrombosis prophylaxis. The patient has been placed on heparin. 10. Hypercalcemia- S/p calcitonin, Ca still high,PTHrp sent, PTH appropriately elevated, nephrology has been following We will continue to monitor patient closely. Further recommendations, management and treatment as per clinical course. Subjective 24 Hr Interval Summary Free Text/Dictation Ca still high,renal function stable, less SOb, Exam/Review of Systems Vital Signs Vitals Vital Signs Date Time Temp Pulse Resp B/P Pulse Ox O2 Delivery O2 Flow Rate FiO2 11/25/16 08:38 76 11/25/16 07:54 98.8 20 128/67 97 11/25/16 03:41 Nasal Cannula 2.0 Intake and Output 11/24/16 11/24/16 11/25/16 15:00 23:00 07:00 Intake Total 600 ml 600 ml Balance 600 ml 600 ml Exam HEENT: Head is normocephalic. NECK: Supple. HEART: Regular rate. LUNGS: Show diminished breath sounds at the bases. ABDOMEN: Soft, nontender to palpation. No rebound or guarding. EXTREMITIES: Negative for clubbing, cyanosis. No edema. DERMATOLOGIC: No rashes. MUSCULOSKELETAL: No joint effusions. NEUROLOGIC: No change in exam. Results Result Diagram: 11/24/1638 11/24/16 0538 Results 24 hrs Laboratory Tests Test 11/25/16 05:05 Random Vancomycin Level 11.0 Medications Medications Current Medications Hydralazine HCl (Apresoline) 10 mg Q6H PRN IV ELEVATED BLOOD PRESSURE Last administered on 11/20/16 13:16; Admin Dose 10 MG; Start 11/17/16 at 17:30 Lorazepam (Ativan) 0.5 mg Q8H PRN PO ANXIETY Last administered on 11/17/16 18: 01; Admin Dose 0.5 MG; Start 11/17/16 at 17:30 Ondansetron HCl (Zofran Tab) 4 mg Q6H PRN PO NAUSEA AND/OR VOMITING; Start at 17:30 Nitroglycerin (Nitroglycerin (Sl Tab) 0.4 Mg) 1 tab Q5M PRN SL CHEST PAIN; Start 11/17/16 at 17:30 Acetaminophen (Tylenol Tab) 650 mg Q6H PRN PO PAIN LEVEL 1-3 OR FEVER; Start at 17:30 Acetaminophen (Tylenol Supp) 650 mg Q6H PRN IN PAIN LEVEL 1-3 OR FEVER; Start 11/17/16 at 17:30 Morphine Sulfate (morphine) 2 mg Q4H PRN IV PAIN LEVEL 7-10 Last administered on 11/20/16 04:00; Admin Dose 2 MG; Start 11/17/16 at 17:30 Docusate Sodium (Colace) 100 mg Q12H PRN PO CONSTIPATION; Start 11/17/16 at 17: 30 Bisacodyl (Dulcolax) 5 mg DAILY PRN PO CONSTIPATION; Start 11/17/16 at 17:30 Clonidine (Catapres) 0.1 mg Q6H PRN PO ELEVATED BLOOD PRESSURE; Start 11/17/16 at 17:30 Tiotropium [place] (Spiriva) 1 inh DAILY INH Last administered on 11/25/16 08: 52; Admin Dose 1 INH; Start 11/18/16 at 09:00 Montelukast Sodium (Singulair) 10 mg HS PO Last administered on 11/24/16 22:42 ; Admin Dose 10 MG; Start 11/17/16 at 21:00 Salmeterol Xinafoate/ Fluticasone 1 inh 1 inh BID INH Last administered on 08:51; Admin Dose 1 INH; Start 11/17/16 at 21:00 Cefepime HCl (Maxipime 1gm/50 ml (Pmx)) 50 ml @ 100 mls/hr Q24H IVPB Last administered on 11/25/16 08:52; Admin Dose 100 MLS/HR; Start 11/19/16 at 09:00 Labetalol HCl (Labetalol) 10 mg Q4 PRN IV SBP >160; Start 11/19/16 at 10:30 Furosemide (Lasix) 20 mg DAILY IV Last administered on 11/25/16 08:51; Admin Dose 20 MG; Start 11/20/16 at 09:00 Famotidine (Pepcid) 20 mg DAILY PO Last administered on 11/25/16 08:51; Admin Dose 20 MG; Start 11/20/16 at 09:00 Calcitonin [place] (Miacalcin Inj) 308 units BID SC Last administered on 21:00; Admin Dose 308 UNITS; Start 11/21/16 at 10:30; Status Future Hold Carvedilol 6.25 mg 6.25 mg BID GTB Last administered on 11/25/16 08:52; Admin Dose 6.25 MG; Start 11/24/16 at 09:00 Vancomycin HCl/ Sodium Chloride (Vancocin/NS) 250 ml @ 83.333 mls/ hr ONCE ONCE IVPB Last administered on 11/25/16 10:37; Admin Dose 83.333 MLS/HR; Start 11/25/16 at 09:00; Stop 11/25/16 at 11:59 KIZZY LANCE MD Nov 25, 2016 11:48
--- NOTE | 2016-11-25 16:13 | CONS ---
Date/Time of Note Date/Time of Note DATE: 11/25/16 TIME: 16:11 Assessment/Plan Assessment/Plan Chief Complaint/Hosp Course SOB: ?combination of PNA +/- mild CHF. ?Paroxysmal atrial tachycardia: HRs now improved Accelerated HTN: BP improved NSTEMI: type II in setting of above. Treat medically. EF preserved. CKD: was previously on HD, now off DM COPD -continue carvedilol 6.25mg BID, up titrate as needed -change Lasix to 40mg GT daily -abx per primary team, f/u cultures Problems: Consultation Date/Type/Reason Admit Date/Time Nov 17, 2016 at 14:00 Initial Consult Date 11/18/16 Type of Consultation: Cardiology 24 HR Interval Summary Free Text/Dictation No acute events. Remains confused. Detailed Summary Additional Comments Unable to obtain review of systems due to patient's altered mental status. Exam/Review of Systems Vital Signs Vitals Vital Signs Date Time Temp Pulse Resp B/P Pulse Ox O2 Delivery O2 Flow Rate FiO2 11/25/16 15:57 98.2 73 20 138/66 96 11/25/16 08:15 Nasal Cannula 2.0 Intake and Output 11/24/16 11/24/16 11/25/16 15:00 23:00 07:00 Intake Total 600 ml 600 ml Balance 600 ml 600 ml Exam Constitutional: No distress Head: atraumatic, normocephalic Neck: jvd (8cm) Respiratory: diminished breath sounds, No clear to auscultation Cardiovascular: edema (1+ sacral ), LE lymphedema, RRR, systolic murmur (2/6 CATHY), Neurological: No nl mental status, No nl speech Results Result Diagram: 11/24/1638 11/24/16 0538 Results 24 hrs Laboratory Tests Test 11/25/16 05:05 Random Vancomycin Level 11.0 Medications Medications Current Medications Hydralazine HCl (Apresoline) 10 mg Q6H PRN IV ELEVATED BLOOD PRESSURE Last administered on 11/20/16 13:16; Admin Dose 10 MG; Start 11/17/16 at 17:30 Lorazepam (Ativan) 0.5 mg Q8H PRN PO ANXIETY Last administered on 11/17/16 18: 01; Admin Dose 0.5 MG; Start 11/17/16 at 17:30 Ondansetron HCl (Zofran Tab) 4 mg Q6H PRN PO NAUSEA AND/OR VOMITING; Start at 17:30 Nitroglycerin (Nitroglycerin (Sl Tab) 0.4 Mg) 1 tab Q5M PRN SL CHEST PAIN; Start 11/17/16 at 17:30 Acetaminophen (Tylenol Tab) 650 mg Q6H PRN PO PAIN LEVEL 1-3 OR FEVER; Start at 17:30 Acetaminophen (Tylenol Supp) 650 mg Q6H PRN [place] PAIN LEVEL 1-3 OR FEVER; Start 11/17/16 at 17:30 Morphine Sulfate (morphine) 2 mg Q4H PRN IV PAIN LEVEL 7-10 Last administered on 11/20/16 04:00; Admin Dose 2 MG; Start 11/17/16 at 17:30 Docusate Sodium (Colace) 100 mg Q12H PRN PO CONSTIPATION; Start 11/17/16 at 17: 30 Bisacodyl (Dulcolax) 5 mg DAILY PRN PO CONSTIPATION; Start 11/17/16 at 17:30 Clonidine (Catapres) 0.1 mg Q6H PRN PO ELEVATED BLOOD PRESSURE; Start 11/17/16 at 17:30 Tiotropium [place] (Spiriva) 1 inh DAILY INH Last administered on 11/25/16 08: 52; Admin Dose 1 INH; Start 11/18/16 at 09:00 Montelukast Sodium (Singulair) 10 mg HS PO Last administered on 11/24/16 22:42 ; Admin Dose 10 MG; Start 11/17/16 at 21:00 Salmeterol Xinafoate/ Fluticasone 1 inh 1 inh BID INH Last administered on 08:51; Admin Dose 1 INH; Start 11/17/16 at 21:00 Cefepime HCl (Maxipime 1gm/50 ml (Pmx)) 50 ml @ 100 mls/hr Q24H IVPB Last administered on 11/25/16 08:52; Admin Dose 100 MLS/HR; Start 11/19/16 at 09:00 Labetalol HCl (Labetalol) 10 mg Q4 PRN IV SBP >160; Start 11/19/16 at 10:30 Furosemide (Lasix) 20 mg DAILY IV Last administered on 11/25/16 08:51; Admin Dose 20 MG; Start 11/20/16 at 09:00 Famotidine (Pepcid) 20 mg DAILY PO Last administered on 11/25/16 08:51; Admin Dose 20 MG; Start 11/20/16 at 09:00 Carvedilol (Coreg) 6.25 mg BID GTB Last administered on 11/25/16 08:52; Admin Dose 6.25 MG; Start 11/24/16 at 09:00 ALLIE QUINTEROS MD Nov 25, 2016 16:13
--- NOTE | 2016-11-25 16:47 | RADRPT ---
PROCEDURE: MR Brain without contrast. CLINICAL INDICATION: Encephalopathy. Pneumonia TECHNIQUE: An MRI of the brain was performed on a 1.5 isabela scanner utilizing the following sequen juventino: Sagittal T1 weighted, axial T2 weighted, axial FLAIR, coronal GRE, and axial diffusion weighted with ADC mapping. COMPARISON: None FINDINGS: Two foci of the T2 signal hyperintensity along the cortical margin of the right postcentral gyrus an d medial right parietal gyrus. Although these may represent foci of restricted diffusion and small cortical infarcts, the patient has no clinical history of lateralization or focal neurologic deficit to suggest ischemic infarction and these likely represent interface artifact. There is no evidence of intracranial hemorrhage, mass effect, or midline shift. No extra-axial fluid collections are seen. No hypointense signal abnormalities are seen on the GRE images to suggest the presence of blood degr adation products. Extensive confluent periventricular and subcortical white matter and basal ganglia T2 signal hyperin tensity most compatible with sequelae of chronic microvascular ischemic injury. The ventricles and subarachnoid spaces are prominent compatible with age-related central cerebral volume loss. The posterior fossa contents, brainstem, seventh - eighth cranial nerve complexes, pituitary axis, o rbits, and paranasal sinuses are unremarkable. Fluid signal within the mastoid air cells bilaterally compatible with retained secretions or inflammatory change. Normal flow voids are visible in the proximal intracranial arteries and dural sinuses, indicating pa tency. IMPRESSION: 1. Extensive chronic microvascular ischemic changes in the deep white matter. No intracranial hemor rhage or mass effect. 2. Signal hyperintensity foci in the right parietal frontal lobe on diffusion weighted sequences li cristian artifactual in nature as described above. The patient has no clinical history of a focal neuro logic deficit to ischemic infarct. 3. Moderate age-related central volume loss. 4. Results were discussed with Richie Naranjo 11/25/2016 3:45 PM . RPTAT:AAJJ Physician Wenceslao Date Time Electronically viewed and signed by Physician Wenceslao on 11/25/2016 16:47 NELSY/
[2016-11-25] MEDS ORDERED: VANCOMYCIN 1.25 GM in SOD CHLORIDE 0.9% 250 ML IVPB SCH (19:00)
[2016-11-25] MEDS: MONTELUKAST 10 MG TAB PO SCH (20:56)
[2016-11-26 05:06] LABS: ADD SCAN DIFF NO
[2016-11-26 05:13] LABS: BASOPHIL # 0.1 10^3/ul (0.0-0.1); BASOPHILS % 1.2 % (0.0-2.0); EOSINOPHILS # 0.3 10^3/ul (0.0-0.5); EOSINOPHILS % 3.4 % (0.0-7.0); HEMATOCRIT 29.2 % (37.0-47.0); HEMOGLOBIN 9.1 g/dl (12.0-16.0); LYMPHOCYTES # 1.5 10^3/ul (0.8-2.9); MEAN CORPUSCULAR HEMOGLOBIN 26.8 pg (29.0-33.0); MEAN CORPUSCULAR HGB CONC 31.2 g/dl (32.0-37.0); MEAN CORPUSCULAR VOLUME 85.9 fl (82.0-101.0); MEAN PLATELET VOLUME 9.6 fl (7.4-10.4); MONOCYTE # 0.8 10^3/ul (0.3-0.9); MONOCYTES % 9.6 % (0.0-11.0); NEUTROPHIL # 5.5 10^3/ul (1.6-7.5); NEUTROPHILS % 67.1 % (39.0-77.0); PLATELET COUNT 240 10^3/UL (140-415); RED CELL DISTRIBUTION WIDTH 16.4 % (11.5-14.5); WHITE BLOOD COUNT 8.1 10^3/ul (4.8-10.8)
[2016-11-26 05:39] LABS: POTASSIUM 4.5 mmol/L (3.5-5.1)
[2016-11-26 05:41] LABS: CREATININE 1.86 mg/dl (0.44-1.00)
[2016-11-26 05:42] LABS: CALCIUM 10.8 mg/dl (8.4-10.2)
--- NOTE | 2016-11-26 06:52 | PN ---
DATE: 11/25/2016 The patient remains mildly confused this morning. was at bedside. PHYSICAL EXAMINATION: VITAL SIGNS: Temperature 98, pulse 71, blood pressure 128/____, O2 saturation 96% on 2 liters cannu la.. NECK: Supple. No JVD or lymphadenopathy. CARDIAC: S1, S2, no added sounds or murmurs. CHEST: Diminished air entry bilaterally. ABDOMEN: Soft, nontender. No guarding or rebound. EXTREMITIES: No cyanosis, clubbing, edema. NEUROLOGIC: Generalized weakness. LABORATORY DATA: White count 8.8, hemoglobin 9.4, platelets of 243. BUN 24, creatinine 1.41. INR 1.17. IMAGING: Chest x-ray was reviewed, shows bilateral pneumonia and edema. IMPRESSION AND PLAN: 1. Status hypoxemic respiratory failure. 2. Healthcare-associated pneumonia. 3. Resolving encephalopathy. 4. Status post respiratory failure, now on hemodialysis. Dictated By: CLAY WONG/RUTH Conf#: [id number] DID#: [id number]
[2016-11-26 08:06] VITALS: BP 115/56; RESP 18
[2016-11-26] MEDS: SALMETEROL/FLUTICASONE 250/50 INHA INH SCH (09:00)
[2016-11-26] MEDS: TIOTROPIUM 18 MCG CAPSULE INHA DEV INH SCH (09:00)
[2016-11-26] MEDS ORDERED: FUROSEMIDE 40 MG/4 ML CUP GTB SCH (09:00)
[2016-11-26] MEDS: FAMOTIDINE 20 MG TAB PO SCH (10:04)
[2016-11-26] MEDS: CEFEPIME 1GM/50 ML (PMX) 50 ML IVPB SCH (11:09)
--- NOTE | 2016-11-26 11:44 | PN ---
DATE: 11/26/2016 SUBJECTIVE: The patient is stable, no acute events overnight. No fevers, chills, nausea, vomiting, shortness of breath. OBJECTIVE: VITAL SIGNS: Blood pressure is 150/56, respiration 18, pulse 67, temperature 98.1. HEENT: Head is normocephalic. NECK: Supple. HEART: Regular rate. LUNGS: Show diminished breath sounds at the base. ABDOMEN: Soft, nontender to palpation without rebound or guarding. EXTREMITIES: Negative for clubbing, cyanosis. Trace edema. DERMATOLOGIC: No rashes. MUSCULOSKELETAL: No joint effusions. NEUROLOGIC: No change in exam. MEDICATIONS: The patient's medications have been reviewed. LABORATORY DATA: Shows sodium 136, potassium 4.5, BUN 36, creatinine 1.86, calcium 10.8. White cou nt 8.1, hemoglobin 9.4, hematocrit 29.2, platelet count 240. ASSESSMENT AND PLAN: 1. Nonoliguric acute kidney injury on top of chronic kidney disease stage III. Etiology is felt to be secondary to hemodynamics. Patient's renal function has been fluctuating. Continue to monitor. The patient has been off hemodialysis for the last month. I spoke with the patient about removal of the Perm-A-Cath. She is hesitant to have it removed. Will continue to discuss with the patient. 3. Hypernatremia, improved. Continue free water flushes. 4. Hypercalcemia, etiology is concerning for possible hyperparathyroidism. The patient's PTH level s were within normal limits, which are inappropriately elevated. The patient is status post calcito giovani. A parathyroid related hormone is pending. Would also consider a parathyroid nuclear scan. 5. Acute encephalopathy. Etiology is unclear, possibly metabolic. The patient's mental status has improved. Continue to monitor. 6. Dysphagia. Status post PEG. Continue tube feeds. 7. Hypertension. Continue current blood pressure regimen. 8. Anemia. Continue to monitor hemoglobin and hematocrit levels. 9. Tachyarrhythmia. Continue current medical management. Follow up with cardiology. 10. Continue current medical management. 11. History of chronic obstructive pulmonary disease. Continue current treatment plan. 12. Pneumonia. Continue current antibiotic regimen. Dictated By: DERECK KENNEDY/RUTH Conf#: [id number] DID#: [id number]
--- NOTE | 2016-11-26 13:29 | PN ---
DATE: 11/26/2016 SUBJECTIVE: Patient Tamika remains stable. Still somewhat confused this morning, but no evidence o f respiratory distress. VITAL SIGNS: Temperature 98, pulse is 67, blood pressure 115/56, O2 saturation 95% on 2 L nasal can nula. NECK: Supple. No JVD or lymphadenopathy. CARDIAC: S1, S2. No added sounds or murmurs. CHEST: Diminished air entry bilaterally. ABDOMEN: Soft, nontender. No guarding or rebound. EXTREMITIES: No cyanosis, clubbing, or edema. NEUROLOGIC: Generalized weakness. LABORATORY DATA: White count 8.6, hemoglobin 9.1, platelets of 240. Chemistry: BUN 36, creatinine 0.86. IMPRESSION AND PLAN: 1. Status post hypoxemic respiratory failure. 2. Resolving health care-associated pneumonia. 3. Resolving encephalopathy. 4. Renal insufficiency. Patient remains off hemodialysis at present. Will continue to monitor per nephrology. Dictated By: CLAY WONG/RUTH Conf#: [id number] DID#: [id number]
--- NOTE | 2016-11-26 13:50 | PN ---
Date/Time of Note Date/Time of Note DATE: 11/26/16 TIME: 13:37 Assessment/Plan VTE Prophylaxis VTE Prophylaxis Intervention: heparin Lines/Catheters IV Catheter Type (from Nrs): PERMACATH Urinary Cath still in place: No Assessment/Plan Assessment/Plan 1. Healthcare-associated pneumonia. on IV abx cefepime, vancomycin 2. SWATHI on CKD III, follow up with BMP 3. Essential hypertension, controlled 4. Chronic obstructive pulmonary disease. Continue breathing treatment, Advair and Spiriva and Singular. 5. NSTEMI, cardiology has been consulted, continue aspirin statin beta rohith. Patient has been started on heparin drip 6. Metabolic encephalopathy, 7. Dysphagia, status post PEG tube placement 8. Gastroesophageal reflux disease. Continue Pepcid 9. Deep venous thrombosis prophylaxis. The patient has been placed on heparin. 10. Hypercalcemia- S/p calcitonin, Ca still high,PTHrp sent, PTH appropriately elevated, nephrology has been following Subjective 24 Hr Interval Summary Free Text/Dictation no respiratory distress Exam/Review of Systems Vital Signs Vitals Vital Signs Date Time Temp Pulse Resp B/P Pulse Ox O2 Delivery O2 Flow Rate FiO2 11/26/16 08:06 98.1 67 18 115/56 95 11/26/16 08:00 Nasal Cannula 2.0 Intake and Output 11/25/16 11/25/16 11/26/16 15:00 23:00 07:00 Intake Total 150 ml 640 ml Balance 150 ml 640 ml Exam Constitutional: alert, oriented, well developed Head: atraumatic, normocephalic Eyes: EOMI, nl conjunctiva, nl lids ENMT: nl external ears & nose, nl lips & teeth, nl nasal mucosa & septum Neck: non-tender, supple Respiratory: normal air movement, other (rhonchi), No congested cough, No diminished breath sounds, No intercostal retraction, No labored breathing, No respirations, No tactile fremitus, No wheezing Cardiovascular: nl pulses, regular rate and rhythm, No S3, No S4, No bruits, No diastolic murmur, No edema, No gallop, No irregular rhythm, No jugular venous distention (JVD), No murmurs/extra sounds, No other, No rub, No systolic murmur Gastrointestinal: nl liver, spleen, non-tender, soft, No ascites, No bowel sounds, No distended, No firm, No hepatomegaly, No mass , No other, No rebound or guarding, No splenomegaly, No surgical scars, No tender Extremities: normal pulses, No calf tenderness, No clubbing, No cyanosis, No edema, No other, No palpable cord, No pitting pedal edema, No tenderness Neurological: 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 intact, nl speech Results Result Diagram: 11/26/165 11/26/165 Results 24 hrs Laboratory Tests Test 11/26/16 04:45 Anion Gap 13 Basophils # 0.1 Basophils % 1.2 Blood Urea Nitrogen 36 #H Calcium Level 10.8 H Carbon Dioxide Level 29 Chloride Level 99 Creatinine 1.86 H Eosinophils # 0.3 Eosinophils % 3.4 Glucose Level 129 Hematocrit 29.2 L Hemoglobin 9.1 L Lymphocytes # 1.5 Lymphocytes % 18.0 Mean Corpuscular Hemoglobin 26.8 L Mean Corpuscular Hemoglobin Concent 31.2 L Mean Corpuscular Volume 85.9 Mean Platelet Volume 9.6 Monocytes # 0.8 Monocytes % 9.6 Neutrophils # 5.5 Neutrophils % 67.1 Nucleated Red Blood Cells # 0.0 Nucleated Red Blood Cells % 0.0 Platelet Count 240 Potassium Level 4.5 Red Blood Count 3.40 L Red Cell Distribution Width 16.4 H Sodium Level 136 White Blood Count 8.1 Medications Medications Current Medications Hydralazine HCl (Apresoline) 10 mg Q6H PRN IV ELEVATED BLOOD PRESSURE Last administered on 11/20/16 13:16; Admin Dose 10 MG; Start 11/17/16 at 17:30 Lorazepam (Ativan) 0.5 mg Q8H PRN PO ANXIETY Last administered on 11/17/16 18: 01; Admin Dose 0.5 MG; Start 11/17/16 at 17:30 Ondansetron HCl (Zofran Tab) 4 mg Q6H PRN PO NAUSEA AND/OR VOMITING; Start at 17:30 Acetaminophen (Tylenol Tab) 650 mg Q6H PRN PO PAIN LEVEL 1-3 OR FEVER; Start at 17:30 Acetaminophen (Tylenol Supp) 650 mg Q6H PRN [place] PAIN LEVEL 1-3 OR FEVER; Start 11/17/16 at 17:30 Morphine Sulfate (morphine) 2 mg Q4H PRN IV PAIN LEVEL 7-10 Last administered on 11/20/16 04:00; Admin Dose 2 MG; Start 11/17/16 at 17:30 Docusate Sodium (Colace) 100 mg Q12H PRN PO CONSTIPATION; Start 11/17/16 at 17: 30 Bisacodyl (Dulcolax) 5 mg DAILY PRN PO CONSTIPATION; Start 11/17/16 at 17:30 Tiotropium [place] (Spiriva) 1 inh DAILY INH Last administered on 11/25/16 08: 52; Admin Dose 1 INH; Start 11/18/16 at 09:00 Montelukast Sodium (Singulair) 10 mg HS PO Last administered on 11/25/16 20:56 ; Admin Dose 10 MG; Start 11/17/16 at 21:00 Salmeterol Xinafoate/ Fluticasone 1 inh 1 inh BID INH Last administered on 20:56; Admin Dose 1 INH; Start 11/17/16 at 21:00 Cefepime HCl (Maxipime 1gm/50 ml (Pmx)) 50 ml @ 100 mls/hr Q24H IVPB Last administered on 11/26/16 11:09; Admin Dose 100 MLS/HR; Start 11/19/16 at 09:00 Famotidine (Pepcid) 20 mg DAILY PO Last administered on 11/26/16 10:04; Admin Dose 20 MG; Start 11/20/16 at 09:00 Carvedilol (Coreg) 6.25 mg BID GTB Last administered on 11/26/16 10:04; Admin Dose 6.25 MG; Start 11/24/16 at 09:00 Furosemide 40 mg 40 mg DAILY GTB Last administered on 11/26/16 10:04; Admin Dose 40 MG; Start 11/26/16 at 09:00 Vancomycin HCl/ Sodium Chloride (Vancocin/NS) 250 ml @ 83.333 mls/ hr Q72H IVPB ; Start 11/28/16 at 09:00 NATY PONCE MD Nov 26, 2016 13:50
[2016-11-26] MEDS ORDERED: ALBUTEROL/IPRATROPIUM (NEB) 3 ML AMP HHN PRN (14:00)
[2016-11-26] MEDS: HEPARIN 5,000 UNIT/0.5 ML SYG SC SCH ×2 (14:43→21:05)
[2016-11-26 19:15] VITALS: BP 139/70; RESP 18
[2016-11-26] MEDS: MONTELUKAST 10 MG TAB PO SCH (21:00)
[2016-11-26] MEDS: ACETAMINOPHEN 325 MG TAB PO PRN (21:03)
--- NOTE | 2016-11-26 21:29 | CONS ---
Date/Time of Note Date/Time of Note DATE: 11/26/16 TIME: 21:26 Assessment/Plan Assessment/Plan Chief Complaint/Hosp Course Accelerated HTN: BP improved NSTEMI: type II in setting of above. Treat medically. EF preserved. ? Paroxysmal atrial tachycardia: HRs now improved Healthcare-associated pneumonia: resolving CKD: was previously on HD, now off DM COPD -continue carvedilol 6.25mg BID, up titrate as needed -discontinue Lasix Problems: Consultation Date/Type/Reason Admit Date/Time Nov 17, 2016 at 14:00 Initial Consult Date 11/18/16 Type of Consultation: Cardiology 24 HR Interval Summary Free Text/Dictation Remains confused. Detailed Summary Additional Comments Unable to obtain review of systems due to patient's altered mental status. Exam/Review of Systems Vital Signs Vitals Vital Signs Date Time Temp Pulse Resp B/P Pulse Ox O2 Delivery O2 Flow Rate FiO2 11/26/16 19:15 98.0 18 139/70 96 11/26/16 16:30 2.0 11/26/16 08:06 67 11/26/16 08:00 Nasal Cannula Intake and Output 11/25/16 11/25/16 11/26/16 15:00 23:00 07:00 Intake Total 150 ml 640 ml Balance 150 ml 640 ml Exam Constitutional: No distress Head: atraumatic, normocephalic Neck: jvd (8cm) Respiratory: diminished breath sounds, No clear to auscultation Cardiovascular: edema (1+ sacral ), LE lymphedema, RRR, systolic murmur (2/6 CATHY), Neurological: No nl mental status, No nl speech Results Result Diagram: 11/26/16 0445 11/26/16 0445 Results 24 hrs Laboratory Tests Test 11/26/16 04:45 Anion Gap 13 Basophils # 0.1 Basophils % 1.2 Blood Urea Nitrogen 36 #H Calcium Level 10.8 H Carbon Dioxide Level 29 Chloride Level 99 Creatinine 1.86 H Eosinophils # 0.3 Eosinophils % 3.4 Glucose Level 129 Hematocrit 29.2 L Hemoglobin 9.1 L Lymphocytes # 1.5 Lymphocytes % 18.0 Mean Corpuscular Hemoglobin 26.8 L Mean Corpuscular Hemoglobin Concent 31.2 L Mean Corpuscular Volume 85.9 Mean Platelet Volume 9.6 Monocytes # 0.8 Monocytes % 9.6 Neutrophils # 5.5 Neutrophils % 67.1 Nucleated Red Blood Cells # 0.0 Nucleated Red Blood Cells % 0.0 Platelet Count 240 Potassium Level 4.5 Red Blood Count 3.40 L Red Cell Distribution Width 16.4 H Sodium Level 136 White Blood Count 8.1 Medications Medications Current Medications Hydralazine HCl (Apresoline) 10 mg Q6H PRN IV ELEVATED BLOOD PRESSURE Last administered on 11/20/16 13:16; Admin Dose 10 MG; Start 11/17/16 at 17:30 Lorazepam (Ativan) 0.5 mg Q8H PRN PO ANXIETY Last administered on 11/17/16 18: 01; Admin Dose 0.5 MG; Start 11/17/16 at 17:30 Ondansetron HCl (Zofran Tab) 4 mg Q6H PRN PO NAUSEA AND/OR VOMITING; Start at 17:30 Acetaminophen (Tylenol Tab) 650 mg Q6H PRN PO PAIN LEVEL 1-3 OR FEVER Last administered on 11/26/16 21:03; Admin Dose 650 MG; Start 11/17/16 at 17:30 Acetaminophen (Tylenol Supp) 650 mg Q6H PRN [place] PAIN LEVEL 1-3 OR FEVER; Start 11/17/16 at 17:30 Morphine Sulfate (morphine) 2 mg Q4H PRN IV PAIN LEVEL 7-10 Last administered on 11/20/16 04:00; Admin Dose 2 MG; Start 11/17/16 at 17:30 Docusate Sodium (Colace) 100 mg Q12H PRN PO CONSTIPATION; Start 11/17/16 at 17: 30 Bisacodyl (Dulcolax) 5 mg DAILY PRN PO CONSTIPATION; Start 11/17/16 at 17:30 Montelukast Sodium 10 mg 10 mg HS PO Last administered on 11/26/16 21:00; Admin Dose 10 MG; Start 11/17/16 at 21:00 Cefepime HCl (Maxipime 1gm/50 ml (Pmx)) 50 ml @ 100 mls/hr Q24H IVPB Last administered on 11/26/16 11:09; Admin Dose 100 MLS/HR; Start 11/19/16 at 09:00 Famotidine (Pepcid) 20 mg DAILY PO Last administered on 11/26/16 10:04; Admin Dose 20 MG; Start 11/20/16 at 09:00 Carvedilol (Coreg) 6.25 mg BID GTB Last administered on 11/26/16 21:02; Admin Dose 6.25 MG; Start 11/24/16 at 09:00 Furosemide 40 mg 40 mg DAILY GTB Last administered on 11/26/16 10:04; Admin Dose 40 MG; Start 11/26/16 at 09:00 Vancomycin HCl/ Sodium Chloride (Vancocin/NS) 250 ml @ 83.333 mls/ hr Q72H IVPB ; Start 11/28/16 at 09:00 Heparin Sodium (Porcine) (Heparin (5000 Units/0.5 ml)) 5,000 unit BID SC Last administered on 11/26/16 21:05; Admin Dose 5,000 UNIT; Start 11/26/16 at 14:00 ALLIE QUINTEROS MD Nov 26, 2016 21:29
[2016-11-27] MEDS: LORAZEPAM 0.5 MG TAB PO PRN (01:41)
[2016-11-27 05:58] LABS: ADD SCAN DIFF NO
[2016-11-27 06:00] LABS: BASOPHIL # 0.1 10^3/ul (0.0-0.1); EOSINOPHILS # 0.3 10^3/ul (0.0-0.5); EOSINOPHILS % 3.6 % (0.0-7.0); HEMATOCRIT 30.1 % (37.0-47.0); HEMOGLOBIN 9.4 g/dl (12.0-16.0); LYMPHOCYTES # 1.7 10^3/ul (0.8-2.9); LYMPHOCYTES % 18.4 % (15.0-51.0); MEAN CORPUSCULAR HGB CONC 31.2 g/dl (32.0-37.0); MEAN CORPUSCULAR VOLUME 86.5 fl (82.0-101.0); MEAN PLATELET VOLUME 9.5 fl (7.4-10.4); MONOCYTES % 10.7 % (0.0-11.0); NEUTROPHILS % 65.7 % (39.0-77.0); PLATELET COUNT 248 10^3/UL (140-415); RED BLOOD COUNT 3.48 10^6/ul (4.20-5.40); RED CELL DISTRIBUTION WIDTH 16.6 % (11.5-14.5); WHITE BLOOD COUNT 9.1 10^3/ul (4.8-10.8)
[2016-11-27 06:55] LABS: POTASSIUM 4.8 mmol/L (3.5-5.1)
[2016-11-27 06:58] LABS: CREATININE 1.96 mg/dl (0.44-1.00)
[2016-11-27 06:59] LABS: CALCIUM 10.7 mg/dl (8.4-10.2); MAGNESIUM 2.1 mg/dl (1.7-2.5); PHOSPHORUS 3.1 mg/dl (2.5-4.9)
[2016-11-27 07:25] VITALS: BP 165/81; RESP 20
[2016-11-27] MEDS: HEPARIN 5,000 UNIT/0.5 ML SYG SC SCH ×2 (08:12→21:39)
[2016-11-27] MEDS: FAMOTIDINE 20 MG TAB PO SCH (08:12)
[2016-11-27] MEDS: CEFEPIME 1GM/50 ML (PMX) 50 ML IVPB SCH (08:13)
[2016-11-27 10:00] VITALS: BP 128/68; PULSE 73
--- NOTE | 2016-11-27 10:18 | PN ---
DATE: 11/27/2016 SUBJECTIVE: The patient is confused but mental status is improving. No other acute events noted. No hemoptysis, hematemesis or hematochezia. OBJECTIVE: VITAL SIGNS: Blood pressure is 165/81, respirations 20, pulse 75, temperature 97.8. HEENT: Head is normocephalic. NECK: Supple. HEART: Regular rate. LUNGS: Show diminished breath sounds at the base. ABDOMEN: Soft, nontender to palpation without rebound or guarding. EXTREMITIES: Negative for clubbing, cyanosis. Positive lymphedema. DERMATOLOGIC: No rashes. MUSCULOSKELETAL: No joint effusions. NEUROLOGIC: No change in exam. MEDICATIONS: Patient's medications reviewed. LABORATORY DATA: Showed sodium 132, potassium 4.9, chloride 95, BUN 43, creatinine 1.96, calcium 2. 7. White count 9.1, hemoglobin 9.4, hematocrit 31.1, platelet count 248. ASSESSMENT AND PLAN: 1. Nonoliguric acute kidney injury on top of chronic kidney disease stage III. Etiology of acute k idney injury is likely from hemodynamics due to recent diuretic use. The patient was previously on hemodialysis, but has been off for the last month as patient has had excellent recovery. Plan at th is point is to hold Lasix. We will continue to monitor renal function closely. Please note I did s peak with the patient about removing PermCath; however, she says ____ remove it at this time. 2. Hyponatremia. We will decrease free water flushes and monitor. 3. Hypercalcemia, etiology is concerning for possible hyperparathyroidism. The patient is status p ost Calcitonin. We will consider nuclear scan, parathyroid hormone related peptides pending. 4. Acute encephalopathy, etiology is toxic metabolic. Continue to monitor. Mental status is slowl y improving. 5. Dysphagia, status post PEG. Continue tube feed. 6. Hypertension. Continue current blood pressure regimen. 7. Anemia. Continue to monitor hemoglobin and hematocrit levels. 8. Tachyarrhythmia. Continue current medical management. Follow up with Cardiology. 9. History of chronic obstructive pulmonary disease. Continue current treatment plan. 10. Pneumonia. Patient is completing antibiotic course. Dictated By: DERECK KENNEDY/RUTH Conf#: [id number] DID#: [id number]
--- NOTE | 2016-11-27 10:37 | PN ---
DATE: 11/27/2016 FOLLOWUP NOTE SUBJECTIVE: The patient is stable this morning. Still somewhat confused, but appears in less distr ess. PHYSICAL EXAMINATION: VITAL SIGNS: Temperature 98, pulse 75, blood pressure 165/70, O2 saturation 98% on 2 L nasal cannul a. NECK: Supple. No JVD or lymphadenopathy. CARDIAC EXAM: S1, S2. No added sounds or murmurs. CHEST: Diminished air entry bilaterally. ABDOMEN: Soft, nontender. No guarding or rebound. EXTREMITIES: No cyanosis, clubbing or edema. NEUROLOGIC: Generalized weakness. LABORATORY: White count 9.1, hemoglobin 9.4, platelets 248. BUN 43, creatinine 1.96. IMPRESSION AND PLAN: 1. Slowly resolving encephalopathy. 2. Status post healthcare-associated pneumonia. 3. Aspiration pneumonia with dysphagia, now with G-tube. 4. Acute on chronic renal insufficiency. PLAN: 1. Continue supplemental O2. 2. Continue renal recommendations. 3. Broad-spectrum antibiotic coverage. 4. Aspiration precautions. 5. Tube feeding. 6. DVT and GI prophylaxis. Dictated By: CLAY WONG/RUTH Conf#: [id number] DID#: [id number]
--- NOTE | 2016-11-27 12:40 | PN ---
Date/Time of Note Date/Time of Note DATE: 11/27/16 TIME: 12:36 Assessment/Plan VTE Prophylaxis VTE Prophylaxis Intervention: heparin Lines/Catheters IV Catheter Type (from Nrs): Peripheral IV Urinary Cath still in place: No Assessment/Plan Assessment/Plan 1. Healthcare-associated pneumonia. on IV abx cefepime, vancomycin 2. SWATHI on CKD III, follow up with BMP 3. Essential hypertension, controlled 4. Chronic obstructive pulmonary disease. Continue breathing treatment, Advair and Spiriva and Singular. 5. NSTEMI, cardiology has been consulted, continue aspirin statin beta rohith. Patient has been started on heparin drip 6. Metabolic encephalopathy 7. Dysphagia, status post PEG tube placement 8. Gastroesophageal reflux disease. Continue Pepcid 9. Deep venous thrombosis prophylaxis. The patient has been placed on heparin. 10. Hypercalcemia- S/p calcitonin, Ca still high,PTHrp sent, PTH appropriately elevated, nephrology has been following Subjective 24 Hr Interval Summary Free Text/Dictation lethargic and confused Exam/Review of Systems Vital Signs Vitals Vital Signs Date Time Temp Pulse Resp B/P Pulse Ox O2 Delivery O2 Flow Rate FiO2 11/27/16 07:25 97.5 75 20 165/81 96 11/27/16 01:52 2.0 11/26/16 23:06 Nasal Cannula Intake and Output 11/26/16 11/26/16 11/27/16 15:00 23:00 07:00 Intake Total 50 ml 820 ml 640 ml Balance 50 ml 820 ml 640 ml Exam Constitutional: non-verbal, other (confused), well developed Head: atraumatic, normocephalic Eyes: EOMI, PERRL, nl conjunctiva, nl lids ENMT: nl external ears & nose, nl lips & teeth, nl nasal mucosa & septum Neck: non-tender, supple Respiratory: clear to auscultation, normal air movement, No congested cough, No crackles/rales, No diminished breath sounds, No intercostal retraction, No labored breathing, No other, No respirations, No tactile fremitus, No wheezing Cardiovascular: nl pulses, regular rate and rhythm, No S3, No S4, No bruits, No diastolic murmur, No edema, No gallop, No irregular rhythm, No jugular venous distention (JVD), No murmurs/extra sounds, No other, No rub, No systolic murmur Gastrointestinal: nl liver, spleen, soft, No ascites, No bowel sounds, No distended, No firm, No hepatomegaly, No mass , No other, No rebound or guarding, No splenomegaly, No surgical scars Musculoskeletal: nl extremities to inspection Extremities: normal pulses, No calf tenderness, No clubbing, No cyanosis, No edema, No other, No palpable cord, No pitting pedal edema, No tenderness Neurological: confused, lethargic Skin: nl turgor Results Result Diagram: 11/27/16 0530 11/27/16 0530 Results 24 hrs Laboratory Tests Test 11/27/16 05:30 Anion Gap 13 Basophils # 0.1 Basophils % 1.0 Blood Urea Nitrogen 43 H Calcium Level 10.7 H Carbon Dioxide Level 29 Chloride Level 95 L Creatinine 1.96 H Eosinophils # 0.3 Eosinophils % 3.6 Glucose Level 107 Hematocrit 30.1 L Hemoglobin 9.4 L Lymphocytes # 1.7 Lymphocytes % 18.4 Magnesium Level 2.1 Mean Corpuscular Hemoglobin 27.0 L Mean Corpuscular Hemoglobin Concent 31.2 L Mean Corpuscular Volume 86.5 Mean Platelet Volume 9.5 Monocytes # 1.0 H Monocytes % 10.7 Neutrophils # 6.0 Neutrophils % 65.7 Nucleated Red Blood Cells # 0.0 Nucleated Red Blood Cells % 0.0 Phosphorus Level 3.1 Platelet Count 248 Potassium Level 4.8 Red Blood Count 3.48 L Red Cell Distribution Width 16.6 H Sodium Level 132 L White Blood Count 9.1 Medications Medications Current Medications Hydralazine HCl (Apresoline) 10 mg Q6H PRN IV ELEVATED BLOOD PRESSURE Last administered on 11/20/16 13:16; Admin Dose 10 MG; Start 11/17/16 at 17:30 Lorazepam (Ativan) 0.5 mg Q8H PRN PO ANXIETY Last administered on 11/27/16 01: 41; Admin Dose 0.5 MG; Start 11/17/16 at 17:30 Ondansetron HCl (Zofran Tab) 4 mg Q6H PRN PO NAUSEA AND/OR VOMITING; Start at 17:30 Acetaminophen (Tylenol Tab) 650 mg Q6H PRN PO PAIN LEVEL 1-3 OR FEVER Last administered on 11/26/16 21:03; Admin Dose 650 MG; Start 11/17/16 at 17:30 Acetaminophen (Tylenol Supp) 650 mg Q6H PRN [place] PAIN LEVEL 1-3 OR FEVER; Start 11/17/16 at 17:30 Morphine Sulfate (morphine) 2 mg Q4H PRN IV PAIN LEVEL 7-10 Last administered on 11/20/16 04:00; Admin Dose 2 MG; Start 11/17/16 at 17:30 Docusate Sodium (Colace) 100 mg Q12H PRN PO CONSTIPATION; Start 11/17/16 at 17: 30 Bisacodyl (Dulcolax) 5 mg DAILY PRN PO CONSTIPATION; Start 11/17/16 at 17:30 Montelukast Sodium 10 mg 10 mg HS PO Last administered on 11/26/16 21:00; Admin Dose 10 MG; Start 11/17/16 at 21:00 Cefepime HCl (Maxipime 1gm/50 ml (Pmx)) 50 ml @ 100 mls/hr Q24H IVPB Last administered on 11/27/16 08:13; Admin Dose 100 MLS/HR; Start 11/19/16 at 09:00 Famotidine (Pepcid) 20 mg DAILY PO Last administered on 11/27/16 08:12; Admin Dose 20 MG; Start 11/20/16 at 09:00 Carvedilol 6.25 mg 6.25 mg BID GTB Last administered on 11/27/16 08:13; Admin Dose 6.25 MG; Start 11/24/16 at 09:00 Vancomycin HCl/ Sodium Chloride (Vancocin/NS) 250 ml @ 83.333 mls/ hr Q72H IVPB ; Start 11/28/16 at 09:00 Heparin Sodium (Porcine) (Heparin (5000 Units/0.5 ml)) 5,000 unit BID SC Last administered on 11/27/16 08:12; Admin Dose 5,000 UNIT; Start 11/26/16 at 14:00 NATY PONCE MD Nov 27, 2016 12:40
--- NOTE | 2016-11-27 17:11 | CONS ---
Date/Time of Note Date/Time of Note DATE: 11/27/16 TIME: 17:09 Assessment/Plan Assessment/Plan Chief Complaint/Hosp Course Accelerated HTN: BP improved Status post NSTEMI: type II in setting of above. Treat medically. EF preserved. ? Paroxysmal atrial tachycardia: HRs now improved Healthcare-associated pneumonia: resolving CKD: was previously on HD, now off DM COPD -continue carvedilol 6.25mg BID -will follow up as needed Problems: Consultation Date/Type/Reason Admit Date/Time Nov 17, 2016 at 14:00 Initial Consult Date 11/18/16 Type of Consultation: Cardiology 24 HR Interval Summary Free Text/Dictation No acute events. Patient remains confused. Detailed Summary Additional Comments Unable to obtain review of systems due to patient's altered mental status. Exam/Review of Systems Vital Signs Vitals Vital Signs Date Time Temp Pulse Resp B/P Pulse Ox O2 Delivery O2 Flow Rate FiO2 11/27/16 10:00 73 128/68 Nasal Cannula 11/27/16 09:00 2.0 11/27/16 07:25 97.5 20 96 Intake and Output 11/26/16 11/26/16 11/27/16 15:00 23:00 07:00 Intake Total 50 ml 820 ml 640 ml Balance 50 ml 820 ml 640 ml Exam Constitutional: No distress Head: atraumatic, normocephalic Neck: jvd (8cm) Respiratory: diminished breath sounds, No clear to auscultation Cardiovascular: edema (1+ sacral ), LE lymphedema, RRR, systolic murmur (2/6 CATHY), Neurological: No nl mental status, No nl speech Results Result Diagram: 11/27/16 0530 11/27/16 0530 Results 24 hrs Laboratory Tests Test 11/27/16 05:30 Anion Gap 13 Basophils # 0.1 Basophils % 1.0 Blood Urea Nitrogen 43 H Calcium Level 10.7 H Carbon Dioxide Level 29 Chloride Level 95 L Creatinine 1.96 H Eosinophils # 0.3 Eosinophils % 3.6 Glucose Level 107 Hematocrit 30.1 L Hemoglobin 9.4 L Lymphocytes # 1.7 Lymphocytes % 18.4 Magnesium Level 2.1 Mean Corpuscular Hemoglobin 27.0 L Mean Corpuscular Hemoglobin Concent 31.2 L Mean Corpuscular Volume 86.5 Mean Platelet Volume 9.5 Monocytes # 1.0 H Monocytes % 10.7 Neutrophils # 6.0 Neutrophils % 65.7 Nucleated Red Blood Cells # 0.0 Nucleated Red Blood Cells % 0.0 Phosphorus Level 3.1 Platelet Count 248 Potassium Level 4.8 Red Blood Count 3.48 L Red Cell Distribution Width 16.6 H Sodium Level 132 L White Blood Count 9.1 Medications Medications Current Medications Hydralazine HCl (Apresoline) 10 mg Q6H PRN IV ELEVATED BLOOD PRESSURE Last administered on 11/20/16 13:16; Admin Dose 10 MG; Start 11/17/16 at 17:30 Lorazepam (Ativan) 0.5 mg Q8H PRN PO ANXIETY Last administered on 11/27/16 01: 41; Admin Dose 0.5 MG; Start 11/17/16 at 17:30 Ondansetron HCl (Zofran Tab) 4 mg Q6H PRN PO NAUSEA AND/OR VOMITING; Start at 17:30 Acetaminophen (Tylenol Tab) 650 mg Q6H PRN PO PAIN LEVEL 1-3 OR FEVER Last administered on 11/26/16 21:03; Admin Dose 650 MG; Start 11/17/16 at 17:30 Acetaminophen (Tylenol Supp) 650 mg Q6H PRN [place] PAIN LEVEL 1-3 OR FEVER; Start 11/17/16 at 17:30 Morphine Sulfate (morphine) 2 mg Q4H PRN IV PAIN LEVEL 7-10 Last administered on 11/20/16 04:00; Admin Dose 2 MG; Start 11/17/16 at 17:30 Docusate Sodium (Colace) 100 mg Q12H PRN PO CONSTIPATION; Start 11/17/16 at 17: 30 Bisacodyl (Dulcolax) 5 mg DAILY PRN PO CONSTIPATION; Start 11/17/16 at 17:30 Montelukast Sodium 10 mg 10 mg HS PO Last administered on 11/26/16 21:00; Admin Dose 10 MG; Start 11/17/16 at 21:00 Cefepime HCl (Maxipime 1gm/50 ml (Pmx)) 50 ml @ 100 mls/hr Q24H IVPB Last administered on 11/27/16 08:13; Admin Dose 100 MLS/HR; Start 11/19/16 at 09:00 Famotidine (Pepcid) 20 mg DAILY PO Last administered on 11/27/16 08:12; Admin Dose 20 MG; Start 11/20/16 at 09:00 Carvedilol 6.25 mg 6.25 mg BID GTB Last administered on 11/27/16 08:13; Admin Dose 6.25 MG; Start 11/24/16 at 09:00 Vancomycin HCl/ Sodium Chloride (Vancocin/NS) 250 ml @ 83.333 mls/ hr Q72H IVPB ; Start 11/28/16 at 09:00 Heparin Sodium (Porcine) (Heparin (5000 Units/0.5 ml)) 5,000 unit BID SC Last administered on 11/27/16 08:12; Admin Dose 5,000 UNIT; Start 11/26/16 at 14:00 Miscellaneous Information (*Rx Drug Level Order Reminder*) VANCO RANDOM LEVEL... ONCE ONCE XX ; Start 11/28/16 at 05:00; Stop 11/28/16 at 05:01 ALLIE QUINTEROS MD Nov 27, 2016 17:10
[2016-11-27 19:20] VITALS: BP 141/59; RESP 18
[2016-11-27] MEDS: MONTELUKAST 10 MG TAB PO SCH (21:37)
[2016-11-28 06:05] LABS: ADD SCAN DIFF NO
[2016-11-28 06:24] LABS: BASOPHIL # 0.1 10^3/ul (0.0-0.1); BASOPHILS % 0.6 % (0.0-2.0); EOSINOPHILS # 0.3 10^3/ul (0.0-0.5); HEMATOCRIT 28.3 % (37.0-47.0); HEMOGLOBIN 8.7 g/dl (12.0-16.0); LYMPHOCYTES # 1.4 10^3/ul (0.8-2.9); LYMPHOCYTES % 16.8 % (15.0-51.0); MEAN CORPUSCULAR HEMOGLOBIN 26.9 pg (29.0-33.0); MEAN CORPUSCULAR HGB CONC 30.7 g/dl (32.0-37.0); MEAN CORPUSCULAR VOLUME 87.3 fl (82.0-101.0); MEAN PLATELET VOLUME 9.9 fl (7.4-10.4); MONOCYTE # 0.9 10^3/ul (0.3-0.9); MONOCYTES % 10.3 % (0.0-11.0); NEUTROPHIL # 5.6 10^3/ul (1.6-7.5); NEUTROPHILS % 67.7 % (39.0-77.0); PLATELET COUNT 227 10^3/UL (140-415); RED BLOOD COUNT 3.24 10^6/ul (4.20-5.40); RED CELL DISTRIBUTION WIDTH 16.7 % (11.5-14.5); WHITE BLOOD COUNT 8.3 10^3/ul (4.8-10.8)
[2016-11-28 06:43] LABS: CREATININE 2.34 mg/dl (0.44-1.00)
[2016-11-28 06:44] LABS: CALCIUM 10.9 mg/dl (8.4-10.2); MAGNESIUM 2.2 mg/dl (1.7-2.5); PHOSPHORUS 3.1 mg/dl (2.5-4.9)
[2016-11-28 08:26] VITALS: BP 139/66; RESP 20
[2016-11-28] MEDS: CEFEPIME 1GM/50 ML (PMX) 50 ML IVPB SCH (08:44)
[2016-11-28] MEDS: FAMOTIDINE 20 MG TAB PO SCH (08:45)
[2016-11-28] MEDS: HEPARIN 5,000 UNIT/0.5 ML SYG SC SCH ×3 (08:47→21:09)
--- NOTE | 2016-11-28 08:48 | PN ---
Date/Time of Note Date/Time of Note DATE: 11/28/16 TIME: 08:43 Assessment/Plan VTE Prophylaxis VTE Prophylaxis Intervention: LMWH Lines/Catheters [facility] ([facility] PERMA CATH Urinary Cath still in place: No Assessment/Plan Problems: (1) Altered mental status, unspecified Status: Acute Comment: Neurology is following the patient. The etiology of this is relatively unclear what is likely due to the pneumonia she had. In addition to this the hypercalcemia may be a minimal actor in this. (2) Chronic kidney disease, stage 4 (severe) Status: Chronic Comment: According to the the patient been on dialysis for 2 years and recently came off. Let us keep very careful eye on this as her renal function will be fragile. In addition this may mitigate some of the issues we have available for therapeutics for her hypercalcemia (3) Normocytic anemia Status: Acute Comment: Verify iron status (4) Multifocal pneumonia Status: Acute Comment: On antibiotics as per pulmonary (5) Mitral regurgitation Status: Chronic Comment: Noted Qualifiers: Cardiac valve disease etiology: etiology unspecified Qualified Code: I34.0 - Mitral valve insufficiency, unspecified etiology (6) Hyperlipidemia associated with type 2 diabetes mellitus Status: Chronic Comment: On treatment (7) Essential hypertension Status: Chronic Comment: On treatment. (8) Primary hyperparathyroidism Status: Acute Comment: The duration of this issue is unclear. However with the elevated PTH level while the patient was hypercalcemic this is an inappropriate response especially in the setting of normal vitamin D levels. As such this is primary hyperparathyroidism. This now raises the question about what therapeutics entertained. In temporizing fashion we would usually use an intravenous bisphosphonate therapy however with a renal function this becomes a legitimate question. I would appreciate the input from nephrology about their opinions about whether or not we could give a lower dose of an IV bisphosphonate to control the calcium while we complete the evaluation. At this time I would not try and operate on her neck (9) Gastroesophageal reflux disease Status: Chronic Comment: Noted Qualifiers: Esophagitis presence: without esophagitis Qualified Code: K21.9 - Gastroesophageal reflux disease without esophagitis (10) NSTEMI (non-ST elevated myocardial infarction) Status: Acute Comment: This was induced by the stress of the features going on at the time of admission and is stable on an observational basis. She is on a noncardioselective beta-rohith which with her history of lung disease is a question however I believe this is in her individual case appropriate (11) PEG (percutaneous endoscopic gastrostomy) status Status: Acute Comment: She is receiving her feedings Subjective 24 Hr Interval Summary Free Text/Dictation Patient sleeping in bed marginally arousable at bedside Exam/Review of Systems Vital Signs Vitals Vital Signs Date Time Temp Pulse Resp B/P Pulse Ox O2 Delivery O2 Flow Rate FiO2 11/28/16 08:26 98.7 74 20 139/66 99 11/28/16 05:15 2.0 11/27/16 20:00 Nasal Cannula Intake and Output 11/27/16 11/27/16 11/28/16 15:00 23:00 07:00 Intake Total 50 ml 540 ml 640 ml Balance 50 ml 540 ml 640 ml Exam Arousable with some difficulty nonverbal at this moment Neck: non-tender, supple Respiratory: clear to auscultation, normal air movement Cardiovascular: nl pulses, regular rate and rhythm Gastrointestinal: nl liver, spleen, non-tender, soft Results Result Diagram: 11/28/16 0536 11/28/16 0536 Results 24 hrs Laboratory Tests Test 11/28/16 05:36 Anion Gap 10 Basophils # 0.1 Basophils % 0.6 Blood Urea Nitrogen 46 H Calcium Level 10.9 H Carbon Dioxide Level 32 H Chloride Level 97 Creatinine 2.34 H Eosinophils # 0.3 Eosinophils % 4.0 Glucose Level 126 Hematocrit 28.3 L Hemoglobin 8.7 L Lymphocytes # 1.4 Lymphocytes % 16.8 Magnesium Level 2.2 Mean Corpuscular Hemoglobin 26.9 L Mean Corpuscular Hemoglobin Concent 30.7 L Mean Corpuscular Volume 87.3 Mean Platelet Volume 9.9 Monocytes # 0.9 Monocytes % 10.3 Neutrophils # 5.6 Neutrophils % 67.7 Nucleated Red Blood Cells # 0.0 Nucleated Red Blood Cells % 0.0 Phosphorus Level 3.1 Platelet Count 227 Potassium Level 5.0 Random Vancomycin Level 14.8 Red Blood Count 3.24 L Red Cell Distribution Width 16.7 H Sodium Level 134 L White Blood Count 8.3 Medications Medications Current Medications Hydralazine HCl (Apresoline) 10 mg Q6H PRN IV ELEVATED BLOOD PRESSURE Last administered on 11/20/16t 13:16; Admin Dose 10 MG; Start 11/17/16 at 17:30 Lorazepam (Ativan) 0.5 mg Q8H PRN PO ANXIETY Last administered on 11/27/16 01: 41; Admin Dose 0.5 MG; Start 11/17/16 at 17:30 Ondansetron HCl (Zofran Tab) 4 mg Q6H PRN PO NAUSEA AND/OR VOMITING; Start at 17:30 Acetaminophen (Tylenol Tab) 650 mg Q6H PRN PO PAIN LEVEL 1-3 OR FEVER Last administered on 11/26/16 21:03; Admin Dose 650 MG; Start 11/17/16 at 17:30 Acetaminophen (Tylenol Supp) 650 mg Q6H PRN [place] PAIN LEVEL 1-3 OR FEVER; Start 11/17/16 at 17:30 Morphine Sulfate (morphine) 2 mg Q4H PRN IV PAIN LEVEL 7-10 Last administered on 11/20/16 04:00; Admin Dose 2 MG; Start 11/17/16 at 17:30 Docusate Sodium (Colace) 100 mg Q12H PRN PO CONSTIPATION; Start 11/17/16 at 17: 30 Bisacodyl (Dulcolax) 5 mg DAILY PRN PO CONSTIPATION; Start 11/17/16 at 17:30 Montelukast Sodium 10 mg 10 mg HS PO Last administered on 11/27/16 21:37; Admin Dose 10 MG; Start 11/17/16 at 21:00 Cefepime HCl (Maxipime 1gm/50 ml (Pmx)) 50 ml @ 100 mls/hr Q24H IVPB Last administered on 11/27/16 08:13; Admin Dose 100 MLS/HR; Start 11/19/16 at 09:00 Famotidine (Pepcid) 20 mg DAILY PO Last administered on 11/27/16 08:12; Admin Dose 20 MG; Start 11/20/16 at 09:00 Carvedilol (Coreg) 6.25 mg BID GTB Last administered on 11/27/16 21:37; Admin Dose 6.25 MG; Start 11/24/16 at 09:00 Heparin Sodium (Porcine) 5000 unit 5,000 unit BID SC Last administered on 21:39; Admin Dose 5,000 UNIT; Start 11/26/16 at 14:00 Vancomycin HCl (Vancocin) 250 ml @ 125 mls/hr Q72H IVPB ; Start 11/28/16 at 12: 00 DOLORES ELLIS MD Nov 28, 2016 08:48
[2016-11-28] MEDS ORDERED: VANCOMYCIN 1.25 GM in SOD CHLORIDE 0.9% 250 ML IVPB SCH (09:00)
[2016-11-28 09:24] LABS: IRON 26 ug/dl (35-150)
[2016-11-28 09:33] LABS: TOTAL IRON BINDING CAPACITY 196 ug/dl (241-421)
--- NOTE | 2016-11-28 10:27 | CONS ---
Date/Time of Note Date/Time of Note DATE: 11/28/16 TIME: 10:26 Consult Date/Type/Reason Admit Date/Time Nov 17, 2016 at 14:00 Initial Consult Date 11/18/16 Type of Consultation: nephrology Subjective pt. seen and examined. tolerating tube feeds. good uop. elevated creat noted. d/w rn and dr. Loza Objective Vital Signs Date Time Temp Pulse Resp B/P Pulse Ox O2 Delivery O2 Flow Rate FiO2 11/28/16 09:30 Nasal Cannula 2.0 11/28/16 08:26 98.7 74 20 139/66 99 Intake and Output 11/27/16 11/27/16 11/28/16 15:00 23:00 07:00 Intake Total 50 ml 540 ml 640 ml Balance 50 ml 540 ml 640 ml Results/Medications Result Diagram: 11/28/16 0536 11/28/16 0536 Results 24 hrs Laboratory Tests Test 11/28/16 05:36 Anion Gap 10 Basophils # 0.1 Basophils % 0.6 Blood Urea Nitrogen 46 H Calcium Level 10.9 H Carbon Dioxide Level 32 H Chloride Level 97 Creatinine 2.34 H Eosinophils # 0.3 Eosinophils % 4.0 Glucose Level 126 Hematocrit 28.3 L Hemoglobin 8.7 L Iron Level 26 L Lymphocytes # 1.4 Lymphocytes % 16.8 Magnesium Level 2.2 Mean Corpuscular Hemoglobin 26.9 L Mean Corpuscular Hemoglobin Concent 30.7 L Mean Corpuscular Volume 87.3 Mean Platelet Volume 9.9 Monocytes # 0.9 Monocytes % 10.3 Neutrophils # 5.6 Neutrophils % 67.7 Nucleated Red Blood Cells # 0.0 Nucleated Red Blood Cells % 0.0 Percent Iron Saturation 13 L Phosphorus Level 3.1 Platelet Count 227 Potassium Level 5.0 Random Vancomycin Level 14.8 Red Blood Count 3.24 L Red Cell Distribution Width 16.7 H Sodium Level 134 L Total Iron Binding Capacity 196 L White Blood Count 8.3 Medications Current Medications Hydralazine HCl (Apresoline) 10 mg Q6H PRN IV ELEVATED BLOOD PRESSURE Last administered on 11/20/16 13:16; Admin Dose 10 MG; Start 11/17/16 at 17:30 Lorazepam (Ativan) 0.5 mg Q8H PRN PO ANXIETY Last administered on 11/27/16 01: 41; Admin Dose 0.5 MG; Start 11/17/16 at 17:30 Ondansetron HCl (Zofran Tab) 4 mg Q6H PRN PO NAUSEA AND/OR VOMITING; Start at 17:30 Acetaminophen (Tylenol Tab) 650 mg Q6H PRN PO PAIN LEVEL 1-3 OR FEVER Last administered on 11/26/16 21:03; Admin Dose 650 MG; Start 11/17/16 at 17:30 Acetaminophen (Tylenol Supp) 650 mg Q6H PRN [place] PAIN LEVEL 1-3 OR FEVER; Start 11/17/16 at 17:30 Morphine Sulfate (morphine) 2 mg Q4H PRN IV PAIN LEVEL 7-10 Last administered on 11/20/16 04:00; Admin Dose 2 MG; Start 11/17/16 at 17:30 Docusate Sodium (Colace) 100 mg Q12H PRN PO CONSTIPATION; Start 11/17/16 at 17: 30 Bisacodyl (Dulcolax) 5 mg DAILY PRN PO CONSTIPATION; Start 11/17/16 at 17:30 Montelukast Sodium 10 mg 10 mg HS PO Last administered on 11/27/16 21:37; Admin Dose 10 MG; Start 11/17/16 at 21:00 Cefepime HCl (Maxipime 1gm/50 ml (Pmx)) 50 ml @ 100 mls/hr Q24H IVPB Last administered on 11/28/16 08:44; Admin Dose 100 MLS/HR; Start 11/19/16 at 09:00 Famotidine (Pepcid) 20 mg DAILY PO Last administered on 11/28/16 08:45; Admin Dose 20 MG; Start 11/20/16 at 09:00 Carvedilol (Coreg) 6.25 mg BID GTB Last administered on 11/28/16 08:46; Admin Dose 6.25 MG; Start 11/24/16 at 09:00 Heparin Sodium (Porcine) 5000 unit 5,000 unit BID SC Last administered on 08:47; Admin Dose 5,000 UNIT; Start 11/26/16 at 14:00 Vancomycin HCl (Vancocin) 250 ml @ 125 mls/hr Q72H IVPB ; Start 11/28/16 at 12: 00 Assessment/Plan Chief Complaint/Hosp Course 1. Nonoliguric acute kidney injury on top of chronic kidney disease stage III. Etiology of acute kidney injury is likely from hemodynamics due to recent diuretic use. -The patient was previously on hemodialysis, but has been off for the last month as patient has had excellent recovery. Plan at this point is to hold Lasix. We will continue to monitor renal function closely. - Please note I did speak with the patient about removing PermCath; however, she says not to remove it at this time. -creat trending up, will watch closely for re-indication to restart hd. 2. Hyponatremia. We will decrease free water flushes and monitor. 3. Hypercalcemia, etiology is concerning for possible hyperparathyroidism. The patient is status post Calcitonin. We will consider nuclear scan, parathyroid hormone related peptides pending. 4. Acute encephalopathy, etiology is toxic metabolic. Continue to monitor. Mental status is slowly improving. 5. Dysphagia, status post PEG. Continue tube feed. 6. Hypertension. Continue current blood pressure regimen. 7. Anemia. Continue to monitor hemoglobin and hematocrit levels. 8. Tachyarrhythmia. Continue current medical management. Follow up with Cardiology. 9. History of chronic obstructive pulmonary disease. Continue current treatment plan. 10. Pneumonia. Patient is completing antibiotic course. Problems: ROSA GOMES MD Nov 28, 2016 10:27
[2016-11-28] MEDS: VANCOMYCIN 1 GM in NS 250 ML IVPB SCH (11:48)
--- NOTE | 2016-11-28 17:01 | CONS ---
Date/Time of Note Date/Time of Note DATE: 11/28/16 TIME: 17:00 Consult Date/Type/Reason Admit Date/Time Nov 17, 2016 at 14:00 Initial Consult Date 11/18/16 Type of Consultation: Pulm Subjective No events. Not able to follow commands. Objective Vital Signs Date Time Temp Pulse Resp B/P Pulse Ox O2 Delivery O2 Flow Rate FiO2 11/28/16 09:30 Nasal Cannula 2.0 11/28/16 08:26 98.7 74 20 139/66 99 Intake and Output 11/27/16 11/27/16 11/28/16 15:00 23:00 07:00 Intake Total 50 ml 540 ml 640 ml Balance 50 ml 540 ml 640 ml HEENT: Neck supple; no JVD; no LAD CVS: RRR, S1 and S2 CHEST: Clear ABD: Soft, NT, + BS EXT: No c/c/e Results/Medications Result Diagram: 11/28/16 0536 11/28/16 0536 Results 24 hrs Laboratory Tests Test 11/28/16 05:36 Anion Gap 10 Basophils # 0.1 Basophils % 0.6 Blood Urea Nitrogen 46 H Calcium Level 10.9 H Carbon Dioxide Level 32 H Chloride Level 97 Creatinine 2.34 H Eosinophils # 0.3 Eosinophils % 4.0 Glucose Level 126 Hematocrit 28.3 L Hemoglobin 8.7 L Iron Level 26 L Lymphocytes # 1.4 Lymphocytes % 16.8 Magnesium Level 2.2 Mean Corpuscular Hemoglobin 26.9 L Mean Corpuscular Hemoglobin Concent 30.7 L Mean Corpuscular Volume 87.3 Mean Platelet Volume 9.9 Monocytes # 0.9 Monocytes % 10.3 Neutrophils # 5.6 Neutrophils % 67.7 Nucleated Red Blood Cells # 0.0 Nucleated Red Blood Cells % 0.0 Percent Iron Saturation 13 L Phosphorus Level 3.1 Platelet Count 227 Potassium Level 5.0 Random Vancomycin Level 14.8 Red Blood Count 3.24 L Red Cell Distribution Width 16.7 H Sodium Level 134 L Total Iron Binding Capacity 196 L White Blood Count 8.3 Medications Current Medications Hydralazine HCl (Apresoline) 10 mg Q6H PRN IV ELEVATED BLOOD PRESSURE Last administered on 11/20/16t 13:16; Admin Dose 10 MG; Start 11/17/16 at 17:30 Lorazepam (Ativan) 0.5 mg Q8H PRN PO ANXIETY Last administered on 11/27/16 01: 41; Admin Dose 0.5 MG; Start 11/17/16 at 17:30 Ondansetron HCl (Zofran Tab) 4 mg Q6H PRN PO NAUSEA AND/OR VOMITING; Start at 17:30 Acetaminophen (Tylenol Tab) 650 mg Q6H PRN PO PAIN LEVEL 1-3 OR FEVER Last administered on 11/26/16 21:03; Admin Dose 650 MG; Start 11/17/16 at 17:30 Acetaminophen (Tylenol Supp) 650 mg Q6H PRN [place] PAIN LEVEL 1-3 OR FEVER; Start 11/17/16 at 17:30 Morphine Sulfate (morphine) 2 mg Q4H PRN IV PAIN LEVEL 7-10 Last administered on 11/20/16 04:00; Admin Dose 2 MG; Start 11/17/16 at 17:30 Docusate Sodium (Colace) 100 mg Q12H PRN PO CONSTIPATION; Start 11/17/16 at 17: 30 Bisacodyl (Dulcolax) 5 mg DAILY PRN PO CONSTIPATION; Start 11/17/16 at 17:30 Montelukast Sodium 10 mg 10 mg HS PO Last administered on 11/27/16 21:37; Admin Dose 10 MG; Start 11/17/16 at 21:00 Cefepime HCl (Maxipime 1gm/50 ml (Pmx)) 50 ml @ 100 mls/hr Q24H IVPB Last administered on 11/28/16 08:44; Admin Dose 100 MLS/HR; Start 11/19/16 at 09:00 Famotidine (Pepcid) 20 mg DAILY PO Last administered on 11/28/16 08:45; Admin Dose 20 MG; Start 11/20/16 at 09:00 Carvedilol (Coreg) 6.25 mg BID GTB Last administered on 11/28/16 08:46; Admin Dose 6.25 MG; Start 11/24/16 at 09:00 Heparin Sodium (Porcine) 5000 unit 5,000 unit BID SC Last administered on 08:47; Admin Dose 5,000 UNIT; Start 11/26/16 at 14:00 Vancomycin HCl (Vancocin) 250 ml @ 125 mls/hr Q72H IVPB Last administered on t 11:48; Admin Dose 125 MLS/HR; Start 11/28/16 at 12:00 Assessment/Plan Additional Assessment/Plan IMPRESSION: 1. Slowly resolving encephalopathy. 2. Status post healthcare-associated pneumonia. 3. Aspiration pneumonia with dysphagia, now with G-tube. 4. Acute on chronic renal insufficiency. RECS: 1. Continue supplemental O2. 2. BD's/CPT 3. Abx. 4. Aspiration precautions. 5. Tube feeding. GALA CARTAGENA MD Nov 28, 2016 17:01
[2016-11-28 19:30] VITALS: BP 133/67; RESP 20
[2016-11-28] MEDS: MONTELUKAST 10 MG TAB PO SCH (21:01)
--- NOTE | 2016-11-29 07:26 | PN ---
Date/Time of Note Date/Time of Note DATE: 11/29/16 TIME: 07:23 Assessment/Plan VTE Prophylaxis VTE Prophylaxis Intervention: other Lines/Catheters IV Catheter Type (from [facility]): Perma Cath Urinary Cath still in place: No Assessment/Plan Problems: (1) Multifocal pneumonia Status: Acute Comment: Remains on antibiotics but she appears better clinically objectively and subjectively today. Try and get her up and moving around. (2) Chronic kidney disease, stage 4 (severe) Status: Chronic Comment: Patient appears actually to be slightly prerenal. She will continue with her tube feedings. Nephrology input on whether or not to give fluid bolus. In addition nephrology input regarding the treatment of the hypercalcemia please see below and see yesterday's note (3) Mitral regurgitation Status: Chronic Comment: Noted Qualifiers: Cardiac valve disease etiology: etiology unspecified Qualified Code: I34.0 - Mitral valve insufficiency, unspecified etiology (4) Tricuspid insufficiency Status: Chronic Comment: Noted Qualifiers: Cardiac valve disease etiology: nonrheumatic Qualified Code: I36.1 - Non- rheumatic tricuspid valve insufficiency (5) Hyperlipidemia associated with type 2 diabetes mellitus Status: Chronic Comment: Stable and on treatment (6) Essential hypertension Status: Chronic Comment: Adequately controlled. (7) Primary hyperparathyroidism Status: Acute Comment: Nuclear medicine parathyroid imaging study as ordered by myself for tomorrow morning. In the meantime the question about whether or not to give a bisphosphonate in the setting of kidney disease is awaiting input from the landscape and yardwork laborer. Please see yesterday note (8) NSTEMI (non-ST elevated myocardial infarction) Status: Acute Comment: Stable (9) PEG (percutaneous endoscopic gastrostomy) status Status: Acute Comment: Actively and use Subjective 24 Hr Interval Summary Free Text/Dictation Patient much more awake today able to converse Constitutional: no complaints (Denies fevers chills or sweats) Eyes: no complaints Respiratory: no complaints (Denies shortness of breath) Cardiovascular: no complaints Gastrointestinal: no complaints Musculoskeletal: no complaints Exam/Review of Systems Vital Signs Vitals Vital Signs Date Time Temp Pulse Resp B/P Pulse Ox O2 Delivery O2 Flow Rate FiO2 11/29/16 01:16 2.0 11/28/16 21:00 Nasal Cannula 11/28/16 19:30 98.6 78 20 133/67 98 Intake and Output 11/28/16 11/28/16 11/29/16 15:00 23:00 07:00 Intake Total 940 ml 540 ml Balance 940 ml 540 ml Exam Constitutional: alert, oriented Neck: non-tender, supple Respiratory: clear to auscultation, normal air movement Cardiovascular: nl pulses, regular rate and rhythm Results Result Diagram: 11/28/16 0536 11/28/16 0536 Medications Medications Current Medications Hydralazine HCl (Apresoline) 10 mg Q6H PRN IV ELEVATED BLOOD PRESSURE Last administered on 11/20/16 13:16; Admin Dose 10 MG; Start 11/17/16 at 17:30 Lorazepam (Ativan) 0.5 mg Q8H PRN PO ANXIETY Last administered on 11/27/16 01: 41; Admin Dose 0.5 MG; Start 11/17/16 at 17:30 Ondansetron HCl (Zofran Tab) 4 mg Q6H PRN PO NAUSEA AND/OR VOMITING; Start at 17:30 Acetaminophen (Tylenol Tab) 650 mg Q6H PRN PO PAIN LEVEL 1-3 OR FEVER Last administered on 11/26/16 21:03; Admin Dose 650 MG; Start 11/17/16 at 17:30 Acetaminophen (Tylenol Supp) 650 mg Q6H PRN [place] PAIN LEVEL 1-3 OR FEVER; Start 11/17/16 at 17:30 Morphine Sulfate (morphine) 2 mg Q4H PRN IV PAIN LEVEL 7-10 Last administered on 11/20/16 04:00; Admin Dose 2 MG; Start 11/17/16 at 17:30 Docusate Sodium (Colace) 100 mg Q12H PRN PO CONSTIPATION; Start 11/17/16 at 17: 30 Bisacodyl (Dulcolax) 5 mg DAILY PRN PO CONSTIPATION; Start 11/17/16 at 17:30 Montelukast Sodium 10 mg 10 mg HS PO Last administered on 11/28/16 21:01; Admin Dose 10 MG; Start 11/17/16 at 21:00 Cefepime HCl (Maxipime 1gm/50 ml (Pmx)) 50 ml @ 100 mls/hr Q24H IVPB Last administered on 11/28/16 08:44; Admin Dose 100 MLS/HR; Start 11/19/16 at 09:00 Famotidine (Pepcid) 20 mg DAILY PO Last administered on 11/28/16 08:45; Admin Dose 20 MG; Start 11/20/16 at 09:00 Carvedilol (Coreg) 6.25 mg BID GTB Last administered on 11/28/16 21:02; Admin Dose 6.25 MG; Start 11/24/16 at 09:00 Heparin Sodium (Porcine) 5000 unit 5,000 unit BID SC Last administered on 08:47; Admin Dose 5,000 UNIT; Start 11/26/16 at 14:00 Vancomycin HCl (Vancocin) 250 ml @ 125 mls/hr Q72H IVPB Last administered on 11:48; Admin Dose 125 MLS/HR; Start 11/28/16 at 12:00 DOLORES ELLIS MD Nov 29, 2016 07:26
[2016-11-29 07:51] LABS: CREATININE 2.52 mg/dl (0.44-1.00)
[2016-11-29] MEDS: FAMOTIDINE 20 MG TAB PO SCH (08:08)
[2016-11-29] MEDS: CEFEPIME 1GM/50 ML (PMX) 50 ML IVPB SCH (08:09)
[2016-11-29] MEDS: HEPARIN 5,000 UNIT/0.5 ML SYG SC SCH ×2 (08:09→21:00)
[2016-11-29 08:10] VITALS: BP 136/68; RESP 22
--- NOTE | 2016-11-29 09:32 | CONS ---
Date/Time of Note Date/Time of Note DATE: 11/29/16 TIME: 09:30 Consult Date/Type/Reason Admit Date/Time Nov 17, 2016 at 14:00 Initial Consult Date 11/18/16 Type of Consultation: nephro Subjective pt. s+eTroy eric rn. feels better slight increase in creat. Objective Vital Signs Date Time Temp Pulse Resp B/P Pulse Ox O2 Delivery O2 Flow Rate FiO2 11/29/16 08:10 98.2 83 22 136/68 97 11/29/16 01:16 2.0 11/28/16 21:00 Nasal Cannula Intake and Output 11/28/16 11/28/16 11/29/16 15:00 23:00 07:00 Intake Total 940 ml 540 ml Balance 940 ml 540 ml Results/Medications Result Diagram: 11/28/16 0536 11/29/16 0444 Results 24 hrs Laboratory Tests Test 11/29/16 04:44 Blood Urea Nitrogen 53 H Creatinine 2.52 H Medications Current Medications Hydralazine HCl (Apresoline) 10 mg Q6H PRN IV ELEVATED BLOOD PRESSURE Last administered on 11/20/16 13:16; Admin Dose 10 MG; Start 11/17/16 at 17:30 Lorazepam (Ativan) 0.5 mg Q8H PRN PO ANXIETY Last administered on 11/27/16 01: 41; Admin Dose 0.5 MG; Start 11/17/16 at 17:30 Ondansetron HCl (Zofran Tab) 4 mg Q6H PRN PO NAUSEA AND/OR VOMITING; Start at 17:30 Acetaminophen (Tylenol Tab) 650 mg Q6H PRN PO PAIN LEVEL 1-3 OR FEVER Last administered on 11/26/16 21:03; Admin Dose 650 MG; Start 11/17/16 at 17:30 Acetaminophen (Tylenol Supp) 650 mg Q6H PRN [place] PAIN LEVEL 1-3 OR FEVER; Start 11/17/16 at 17:30 Morphine Sulfate (morphine) 2 mg Q4H PRN IV PAIN LEVEL 7-10 Last administered on 11/20/16 04:00; Admin Dose 2 MG; Start 11/17/16 at 17:30 Docusate Sodium (Colace) 100 mg Q12H PRN PO CONSTIPATION; Start 11/17/16 at 17: 30 Bisacodyl (Dulcolax) 5 mg DAILY PRN PO CONSTIPATION; Start 11/17/16 at 17:30 Montelukast Sodium 10 mg 10 mg HS PO Last administered on 11/28/16 21:01; Admin Dose 10 MG; Start 11/17/16 at 21:00 Cefepime HCl (Maxipime 1gm/50 ml (Pmx)) 50 ml @ 100 mls/hr Q24H IVPB Last administered on 11/29/16 08:09; Admin Dose 100 MLS/HR; Start 11/19/16 at 09:00 Famotidine (Pepcid) 20 mg DAILY PO Last administered on 11/29/16 08:08; Admin Dose 20 MG; Start 11/20/16 at 09:00 Carvedilol (Coreg) 6.25 mg BID GTB Last administered on 11/29/16 08:08; Admin Dose 6.25 MG; Start 11/24/16 at 09:00 Heparin Sodium (Porcine) 5000 unit 5,000 unit BID SC Last administered on 08:09; Admin Dose 5,000 UNIT; Start 11/26/16 at 14:00 Vancomycin HCl (Vancocin) 250 ml @ 125 mls/hr Q72H IVPB Last administered on 11:48; Admin Dose 125 MLS/HR; Start 11/28/16 at 12:00 Assessment/Plan Chief Complaint/Hosp Course 1. Nonoliguric acute kidney injury on top of chronic kidney disease stage III. Etiology of acute kidney injury is likely from hemodynamics due to recent diuretic use. -The patient was previously on hemodialysis, but has been off for the last month as patient has had excellent recovery. Plan at this point is to hold Lasix. We will continue to monitor renal function closely. -creat trending up, will watch closely for re-indication to restart hd. -trial of ivf bolus today. 2. Hyponatremia. We will decrease free water flushes and monitor. 3. Hypercalcemia, etiology is concerning for possible hyperparathyroidism. The patient is status post Calcitonin.await scan..may benefit from biphosphanate vs. sensipar. 4. Acute encephalopathy, etiology is toxic metabolic. Continue to monitor. Mental status is slowly improving. 5. Dysphagia, status post PEG. Continue tube feed. 6. Hypertension. Continue current blood pressure regimen. 7. Anemia. Continue to monitor hemoglobin and hematocrit levels. 8. Tachyarrhythmia. Continue current medical management. Follow up with Cardiology. 9. History of chronic obstructive pulmonary disease. Continue current treatment plan. 10. Pneumonia. Patient is completing antibiotic course. Problems: ROSA GOMES MD Nov 29, 2016 09:32
[2016-11-29] MEDS ORDERED: SODIUM CHLORIDE 0.45% 500 ML BAG IV* ONE (10:00)
--- NOTE | 2016-11-29 15:12 | CONS ---
Date/Time of Note Date/Time of Note DATE: 11/29/16 TIME: 15:10 Consult Date/Type/Reason Admit Date/Time Nov 17, 2016 at 14:00 Initial Consult Date 11/18/16 Type of Consultation: Pulm Subjective No events overnight. Objective Vital Signs Date Time Temp Pulse Resp B/P Pulse Ox O2 Delivery O2 Flow Rate FiO2 11/29/16 09:00 Nasal Cannula 2.0 11/29/16 08:10 98.2 83 22 136/68 97 Intake and Output 11/28/16 11/28/16 11/29/16 15:00 23:00 07:00 Intake Total 940 ml 540 ml Balance 940 ml 540 ml HEENT: Neck supple; no JVD; no LAD CVS: RRR, S1 and S2 CHEST: Clear ABD: Soft, NT, + BS EXT: No c/c/e Results/Medications Result Diagram: 11/28/16 0536 11/29/16 0444 Results 24 hrs Laboratory Tests Test 11/29/16 04:44 Blood Urea Nitrogen 53 H Creatinine 2.52 H Medications Current Medications Hydralazine HCl (Apresoline) 10 mg Q6H PRN IV ELEVATED BLOOD PRESSURE Last administered on 11/20/16 13:16; Admin Dose 10 MG; Start 11/17/16 at 17:30 Lorazepam (Ativan) 0.5 mg Q8H PRN PO ANXIETY Last administered on 11/27/16 01: 41; Admin Dose 0.5 MG; Start 11/17/16 at 17:30 Ondansetron HCl (Zofran Tab) 4 mg Q6H PRN PO NAUSEA AND/OR VOMITING; Start at 17:30 Acetaminophen (Tylenol Tab) 650 mg Q6H PRN PO PAIN LEVEL 1-3 OR FEVER Last administered on 11/26/16 21:03; Admin Dose 650 MG; Start 11/17/16 at 17:30 Acetaminophen (Tylenol Supp) 650 mg Q6H PRN [place] PAIN LEVEL 1-3 OR FEVER; Start 11/17/16 at 17:30 Morphine Sulfate (morphine) 2 mg Q4H PRN IV PAIN LEVEL 7-10 Last administered on 11/20/16 04:00; Admin Dose 2 MG; Start 11/17/16 at 17:30 Docusate Sodium (Colace) 100 mg Q12H PRN PO CONSTIPATION; Start 11/17/16 at 17: 30 Bisacodyl (Dulcolax) 5 mg DAILY PRN PO CONSTIPATION; Start 11/17/16 at 17:30 Montelukast Sodium 10 mg 10 mg HS PO Last administered on 11/28/16 21:01; Admin Dose 10 MG; Start 11/17/16 at 21:00 Cefepime HCl (Maxipime 1gm/50 ml (Pmx)) 50 ml @ 100 mls/hr Q24H IVPB Last administered on 11/29/16 08:09; Admin Dose 100 MLS/HR; Start 11/19/16 at 09:00 Famotidine (Pepcid) 20 mg DAILY PO Last administered on 11/29/16 08:08; Admin Dose 20 MG; Start 11/20/16 at 09:00 Carvedilol (Coreg) 6.25 mg BID GTB Last administered on 11/29/16 08:08; Admin Dose 6.25 MG; Start 11/24/16 at 09:00 Heparin Sodium (Porcine) 5000 unit 5,000 unit BID SC Last administered on 08:09; Admin Dose 5,000 UNIT; Start 11/26/16 at 14:00 Vancomycin HCl (Vancocin) 250 ml @ 125 mls/hr Q72H IVPB Last administered on 11:48; Admin Dose 125 MLS/HR; Start 11/28/16 at 12:00 Assessment/Plan Additional Assessment/Plan IMPRESSION: 1. Slowly resolving encephalopathy 2. Status post healthcare-associated pneumonia. 3. Aspiration pneumonia with dysphagia, now with G-tube. 4. Acute on chronic renal insufficiency. RECS: 1. Continue supplemental O2. 2. BD's/CPT 3. Abx. 4. Aspiration precautions. 5. Tube feeding 6. PT/OT GALA CARTAGENA MD Nov 29, 2016 15:12
[2016-11-29 20:00] VITALS: BP 141/68; RESP 20
[2016-11-29] MEDS: MONTELUKAST 10 MG TAB PO SCH (21:09)
[2016-11-30 05:17] LABS: ADD SCAN DIFF NO
[2016-11-30 05:31] LABS: AADO2 Arterial 50.8 mmHg (7.0-24.0); Allen Test ACCEPTAB; Arterial Base Excess 3.2 mmol/L (-3.0-3); Arterial COHb 0.6 % (0.0-3.0); Arterial Fraction of Oxyhgb 97.2 % (93.0-99.0); Arterial HCO3 28.1 mmol/L (22.0-26.0); Arterial MetHb 0.4 % (0.0-1.5); Arterial Total Hemglobin 12.6 g/dl (12.0-18.0); MODE NASAL CANNULA
[2016-11-30 05:35] LABS: ALBUMIN 2.8 g/dl (3.3-4.9); POTASSIUM 5.4 mmol/L (3.5-5.1)
[2016-11-30 05:36] LABS: MAGNESIUM 2.3 mg/dl (1.7-2.5); PHOSPHORUS 2.9 mg/dl (2.5-4.9)
[2016-11-30 05:37] LABS: BILIRUBIN,INDIRECT 0.1 mg/dl (0-1.1); BILIRUBIN,TOTAL 0.1 mg/dl (0.2-1.3); CREATININE 2.6 mg/dl (0.44-1.00)
[2016-11-30 05:38] LABS: ALBUMIN/GLOBULIN RATIO 0.8; CALCIUM 11.2 mg/dl (8.4-10.2); TOTAL PROTEIN 6.3 g/dl (6.1-8.1)
[2016-11-30 05:41] LABS: BASOPHIL # 0.1 10^3/ul (0.0-0.1); BASOPHILS % 0.8 % (0.0-2.0); EOSINOPHILS # 0.4 10^3/ul (0.0-0.5); EOSINOPHILS % 4.4 % (0.0-7.0); HEMOGLOBIN 8.7 g/dl (12.0-16.0); LYMPHOCYTES # 1.5 10^3/ul (0.8-2.9); LYMPHOCYTES % 16.8 % (15.0-51.0); MEAN CORPUSCULAR HGB CONC 31.1 g/dl (32.0-37.0); MEAN PLATELET VOLUME 9.8 fl (7.4-10.4); MONOCYTES % 11.4 % (0.0-11.0); NEUTROPHIL # 5.8 10^3/ul (1.6-7.5); PLATELET COUNT 225 10^3/UL (140-415); RED BLOOD COUNT 3.22 10^6/ul (4.20-5.40); RED CELL DISTRIBUTION WIDTH 16.6 % (11.5-14.5); WHITE BLOOD COUNT 8.7 10^3/ul (4.8-10.8)
[2016-11-30 08:51] VITALS: BP 127/86; RESP 20
[2016-11-30] MEDS: HEPARIN 5,000 UNIT/0.5 ML SYG SC SCH ×3 (09:00→21:30)
[2016-11-30] MEDS: FAMOTIDINE 20 MG TAB PO SCH (09:32)
[2016-11-30] MEDS: CEFEPIME 1GM/50 ML (PMX) 50 ML IVPB SCH (10:41)
--- NOTE | 2016-11-30 12:07 | PN ---
DATE: 11/30/2016 SUBJECTIVE: The patient remains confused. No other acute events noted. No hemoptysis, hematemesis or hematochezia. OBJECTIVE: VITAL SIGNS: Blood pressure 127/86, respirations 20, pulse 80, temperature 98.6. HEENT: Head is normocephalic. NECK: Supple. HEART: Regular rate. LUNGS: Show diminished breath sounds at the base. ABDOMEN: Soft, nontender to palpation without rebound or guarding. EXTREMITIES: Negative for clubbing, cyanosis. Trace edema. DERMATOLOGIC: No rashes. MUSCULOSKELETAL: No joint effusions. NEUROLOGIC: No change in exam. MEDICATIONS: The patient's medications have been reviewed. LABORATORY DATA: Sodium 135, potassium 5.4, chloride 99, BUN 52, creatinine 2.6. White count 8.7, hemoglobin 8.7, hematocrit 28.0, platelet count 225. ASSESSMENT AND PLAN: 1. Nonoliguric acute kidney injury on top of chronic kidney disease stage III. Etiology of acute k idney injury is secondary to hemodynamics, possible hypercalcemia. The patient was previously on he modialysis, had excellent recovery. At this point, there is no immediate need for renal replacement therapy. We will continue to monitor. 2. Hypocalcemia secondary to primary hyperparathyroidism. The patient is status post calcitonin. Appreciate endocrinology's evaluation. It is okay to give ____ therapy had a reduced dose if necess speedy. Will discuss with Dr. Haddad. 3. Acute encephalopathy, etiology toxic metabolic. Continue to monitor. 4. Dysphagia, status post PEG, continue G-tube feeding. 5. Hyperkalemia. Etiology is secondary to chronic kidney disease in conjunction with high potassiu m diet. We will have the patient placed on a tube feeding. 6. Hypertension. Continue current blood pressure regimen. 7. Anemia. Continue to monitor hemoglobin and hematocrit levels. 8. Tachycardia arrhythmia. Continue to monitor. Follow up with cardiology. 9. History of chronic obstructive pulmonary disease, acute appendicitis. 10. Pneumonia. Status post antibiotics. Dictated By: DERECK KENNEDY/RUTH Conf#: [id number] DID#: [id number]
--- NOTE | 2016-11-30 13:40 | RADRPT ---
PROCEDURE: Nuclear medicine parathyroid scan CLINICAL INDICATION: Hyperparathyroidism. Hypercalcemia. TECHNIQUE: 21.4 mCi of technetium 99m sestamibi was administered to the patient. Planar imaging o f the thyroid bed and neck region was performed in the anterior and oblique views. Imaging was obta ined at immediate and 3 hours delayed post injection. Images were reviewed on the [employer] workstation. COMPARISON: None available FINDINGS: Normal physiologic activity is seen throughout the glands of the neck, as expected. On the delayed i mages, there is appropriate washout of activity from the thyroid gland. No persistent activity is s een within the parathyroid bed to indicate parathyroid adenoma. IMPRESSION: 1. Negative parathyroid scan. 2. No parathyroid adenoma. RPTAT: HMJB .Nagi Neal MD, Date Time Electronically viewed and signed by .Nagi Neal MD, on 11/30/2016 13:40 .B/
--- NOTE | 2016-11-30 14:47 | PN ---
Date/Time of Note Date/Time of Note DATE: 11/30/16 TIME: 14:35 Assessment/Plan VTE Prophylaxis VTE Prophylaxis Intervention: heparin Lines/Catheters IV [facility] [place] Lock Urinary Cath still in place: No Assessment/Plan Assessment/Plan 1. Healthcare-associated pneumonia. on IV abx cefepime, vancomycin, consider to stop antibiotics 2. SWATHI on CKD III, follow up with BMP 3. Essential hypertension, controlled 4. Chronic obstructive pulmonary disease. Continue breathing treatment, Advair and Spiriva and Singular. 5. NSTEMI, cardiology has been consulted, continue aspirin statin beta rohith. Patient has been started on heparin drip 6. Metabolic encephalopathy 7. Dysphagia, status post PEG tube placement 8. Gastroesophageal reflux disease. Continue Pepcid 9. Deep venous thrombosis prophylaxis. The patient has been placed on heparin. 10. Hypercalcemia- negative parathyroid scan, follow up with nephrology, CT chest Subjective 24 Hr Interval Summary Free Text/Dictation confused, lethargic, no respiratory distress Exam/Review of Systems Vital Signs Vitals Vital Signs Date Time Temp Pulse Resp B/P Pulse Ox O2 Delivery O2 Flow Rate FiO2 11/30/16 09:56 Nasal Cannula 2.0 11/30/16 08:51 98.7 80 20 127/86 99 Intake and Output 11/29/16 11/29/16 11/30/16 15:00 23:00 07:00 Intake Total 50 ml 1140 ml 540 ml Balance 50 ml 1140 ml 540 ml Exam Constitutional: alert, frail (confused) Head: atraumatic, normocephalic Eyes: EOMI, PERRL, nl conjunctiva, nl lids ENMT: mucosa pink and moist, nl external ears & nose, nl lips & teeth, nl nasal mucosa & septum Neck: non-tender, supple Respiratory: clear to auscultation, normal air movement, No congested cough, No crackles/rales, No diminished breath sounds, No intercostal retraction, No labored breathing, No other, No respirations, No tactile fremitus, No wheezing Cardiovascular: nl pulses, regular rate and rhythm, No S3, No S4, No bruits, No diastolic murmur, No edema, No gallop, No irregular rhythm, No jugular venous distention (JVD), No murmurs/extra sounds, No other, No rub, No systolic murmur Gastrointestinal: nl liver, spleen, non-tender, soft, No ascites, No bowel sounds, No distended, No firm, No hepatomegaly, No mass , No other, No rebound or guarding, No splenomegaly, No surgical scars, No tender Musculoskeletal: nl extremities to inspection Extremities: normal pulses, No calf tenderness, No clubbing, No cyanosis, No edema, No other, No palpable cord, No pitting pedal edema, No tenderness Neurological: [employer] ADMINISTRATOR II-XII intact, confused, nl strength Results Result Diagram: 11/30/1644411/30/16 044 Results 24 hrs Laboratory Tests Test 11/30/16 04:45 11/30/16 05:00 Alanine Aminotransferase (ALT/SGPT) 27 Albumin 2.8 L Albumin/Globulin Ratio 0.80 Alkaline Phosphatase 102 Anion Gap 9 Aspartate Amino Transf (AST/SGOT) 26 Basophils # 0.1 Basophils % 0.8 Blood Urea Nitrogen 52 H Calcium Level 11.2 H Carbon Dioxide Level 32 H Chloride Level 99 Creatinine 2.60 H Direct Bilirubin 0.00 Eosinophils # 0.4 Eosinophils % 4.4 Globulin 3.50 H Glucose Level 121 Hematocrit 28.0 L Hemoglobin 8.7 L Indirect Bilirubin 0.1 Lymphocytes # 1.5 Lymphocytes % 16.8 Magnesium Level 2.3 Mean Corpuscular Hemoglobin 27.0 L Mean Corpuscular Hemoglobin Concent 31.1 L Mean Corpuscular Volume 87.0 Mean Platelet Volume 9.8 Monocytes # 1.0 H Monocytes % 11.4 H Neutrophils # 5.8 Neutrophils % 66.0 Nucleated Red Blood Cells # 0.0 Nucleated Red Blood Cells % 0.0 Phosphorus Level 2.9 Platelet Count 225 Potassium Level 5.4 H Red Blood Count 3.22 L Red Cell Distribution Width 16.6 H Sodium Level 135 Total Bilirubin 0.1 L Total Protein 6.3 White Blood Count 8.7 Arterial Blood HCO3 28.1 H Arterial Blood Base Excess 3.2 H Arterial Blood Oxygen Saturation 98.2 Celestine Test ACCEPTAB Arterial Blood Gas Puncture Site Right Radial Arterial Blood Carboxyhemoglobin 0.6 Arterial Blood Date Drawn 11/30/2016 5:12:45 AM Arterial Blood Methemoglobin 0.4 Arterial Blood pCO2 (Temp correct) 43.9 Arterial Blood pH (Temp corrected) 7.424 Arterial Blood pO2 (Temp corrected) 111.5 H Blood Gas A-a O2 Differential 50.8 H Blood Gas Modality NASAL CANNULA Blood Gas Notified Time 11/30/2016 5:31:00 AM Blood Gas Notified Whom RTR Blood Gas Specimen Source Blood arterial Blood Gas Temperature 37.0 FiO2 30.0 Oxyhemoglobin Percent 97.2 Total Hemoglobin 12.6 Medications Medications Current Medications Hydralazine HCl (Apresoline) 10 mg Q6H PRN IV ELEVATED BLOOD PRESSURE Last administered on 11/20/16 13:16; Admin Dose 10 MG; Start 11/17/16 at 17:30 Lorazepam (Ativan) 0.5 mg Q8H PRN PO ANXIETY Last administered on 11/27/16 01: 41; Admin Dose 0.5 MG; Start 11/17/16 at 17:30 Ondansetron HCl (Zofran Tab) 4 mg Q6H PRN PO NAUSEA AND/OR VOMITING; Start at 17:30 Acetaminophen (Tylenol Tab) 650 mg Q6H PRN PO PAIN LEVEL 1-3 OR FEVER Last administered on 11/26/16 21:03; Admin Dose 650 MG; Start 11/17/16 at 17:30 Acetaminophen (Tylenol Supp) 650 mg Q6H PRN [place] PAIN LEVEL 1-3 OR FEVER; Start 11/17/16 at 17:30 Morphine Sulfate (morphine) 2 mg Q4H PRN IV PAIN LEVEL 7-10 Last administered on 11/20/16 04:00; Admin Dose 2 MG; Start 11/17/16 at 17:30 Docusate Sodium (Colace) 100 mg Q12H PRN PO CONSTIPATION; Start 11/17/16 at 17: 30 Bisacodyl (Dulcolax) 5 mg DAILY PRN PO CONSTIPATION; Start 11/17/16 at 17:30 Montelukast Sodium 10 mg 10 mg HS PO Last administered on 11/29/16 21:09; Admin Dose 10 MG; Start 11/17/16 at 21:00 Cefepime HCl (Maxipime 1gm/50 ml (Pmx)) 50 ml @ 100 mls/hr Q24H IVPB Last administered on 11/30/16 10:41; Admin Dose 100 MLS/HR; Start 11/19/16 at 09:00 Famotidine (Pepcid) 20 mg DAILY PO Last administered on 11/30/16 09:32; Admin Dose 20 MG; Start 11/20/16 at 09:00 Carvedilol (Coreg) 6.25 mg BID GTB Last administered on 11/30/16 09:32; Admin Dose 6.25 MG; Start 11/24/16 at 09:00 Heparin Sodium (Porcine) 5000 unit 5,000 unit BID SC Last administered on 08:09; Admin Dose 5,000 UNIT; Start 11/26/16 at 14:00 Vancomycin HCl (Vancocin) 250 ml @ 125 mls/hr Q72H IVPB Last administered on 11:48; Admin Dose 125 MLS/HR; Start 11/28/16 at 12:00 NATY PONCE MD Nov 30, 2016 14:47
--- NOTE | 2016-11-30 15:13 | PN ---
DATE: 11/30/2016 SUBJECTIVE: Ms. Rowe remains stable, no new events. Vital signs are within normal limits. Bay rature 98, pulse is 80, blood pressure 127/86, O2 saturation 99% on 2 L nasal cannula. NECK: Supple. No JVD or lymphadenopathy. CARDIAC: S1, S2, no added sounds or murmurs. CHEST: Diminished air entry bilaterally. ABDOMEN: Soft, nontender. No guarding or rebound. EXTREMITIES: No cyanosis, clubbing, edema. NEUROLOGIC: Grossly intact. No focal deficits. LABORATORY DATA: White count 8.7, hemoglobin 8.7, platelets of 225. BUN 52, creatinine 2.6. IMPRESSION AND PLAN: 1. Resolving encephalopathy. 2. Healthcare-associated pneumonia. 3. Aspiration pneumonia. 4. Acute on chronic renal insufficiency. PLAN: 1. Antibiotics. 2. Aspiration precautions. 3. Consider neurology consultation. Dictated By: CLAY WONG/RUTH Conf#: [id number] DID#: [id number]
[2016-11-30 18:21] LABS: ADD UMIC YES; URINE BILIRUBIN (Dip) NEGATIVE (NEGATIVE); URINE BLOOD (Dip) 3+ (NEGATIVE); URINE COLOR LT. YELLOW (YELLOW); URINE GLUCOSE (Dip) NEGATIVE (NEGATIVE); URINE KETONES (Dip) NEGATIVE (NEGATIVE); URINE LEUKOCYTE ESTERASE (Dip) TRACE (NEGATIVE); URINE NITRITE (Dip) NEGATIVE (NEGATIVE); URINE TOTAL PROTEIN (Dip) 1+ (NEGATIVE); URINE UROBILINOGEN (Dip) 0.2 E.U./dL (0.1-1.0)
[2016-11-30 19:06] LABS: BACTERIA,URINE MODERATE
[2016-11-30 20:01] VITALS: BP 137/75; RESP 19
[2016-11-30 20:34] LABS: PROTEIN URINE 94.7 mg/dl (0.0-9.9)
[2016-11-30] MEDS: MONTELUKAST 10 MG TAB PO SCH (21:29)
[2016-12-01 06:28] LABS: ADD SCAN DIFF NO
[2016-12-01 06:34] LABS: BASOPHIL # 0.1 10^3/ul (0.0-0.1); BASOPHILS % 0.8 % (0.0-2.0); EOSINOPHILS # 0.4 10^3/ul (0.0-0.5); EOSINOPHILS % 5.9 % (0.0-7.0); HEMATOCRIT 27.2 % (37.0-47.0); HEMOGLOBIN 8.3 g/dl (12.0-16.0); LYMPHOCYTES # 1.1 10^3/ul (0.8-2.9); LYMPHOCYTES % 14.8 % (15.0-51.0); MEAN CORPUSCULAR HEMOGLOBIN 26.8 pg (29.0-33.0); MEAN CORPUSCULAR HGB CONC 30.5 g/dl (32.0-37.0); MEAN CORPUSCULAR VOLUME 87.7 fl (82.0-101.0); MEAN PLATELET VOLUME 9.6 fl (7.4-10.4); MONOCYTE # 0.6 10^3/ul (0.3-0.9); MONOCYTES % 8.8 % (0.0-11.0); NEUTROPHILS % 69.4 % (39.0-77.0); PLATELET COUNT 207 10^3/UL (140-415); RED CELL DISTRIBUTION WIDTH 16.6 % (11.5-14.5); WHITE BLOOD COUNT 7.3 10^3/ul (4.8-10.8)
[2016-12-01 06:57] LABS: POTASSIUM 5.2 mmol/L (3.5-5.1)
[2016-12-01 06:59] LABS: CREATININE 2.63 mg/dl (0.44-1.00)
[2016-12-01 07:00] LABS: CALCIUM 11.2 mg/dl (8.4-10.2); MAGNESIUM 2.4 mg/dl (1.7-2.5); PHOSPHORUS 2.9 mg/dl (2.5-4.9)
[2016-12-01 08:04] VITALS: BP 132/60; RESP 18
--- NOTE | 2016-12-01 08:10 | RADRPT ---
PROCEDURE: CT Chest without contrast. CLINICAL INDICATION: 81-year-old female with hypercalcemia. History of pneumonia. TECHNIQUE: CT scan of the chest without contrast was performed on a multidetector high-resolution CT scanner. Coronal and sagittal reformatted images were obtained from the axial source images. The total exam CTDI equals 10.26 mGy and the total exam DLP equals 331.1 mGy-cm. One or more of the following dose reduction techniques were used: - Automated exposure control. - Adjustment of the mA and/or kV according to patient size. Use of iterative reconstruction technique. COMPARISON: Through 31.1 FINDINGS: A double-lumen dialysis catheter is identified with its tip in the right atrium. The heart is enlarg ed. No pericardial effusion is present. The right diaphragm is elevated. There is no evidence of a pneumothorax. There are bilateral pleural effusions with compressive atel ectasis in the right lower lobe and left lower lobe areas. There is peribronchial cuffing. There is a 6.4 mm pleural based nodular density in the posterior segment of the right upper lobe. There is a 1 mm calcified granuloma in the right lower lobe. These are likely granulomas. Atherosclerotic calcifications are identified in the left coronary artery and thoracic aorta. There is calcification at the root of the aorta. There are small mediastinal lymph nodes but none appear p athologically enlarged. No enlarged supraclavicular axillary lymph nodes are identified. No enlarg ed hilar lymph nodes are identified. The main pulmonary artery measures 3.7 cm in transverse diameter. There are vascular calcifications in the proximal portions of the right left subclavian arteries and in the proximal innominate arter y. There are degenerative osteophytes in the thoracic and upper lumbar spine. No bone metastasis or ac [place] bony fracture is identified. There is a small hiatal hernia. The visible portions of the liver, spleen, small bowel loops and colon are normal. IMPRESSION: 1. There are bilateral pleural effusions with compressive atelectasis in the lower dorsal periphery of the right upper lobe and right and left lower lobes. 2. 6.4 mm pleural-based nodular density posterior segment right upper lobe. Series 4 image 31. A pleural-based pulmonary nodule / granuloma could present this fashion and follow-up imaging is recom mended in no less than 6 months to ensure resolution. The skin testing should be considered. There is a 1 mm calcified nodule in the right lower lobe. 3. A dialysis catheter enters from right internal jugular approach with its tip near the junction o f the inferior vena cava and right atrium. 4. Cardiomegaly. 5. Atherosclerotic vascular disease. 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 RPTAT:AAJJ Josh Coelho Physician Date Time Electronically viewed and signed by Josh Coelho, Physician on 12/01/2016 08:10 WENDI/
[2016-12-01] MEDS: FAMOTIDINE 20 MG TAB PO SCH (10:25)
[2016-12-01] MEDS: CEFEPIME 1GM/50 ML (PMX) 50 ML IVPB SCH (10:25)
[2016-12-01] MEDS: HEPARIN 5,000 UNIT/0.5 ML SYG SC SCH ×2 (10:27→21:21)
--- NOTE | 2016-12-01 12:15 | PN ---
DATE: 12/01/2016 SUBJECTIVE: The patient is stable. The patient remains confused. No other acute events noted. No fevers, chills, nausea/vomiting. OBJECTIVE: VITAL SIGNS: Blood pressure 130/60, respiration 18, pulse 65, temperature 98.0. HEENT: Head is normocephalic. NECK: Supple. HEART: Regular rate. LUNGS: Show diminished breath sounds at base. ABDOMEN: Soft, nontender to palpation. No rebound or guarding. EXTREMITIES: Negative for clubbing, cyanosis, edema. DERMATOLOGIC: No rashes. MUSCULOSKELETAL: No joint effusions. NEUROLOGIC: No change in exam. MEDICATIONS: The patient's medications have been reviewed. LABORATORY DATA: Shows sodium 136, potassium 5.2, BUN 56, creatinine 2.63, calcium 11.2. White cou nt 7.3, hemoglobin 8.3, hematocrit 27.2, platelet count is 207. ASSESSMENT AND PLAN: 1. Nonoliguric acute kidney injury on top of chronic kidney disease stage III. Etiology of acute k idney injury is possibly secondary to acute tubular necrosis due to hemodynamics, sepsis. The patie nt's renal function appears to be stabilizing and at this point there is no need for resuming renal replacement therapy. We will continue to monitor. 2. Hypocalcemia secondary to primary hyperparathyroidism and patient is status post calcitonin. Ap preciate endocrine's evaluation and will follow up their recommendations. 3. Acute encephalopathy. Etiology is toxic metabolic. Continue to monitor. 4. Dysphagia, status post percutaneous endoscopic gastrostomy. Continue tube feeds. 5. Hyperkalemia. Etiology is secondary to chronic kidney disease. The patient's tube feeding has been changed. Continue low-potassium diet and monitor. 6. Hypertension. Continue current blood pressure regimen. 7. Anemia. Continue to monitor hemoglobin and hematocrit levels. 8. Tachycardia arrhythmia. Continue to monitor. 9. History of chronic obstructive pulmonary disease. 10. Pneumonia. The patient is completing antibiotic course. Dictated By: DERECK KENNEDY/RUTH Conf#: [id number] DID#: [id number]
[2016-12-01] MEDS: VANCOMYCIN 1 GM in NS 250 ML IVPB SCH (12:46)
--- NOTE | 2016-12-01 15:02 | PN ---
Date/Time of Note Date/Time of Note DATE: 12/01/16 TIME: 14:59 Assessment/Plan VTE Prophylaxis VTE Prophylaxis Intervention: heparin Lines/Catheters IV [facility]from [facility] Permacath Urinary Cath still in place: No Assessment/Plan Assessment/Plan 1. Healthcare-associated pneumonia. on IV abx cefepime, vancomycin, consider to stop antibiotics 2. SWATHI on CKD III, follow up with BMP 3. Essential hypertension, controlled 4. Chronic obstructive pulmonary disease. Continue breathing treatment, Advair and Spiriva and Singular. 5. NSTEMI, cardiology has been consulted, continue aspirin statin beta rohith. Patient has been started on heparin drip 6. Metabolic encephalopathy 7. Dysphagia, status post PEG tube placement 8. Gastroesophageal reflux disease. Continue Pepcid 9. Deep venous thrombosis prophylaxis. The patient has been placed on heparin. 10. Hypercalcemia- negative parathyroid scan, follow up with nephrology, CT chest 11. Hyperkalemia, follow up with K Subjective 24 Hr Interval Summary Free Text/Dictation more alert today, still confused Exam/Review of Systems Vital Signs Vitals Vital Signs Date Time Temp Pulse Resp B/P Pulse Ox O2 Delivery O2 Flow Rate FiO2 12/01/16 14:23 3.0 12/01/16 08:04 98.0 65 18 132/60 99 11/30/16 20:00 Nasal Cannula Intake and Output 11/30/16 11/30/16 12/01/16 15:00 23:00 07:00 Intake Total 50 ml Balance 50 ml Exam Constitutional: alert, obese, well developed Head: atraumatic, normocephalic Eyes: EOMI, PERRL, nl conjunctiva, nl lids ENMT: nl external ears & nose, nl lips & teeth, nl nasal mucosa & septum Neck: supple Respiratory: clear to auscultation, normal air movement, No congested cough, No crackles/rales, No diminished breath sounds, No intercostal retraction, No labored breathing, No other, No respirations, No tactile fremitus, No wheezing Cardiovascular: nl pulses, regular rate and rhythm, No S3, No S4, No bruits, No diastolic murmur, No edema, No gallop, No irregular rhythm, No jugular venous distention (JVD), No murmurs/extra sounds, No other, No rub, No systolic murmur Gastrointestinal: nl liver, spleen, non-tender, soft, No ascites, No bowel sounds, No distended, No firm, No hepatomegaly, No mass , No other, No rebound or guarding, No splenomegaly, No surgical scars, No tender Musculoskeletal: nl extremities to inspection Extremities: normal pulses, No calf tenderness, No clubbing, No cyanosis, No edema, No other, No palpable cord, No pitting pedal edema, No tenderness Neurological: RN MEDICARE II-XII intact, nl mental status, nl speech, nl strength Skin: nl turgor Results Result Diagram: 12/01/1652 12/01/1652 Results 24 hrs Laboratory Tests Test 11/30/16 17:40 12/01/16 05:52 Urine Amorphous Phosphates MODERATE Urine Bacteria MODERATE Urine Bilirubin NEGATIVE Urine Clarity TURBID Urine Color LT. YELLOW Urine Epithelial Cells MODERATE Urine Glucose NEGATIVE Urine Hemoglobin 3+ H Urine Ketones NEGATIVE Urine Leukocyte Esterase TRACE H Urine Microscopic RBC 5-10 Urine Microscopic WBC 10-25 Urine Nitrite NEGATIVE Urine Random Creatinine 48.77 Urine Random Sodium 55 Urine Specific [place] 1.010 Urine Total Protein 94.7 H Urine Urobilinogen 0.2 E.U./dL Urine pH 7.5 Anion Gap 10 Basophils # 0.1 Basophils % 0.8 Blood Urea Nitrogen 56 H Calcium Level 11.2 H Carbon Dioxide Level 31 Chloride Level 100 Creatinine 2.63 H Eosinophils # 0.4 Eosinophils % 5.9 Glucose Level 128 Hematocrit 27.2 L Hemoglobin 8.3 L Lymphocytes # 1.1 Lymphocytes % 14.8 L Magnesium Level 2.4 Mean Corpuscular Hemoglobin 26.8 L Mean Corpuscular Hemoglobin Concent 30.5 L Mean Corpuscular Volume 87.7 Mean Platelet Volume 9.6 Monocytes # 0.6 Monocytes % 8.8 Neutrophils # 5.0 Neutrophils % 69.4 Nucleated Red Blood Cells # 0.0 Nucleated Red Blood Cells % 0.0 Phosphorus Level 2.9 Platelet Count 207 Potassium Level 5.2 H Red Blood Count 3.10 L Red Cell Distribution Width 16.6 H Sodium Level 136 White Blood Count 7.3 Medications Medications Current Medications Hydralazine HCl (Apresoline) 10 mg Q6H PRN IV ELEVATED BLOOD PRESSURE Last administered on 11/20/16t 13:16; Admin Dose 10 MG; Start 11/17/16 at 17:30 Lorazepam (Ativan) 0.5 mg Q8H PRN PO ANXIETY Last administered on 11/27/16 01: 41; Admin Dose 0.5 MG; Start 11/17/16 at 17:30 Ondansetron HCl (Zofran Tab) 4 mg Q6H PRN PO NAUSEA AND/OR VOMITING; Start at 17:30 Acetaminophen (Tylenol Tab) 650 mg Q6H PRN PO PAIN LEVEL 1-3 OR FEVER Last administered on 11/26/16 21:03; Admin Dose 650 MG; Start 11/17/16 at 17:30 Acetaminophen (Tylenol Supp) 650 mg Q6H PRN [place] PAIN LEVEL 1-3 OR FEVER; Start 11/17/16 at 17:30 Morphine Sulfate (morphine) 2 mg Q4H PRN IV PAIN LEVEL 7-10 Last administered on 11/20/16 04:00; Admin Dose 2 MG; Start 11/17/16 at 17:30 Docusate Sodium (Colace) 100 mg Q12H PRN PO CONSTIPATION; Start 11/17/16 at 17: 30 Bisacodyl (Dulcolax) 5 mg DAILY PRN PO CONSTIPATION; Start 11/17/16 at 17:30 Montelukast Sodium 10 mg 10 mg HS PO Last administered on 11/30/16 21:29; Admin Dose 10 MG; Start 11/17/16 at 21:00 Cefepime HCl (Maxipime 1gm/50 ml (Pmx)) 50 ml @ 100 mls/hr Q24H IVPB Last administered on 12/01/16 10:25; Admin Dose 100 MLS/HR; Start 11/19/16 at 09:00 Famotidine (Pepcid) 20 mg DAILY PO Last administered on 12/01/16 10:25; Admin Dose 20 MG; Start 11/20/16 at 09:00 Carvedilol (Coreg) 6.25 mg BID GTB Last administered on 12/01/16 10:26; Admin Dose 6.25 MG; Start 11/24/16 at 09:00 Heparin Sodium (Porcine) 5000 unit 5,000 unit BID SC Last administered on 10:27; Admin Dose 5,000 UNIT; Start 11/26/16 at 14:00 Vancomycin HCl (Vancocin) 250 ml @ 125 mls/hr Q72H IVPB Last administered on t 12:46; Admin Dose 125 MLS/HR; Start 11/28/16 at 12:00 NATY PONCE MD Dec 01, 2016 15:02
--- NOTE | 2016-12-01 18:50 | PN ---
DATE: 12/01/2016 SUBJECTIVE: The patient Tamika remains essentially stable, still somewhat confused, not back to [facility]. OBJECTIVE: VITAL SIGNS: Temperature 98, pulse is 65, blood pressure 132/60, O2 saturation 99% on 3 L nasal can nula. NECK: Supple. No JVD or lymphadenopathy. CARDIAC: S1, S2. No added sounds or murmurs. CHEST: Diminished air entry bilaterally. ABDOMEN: Soft, nontender. No guarding or rebound. EXTREMITIES: No cyanosis, clubbing. 1+ edema. NEUROLOGIC: Generalized weakness. LABORATORY DATA: White count 7.3, hemoglobin 8.3, platelets of 207. BUN 56, creatinine 2.65. IMAGING: CT of the chest was performed, demonstrated bilateral pleural effusions with compressive a telectasis; 6 mm nodule, right upper lobe; dialysis catheter in place. IMPRESSION AND PLAN: 1. End-stage renal failure on hemodialysis. 2. Resolving encephalopathy. 3. Compressive atelectasis and pleural effusions. 4. Non-ST elevation myocardial infarction. The patient to continue with: 1. Renal recommendations. 2. Intravenous antibiotics. 3. Consider de-escalation of antibiotics. 4. Consider neurology evaluation for encephalopathy. 5. DVT and GI prophylaxis. Dictated By: CLAY WONG/RUTH Conf#: [id number] DID#: [id number]
[2016-12-01 20:16] VITALS: BP 126/61; RESP 18
[2016-12-01] MEDS: MONTELUKAST 10 MG TAB PO SCH (21:21)
[2016-12-02 05:58] LABS: ADD SCAN DIFF NO
[2016-12-02 06:08] LABS: BASOPHIL # 0.1 10^3/ul (0.0-0.1); BASOPHILS % 0.7 % (0.0-2.0); EOSINOPHILS # 0.4 10^3/ul (0.0-0.5); EOSINOPHILS % 5.2 % (0.0-7.0); HEMATOCRIT 26.8 % (37.0-47.0); HEMOGLOBIN 8.3 g/dl (12.0-16.0); LYMPHOCYTES # 1.2 10^3/ul (0.8-2.9); LYMPHOCYTES % 16.4 % (15.0-51.0); MEAN CORPUSCULAR HEMOGLOBIN 27.2 pg (29.0-33.0); MEAN CORPUSCULAR VOLUME 87.9 fl (82.0-101.0); MEAN PLATELET VOLUME 9.9 fl (7.4-10.4); MONOCYTE # 0.8 10^3/ul (0.3-0.9); MONOCYTES % 9.9 % (0.0-11.0); NEUTROPHIL # 5.1 10^3/ul (1.6-7.5); NEUTROPHILS % 67.5 % (39.0-77.0); PLATELET COUNT 193 10^3/UL (140-415); RED BLOOD COUNT 3.05 10^6/ul (4.20-5.40); RED CELL DISTRIBUTION WIDTH 16.6 % (11.5-14.5); WHITE BLOOD COUNT 7.5 10^3/ul (4.8-10.8)
[2016-12-02 06:30] LABS: POTASSIUM 5.2 mmol/L (3.5-5.1)
[2016-12-02 06:33] LABS: CREATININE 2.61 mg/dl (0.44-1.00)
[2016-12-02 06:34] LABS: MAGNESIUM 2.3 mg/dl (1.7-2.5); PHOSPHORUS 2.7 mg/dl (2.5-4.9)
[2016-12-02 08:20] VITALS: BP 135/76; RESP 18
[2016-12-02] MEDS: HEPARIN 5,000 UNIT/0.5 ML SYG SC SCH ×2 (08:55→21:21)
[2016-12-02] MEDS: FAMOTIDINE 20 MG TAB PO SCH (08:56)
[2016-12-02] MEDS: CEFEPIME 1GM/50 ML (PMX) 50 ML IVPB SCH (08:57)
--- NOTE | 2016-12-02 11:44 | PN ---
DATE: 12/02/2016 SUBJECTIVE: The patient is stable, confused but improving. No other acute events noted. No hemopt ysis, hematemesis or hematochezia. OBJECTIVE: VITAL SIGNS: Blood pressure is 135/76, respirations 18, pulse 98, temperature 97.1. I's and O's reviewed. HEENT: Head is normocephalic. NECK: Supple. HEART: Regular rate. LUNGS: Show diminished breath sounds at the bases. ABDOMEN: Soft, nontender to palpation. No rebound or guarding. EXTREMITIES: Negative for clubbing, cyanosis. No edema. DERMATOLOGIC: No rashes. MUSCULOSKELETAL: No joint effusions. NEUROLOGIC: No change in exam. MEDICATIONS: The patient's medications have been reviewed. LABORATORY DATA: Shows sodium 134, potassium 5.2, BUN 61, creatinine 2.61, calcium is 11.0. White count is 7.5, hemoglobin 8.3, hematocrit 26.8, platelet count is 193. ASSESSMENT AND PLAN: 1. Nonoliguric acute kidney injury on top of chronic kidney disease stage III. Etiology of acute k idney injury is possibly secondary to acute tubular necrosis. The patient's renal function appears to be stable around a creatinine of 2.6 mg/dL, which gives an estimated EGFR of 17 mL/minute. At th is point, the patient has remained off hemodialysis for over 4 weeks. We will continue to monitor o ff dialysis. The patient was offered removal of her PermCath but he has refused. We will therefore continue to monitor closely. 2. Hyperkalemia, etiology secondary to chronic kidney disease in conjunction with high potassium lo ad. The patient's tube feeding will be changed to Nepro. We will monitor potassium levels closely. 3. Mineral bone disorder. The patient hypercalcemic secondary to primary hyperparathyroidism. The patient is being followed by endocrinology. Agree with bisphosphonate therapy. Monitor closely. 4. Acute encephalopathy. Etiology is toxic metabolic. The patient's mental status is slowly impro ving. Continue to monitor. 5. Dysphagia, status post PEG. Continue tube feeding. 6. Hypertension. Continue current blood pressure regimen. 7. Anemia. Continue to monitor hemoglobin and hematocrit levels. 8. Sepsis secondary to pneumonia. Continue current antibiotic course. 9. History of chronic obstructive pulmonary disease. Continue medical management. 10. Tachyarrhythmia, currently stable. Continue to monitor. Dictated By: DERECK KENNEDY/RUTH Conf#: [id number] DID#: [id number]
[2016-12-02] MEDS: SOD CHLORIDE 0.45% 1,000 ML IV SCH (15:30)
--- NOTE | 2016-12-02 15:30 | PN ---
Date/Time of Note Date/Time of Note DATE: 12/02/16 TIME: 15:27 Assessment/Plan VTE Prophylaxis VTE Prophylaxis Intervention: heparin Lines/Catheters IV Catheter Type (from Nrs): permacath Urinary Cath still in place: No Assessment/Plan Assessment/Plan 1. Healthcare-associated pneumonia. treated, stop antibiotics 2. SWATHI on CKD III, follow up with BMP 3. Essential hypertension, controlled 4. Chronic obstructive pulmonary disease. Continue breathing treatment, Advair and Spiriva and Singular. 5. NSTEMI, cardiology has been consulted, continue aspirin statin beta rohith. Patient has been started on heparin drip 6. Metabolic encephalopathy 7. Dysphagia, status post PEG tube placement 8. Gastroesophageal reflux disease. Continue Pepcid 9. Deep venous thrombosis prophylaxis. The patient has been placed on heparin. 10. Hypercalcemia- negative parathyroid scan, follow up with nephrology, CT chest reveal 6.4 mm pleural-based nodular density posterior segment right upper lobe. try IVF Subjective 24 Hr Interval Summary Free Text/Dictation more alert, still confused Exam/Review of Systems Vital Signs Vitals Vital Signs Date Time Temp Pulse Resp B/P Pulse Ox O2 Delivery O2 Flow Rate FiO2 12/02/16 08:20 97.8 98 18 135/76 96 12/02/16 08:00 Nasal Cannula 2.0 Intake and Output 12/01/16 12/01/16 12/02/16 15:00 23:00 07:00 Intake Total 920 ml 880 ml Balance 920 ml 880 ml Exam Constitutional: alert, other (confused) Head: atraumatic, normocephalic Eyes: EOMI, nl conjunctiva, nl lids ENMT: nl external ears & nose, nl lips & teeth, nl nasal mucosa & septum Neck: non-tender, supple Respiratory: clear to auscultation, normal air movement, No congested cough, No crackles/rales, No diminished breath sounds, No intercostal retraction, No labored breathing, No other, No respirations, No tactile fremitus, No wheezing Cardiovascular: nl pulses, regular rate and rhythm, No S3, No S4, No bruits, No diastolic murmur, No edema, No gallop, No irregular rhythm, No jugular venous distention (JVD), No murmurs/extra sounds, No other, No rub, No systolic murmur Gastrointestinal: nl liver, spleen, non-tender, soft, No ascites, No bowel sounds, No distended, No firm, No hepatomegaly, No mass , No other, No rebound or guarding, No splenomegaly, No surgical scars, No tender Musculoskeletal: nl extremities to inspection Neurological: FURNITURE INST[employer]ER II-XII intact, confused, nl speech Skin: nl turgor Results Result Diagram: 12/02/160 12/02/16 0440 Results 24 hrs Laboratory Tests Test 12/02/16 04:40 12/02/16 11:33 Anion Gap 10 Basophils # 0.1 Basophils % 0.7 Blood Urea Nitrogen 61 H Calcium Level 11.0 H Carbon Dioxide Level 29 Chloride Level 100 Creatinine 2.61 H Eosinophils # 0.4 Eosinophils % 5.2 Glucose Level 120 Hematocrit 26.8 L Hemoglobin 8.3 L Lymphocytes # 1.2 Lymphocytes % 16.4 Magnesium Level 2.3 Mean Corpuscular Hemoglobin 27.2 L Mean Corpuscular Hemoglobin Concent 31.0 L Mean Corpuscular Volume 87.9 Mean Platelet Volume 9.9 Monocytes # 0.8 Monocytes % 9.9 Neutrophils # 5.1 Neutrophils % 67.5 Nucleated Red Blood Cells # 0.0 Nucleated Red Blood Cells % 0.0 Phosphorus Level 2.7 Platelet Count 193 Potassium Level 5.2 H Red Blood Count 3.05 L Red Cell Distribution Width 16.6 H Sodium Level 134 L White Blood Count 7.5 Lab Scanned Report REFERENCE LAB Medications Medications Current Medications Hydralazine HCl (Apresoline) 10 mg Q6H PRN IV ELEVATED BLOOD PRESSURE Last administered on 11/20/16 13:16; Admin Dose 10 MG; Start 11/17/16 at 17:30 Lorazepam (Ativan) 0.5 mg Q8H PRN PO ANXIETY Last administered on 11/27/16 01: 41; Admin Dose 0.5 MG; Start 11/17/16 at 17:30 Ondansetron HCl (Zofran Tab) 4 mg Q6H PRN PO NAUSEA AND/OR VOMITING; Start at 17:30 Acetaminophen (Tylenol Tab) 650 mg Q6H PRN PO PAIN LEVEL 1-3 OR FEVER Last administered on 11/26/16 21:03; Admin Dose 650 MG; Start 11/17/16 at 17:30 Acetaminophen (Tylenol Supp) 650 mg Q6H PRN NV PAIN LEVEL 1-3 OR FEVER; Start 11/17/16 at 17:30 Morphine Sulfate (morphine) 2 mg Q4H PRN IV PAIN LEVEL 7-10 Last administered on 11/20/16 04:00; Admin Dose 2 MG; Start 11/17/16 at 17:30 Docusate Sodium (Colace) 100 mg Q12H PRN PO CONSTIPATION; Start 11/17/16 at 17: 30 Bisacodyl (Dulcolax) 5 mg DAILY PRN PO CONSTIPATION; Start 11/17/16 at 17:30 Montelukast Sodium 10 mg 10 mg HS PO Last administered on 12/01/16 21:21; Admin Dose 10 MG; Start 11/17/16 at 21:00 Cefepime HCl (Maxipime 1gm/50 ml (Pmx)) 50 ml @ 100 mls/hr Q24H IVPB Last administered on 12/02/16 08:57; Admin Dose 100 MLS/HR; Start 11/19/16 at 09:00 Famotidine (Pepcid) 20 mg DAILY PO Last administered on 12/02/16 08:56; Admin Dose 20 MG; Start 11/20/16 at 09:00 Carvedilol (Coreg) 6.25 mg BID GTB Last administered on 12/02/16 08:57; Admin Dose 6.25 MG; Start 11/24/16 at 09:00 Heparin Sodium (Porcine) (Heparin (5000 Units/0.5 ml)) 5,000 unit BID SC Last administered on 12/02/16 08:55; Admin Dose 5,000 UNIT; Start 11/26/16 at 14:00 NATY PONCE MD Dec 02, 2016 15:30
[2016-12-02 16:41] LABS: MICROALBUMIN 3.8 mg/dL
[2016-12-02 21:11] VITALS: BP 147/68; RESP 18
[2016-12-02] MEDS: MONTELUKAST 10 MG TAB PO SCH (21:22)
[2016-12-02] MEDS: ACETAMINOPHEN 325 MG TAB PO PRN (21:22)
[2016-12-03] MEDS: SOD CHLORIDE 0.45% 1,000 ML IV SCH ×3 (02:27→21:04)
[2016-12-03] MEDS: ACETAMINOPHEN 325 MG TAB PO PRN (05:20)
[2016-12-03 06:35] LABS: POTASSIUM 5.4 mmol/L (3.5-5.1)
[2016-12-03 06:37] LABS: CREATININE 2.65 mg/dl (0.44-1.00)
[2016-12-03 06:38] LABS: CALCIUM 11.1 mg/dl (8.4-10.2)
[2016-12-03 07:10] VITALS: BP 124/57; RESP 18
[2016-12-03] MEDS: FAMOTIDINE 20 MG TAB PO SCH (11:04)
[2016-12-03] MEDS: HEPARIN 5,000 UNIT/0.5 ML SYG SC SCH ×2 (11:05→21:09)
--- NOTE | 2016-12-03 11:06 | PN ---
DATE: 12/03/2016 SUBJECTIVE: The patient is stable, no acute events overnight. No fevers, chills, nausea, vomiting. OBJECTIVE: VITAL SIGNS: Blood pressure is 124/57, respirations 18, pulse 73, temperature 98.2. HEENT: Head is normocephalic. NECK: Supple. HEART: Regular rate. LUNGS: Show diminished breath sounds at base. ABDOMEN: Soft, nontender to palpation. No rebound or guarding. EXTREMITIES: Negative for clubbing, cyanosis, or edema. DERMATOLOGIC: No rashes. MUSCULOSKELETAL: No joint effusions. NEUROLOGIC: No change in exam. MEDICATIONS: The patient's medications have been reviewed. LABORATORY DATA: Showed sodium 133, potassium 5.4, BUN ____, creatinine 2.65, calcium 7.1. ASSESSMENT AND PLAN: 1. Nonoliguric acute kidney injury on top of chronic kidney disease stage III. Etiology of acute k idney injury secondary to acute tubular necrosis. Patient's renal function appears to be stabilizin g now running a creatinine of 2.6 mg/dL, which gives an estimated EGFR of 17 mL per minute. At this point, the patient has been off hemodialysis for over 1 month. We will continue to monitor. The p atient has refused removal of PermCath. 2. Hyperkalemia. The patient was placed on a low potassium diet. Continue to monitor. 3. Mineral bone disorder. Continue to monitor calcium and phosphate levels. 4. Acute encephalopathy. Etiology is toxic metabolic, slowly improving. Continue to monitor. 5. Dysphagia. Continue tube feeding. 6. Hypertension. Continue current blood pressure regimen. 7. Anemia. Continue to monitor hemoglobin and hematocrit levels. 8. Sepsis secondary to pneumonia. Continue current antibiotic regimen. 9. History of chronic obstructive pulmonary disease. Continue medical management. Dictated By: DERECK KENNEDY/RUTH Conf#: [id number] DID#: [id number]
[2016-12-03] MEDS ORDERED: MONT10TA24 PO (15:10)
[2016-12-03] MEDS ORDERED: IPRA3AMP INHALATION (15:10)
[2016-12-03] MEDS ORDERED: HEP5KI SC (15:10)
[2016-12-03] MEDS ORDERED: CARV6.2579 GTB (15:10)
[2016-12-03] MEDS ORDERED: FAMO20TA18 PO (15:12)
--- NOTE | 2016-12-03 15:25 | DS ---
Date/Time of Note Date/Time of Note DATE: 12/03/16 TIME: 15:12 Discharge Summary Admission/Discharge Info Admit Date/Time Nov 17, 2016 at 14:00 Discharge Date/Time Final Diagnosis 1. Healthcare-associated pneumonia. treated 2. SWATHI on CKD III, follow up with nephrology 3. Essential hypertension, controlled 4. Chronic obstructive pulmonary disease. Continue breathing treatment, Advair and Spiriva and Singular. 5. NSTEMI, on coreg, aspirin, follow up with cardiology 6. Metabolic encephalopathy, slowly improving 7. Dysphagia, status post PEG tube placement 8. Gastroesophageal reflux disease. Continue Pepcid 9. Deep venous thrombosis prophylaxis. The patient has been placed on heparin. 10. Hypercalcemia- stable, follow up with nephrology 11. 6.4 mm pleural-based nodular density posterior segment right upper lobe. repeat CT scan in 3-6 months per PCP Patient Condition: Stable Hospital Course This is a 81-year-old female with past medical history of chronic renal failure , end-stage renal disease on hemodialysis, COPD, hypertension, bilateral lower extremity lymphedema, obesity, debility, anemia, dyslipidemia, history of diabetes mellitus type 2, history of myocardial infarction, who was recently admitted to [facility] and was discharged on 11/04/2016 to [facility] for rehabilitation and physical therapy. The patient was found to have shortness of breath and generalized weakness for the past several days and was brought into the emergency room of [facility] where her WBC was found to be 7.7. Chest x-ray showed calcification of the thoracic aorta consistent with atherosclerosis, right upper, right lower, left lower retrocardiac interstitial and alveolar density pneumonia. The patient was found to have a temperature of 97.9, pulse 100, respirations 17, blood pressure of 221/100, oxygen 95% on 3 liters via nasal cannula. Patient complains of having some cough and congestion. Denies any chest pain, abdominal pain, nausea, vomiting, diarrhea. No hematochezia. No dysuria, hematuria, urgency. Positive for incontinence which is chronic. The patient also has debility and has been bedbound and has been having difficulty with ambulation. On admission, patient was diagnosed with healthcare associated pneumonia that is treated with antibiotics and resolved. CT scan revealed a 6.4 mm pleural- based nodular density posterior segment right upper lobe, that could be pneumonia related but needs repeat CT scan in 3-6 months to reevaluate the lesion. Patient had mildly elevated troponin up to 0.163 on admission, it could be sepsis and renal failure related. She is put on coreg and aspirin for possible ACS. Patient came in with acute on chronic renal failure with BUN/Cr 62/2.65 on 2016. Patient has persistent hypercalcemia, 11.1 on 12/03/2016. [place] [id number] Radiology Main Line: [phone] DIAGNOSTIC IMAGING REPORT Patient: CORDELL CAIN : 1935 Age: 81 Sex: F MR #: [id number] DOS: 11/30/16 0000 Ordering MD: NATY PONCE MD Location: [facility] Room/Bed: [employer] [facility] [employer] [facility] PROCEDURE: CT Chest without contrast. CLINICAL INDICATION: 81-year-old female with hypercalcemia. History of pneumonia. TECHNIQUE: CT scan of the chest without contrast was performed on a multidetector high-resolution CT scanner. Coronal and sagittal reformatted images were obtained from the axial source images. The total exam CTDI equals 10.26 mGy and the total exam DLP equals 331.1 mGy-cm. One or more of the following dose reduction techniques were used: - Automated exposure control. - Adjustment of the mA and/or kV according to patient size. Use of iterative reconstruction technique. COMPARISON: Through FINDINGS: A double-lumen dialysis catheter is identified with its tip in the right atrium. The heart is enlarged. No pericardial effusion is present. The right diaphragm is elevated. There is no evidence of a pneumothorax. There are bilateral pleural effusions with compressive atelectasis in the right lower lobe and left lower lobe areas. There is peribronchial cuffing. There is a 6.4 mm pleural based nodular density in the posterior segment of the right upper lobe. There is a 1 mm calcified granuloma in the right lower lobe. These are likely granulomas. Atherosclerotic calcifications are identified in the left coronary artery and thoracic aorta. There is calcification at the root of the aorta. There are small mediastinal lymph nodes but none appear pathologically enlarged. No enlarged supraclavicular axillary lymph nodes are identified. No enlarged hilar lymph nodes are identified. The main pulmonary artery measures 3.7 cm in transverse diameter. There are vascular calcifications in the proximal portions of the right left subclavian arteries and in the proximal innominate artery. There are degenerative osteophytes in the thoracic and upper lumbar spine. No bone metastasis or acute bony fracture is identified. There is a small hiatal hernia. The visible portions of the liver, spleen, small bowel loops and colon are normal. IMPRESSION: 1. There are bilateral pleural effusions with compressive atelectasis in the lower dorsal periphery of the right upper lobe and right and left lower lobes. 2. 6.4 mm pleural-based nodular density posterior segment right upper lobe. Series 4 image 31. A pleural-based pulmonary nodule / granuloma could present this fashion and follow-up imaging is recommended in no less than 6 months to ensure resolution. The skin testing should be considered. There is a 1 mm calcified nodule in the right lower lobe. 3. A dialysis catheter enters from right internal jugular approach with its tip near the junction of the inferior vena cava and right atrium. 4. Cardiomegaly. 5. Atherosclerotic vascular disease. 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 RPTAT:AAJJ Physician Cole Date Time Electronically viewed and signed by Josh Coelho Physician on Home Meds Active Scripts Famotidine* (Famotidine*) 20 Mg Tablet, 20 MG PO DAILY for 30 Days, TAB Prov:NATY PONCE MD 12/03/16 Ipratropium-Albuterol (Ipratropium-Albuterol) 0.5-3 Mg/3 Ml Ampul.neb, 3 ML INHALATION Q6, #30 VIAL Prov:NATY PONCE MD 12/03/16 Montelukast Sodium* (Montelukast Sodium*) 10 Mg Tablet, 10 MG PO HS for 30 Days , TAB Prov:NATY PONCE MD 12/03/16 Heparin Sod (Porcine)* (Heparin*) 5,000 Unit/0.5 Ml Soln, 5000 UNIT SC BID for 10 Days Prov:NATY PONCE MD 12/03/16 Carvedilol* (Carvedilol*) 6.25 Mg Tablet, 6.25 MG GTB BID for 30 Days, TAB Prov:NATY PONCE MD 12/03/16 Pending Labs Laboratory Tests Test 12/03/16 05:32 Anion Gap 11 (8-16) Blood Urea Nitrogen 62mg/dl (7-20) Calcium Level 11.1mg/dl (8.4-10.2) Carbon Dioxide Level 28mmol/L (21-31) Chloride Level 99mmol/L (97-110) Creatinine 2.65mg/dl (0.44-1.00) Glucose Level 124mg/dl (70-220) Potassium Level 5.4mmol/L (3.5-5.1) Sodium Level 133mmol/L (135-144) NATY PONCE MD Dec 03, 2016 15:23
[2016-12-03] MEDS ORDERED: NA POLYST SULFON 15 GM/60 ML BTL PO ONE (15:30)
[2016-12-03 16:40] LABS: POTASSIUM 5.1 mmol/L (3.5-5.1)
[2016-12-03 16:42] LABS: CREATININE 2.6 mg/dl (0.44-1.00)
[2016-12-03 16:43] LABS: CALCIUM 10.9 mg/dl (8.4-10.2)
[2016-12-03 20:09] VITALS: BP 141/70; RESP 18
[2016-12-03] MEDS: MONTELUKAST 10 MG TAB PO SCH (21:04)
[2016-12-04] MEDS: LORAZEPAM 0.5 MG TAB PO PRN (02:47)
[2016-12-04] MEDS: SOD CHLORIDE 0.45% 1,000 ML IV SCH ×3 (04:17→12:17)
[2016-12-04 07:30] VITALS: BP 144/81; RESP 18
[2016-12-04] MEDS: FAMOTIDINE 20 MG TAB PO SCH (08:50)
[2016-12-04] MEDS: HEPARIN 5,000 UNIT/0.5 ML SYG SC SCH ×2 (08:51→20:10)
--- NOTE | 2016-12-04 09:55 | PN ---
DATE: 12/04/2016 SUBJECTIVE: The patient is stable, no acute events overnight. No fevers, chills, nausea, vomiting. OBJECTIVE: VITAL SIGNS: Blood pressure is 144/81, respiration 18, pulse is 75, temperature 98.3. I'S and O'S: Reviewed. HEENT: Head is normocephalic. NECK: Supple. HEART: Regular rate. LUNGS: Show diminished breath sounds at the base. ABDOMEN: Soft, nontender to palpation. No rebound or guarding. EXTREMITIES: Negative for clubbing, cyanosis. No edema. DERMATOLOGIC: No rashes. MUSCULOSKELETAL: No joint effusions. NEUROLOGIC: No change in exam. MEDICATIONS: Patient's medication has been reviewed. LABORATORY DATA: Has been reviewed, currently new labs are pending. ASSESSMENT AND PLAN: 1. Nonoliguric acute kidney injury on top of chronic kidney disease stage III etiology secondary to acute tubular necrosis. The patient's renal function stabilized creatinine 2.6 mg/dL which gives a n estimated GFR around 17 mL per minute per CKD-EPI formulation. At this point, the patient has bee n off hemodialysis for a month. We will continue to monitor. The patient refuses removal of PermCa th. 2. Hypokalemia. Continue low-potassium tube feeding. 3. Mineral bone disorder. Continue to monitor calcium and phosphorus levels. 4. Hypernatremia. We will decrease free water flushes. 5. Acute encephalopathy, etiology toxic metabolic. Continue to monitor. 6. Dysphagia status post percutaneous endoscopic gastrostomy. Continue tube feeding. 7. Hypertension. Continue current blood pressure regimen. 8. Anemia. Continue to monitor hemoglobin and hematocrit levels. 9. Sepsis secondary to pneumonia. The patient is completing antibiotic course. 10. History of chronic obstructive pulmonary disease. Continue to monitor. Dictated By: DERECK KENNEDY/RUTH Conf#: [id number] DID#: [id number]
[2016-12-04 12:17] LABS: POTASSIUM 4.5 mmol/L (3.5-5.1)
[2016-12-04 12:19] LABS: CREATININE 2.47 mg/dl (0.44-1.00)
[2016-12-04 12:20] LABS: CALCIUM 10.9 mg/dl (8.4-10.2)
--- NOTE | 2016-12-04 14:01 | DS ---
Date/Time of Note Date/Time of Note DATE: 12/04/16 TIME: 13:56 Discharge Summary Admission/Discharge Info Admit Date/Time Nov 17, 2016 at 14:00 Discharge Date/Time Final Diagnosis 1. Healthcare-associated pneumonia. treated 2. SWATHI on CKD III, follow up with nephrology 3. Essential hypertension, controlled 4. Chronic obstructive pulmonary disease. Continue breathing treatment, Advair and Spiriva and Singular. 5. NSTEMI, on coreg, aspirin, follow up with cardiology 6. Metabolic encephalopathy, slowly improving 7. Dysphagia, status post PEG tube placement 8. Gastroesophageal reflux disease. Continue Pepcid 9. Deep venous thrombosis prophylaxis. The patient has been placed on heparin. 10. Hypercalcemia- dehydration related, increase G-tube flush with 300 cc water Q6h 11. 6.4 mm pleural-based nodular density posterior segment right upper lobe. repeat CT scan in 3-6 months per PCP Patient Condition: Stable Hospital Course This is a 81-year-old female with past medical history of chronic renal failure , end-stage renal disease on hemodialysis, COPD, hypertension, bilateral lower extremity lymphedema, obesity, debility, anemia, dyslipidemia, history of diabetes mellitus type 2, history of myocardial infarction, who was recently admitted to [facility] and was discharged on 11/04/2016 to [facility] for rehabilitation and physical therapy. The patient was found to have shortness of breath and generalized weakness for the past several days and was brought into the emergency room of [facility] where her WBC was found to be 7.7. Chest x-ray showed calcification of the thoracic aorta consistent with atherosclerosis, right upper, right lower, left lower retrocardiac interstitial and alveolar density pneumonia. The patient was found to have a temperature of 97.9, pulse 100, respirations 17, blood pressure of 221/100, oxygen 95% on 3 liters via nasal cannula. Patient complains of having some cough and congestion. Denies any chest pain, abdominal pain, nausea, vomiting, diarrhea. No hematochezia. No dysuria, hematuria, urgency. Positive for incontinence which is chronic. The patient also has debility and has been bedbound and has been having difficulty with ambulation. On admission, patient was diagnosed with healthcare associated pneumonia that is treated with antibiotics and resolved. CT scan revealed a 6.4 mm pleural- based nodular density posterior segment right upper lobe, that could be pneumonia related but needs repeat CT scan in 3-6 months to reevaluate the lesion. Patient had mildly elevated troponin up to 0.163 on admission, it could be sepsis and renal failure related. She is put on coreg and aspirin for possible ACS. Patient came in with acute on chronic renal failure with BUN/Cr 60/2.47 on 2016. It improves with IVF. Patient has persistent hypercalcemia, it is more likely dehydration related. Ca level is 10.9 today. Increase G-tube flushing to 300 cc Q6H. [place] [id number] Radiology Main Line: [phone] DIAGNOSTIC IMAGING REPORT Patient: CORDELL CAIN : 1935 Age: 81 Sex: F MR #: [id number] DOS: 11/30/16 0000 Ordering MD: NATY PONCE MD Location: [facility] Room/Bed: [facility] PROCEDURE: CT Chest without contrast. CLINICAL INDICATION: 81-year-old female with hypercalcemia. History of pneumonia. TECHNIQUE: CT scan of the chest without contrast was performed on a multidetector high-resolution CT scanner. Coronal and sagittal reformatted images were obtained from the axial source images. The total exam CTDI equals 10.26 mGy and the total exam DLP equals 331.1 mGy-cm. One or more of the following dose reduction techniques were used: - Automated exposure control. - Adjustment of the mA and/or kV according to patient size. Use of iterative reconstruction technique. COMPARISON: Through FINDINGS: A double-lumen dialysis catheter is identified with its tip in the right atrium. The heart is enlarged. No pericardial effusion is present. The right diaphragm is elevated. There is no evidence of a pneumothorax. There are bilateral pleural effusions with compressive atelectasis in the right lower lobe and left lower lobe areas. There is peribronchial cuffing. There is a 6.4 mm pleural based nodular density in the posterior segment of the right upper lobe. There is a 1 mm calcified granuloma in the right lower lobe. These are likely granulomas. Atherosclerotic calcifications are identified in the left coronary artery and thoracic aorta. There is calcification at the root of the aorta. There are small mediastinal lymph nodes but none appear pathologically enlarged. No enlarged supraclavicular axillary lymph nodes are identified. No enlarged hilar lymph nodes are identified. The main pulmonary artery measures 3.7 cm in transverse diameter. There are vascular calcifications in the proximal portions of the right left subclavian arteries and in the proximal innominate artery. There are degenerative osteophytes in the thoracic and upper lumbar spine. No bone metastasis or acute bony fracture is identified. There is a small hiatal hernia. The visible portions of the liver, spleen, small bowel loops and colon are normal. IMPRESSION: 1. There are bilateral pleural effusions with compressive atelectasis in the lower dorsal periphery of the right upper lobe and right and left lower lobes. 2. 6.4 mm pleural-based nodular density posterior segment right upper lobe. Series 4 image 31. A pleural-based pulmonary nodule / granuloma could present this fashion and follow-up imaging is recommended in no less than 6 months to ensure resolution. The skin testing should be considered. There is a 1 mm calcified nodule in the right lower lobe. 3. A dialysis catheter enters from right internal jugular approach with its tip near the junction of the inferior vena cava and right atrium. 4. Cardiomegaly. 5. Atherosclerotic vascular disease. 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 RPTAT:AAJJ Josh Coelho Physician Date Time Electronically viewed and signed by Josh Coelho Physician on Home Meds Active Scripts Famotidine* (Famotidine*) 20 Mg Tablet, 20 MG PO DAILY for 30 Days, TAB Prov:NATY PONCE MD 12/03/16 Ipratropium-Albuterol (Ipratropium-Albuterol) 0.5-3 Mg/3 Ml Ampul.neb, 3 ML INHALATION Q6, #30 VIAL Prov:NATY PONCE MD 12/03/16 Montelukast Sodium* (Montelukast Sodium*) 10 Mg Tablet, 10 MG PO HS for 30 Days , TAB Prov:NATY PONCE MD 12/03/16 Heparin Sod (Porcine)* (Heparin*) 5,000 Unit/0.5 Ml Soln, 5000 UNIT SC BID for 10 Days Prov:NATY PONCE MD 12/03/16 Carvedilol* (Carvedilol*) 6.25 Mg Tablet, 6.25 MG GTB BID for 30 Days, TAB Prov:NATY PONCE MD 12/03/16 Follow-up Plan SNF Follow up with PCP, nephrology in 1-[address] chest in 3-6 months per PCP Pending Labs Laboratory Tests Test 12/03/16 16:20 12/04/16 11:34 Anion Gap 11 (8-16) 11 (8-16) Blood Urea Nitrogen 64mg/dl (7-20) 60mg/dl (7-20) Calcium Level 10.9mg/dl (8.4-10.2) 10.9mg/dl (8.4-10.2) Carbon Dioxide Level 28mmol/L (21-31) 28mmol/L (21-31) Chloride Level 97mmol/L (97-110) 98mmol/L (97-110) Creatinine 2.60mg/dl (0.44-1.00) 2.47mg/dl (0.44-1.00) Glucose Level 123mg/dl (70-220) 110mg/dl (70-220) Potassium Level 5.1mmol/L (3.5-5.1) 4.5mmol/L (3.5-5.1) Sodium Level 131mmol/L (135-144) 132mmol/L (135-144) NATY PONCE MD Dec 04, 2016 14:01
[2016-12-04 18:22] VITALS: BP 123/53; PULSE 73
[2016-12-04] MEDS: MONTELUKAST 10 MG TAB PO SCH (20:08)
[2016-12-04 20:15] VITALS: BP 164/80; PULSE 81
== END 2016-12-04 20:28 | DRG 193 ==
LOC: E/R 11:45 → MS2 14:00 → MS4 19:22 → PP2 11-25 15:41
PROVIDERS: ADMIT Family Medicine; ATTEND Family Medicine
PROC: 0DH63UZ Insertion of Feeding Device into Stomach, Percutaneous Approach (ICD-10-PCS; principal; 2016-11-23 11:00)
DX: J18.9 Pneumonia, unspecified organism (principal); I21.4 Non-ST elevation (NSTEMI) myocardial infarction; N17.0 Acute kidney failure with tubular necrosis; R65.20 Severe sepsis without septic shock; G92 Toxic encephalopathy; A41.9 Sepsis, unspecified organism; R13.10 Dysphagia, unspecified; I13.0 Hypertensive heart and chronic kidney disease with heart failure and stage 1 through stage 4 chronic kidney disease, or unspecified chronic kidney disease; I50.9 Heart failure, unspecified; N18.3 Chronic kidney disease, stage 3 (moderate); J98.11 Atelectasis; J69.0 Pneumonitis due to inhalation of food and vomit; D64.9 Anemia, unspecified; F03.90 Unspecified dementia, unspecified severity, without behavioral disturbance, psychotic disturbance, mood disturbance, and anxiety; Z74.01 Bed confinement status; J44.9 Chronic obstructive pulmonary disease, unspecified; K21.9 Gastro-esophageal reflux disease without esophagitis; E83.52 Hypercalcemia; E83.42 Hypomagnesemia; I48.91 Unspecified atrial fibrillation; I34.0 Nonrheumatic mitral (valve) insufficiency; E21.0 Primary hyperparathyroidism
CPT/HCPCS: 36415; 36600; 70450; 70551; 71010; 71250; 78070; 80048; 80053; 80202; 81001; 81003; 82043; 82306; 82550; 82553; 82565; 82652; 82728; 82803; 82962; 83540; 83605; 83735; 83970; 84100; 84155; 84300; 84443; 84484; 84520; 85025; 85610; 85730; 87040; 87081; 92526; 92610; 93005; 93306; 94640; 94664; 95819; 96374; 96375; J1940; A4310; A9500; J0360; J0690; J0692; J0744; J1644; J2270; J3370; J3475; J7042; J7050; J7070